=== PATIENT | female | born 1960 | race Caucasian/White ===

== ENCOUNTER → 2016-03-04 | Outpatient (CLI) | payer MEDICAID ==
[2016-03-04 08:06] LABS: APPEARANCE,URINE SLIGHTLY-CLOUDY; BILIRUBIN,URINE NEGATIVE (NEGATIVE); GLUCOSE, URINE NEGATIVE (NEGATIVE); KETONES,URINE NEGATIVE (NEGATIVE); LEUKOCYTE ESTERASE,URINE NEGATIVE (NEGATIVE); NITRITE,URINE NEGATIVE (NEGATIVE); PROTEIN,URINE NEGATIVE (NEGATIVE); URINE SPECIFIC GRAVITY 1.004; UROBILINOGEN,URINE NEGATIVE mg/dL (<2.0)
[2016-03-04 08:07] LABS: ABSOLUTE EOSINOPHILS # (AUTO) 0.1 10^3/uL (0.0-0.6); ABSOLUTE LYMPHOCYTES (AUTO) 1.1 10^3/uL (0.5-4.7); ABSOLUTE MONOCYTES (AUTO) 1.2 10^3/uL (0.1-1.4); ABSOLUTE NEUT (AUTO) 5.4 10^3/uL (1.7-8.2); BASOPHILS % (AUTO) 0.3 % (0-2); EOSINOPHILS % (AUTO) 1.7 % (0-6); HEMATOCRIT 37.5 % (36.0-47.0); HEMOGLOBIN 12.3 g/dL (12.0-15.5); HGB HCT DIFFERENCE -0.6; LYMPHOCYTES % (AUTO) 14.2 % (13-45); MEAN CORPUSCULAR HEMOGLOBIN 32.2 pg (27.0-33.4); MEAN CORPUSCULAR HGB CONC 32.8 g/dL (32.0-36.0); MEAN CORPUSCULAR VOLUME 98 fl (80-97); RED BLOOD COUNT 3.82 10^6/uL (3.72-5.28); RED CELL DISTRIBUTION WIDTH 18.6 % (11.5-14.0); SEGMENTED NEUTROPHILS % (AUTO) 68.8 % (42-78); WHITE BLOOD COUNT 7.8 10^3/uL (4.0-10.5)
[2016-03-04 08:35] LABS: ALANINE AMINOTRANSFERASE 15 U/L (9-52); ALBUMIN 4.2 g/dL (3.5-5.0); ALKALINE PHOSPHATASE 75 U/L (38-126); ANION GAP 12 (5-19); ASPARTATE AMINO TRANSFERASE 18 U/L (14-36); BILIRUBIN,TOTAL 0.4 mg/dL (0.2-1.3); BLOOD UREA NITROGEN 9 mg/dL (7-20); CALCIUM 9.4 mg/dL (8.4-10.2); CARBON DIOXIDE 25 mmol/L (22-30); CHLORIDE 99 mmol/L (98-107); CREATININE RESULT 0.38 mg/dL (0.52-1.25); GLUCOSE 87 mg/dL (75-110); POTASSIUM 4.3 mmol/L (3.6-5.0); SODIUM 136.2 mmol/L (137-145); TOTAL PROTEIN 7.6 g/dL (6.3-8.2)
[2016-03-05 08:20] LABS: CHOLESTEROL 200.31 mg/dL (0-200); Direct HDL 75 mg/dL (>40); TRIGLYCERIDES 242 mg/dL (<150)
[2016-03-05 08:30] LABS: DIRECT LDL 92 mg/dL (<100)
[2016-03-05 08:33] LABS: VLDL CHOLESTEROL 48.4 mg/dL (10-31)
== END ==
LOC: OD 07:03
DX: E46 Unspecified protein-calorie malnutrition (principal); J44.9 Chronic obstructive pulmonary disease, unspecified; C32.9 Malignant neoplasm of larynx, unspecified; F99 Mental disorder, not otherwise specified
CPT/HCPCS: 36415; 80053; 80061; 81001; 83036; 84443; 85025

== ENCOUNTER → 2016-03-05 | Outpatient (CLI) | payer MEDICAID ==
--- NOTE | 2016-03-05 15:05 | WOMENS IMAGING REPORT ---
EXAM DESCRIPTION: BONE DENSITY HIP/SPINE COMPLETED DATE/TIME: 03/05/2016 2:19 pm REASON FOR STUDY: E46 J44.9 C32.9 F99 E46 UNSPECIFIED PROTEIN-CALORIE MALNUTRITION COMPARISON: No previous TECHNIQUE: Dual-Energy X-ray Absorptiometry (DEXA) of the AP Spine and Hip. LIMITATIONS: None. FINDINGS: LUMBAR SPINE: The bone mineral density (BMD) measured from L1-L4 in the AP projection correlates with a T-score of -2.3, which is osteopenic as defined by the World Health Organization. HIP: The bone mineral density (BMD) measured in the left total hip correlates with a T-score of -2.4, which is borderline osteoporotic as defined by the World Health Organization. COMMENT: The World Health Organization defines low BMD as follows: T-score: Normal: Greater than -1.0 Osteopenia: Between -1.0 and -2.5 Osteoporosis: Less than -2.5 without fractures Established osteoporosis: Less than -2.5 with fractures In general, you may wish to consider: Diagnosis Treatment Follow-up DEXA Normal BMD Prevention 2-3 years Osteopenia Prevention/Therapy 1-2 years Osteoporosis Therapy Yearly TECHNICAL DOCUMENTATION: JOB ID: [id number] [employer]- All Rights Reserved <Electronicallly signed by HAILEY AMARO MD in [place]> 03/05/16 4238 [facility]
== END ==
LOC: WI 12:24
DX: M85.88 Other specified disorders of bone density and structure, other site (principal); E46 Unspecified protein-calorie malnutrition; J44.9 Chronic obstructive pulmonary disease, unspecified; C32.9 Malignant neoplasm of larynx, unspecified; F99 Mental disorder, not otherwise specified
CPT/HCPCS: 77080

== ENCOUNTER → 2016-04-10 | Outpatient (CLI) | payer MEDICAID | LOC: OD 12:45 | DX: D64.9 Anemia, unspecified (principal); E53.8 Deficiency of other specified B group vitamins | CPT/HCPCS: 36415; 82607; 82728; 82746; 83540; 83550; 85045 ==

== ENCOUNTER 2016-05-24 10:22 | Inpatient (IN) | payer MEDICAID ==
[2016-05-24] MEDS ORDERED: THIAMINE HCL 100 MG in NORMAL SALINE 50 ML IV ONE (10:38)
[2016-05-24] MEDS ORDERED: ONDANSETRON HCL INJ/PF 4 MG/2 ML SDV IV ONE (10:38)
--- NOTE | 2016-05-24 10:39 | ER Document Report ---
ED General - General Time seen by provider: 10:20 Mode of Arrival: Medic Information source: Patient TRAVEL OUTSIDE OF THE [place] IN LAST 30 DAYS: No <MARILYN DE JESUS - Last Filed: 05/24/16 19:41> <ANSHUL BRITTON - Last Filed: 05/24/16 23:10> - General Chief Complaint: Fall Stated Complaint: WEAKNESS Notes: 55-year-old female brought by EMS with report of fall. The patient states he did not lose consciousness but fell because she had been drinking alcohol. Patient reported EMS that she is had poor by mouth intake for the past week. Patient is prior history of throat cancer and had a PEG tube in but she says at some point recently that was removed. She says she has trouble eating solid food but is able to drink liquids without difficulty. She denies any loss of consciousness and denies any pain she could not indicate how much she had been drinking alcohol and when her last drink was. Physical Exam: General: Alert, appears nontoxic HEENT: Normocephalic. Atraumatic. PERRLA. Extraocular movements intact. Tympanic membranes and canals clear no otorhinorrhea Oropharynx clear. Neck: Supple. Non-tender. No adenopathy no JVD no carotid bruits Respiratory: No respiratory distress. Clear and equal breath sounds bilaterally. Cardiovascular: Regular rate and rhythm. PMI not displaced Abdominal: Normal Inspection. Soft, non-tender. No distension. Normal Bowel Sounds. Small incision in the left upper abdomen consistent with a healing PEG tube site no bleeding drainage or erythema in duration or swelling Back: Non-tender. No deformity or step off. Extremities: Good range of motion all joints without apparent discomfort no Homans sign bilaterally 2+ pulses all 4 extremities no edema no cyanosis Neurological: Patient somewhat slow to answer questions consistent with alcohol intoxication. Retail Sales Representative strength 5 out of 5 equal both upper strategies motor function 5 out of 5 equal both lower extremities cranial nerves III through XII intact Psychological: Normal affect. Normal Mood. Skin: Warm. Dry. Normal color. (MARILYN DE JESUS) - Related Data Allergies/Adverse Reactions: codeine [Codeine] Allergy (Severe, Verified 08/18/15 14:06) itching oxytetracycline [From Terramycin] Allergy (Severe, Verified 08/18/15 14:06) rash paliperidone [From Invega] Allergy (Intermediate, Verified 08/18/15 14:06) Hives fentanyl [Fentanyl] Allergy (Verified 08/18/15 14:06) Past Medical History - Social History Smoking Status: Current Every Day Smoker Family History: Other - Patient reports none Pulmonary Medical History: Reports: Hx Bronchitis, Hx COPD Neurological Medical History: Reports: Hx Seizures - Alcohol withdrawal seizures Psychiatric Medical History: Reports: Hx Bipolar Disorder, Hx Depression, Hx Schizophrenia - paraniod Past Surgical History: Reports: Hx Appendectomy, Hx Hysterectomy, Hx Tonsillectomy - Immunizations Immunizations up to date: Yes Hx Diphtheria, Pertussis, Tetanus Vaccination: Yes - unknown <MARILYN DE JESUS - Last Filed: 05/24/16 19:41> Review of Systems - Review of Systems Constitutional: denies: Chills, Fever EENT: denies: Ear pain, Throat pain, Mouth pain Cardiovascular: denies: Chest pain, Dyspnea Respiratory: denies: Cough, Short of breath, Wheezing Gastrointestinal: denies: Abdominal pain, Diarrhea, Nausea, Vomiting, Blood in vomit, Black stools, Rectal bleeding Genitourinary: denies: Burning, Dysuria Female Genitourinary: Post menopausal Musculoskeletal: denies: Back pain, Muscle pain, Leg swelling Skin: denies: Rash Hematologic/Lymphatic: denies: Swollen glands Neurological/Psychological: Weakness - Generalized. denies: Numbness <MARILYN DE JESUS - Last Filed: 05/24/16 19:41> Course - Laboratory Result Diagrams: 05/24/16 12:10 05/24/16 12:10 - Diagnostic Test Radiology reviewed: Image reviewed, Reports reviewed <MARILYN DE JESUS - Last Filed: 05/24/16 19:41> - Laboratory Result Diagrams: 05/24/16 12:10 05/24/16 20:25 - Diagnostic Test Radiology reviewed: Image reviewed, Reports reviewed <ANSHUL BRITTON - Last Filed: 05/24/16 23:10> - Re-evaluation Re-evalutation: 05/24/16 15:58 Patient evaluated approximately 1400 after being found on the floor. Patient did help back in the bed and this examiner she denies striking her head and has no complaints. Reexamination shows head to be atraumatic and she has good range of motion all joints without apparent discomfort 05/24/16 17:55 Reevaluation shows patient to be awake and alert planning of "pain all over". She denies suicidal or homicidal ideations and denies audiovisual hallucinations. She says she does not wish detox other than what she is already obtaining through follow-up at [facility] 05/24/16 19:41 Patient reevaluated with daughter. Daughter reports that the patient typically does not wish to drink alcohol when she is on her psychiatric medicines are Prozac Risperdal and Seroquel and she has those at home but does not take them when she drinks. She thinks patient's fall several times over the past week and at least 5 times yesterday. I long discussion with patient and daughter regarding the patient's current status. She is not suicidal or homicidal and alcohol abuse is not ground for involuntary commitment. I explained that the patient is choosing not to take her psychiatric medications and choosing to drink alcohol and that detox would be pointless unless she may choice to quit. Also counseled them that abrupt alcohol withdrawal without detox management can lead to delirium tremens and this is the rationale behind detox evaluations. I discussed the case with our mental health providers here and they provided list for outpatient detox facilities but states that they do not provide further assistance regarding placement for this. Daughter also expressed concern the patient not eating for 5 days. This is also not ground for admission to hospital. Patient the moment is still too intoxicated for discharge and she is unable to walk. Patient is also noted to be hypoxic and patient's oxygen nasal cannula at home but does not use it and I suspect this is her baseline but will check chest x-ray. (MARILYN DE JESUS) 05/24/16 20:00 Sign-out from Dr. De Jesus: 55 yo alcoholic found down after possible fall. Chest x-ray pending. 05/24/16 21:30 CXR shows new patchy infiltrate, concerning for pneumonia. Patient hypoxic to 80% on her 3 L nasal cannula that she should be on at home. She does not say that she is short of breath and is in no respiratory distress. Oxygenation increased to 6 L nasal cannula and sats increased to 88%, which is most likely her baseline due to her COPD. Patient is feeling tremulous and is tachycardic. She says she feels like she is going through withdrawal, which she has done before. CIWA 11 and will provide Ativan. Patient requires inpatient admission for the hypoxia, pneumonia and alcohol withdrawal. Pt's PMD is Dr. Gan. 05/24/16 23:[address] Begum and he has accepted patient to ICU. (ANSHUL BRITTON) - Vital Signs Vital signs: Temp Pulse Resp BP Pulse Ox 98.4 F 106 H 23 H 102/68 69 L 05/24/16 17:27 05/24/16 17:27 05/24/16 20:05 05/24/16 17:27 05/24/16 18:26 - Laboratory Laboratory results interpreted by me: 05/24/16 05/24/16 05/24/16 12:00 12:10 12:10 WBC 13.5 H RBC 3.42 L Hct 35.8 L MCV 105 H MCH 37.7 H RDW 14.5 H Plt Count 71 L Seg Neuts % (Manual) 96 H Band Neutrophils % 1 L Lymphocytes % (Manual) 2 L Monocytes % (Manual) 1 L Abs Neuts (Manual) 13.1 H Abs Lymphs (Manual) 0.3 L Carbonic Acid ABG pCO2 ABG pO2 ABG HCO3 ABG Total CO2 ABG O2 Saturation Sodium 125.6 L Potassium 3.1 L Chloride 90 L Carbon Dioxide 21 L BUN 4 L Creatinine 0.38 L Glucose 126 H Calcium 7.4 L Phosphorus Total Bilirubin 7.0 H Direct Bilirubin 6.0 H AST 1419 H ALT 361 H Alkaline Phosphatase 240 H Total Protein 6.2 L Albumin 3.2 L Lipase 445.2 H Urine Protein 30 H Urine Ketones TRACE H Urine Blood MODERATE H Urine Bilirubin SMALL H Urine Urobilinogen 2.0 H 05/24/16 05/24/16 05/24/16 20:25 20:25 22:30 WBC RBC Hct MCV MCH RDW Plt Count Seg Neuts % (Manual) Band Neutrophils % Lymphocytes % (Manual) Monocytes % (Manual) Abs Neuts (Manual) Abs Lymphs (Manual) Carbonic Acid 1.02 L ABG pCO2 34.0 L ABG pO2 39.4 L* ABG HCO3 19.2 L ABG Total CO2 20.2 L ABG O2 Saturation 73.2 L Sodium 124.0 L Potassium 3.1 L Chloride 93 L Carbon Dioxide 19 L BUN 3 L Creatinine 0.31 L Glucose 70 L Calcium 6.8 L* Phosphorus 1.9 L Total Bilirubin 7.9 H Direct Bilirubin 7.0 H AST 1426 H ALT 341 H Alkaline Phosphatase 226 H Total Protein 6.2 L Albumin 3.0 L Lipase Urine Protein Urine Ketones Urine Blood Urine Bilirubin Urine Urobilinogen - Diagnostic Test Radiology results interpreted by me: CXR: Patchy infiltrate (ANSHUL BRITTON) - EKG Interpretation by Me Additional EKG results interpreted by me: 05/24/16 11:01 EKG reviewed by myself sinus tachycardia 103 no acute changes (MARILYN DE JESUS) Discharge <MARILYN DE JESUS - Last Filed: 05/24/16 19:41> - Discharge Admitting Provider: [facility] Unit Admitted: ICU <ANSHUL BRITTON - Last Filed: 05/24/16 23:10> - Discharge Clinical Impression: Hypoxia Pneumonia Qualifiers: Pneumonia type: due to unspecified organism Laterality: unspecified laterality Lung location: unspecified part of lung Qualified Code(s): J18.9 - Pneumonia, unspecified organism Alcohol withdrawal Qualifiers: Complication of substance-induced condition: with delirium Qualified Code(s): F10.231 - Alcohol dependence with withdrawal delirium Condition: Stable Disposition: ADMITTED INPATIENT Referrals: JASSON LIMON MD [Primary Care Provider] - Follow up as needed
[2016-05-24] MEDS ORDERED: FOLIC ACID INJ 5 MG/1 ML 10 ML VIAL IV ONE (11:30)
[2016-05-24] MEDS ORDERED: THIAMINE HCL INJ 200 MG/2 ML VIAL ONE (12:21)
[2016-05-24 12:25] LABS: APPEARANCE,URINE SLIGHTLY-CLOUDY; BILIRUBIN,URINE SMALL (NEGATIVE); GLUCOSE, URINE NEGATIVE (NEGATIVE); KETONES,URINE TRACE mg/dL (NEGATIVE); LEUKOCYTE ESTERASE,URINE NEGATIVE (NEGATIVE); NITRITE,URINE NEGATIVE (NEGATIVE); PROTEIN,URINE 30 mg/dL (NEGATIVE); URINE SPECIFIC GRAVITY 1.011
[2016-05-24 12:25] LABS: HEMATOCRIT 35.8 % (36.0-47.0); HEMOGLOBIN 12.9 g/dL (12.0-15.5); HGB HCT DIFFERENCE 2.9; MEAN CORPUSCULAR HEMOGLOBIN 37.7 pg (27.0-33.4); MEAN CORPUSCULAR VOLUME 105 fl (80-97); RED BLOOD COUNT 3.42 10^6/uL (3.72-5.28); RED CELL DISTRIBUTION WIDTH 14.5 % (11.5-14.0); WHITE BLOOD COUNT 13.5 10^3/uL (4.0-10.5)
[2016-05-24] MEDS: NORMAL SALINE 1000 ML 1,000 ML IV PRN ×2 (12:34→15:13)
[2016-05-24 12:39] LABS: ALANINE AMINOTRANSFERASE 361 U/L (9-52); ALBUMIN 3.2 g/dL (3.5-5.0); ALCOHOL 278 mg/dL (NONE DETECTED); ALKALINE PHOSPHATASE 240 U/L (38-126); ANION GAP 15 (5-19); BLOOD UREA NITROGEN 4 mg/dL (7-20); CALCIUM 7.4 mg/dL (8.4-10.2); CARBON DIOXIDE 21 mmol/L (22-30); CHLORIDE 90 mmol/L (98-107); CREATININE RESULT 0.38 mg/dL (0.52-1.25); GLUCOSE 126 mg/dL (75-110); LIPASE 445.2 U/L (23-300); MAGNESIUM 1.6 mg/dL (1.6-2.3); SODIUM 125.6 mmol/L (137-145); TOTAL PROTEIN 6.2 g/dL (6.3-8.2)
[2016-05-24 12:46] LABS: ASPARTATE AMINO TRANSFERASE 1419 U/L (14-36)
[2016-05-24 12:49] LABS: BAND NEUTROPHILS % (MANUAL) 1 % (3-5); BASOPHILS % (MANUAL) 0 % (0-2); EOSINOPHILS % (MANUAL) 0 % (0-6); LYMPHOCYTES % (MANUAL) 2 % (13-45); TOTAL CELLS COUNTED 100
[2016-05-24 12:50] LABS: BURR CELLS 2+; OVALOCYTES SLIGHT; POIKILOCYTOSIS 2+; SCHISTOCYTES SLIGHT; TOXIC GRANULATION SLIGHT; TOXIC VACUOLATION PRESENT
[2016-05-24 12:57] LABS: POTASSIUM 3.1 mmol/L (3.6-5.0)
[2016-05-24] MEDS ORDERED: POTASSIUM CHLORIDE 10 MEQ TABLET.SA PO ONE (14:31)
[2016-05-24] MEDS: MAGNESIUM SULFATE/D5W 100 ML IV SCH ×2 (15:14→18:19)
[2016-05-24] MEDS ORDERED: POTASSI CL 20 MEQ/NS 1L 1,000 ML IV ONE (16:09)
--- NOTE | 2016-05-24 16:26 | EKG REPORT ---
SEVERITY:- ABNORMAL ECG - SINUS TACHYCARDIA PROLONGED QT INTERVAL : Confirmed by: Jared Steen MD 24-May-2016 16:26:18
[2016-05-24] MEDS ORDERED: IPRATROPIUM/ALBUTEROL 0.5-2.5 MG/3 ML AMPUL NEB ONE (18:31)
[2016-05-24] MEDS ORDERED: METHYLPREDNISOLONE INJ 125 MG/2 ML SDV IV ONE (18:49)
[2016-05-24 20:56] LABS: ALANINE AMINOTRANSFERASE 341 U/L (9-52); ALCOHOL 157 mg/dL (NONE DETECTED); ALKALINE PHOSPHATASE 226 U/L (38-126); ANION GAP 12 (5-19); BILIRUBIN,TOTAL 7.9 mg/dL (0.2-1.3); BLOOD UREA NITROGEN 3 mg/dL (7-20); CARBON DIOXIDE 19 mmol/L (22-30); CHLORIDE 93 mmol/L (98-107); CREATININE RESULT 0.31 mg/dL (0.52-1.25); GLUCOSE 70 mg/dL (75-110); POTASSIUM 3.1 mmol/L (3.6-5.0); TOTAL PROTEIN 6.2 g/dL (6.3-8.2)
[2016-05-24 21:02] LABS: ASPARTATE AMINO TRANSFERASE 1426 U/L (14-36)
[2016-05-24 21:04] LABS: CALCIUM 6.8 mg/dL (8.4-10.2)
[2016-05-24] MEDS ORDERED: LORAZEPAM INJ 2 MG/1 ML VIAL IV ONE (21:28)
[2016-05-24] MEDS ORDERED: CEFTRIAXONE INJ 1000 MG VIAL IV ONE (21:30)
[2016-05-24] MEDS ORDERED: CLINDAMYCIN 600 MG/D5W RTU 50 ML IV ONE (21:30)
[2016-05-24] MEDS ORDERED: AZITHROMYCIN INJ 500 MG VIAL IV ONE (21:30)
[2016-05-24] MEDS ORDERED: MAGNESIUM SULFATE/D5W 100 ML IV SCH (22:00)
[2016-05-24] MEDS ORDERED: HYDRALAZINE HCL INJ/PF 20 MG/1 ML SDV IV PRN (22:01)
[2016-05-24] MEDS ORDERED: ONDANSETRON HCL INJ/PF 4 MG/2 ML SDV IV PRN (22:03)
[2016-05-24] MEDS ORDERED: IPRATROPIUM/ALBUTEROL 0.5-2.5 MG/3 ML AMPUL NEB PRN (22:03)
[2016-05-24] MEDS ORDERED: THIAMINE HCL INJ 200 MG/2 ML VIAL IV PRN (22:26)
[2016-05-24] MEDS ORDERED: FOLIC ACID INJ 5 MG/1 ML 10 ML VIAL IV PRN (22:27)
[2016-05-24] MEDS ORDERED: CALCIUM GLUCONATE 2,000 MG in DEXTROSE 5%-WATER 100 ML IV ONE (22:31)
[2016-05-24] MEDS ORDERED: POTASSIUM PHOS,M-BASIC-D-BASIC 15 MMOL in NORMAL SALINE 250 ML IV ONE (22:32)
[2016-05-24] MEDS ORDERED: DEXTROSE 50%-WATER 25 GM/50 ML DISP.SYRIN IV PRN ×2 (22:35)
[2016-05-24] MEDS ORDERED: GLUCAGON,HUMAN RECOMB 1 MG INJ IM PRN (22:35)
[2016-05-24] MEDS ORDERED: DEXTROSE 40% GEL 15 GM TUBE PO PRN ×2 (22:35)
[2016-05-24] MEDS: PHOSPHORUS #1 250 MG TABLET PO SCH (22:45)
[2016-05-24 22:58] LABS: ARTERIAL BLOOD BASE EXCESS -5.3 mmol/L; ARTERIAL BLOOD O2 SATURATION 73.2 % (94-98)
[2016-05-24 23:19] LABS: URINE BARBITURATES SCREEN NEGATIVE; URINE METHADONE SCREEN NEGATIVE; URINE OPIATES LOW NEGATIVE; URINE PHENCYCLIDINE SCREEN NEGATIVE
[2016-05-24 23:25] LABS: ARTERIAL BLOOD BASE EXCESS -6.1 mmol/L; ARTERIAL BLOOD O2 SATURATION 96.1 % (94-98)
[2016-05-24] MEDS ORDERED: CALCIUM GLUCONATE 1000 MG/10 ML INJ IV PRN (23:25)
[2016-05-24] MEDS: NORMAL SALINE 1000 ML 1,000 ML IV SCH (23:40)
--- NOTE | 2016-05-24 23:54 | Operative Report ---
Operative Report DATE OF SURGERY: 05/24/16 PREOPERATIVE DIAGNOSIS: Alcohol withdrawal POSTOPERATIVE DIAGNOSIS: Same OPERATION: Placement of right femoral vein central venous access catheter using ultrasound guidance SURGEON: SERVANDO DESHPANDE ANESTHESIA: Local TISSUE REMOVED OR ALTERED: None COMPLICATIONS: none ESTIMATED BLOOD LOSS: D5 cc INTRAOPERATIVE FINDINGS: Below PROCEDURE: Informed consent was obtained. The patient was placed in Trendelenburg the right femoral area was shaved of hair prepped and draped in a sterile fashion. Surgical plan and surgical timeout discussed. The right neck was anesthetized with 1% lidocaine without epinephrine. Using the variable frequency linear transducer, real time, a 18-gauge needle and wire were threaded into the right femoral vein jugular vein. This required the use of a Glidewire The tract was dilated up, the dilator removed, and the triple- lumen central venous access catheter was threaded into the right femoral vein uneventfully to the hub. There was excellent aspiration and flush of saline through all 3 lumens. The catheter was affixed to the skin with a Biopatch and 2-0 silk suture; sterile dressing applied. The patient tolerated the procedure well. There were no complications.
[2016-05-25] MEDS ORDERED: CALCIUM GLUCONATE 1000 MG/10 ML INJ IV ONE ×2 (00:14→15:30)
[2016-05-25] MEDS: POTASSI CL 20 MEQ/50 ML RIDER 50 ML IV SCH ×6 (00:36→21:52)
[2016-05-25 00:51] LABS: ANION GAP 13 (5-19); BLOOD UREA NITROGEN 2 mg/dL (7-20); CARBON DIOXIDE 19 mmol/L (22-30); CHLORIDE 97 mmol/L (98-107); CREATININE RESULT 0.29 mg/dL (0.52-1.25); GLUCOSE 80 mg/dL (75-110); SODIUM 128.7 mmol/L (137-145)
[2016-05-25 01:06] LABS: CALCIUM 6.4 mg/dL (8.4-10.2); POTASSIUM 2.9 mmol/L (3.6-5.0)
[2016-05-25] MEDS: IPRATROPIUM/ALBUTEROL 0.5-2.5 MG/3 ML AMPUL NEB SCH ×4 (02:43→19:35)
[2016-05-25] MEDS: LORAZEPAM INJ 2 MG/1 ML VIAL IV PRN ×2 (03:05→07:47)
[2016-05-25] MEDS: NORMAL SALINE 1000 ML 1,000 ML IV SCH ×2 (05:38→12:18)
[2016-05-25] MEDS: HEPARIN SOD (PORCINE) 5,000 UNIT/ML 1 ML SYRINGE SUBCUT SCH ×3 (05:51→21:57)
[2016-05-25] MEDS: PHOSPHORUS #1 250 MG TABLET PO SCH ×4 (05:55→21:53)
[2016-05-25 06:20] LABS: HEMATOCRIT 31.1 % (36.0-47.0); MEAN CORPUSCULAR HEMOGLOBIN 37.2 pg (27.0-33.4); MEAN CORPUSCULAR HGB CONC 34.3 g/dL (32.0-36.0); MEAN CORPUSCULAR VOLUME 108 fl (80-97); RED BLOOD COUNT 2.87 10^6/uL (3.72-5.28); RED CELL DISTRIBUTION WIDTH 14.7 % (11.5-14.0); WHITE BLOOD COUNT 13.7 10^3/uL (4.0-10.5)
[2016-05-25 06:27] LABS: ALANINE AMINOTRANSFERASE 320 U/L (9-52); ALBUMIN 2.6 g/dL (3.5-5.0); ALKALINE PHOSPHATASE 257 U/L (38-126); ANION GAP 13 (5-19); BILIRUBIN,DIRECT 7.8 mg/dL (0.0-0.4); BILIRUBIN,TOTAL 8.8 mg/dL (0.2-1.3); BLOOD UREA NITROGEN 2 mg/dL (7-20); CARBON DIOXIDE 20 mmol/L (22-30); CHLORIDE 99 mmol/L (98-107); CREATININE RESULT 0.36 mg/dL (0.52-1.25); GLUCOSE 99 mg/dL (75-110); SODIUM 131.8 mmol/L (137-145); TOTAL PROTEIN 5.5 g/dL (6.3-8.2)
[2016-05-25] MEDS: CLINDAMYCIN 900 MG/D5W RTU 50 ML IV SCH ×3 (06:28→21:56)
[2016-05-25 06:37] LABS: ASPARTATE AMINO TRANSFERASE 1161 U/L (14-36)
[2016-05-25 06:55] LABS: TOTAL CELLS COUNTED 100
[2016-05-25 06:56] LABS: EOSINOPHILS % (MANUAL) 0 % (0-6); LYMPHOCYTES % (MANUAL) 0 % (13-45); TOXIC VACUOLATION PRESENT
[2016-05-25 06:57] LABS: ACANTHOCYTES SLIGHT; ANISOCYTOSIS SLIGHT; HYPOCHROMASIA 1+; POIKILOCYTOSIS 1+; POLYCHROMASIA SLIGHT; TARGET CELLS 1+
[2016-05-25 07:11] LABS: HEMOGLOBIN 10.7 g/dL (12.0-15.5)
[2016-05-25 07:13] LABS: BASOPHILS % (MANUAL) 0 % (0-2)
--- NOTE | 2016-05-25 07:21 | PDOC H&P ---
History of Present Illness Admission Date/PCP: 05/24/16 22:03 JASSON LIMON MD Patient complains of: Falls History of Present Illness: DEONTE CASTRO is a 55 year old female with a past medical history of tobacco dependence, schizophrenia, alcohol dependence with withdrawal seizure, status post radical neck dissection for throat cancer with PEG placement which is recently removed, she has subsequent difficulty eating with recurrent aspiration but tolerates alcohol, she is acutely intoxicated and history is provided by her daughter who states patient has not eaten in 5 days and had recurrent falls. In the emergency room she is also found to have hypoxia with aspiration pneumonia, hypo-natremia, hypokalemia, thrombocytopenia. She's referred to the hospitalist for admission. Past Medical History Pulmonary Medical History: Reports: Bronchitis, Chronic Obstructive Pulmonary Disease (COPD), Other - Recurrent aspiration Neurological Medical History: Reports: Seizures - Alcohol withdrawal seizures Malignancy Medical History: Reports: Other - Throat cancer Psychiatric Medical History: Reports: Bipolar Disorder, Depression, Schizoaffective Disorder Past Surgical History Past Surgical History: Reports: Appendectomy, Hysterectomy, Tonsillectomy, Other - Status post radical neck dissection for throat cancer Social History Information Source: [facility] Records Smoking Status: Current Every Day Smoker Cigarettes Packs Per Day: 2 Frequency of Alcohol Use: Heavy Hx Recreational Drug Use: No Drugs: None Hx Prescription Drug Abuse: No - Advance Directive Resuscitation Status: Full Code Family History Family History: Other - Unobtainable Parental Family History Reviewed: Yes Children Family History Reviewed: Yes Sibling(s) Family History Reviewed.: Yes Medication/Allergy Home Medications: Albuterol Sulfate [Ventolin Hfa] 2 puff IH Q4 PRN 07/19/15 Fluoxetine HCl [Prozac] 5 mg PO DAILY 07/19/15 Fluticasone Propionate [Flonase Nasal Hitchcock 50 Mcg/[place]itchcock 16 gm] 1 spray NASL DAILY 07/19/15 Fluticasone/Salmeterol [Advair 500-50 Diskus 14 Dose/Diskus] 1 inh IH Q12H 07/18 Metoclopramide HCl 10 mg PO Q6H PRN 07/19/15 Oxycodone HCl 10 mg PO Q4HP PRN 07/19/15 Trazodone HCl 150 mg PO QHS 07/19/15 Nicotine [Nicoderm 14 mg/24 Hr Transdermal Patch] 1 patch TD DAILY 08/21/15 Prochlorperazine Maleate 10 mg PO Q8H PRN 08/21/15 Risperidone 2 mg PO DAILY 08/21/15 Lansoprazole [Prevacid] 30 mg PO DAILY #30 capsule. 08/25/15 Allergies/Adverse Reactions: codeine [Codeine] Allergy (Severe, Verified 05/25/16 03:10) itching oxytetracycline [From Terramycin] Allergy (Severe, Verified 05/25/16 03:10) rash paliperidone [From Invega] Allergy (Intermediate, Verified 05/25/16 03:10) Hives fentanyl [Fentanyl] Allergy (Verified 05/25/16 03:10) Review of Systems ROS unobtainable: Due to mental status Physical Exam Vital Signs: Temp Pulse Resp BP Pulse Ox 99.2 F 117 H 25 H 95/59 L 94 05/25/16 04:30 05/25/16 06:29 05/25/16 06:29 05/25/16 06:29 05/25/16 06:00 Intake & Output 05/23/16 05/24/16 05/25/16 11:59 11:59 11:59 Output Total 1800 Balance -1800 Weight 52.4 kg General appearance: PRESENT: disheveled, severe distress, thin Head exam: PRESENT: atraumatic, normocephalic Eye exam: PRESENT: conjunctiva pink, EOMI, PERRLA. ABSENT: scleral icterus Ear exam: PRESENT: normal external ear exam Mouth exam: PRESENT: moist, tongue midline Teeth exam: PRESENT: poor dentation Neck exam: ABSENT: carotid bruit, JVD, lymphadenopathy, thyromegaly Respiratory exam: PRESENT: accessory muscle use, chest wall tenderness, crackles , prolonged expiratory phas, retraction, rhonchi, symmetrical, tachypnea, unlabored Cardiovascular exam: PRESENT: RRR. ABSENT: diastolic murmur, rubs, systolic murmur Pulses: PRESENT: normal dorsalis pedis pul Vascular exam: PRESENT: normal capillary refill GI/Abdominal exam: PRESENT: normal bowel sounds, soft. ABSENT: distended, guarding, mass, organolmegaly, rebound, tenderness Rectal exam: PRESENT: deferred Extremities exam: PRESENT: full ROM, tenderness - Ecchymosis and skin tears all 4 extremities of various stages of healing. ABSENT: calf tenderness, clubbing, pedal edema Musculoskeletal exam: PRESENT: other - Ecchymosis and skin tears various stages of healing Neurological exam: PRESENT: altered Psychiatric exam: PRESENT: agitated, anxious Skin exam: PRESENT: warm, other - Multiple areas of ecchymosis of various stage of healing. ABSENT: cyanosis, rash Results Laboratory Results: 05/24/16 05/24/16 05/25/16 22:30 23:13 00:17 Seg Neutrophils % Lymphocytes % Monocytes % Eosinophils % Basophils % Absolute Neutrophils Absolute Lymphocytes Absolute Monocytes Absolute Eosinophils Absolute Basophils Carbonic Acid 1.02 L 1.08 HCO3/H2CO3 Ratio 18:1 17:1 ABG pH 7.37 7.34 L ABG pCO2 34.0 L 35.9 ABG pO2 39.4 L* 86.4 ABG HCO3 19.2 L 18.9 L ABG O2 Saturation 73.2 L 96.1 ABG Base Excess -5.3 -6.1 FiO2 ROOM AIR 6L Sodium 128.7 L Potassium 2.9 L* Chloride 97 L Carbon Dioxide 19 L Anion Gap 13 BUN 2 L Creatinine 0.29 L Est GFR ( Amer) > 60 Est GFR (Non-Af Amer) > 60 Glucose 80 Calcium 6.4 L* 05/25/16 06:00 Seg Neutrophils % Not Reportable Lymphocytes % Not Reportable Monocytes % Not Reportable Eosinophils % Not Reportable Basophils % Not Reportable Absolute Neutrophils Not Reportable Absolute Lymphocytes Not Reportable Absolute Monocytes Not Reportable Absolute Eosinophils Not Reportable Absolute Basophils Not Reportable Carbonic Acid HCO3/H2CO3 Ratio ABG pH ABG pCO2 ABG pO2 ABG HCO3 ABG O2 Saturation ABG Base Excess FiO2 Sodium Potassium Chloride Carbon Dioxide Anion Gap BUN Creatinine Est GFR ( Amer) Est GFR (Non-Af Amer) Glucose Calcium Impressions: Cervical Spine CT 05/24/16 10:37 IMPRESSION: CHRONIC DEGENERATIVE CHANGES. 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 NO ACUTE FINDINGS. Head CT 05/24/16 10:37 IMPRESSION: NORMAL BRAIN CT WITHOUT CONTRAST. SINUS DISEASE. NO ACUTE TRAUMATIC FINDINGS. Chest X-Ray 05/24/16 18:31 IMPRESSION: UNDERLYING EMPHYSEMA WITH NEW PATCHY BIBASILAR AIRSPACE DISEASE SUSPICIOUS FOR SUPERIMPOSED PNEUMONIA. Assessment & Plan - Diagnosis (1) Pneumonia Qualifiers: Pneumonia type: due to unspecified organism Laterality: unspecified laterality Lung location: unspecified part of lung Qualified Code(s): J18.9 - Pneumonia, unspecified organism Is this a current diagnosis for this admission?: YesPlan: Strongly suggestive of aspiration given her history she receives supportive care , oxygen, albuterol Atrovent, clindamycin when necessary BiPAP, Nothing by mouth strongly consider replacement of PEG tube (2) Thrombocytopenia Is this a current diagnosis for this admission?: YesPlan: Likely secondary to alcohol repeat CBC for evaluation (3) Alcohol withdrawal Qualifiers: Complication of substance-induced condition: with delirium Qualified Code(s): F10.231 - Alcohol dependence with withdrawal delirium Is this a current diagnosis for this admission?: YesPlan: Thiamine, folate, Ativan and seizure precautions given history of severe withdrawal (4) Hypoxia Is this a current diagnosis for this admission?: YesPlan: Secondary to pneumonia please see #1 (5) Hypokalemia Is this a current diagnosis for this admission?: YesPlan: Replacement and reevaluation (6) Hypophosphatemia Is this a current diagnosis for this admission?: YesPlan: Severe malnutrition she is receiving supplemental IV phosphate will likely require [place] protein via PEG tube - Time Time Spent: 50 to 70 Minutes - Inpatient Certification Medical Necessity: Need Close Monitoring Due to Risk of Patient Decompensation
[2016-05-25] MEDS ORDERED: LORAZEPAM INJ 2 MG/1 ML VIAL IV PRN (09:46)
[2016-05-25] MEDS ORDERED: LORAZEPAM INJ 2 MG/1 ML VIAL ONE (09:49)
[2016-05-25] MEDS: DOCUSATE SODIUM 100 MG CAPSULE PO SCH ×2 (09:50→17:18)
[2016-05-25] MEDS: FLUOXETINE HCL 20 MG/5 ML UDCUP PO SCH (09:51)
[2016-05-25] MEDS: RISPERIDONE 1 MG TABLET PO SCH (09:51)
[2016-05-25] MEDS: FLUTICASONE NASAL SPRAY 50 MCG/SPRY 120 SPRAY/16 GM NASL SCH (09:52)
[2016-05-25] MEDS: NICOTINE 14 MG/24 HR PATCH.TD24 TD SCH (09:52)
[2016-05-25] MEDS: THIAMINE HCL 100 MG, FOLIC ACID 1 MG in NORMAL SALINE 50 ML IV SCH (09:52)
[2016-05-25] MEDS ORDERED: FLUOXETINE HCL PO SCH (10:00)
[2016-05-25] MEDS ORDERED: (PENDING PHARMACY ID) (Risperidone [Risperidone] 2 MG) PO SCH (10:00)
--- NOTE | 2016-05-25 10:21 | PDOC PROGRESS REPORT ---
Subjective Progress Note for:: 05/25/16 Subjective:: Patient is confused this morning. Physical Exam Vital Signs: Temp Pulse Resp BP Pulse Ox 99.5 F 113 H 23 H 99/78 L 93 05/25/16 08:00 05/25/16 08:00 05/25/16 08:00 05/25/16 08:00 05/25/16 08:00 Intake & Output 05/24/16 05/25/16 05/26/16 06:59 06:59 06:59 Output Total 1800 75 Balance -1800 -75 Weight 52.4 kg General appearance: PRESENT: mild distress Eye exam: PRESENT: conjunctiva pink, scleral icterus - Mild icterus Mouth exam: PRESENT: moist, tongue midline Neck exam: ABSENT: JVD Respiratory exam: PRESENT: clear to auscultation seven. ABSENT: rales, rhonchi, wheezes Cardiovascular exam: PRESENT: tachycardia. ABSENT: diastolic murmur, rubs, systolic murmur GI/Abdominal exam: PRESENT: normal bowel sounds, soft. ABSENT: distended, guarding, mass, organolmegaly, rebound, tenderness Extremities exam: ABSENT: calf tenderness, clubbing, pedal edema Neurological exam: PRESENT: altered Psychiatric exam: PRESENT: anxious Skin exam: PRESENT: other - Patient has some bruising present on bilateral legs. Results Laboratory Results: 05/25/16 06:00 05/25/16 06:00 05/24/16 05/24/16 05/25/16 22:30 23:13 00:17 WBC RBC Hgb Hct MCV MCH MCHC RDW Plt Count Seg Neutrophils % Lymphocytes % Monocytes % Eosinophils % Basophils % Absolute Neutrophils Absolute Lymphocytes Absolute Monocytes Absolute Eosinophils Absolute Basophils Carbonic Acid 1.02 L 1.08 HCO3/H2CO3 Ratio 18:1 17:1 ABG pH 7.37 7.34 L ABG pCO2 34.0 L 35.9 ABG pO2 39.4 L* 86.4 ABG HCO3 19.2 L 18.9 L ABG O2 Saturation 73.2 L 96.1 ABG Base Excess -5.3 -6.1 FiO2 ROOM AIR 6L Sodium 128.7 L Potassium 2.9 L* Chloride 97 L Carbon Dioxide 19 L Anion Gap 13 BUN 2 L Creatinine 0.29 L Est GFR ( Amer) > 60 Est GFR (Non-Af Amer) > 60 Glucose 80 Calcium 6.4 L* Total Bilirubin AST ALT Alkaline Phosphatase Total Protein Albumin 05/25/16 05/25/16 06:00 06:00 WBC 13.7 H RBC 2.87 L Hgb 10.7 L D Hct 31.1 L MCV 108 H MCH 37.2 H MCHC 34.3 RDW 14.7 H Plt Count 40 L Seg Neutrophils % Not Reportable Lymphocytes % Not Reportable Monocytes % Not Reportable Eosinophils % Not Reportable Basophils % Not Reportable Absolute Neutrophils Not Reportable Absolute Lymphocytes Not Reportable Absolute Monocytes Not Reportable Absolute Eosinophils Not Reportable Absolute Basophils Not Reportable Carbonic Acid HCO3/H2CO3 Ratio ABG pH ABG pCO2 ABG pO2 ABG HCO3 ABG O2 Saturation ABG Base Excess FiO2 Sodium 131.8 L Potassium 3.0 L* Chloride 99 Carbon Dioxide 20 L Anion Gap 13 BUN 2 L Creatinine 0.36 L Est GFR ( Amer) > 60 Est GFR (Non-Af Amer) > 60 Glucose 99 Calcium 7.0 L* Total Bilirubin 8.8 H AST 1161 H ALT 320 H Alkaline Phosphatase 257 H Total Protein 5.5 L Albumin 2.6 L Impressions: Cervical Spine CT 05/24/16 10:37 IMPRESSION: CHRONIC DEGENERATIVE CHANGES. 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 NO ACUTE FINDINGS. Head CT 05/24/16 10:37 IMPRESSION: NORMAL BRAIN CT WITHOUT CONTRAST. SINUS DISEASE. NO ACUTE TRAUMATIC FINDINGS. Chest X-Ray 05/24/16 18:31 IMPRESSION: UNDERLYING EMPHYSEMA WITH NEW PATCHY BIBASILAR AIRSPACE DISEASE SUSPICIOUS FOR SUPERIMPOSED PNEUMONIA. Assessment & Plan - Diagnosis (1) Hypoxia Is this a current diagnosis for this admission?: YesPlan: This is secondary to her aspiration pneumonia. We'll continue with oxygen and BiPAP as needed. (2) Pneumonia Qualifiers: Pneumonia type: due to unspecified organism Laterality: unspecified laterality Lung location: unspecified part of lung Qualified Code(s): J18.9 - Pneumonia, unspecified organism Is this a current diagnosis for this admission?: YesPlan: Patient has been started on clindamycin. The patient has aspiration pneumonia secondary to alcohol use. (3) Alcohol withdrawal Qualifiers: Complication of substance-induced condition: with delirium Qualified Code(s): F10.231 - Alcohol dependence with withdrawal delirium Is this a current diagnosis for this admission?: YesPlan: Continue with Ativan as needed. (4) Emphysema lung Is this a current diagnosis for this admission?: YesPlan: Continue with nebulizers, oxygen and BiPAP as needed. (5) Thrombocytopenia Is this a current diagnosis for this admission?: YesPlan: Most likely secondary to alcohol use. She has no evidence for active bleeding. (6) Elevated LFTs Is this a current diagnosis for this admission?: YesPlan: Most likely secondary to underlying liver disease however given the elevated direct bilirubin we will check abdominal ultrasound. (7) Bipolar 1 disorder Is this a current diagnosis for this admission?: YesPlan: Continue with Ativan as needed. - Time Time Spent with patient: 25-34 minutes - Inpatient Certification Medical Necessity: Need Close Monitoring Due to Risk of Patient Decompensation, Need for IV Antibiotics - Plan Summary Plan Summary: Patient needs close monitoring in the ICU given her risk of respiratory decompensation.
[2016-05-25] MEDS ORDERED: LORAZEPAM 24 MG/240 ML BAG IV ONE (10:52)
[2016-05-25] MEDS: LORAZEPAM 24 MG/ D5W 240 ML IV PRN ×2 (11:25→14:02)
[2016-05-25 12:52] LABS: ANION GAP 9 (5-19); BLOOD UREA NITROGEN 3 mg/dL (7-20); CARBON DIOXIDE 22 mmol/L (22-30); CHLORIDE 102 mmol/L (98-107); CREATININE RESULT 0.38 mg/dL (0.52-1.25); GLUCOSE 118 mg/dL (75-110); POTASSIUM 3.8 mmol/L (3.6-5.0); SODIUM 132.6 mmol/L (137-145)
[2016-05-25 13:05] LABS: CALCIUM 6.6 mg/dL (8.4-10.2)
[2016-05-25] MEDS ORDERED: GLUCAGON,HUMAN RECOMB 1 MG INJ SUBCUT PRN (17:25)
[2016-05-25] MEDS ORDERED: DEXTROSE 40% GEL 15 GM TUBE PO PRN (17:25)
[2016-05-25] MEDS ORDERED: DEXTROSE 50%-WATER 25 GM/50 ML DISP.SYRIN IV PRN ×2 (17:25)
[2016-05-25 18:06] LABS: ANION GAP 10 (5-19); BLOOD UREA NITROGEN 3 mg/dL (7-20); CARBON DIOXIDE 21 mmol/L (22-30); CHLORIDE 101 mmol/L (98-107); CREATININE RESULT 0.38 mg/dL (0.52-1.25); GLUCOSE 137 mg/dL (75-110); POTASSIUM 3.2 mmol/L (3.6-5.0)
[2016-05-25 18:18] LABS: CALCIUM 6.8 mg/dL (8.4-10.2)
[2016-05-25] MEDS ORDERED: NORMAL SALINE 1000 ML 500 ML IV ONE (18:44)
[2016-05-25] MEDS ORDERED: NORMAL SALINE 1000 ML 1,000 ML IV ONE (22:30)
[2016-05-26] MEDS: PHOSPHORUS #1 250 MG TABLET PO SCH ×6 (00:29→17:08)
[2016-05-26] MEDS: IPRATROPIUM/ALBUTEROL 0.5-2.5 MG/3 ML AMPUL NEB SCH ×4 (01:07→19:30)
[2016-05-26] MEDS: LORAZEPAM 24 MG/ D5W 240 ML IV PRN ×6 (01:47→23:32)
[2016-05-26 05:15] LABS: HEMATOCRIT 25.1 % (36.0-47.0); HEMOGLOBIN 8.9 g/dL (12.0-15.5); HGB HCT DIFFERENCE 1.6; MEAN CORPUSCULAR HEMOGLOBIN 37.6 pg (27.0-33.4); MEAN CORPUSCULAR HGB CONC 35.5 g/dL (32.0-36.0); MEAN CORPUSCULAR VOLUME 106 fl (80-97); RED BLOOD COUNT 2.38 10^6/uL (3.72-5.28); RED CELL DISTRIBUTION WIDTH 14.5 % (11.5-14.0); WHITE BLOOD COUNT 8.6 10^3/uL (4.0-10.5)
[2016-05-26] MEDS: CLINDAMYCIN 900 MG/D5W RTU 50 ML IV SCH ×3 (05:18→23:50)
[2016-05-26] MEDS: NORMAL SALINE 1000 ML 1,000 ML IV PRN ×3 (05:18→20:05)
[2016-05-26] MEDS: HEPARIN SOD (PORCINE) 5,000 UNIT/ML 1 ML SYRINGE SUBCUT SCH (05:18)
[2016-05-26 05:28] LABS: ALANINE AMINOTRANSFERASE 225 U/L (9-52); ALBUMIN 2.1 g/dL (3.5-5.0); ALKALINE PHOSPHATASE 209 U/L (38-126); ANION GAP 7 (5-19); ASPARTATE AMINO TRANSFERASE 598 U/L (14-36); BILIRUBIN,DIRECT 8.4 mg/dL (0.0-0.4); BILIRUBIN,TOTAL 9.4 mg/dL (0.2-1.3); BLOOD UREA NITROGEN 4 mg/dL (7-20); CARBON DIOXIDE 24 mmol/L (22-30); CHLORIDE 104 mmol/L (98-107); CREATININE RESULT 0.39 mg/dL (0.52-1.25); GLUCOSE 122 mg/dL (75-110); MAGNESIUM 1.6 mg/dL (1.6-2.3); POTASSIUM 3.1 mmol/L (3.6-5.0); SODIUM 135.1 mmol/L (137-145); TOTAL PROTEIN 4.8 g/dL (6.3-8.2)
[2016-05-26 05:35] LABS: BAND NEUTROPHILS % (MANUAL) 2 % (3-5); BASOPHILS % (MANUAL) 0 % (0-2); EOSINOPHILS % (MANUAL) 0 % (0-6); LYMPHOCYTES % (MANUAL) 6 % (13-45); TOTAL CELLS COUNTED 100
[2016-05-26 05:38] LABS: CALCIUM 5.8 mg/dL (8.4-10.2)
[2016-05-26 05:39] LABS: POIKILOCYTOSIS 2+; POLYCHROMASIA SLIGHT; TARGET CELLS 2+
[2016-05-26] MEDS ORDERED: CALCIUM GLUCONATE 1000 MG/10 ML INJ IV ONE (05:54)
[2016-05-26] MEDS ORDERED: POTASSI CL 20 MEQ/50 ML RIDER 40 MEQ/100 ML RTUPB IV ONE (05:54)
[2016-05-26] MEDS ORDERED: CALCIUM GLUCONATE 1,000 MG in DEXTROSE 5%-WATER 50 ML IV ONE (06:00)
[2016-05-26] MEDS: POTASSIUM CHLORIDE 20 MEQ/50 ML RTU IV SCH ×2 (06:38→08:34)
[2016-05-26] MEDS ORDERED: SUCCINYLCHOLINE CHLORIDE INJ 200 MG/10 ML VIAL ONE (07:48)
[2016-05-26] MEDS ORDERED: PHOSPHORUS #1 250 MG TABLET PO ONE (09:15)
--- NOTE | 2016-05-26 09:29 | PDOC PROGRESS REPORT ---
Subjective Progress Note for:: 05/26/16 Subjective:: Patient is confused this morning. The patient required an Ativan drip overnight but this has been decreased. Her blood pressure is slightly low but has been getting a fluid bolus. Physical Exam Vital Signs: Temp Pulse Resp BP Pulse Ox 97.4 F 99 18 101/70 91 L 05/26/16 08:00 05/26/16 08:38 05/26/16 06:00 05/26/16 05:58 05/26/16 06:00 Intake & Output 05/25/16 05/26/16 05/27/16 06:59 06:59 06:59 Intake Total 5896 Output Total 1800 3945 900 Balance -1800 1951 -900 Weight 52.4 kg 54.8 kg General appearance: PRESENT: no acute distress Eye exam: PRESENT: conjunctiva pink. ABSENT: scleral icterus Mouth exam: PRESENT: moist, tongue midline Neck exam: ABSENT: JVD Respiratory exam: PRESENT: rhonchi - Coarse rhonchi bilaterally.. ABSENT: rales , wheezes Cardiovascular exam: PRESENT: RRR. ABSENT: diastolic murmur, rubs, systolic murmur GI/Abdominal exam: PRESENT: normal bowel sounds, soft. ABSENT: distended, guarding, mass, organolmegaly, rebound, tenderness Extremities exam: ABSENT: calf tenderness, clubbing, pedal edema Neurological exam: PRESENT: altered. ABSENT: oriented to place, oriented to time, oriented to situation Psychiatric exam: PRESENT: flat affect Results Laboratory Results: 05/26/16 04:50 05/26/16 04:50 05/25/16 05/25/16 05/25/16 12:12 12:12 17:30 WBC RBC Hgb Hct MCV MCH MCHC RDW Plt Count Seg Neutrophils % Lymphocytes % Monocytes % Eosinophils % Basophils % Absolute Neutrophils Absolute Lymphocytes Absolute Monocytes Absolute Eosinophils Absolute Basophils Sodium 132.6 L 132.0 L Potassium 3.8 3.2 L Chloride 102 101 Carbon Dioxide 22 21 L Anion Gap 9 10 BUN 3 L 3 L Creatinine 0.38 L 0.38 L Est GFR ( Amer) > 60 > 60 Est GFR (Non-Af Amer) > 60 > 60 Glucose 118 H 137 H Calcium 6.6 L* 6.8 L* Magnesium Total Bilirubin AST ALT Alkaline Phosphatase Total Protein Albumin 2.4 L 05/26/16 05/26/1617 04:50 04:50 04:50 WBC 8.6 RBC 2.38 L Hgb 8.9 L Hct 25.1 L MCV 106 H MCH 37.6 H MCHC 35.5 RDW 14.5 H Plt Count 30 L* Seg Neutrophils % Not Reportable Lymphocytes % Not Reportable Monocytes % Not Reportable Eosinophils % Not Reportable Basophils % Not Reportable Absolute Neutrophils Not Reportable Absolute Lymphocytes Not Reportable Absolute Monocytes Not Reportable Absolute Eosinophils Not Reportable Absolute Basophils Not Reportable Sodium 135.1 L Potassium 3.1 L Chloride 104 Carbon Dioxide 24 Anion Gap 7 BUN 4 L Creatinine 0.39 L Est GFR ( Amer) > 60 Est GFR (Non-Af Amer) > 60 Glucose 122 H Calcium 5.8 L* Magnesium 1.6 Total Bilirubin 9.4 H AST 598 H ALT 225 H Alkaline Phosphatase 209 H Total Protein 4.8 L Albumin 2.1 L 2.1 L Impressions: Cervical Spine CT 05/24/16 10:37 IMPRESSION: CHRONIC DEGENERATIVE CHANGES. 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 NO ACUTE FINDINGS. Head CT 05/24/16 10:37 IMPRESSION: NORMAL BRAIN CT WITHOUT CONTRAST. SINUS DISEASE. NO ACUTE TRAUMATIC FINDINGS. Chest X-Ray 05/24/16 18:31 IMPRESSION: UNDERLYING EMPHYSEMA WITH NEW PATCHY BIBASILAR AIRSPACE DISEASE SUSPICIOUS FOR SUPERIMPOSED PNEUMONIA. Abdomen Ultrasound 05/25/16 00:00 IMPRESSION: Echogenic liver from diffuse hepatocellular disease. No masses. Color flow in the portal vein and hepatic veins. Minimal sludge in the gallbladder. No gallbladder wall thickening. Negative Montejo's sign. Assessment & Plan - Diagnosis (1) Hypoxia Is this a current diagnosis for this admission?: YesPlan: This is secondary to her aspiration pneumonia. We'll continue with oxygen and BiPAP as needed. We'll check an ABG this morning. (2) Pneumonia Qualifiers: Pneumonia type: due to unspecified organism Laterality: unspecified laterality Lung location: unspecified part of lung Qualified Code(s): J18.9 - Pneumonia, unspecified organism Is this a current diagnosis for this admission?: YesPlan: Patient is on clindamycin. The patient has aspiration pneumonia secondary to alcohol use. (3) Alcohol withdrawal Qualifiers: Complication of substance-induced condition: with delirium Qualified Code(s): F10.231 - Alcohol dependence with withdrawal delirium Is this a current diagnosis for this admission?: YesPlan: Continue with Ativan as needed. (4) Emphysema lung Is this a current diagnosis for this admission?: YesPlan: Continue with nebulizers, oxygen and BiPAP as needed. (5) Thrombocytopenia Is this a current diagnosis for this admission?: YesPlan: Most likely secondary to alcohol use. She has no evidence for active bleeding. Will stop her heparin since her platelets have decreased even more since yesterday. (6) Elevated LFTs Is this a current diagnosis for this admission?: YesPlan: Most likely secondary to underlying liver disease however given the elevated direct bilirubin, an ultrasound was done yesterday shows gallbladder sludge but no gallbladder wall thickening. (7) Bipolar 1 disorder Is this a current diagnosis for this admission?: YesPlan: Continue with Ativan as needed. - Time Time Spent with patient: 25-34 minutes - Inpatient Certification Medical Necessity: Need Close Monitoring Due to Risk of Patient Decompensation, Need for IV Antibiotics - Plan Summary Plan Summary: Because of hypotension and altered mental status she needs intensive care unit level care.
[2016-05-26 09:42] LABS: ARTERIAL BLOOD O2 SATURATION 93.9 % (94-98)
[2016-05-26] MEDS: THIAMINE HCL 100 MG, FOLIC ACID 1 MG in NORMAL SALINE 50 ML IV SCH (09:49)
[2016-05-26] MEDS: NICOTINE 14 MG/24 HR PATCH.TD24 TD SCH (09:52)
[2016-05-26] MEDS: FLUTICASONE NASAL SPRAY 50 MCG/SPRY 120 SPRAY/16 GM NASL SCH (09:53)
[2016-05-26] MEDS: DOCUSATE SODIUM 100 MG CAPSULE PO SCH ×2 (09:58→17:08)
[2016-05-26] MEDS: FLUOXETINE HCL 20 MG/5 ML UDCUP PO SCH (09:58)
--- NOTE | 2016-05-26 14:41 | Progress Note ---
Provider Note Provider Note: Notified by nursing staff of abnormal pupils. On exam the patient has anisocoria with the right greater than left. Patient is moving all 4 extremities. She is unable to cooperate for neurological exam because of delirium tremens and Ativan drip. We'll get a stat head CT to evaluate for the possibility of intracranial hemorrhage. Patient has had an episode of hypotension while hospitalized and also has had significant thrombocytopenia. Her heparin was stopped earlier today.
[2016-05-26 21:45] LABS: ARTERIAL BLOOD BASE EXCESS 4.4 mmol/L; ARTERIAL BLOOD O2 SATURATION 91.8 % (94-98)
[2016-05-26] MEDS ORDERED: PROPOFOL 100 ML IV ONE (22:16)
[2016-05-26] MEDS ORDERED: PROPOFOL INJ 200 MG/20 ML VIAL IV ONE (22:35)
[2016-05-26 23:02] LABS: ANION GAP 8 (5-19); CARBON DIOXIDE 27 mmol/L (22-30); CHLORIDE 99 mmol/L (98-107); CREATININE RESULT 0.28 mg/dL (0.52-1.25); GLUCOSE 121 mg/dL (75-110); PHOSPHORUS 0.6 mg/dL (2.5-4.5); SODIUM 133.6 mmol/L (137-145)
[2016-05-26] MEDS: PROPOFOL 100 ML IV PRN ×2 (23:12→23:33)
[2016-05-26 23:13] LABS: BLOOD UREA NITROGEN < 2 mg/dL (7-20)
[2016-05-26 23:18] LABS: CALCIUM 5.8 mg/dL (8.4-10.2); POTASSIUM 2.8 mmol/L (3.6-5.0)
[2016-05-26] MEDS ORDERED: CALCIUM GLUCONATE 1000 MG/10 ML INJ IV PRN (23:29)
[2016-05-26] MEDS ORDERED: CALCIUM GLUCONATE 2,000 MG in DEXTROSE 5%-WATER 100 ML IV ONE (23:30)
[2016-05-26] MEDS ORDERED: NOREPINEPHRINE BITARTRATE INJ/PF 4 MG/4 ML SDV IV ONE (23:38)
[2016-05-27] MEDS: PHOSPHORUS #1 250 MG TABLET PO SCH ×4 (00:08→17:09)
[2016-05-27] MEDS: POTASSIUM CHLORIDE 20 MEQ/50 ML RTU IV SCH ×3 (00:08→04:00)
[2016-05-27] MEDS: CLINDAMYCIN 900 MG/D5W RTU 50 ML IV SCH ×3 (01:30→17:09)
[2016-05-27] MEDS: PROPOFOL 100 ML IV PRN ×6 (01:31→23:35)
[2016-05-27] MEDS: LORAZEPAM 24 MG/ D5W 240 ML IV PRN ×11 (01:31→23:37)
[2016-05-27] MEDS: IPRATROPIUM/ALBUTEROL 0.5-2.5 MG/3 ML AMPUL NEB SCH ×4 (01:32→20:07)
[2016-05-27] MEDS: NORMAL SALINE 1000 ML 1,000 ML IV PRN ×3 (04:01→19:41)
[2016-05-27 06:34] LABS: ABSOLUTE MONOCYTES (AUTO) 0.2 10^3/uL (0.1-1.4); ABSOLUTE NEUT (AUTO) 5.8 10^3/uL (1.7-8.2); BASOPHILS % (AUTO) 0.1 % (0-2); EOSINOPHILS % (AUTO) 0.2 % (0-6); HEMATOCRIT 27.4 % (36.0-47.0); HEMOGLOBIN 9.7 g/dL (12.0-15.5); HGB HCT DIFFERENCE 1.7; LYMPHOCYTES % (AUTO) 14.1 % (13-45); MEAN CORPUSCULAR HEMOGLOBIN 37.6 pg (27.0-33.4); MEAN CORPUSCULAR HGB CONC 35.2 g/dL (32.0-36.0); MEAN CORPUSCULAR VOLUME 107 fl (80-97); MONOCYTES % (AUTO) 3.4 % (3-13); RED BLOOD COUNT 2.57 10^6/uL (3.72-5.28); RED CELL DISTRIBUTION WIDTH 14.8 % (11.5-14.0); SEGMENTED NEUTROPHILS % (AUTO) 82.2 % (42-78)
[2016-05-27 06:46] LABS: ALANINE AMINOTRANSFERASE 186 U/L (9-52); ALBUMIN 2.1 g/dL (3.5-5.0); ALKALINE PHOSPHATASE 239 U/L (38-126); ANION GAP 10 (5-19); ASPARTATE AMINO TRANSFERASE 317 U/L (14-36); BILIRUBIN,DIRECT 9.9 mg/dL (0.0-0.4); BILIRUBIN,TOTAL 10.8 mg/dL (0.2-1.3); CARBON DIOXIDE 24 mmol/L (22-30); CHLORIDE 102 mmol/L (98-107); CREATININE RESULT 0.28 mg/dL (0.52-1.25); GLUCOSE 154 mg/dL (75-110); MAGNESIUM 1.3 mg/dL (1.6-2.3); POTASSIUM 3.4 mmol/L (3.6-5.0); SODIUM 135.6 mmol/L (137-145); TOTAL PROTEIN 4.7 g/dL (6.3-8.2)
[2016-05-27 06:48] LABS: BLOOD UREA NITROGEN < 2 mg/dL (7-20)
[2016-05-27 07:06] LABS: CALCIUM 6.4 mg/dL (8.4-10.2)
--- NOTE | 2016-05-27 08:18 | PDOC CONSULTATION ---
Consultation Consult Date: 05/27/16 Attending physician:: SERVANDO WOO Consult reason:: resp failure History of Present Illness Admission Date/PCP: 05/24/16 22:03 JASSON LIMON MD History of Present Illness: All information from chart patient intubated DEONTE CASTRO is a 55 year old female with a past medical history of tobacco dependence, schizophrenia, alcohol dependence with withdrawal seizure, status post radical neck dissection for throat cancer with PEG placement which is recently removed, she has subsequent difficulty eating with recurrent aspiration but tolerates alcohol, she is acutely intoxicated and history is provided by her daughter who states patient has not eaten in 5 days and had recurrent falls. In the emergency room she is also found to have hypoxia with aspiration pneumonia, hypo-natremia, hypokalemia, thrombocytopenia. She's referred to the hospitalist for admission. Past Medical History Pulmonary Medical History: Reports: Bronchitis, Chronic Obstructive Pulmonary Disease (COPD), Other - Recurrent aspiration Neurological Medical History: Reports: Seizures - Alcohol withdrawal seizures Malignancy Medical History: Reports: Other - Throat cancer Psychiatric Medical History: Reports: Bipolar Disorder, Depression, Schizoaffective Disorder Past Surgical History Past Surgical History: Reports: Appendectomy, Hysterectomy, Tonsillectomy, Other - Status post radical neck dissection for throat cancer Social History Information Source[facility] Smoking Status: Current Every Day Smoker Cigarettes Packs Per Day: 2 Frequency of Alcohol Use: Heavy Hx Recreational Drug Use: No Drugs: None Hx Prescription Drug Abuse: No - Advance Directive Resuscitation Status: Full Code Family History Family History: Other - Unobtainable Parental Family History Reviewed: No Children Family History Reviewed: No Sibling(s) Family History Reviewed.: No Medication/Allergy Home Medications: Albuterol Sulfate [Proair HFA Inhalation Aerosol 8.5 gm MDI] 2 puff IH Q4HP PRN 05/25/16 Alendronate Sodium [Fosamax 70 mg Tablet] 70 mg PO RICKS 05/25/16 Calcium Carbonate [Calcium] 600 mg PO DAILY 05/25/16 Cyproheptadine HCl [Periactin 4 mg Tablet] 4 mg PO BID 05/25/16 Ergocalciferol (Vitamin D2) [Vitamin D2] 2,000 unit PO DAILY 05/25/16 Fluoxetine HCl [Prozac Soln 20 mg/5 ml Udcup] 5 ml PO DAILY 05/25/16 Fluticasone/Salmeterol [Advair 500-50 Diskus 14 Dose/Diskus] 1 puff IH BID 05/25 Lorazepam [Ativan 0.5 mg Tablet] 0.25 mg PO BIDP PRN 05/25/16 Omeprazole 40 mg PO DAILY 05/25/16 Prochlorperazine Maleate [Compazine 10 mg Tablet] 10 mg PO Q8HP PRN 05/25/16 Quetiapine Fumarate [Seroquel] 50 mg PO DAILY 05/25/16 Risperidone [Risperdal] 2 ml PO QAM 05/25/16 Solifenacin Succinate [Vesicare] 10 mg PO DAILY 05/25/16 Allergies/Adverse Reactions: codeine [Codeine] Allergy (Severe, Verified 05/25/16 03:10) itching oxytetracycline [From Terramycin] Allergy (Severe, Verified 05/25/16 03:10) rash paliperidone [From Invega] Allergy (Intermediate, Verified 05/25/16 03:10) Hives fentanyl [Fentanyl] Allergy (Verified 05/25/16 03:10) Review of Systems ROS unobtainable: Due to endotracheal tube Physical Exam Vital Signs: Temp Pulse Resp BP Pulse Ox 99.5 F 97 24 H 90/65 L 97 05/26/16 22:52 05/27/16 01:35 05/27/16 06:00 05/27/16 05:49 05/27/16 06:00 Intake & Output 05/26/16 05/27/16 05/28/16 06:59 06:59 06:59 Intake Total 8739 5924 Output Total 2378 8847 Balance 1950 - Weight 54.8 kg 53.9 kg General appearance: PRESENT: no acute distress, disheveled, thin Head exam: PRESENT: atraumatic, normocephalic Eye exam: PRESENT: conjunctiva pale, EOMI Mouth exam: PRESENT: other - ET tube Neck exam: ABSENT: carotid bruit, JVD, lymphadenopathy, thyromegaly Respiratory exam: PRESENT: decreased breath sounds, rales, rhonchi, symmetrical , unlabored Cardiovascular exam: PRESENT: RRR, +S1, +S2 Pulses: PRESENT: normal radial pulses GI/Abdominal exam: PRESENT: normal bowel sounds, soft. ABSENT: distended, guarding, mass, organolmegaly, rebound, tenderness Rectal exam: PRESENT: deferred Musculoskeletal exam: PRESENT: normal inspection Skin exam: PRESENT: dry, vesicles Results Laboratory Results: 05/27/16 06:15 05/27/16 06:15 05/26/16 05/26/16 05/26/16 09:20 21:30 22:25 WBC RBC Hgb Hct MCV MCH MCHC RDW Plt Count Seg Neutrophils % Lymphocytes % Monocytes % Eosinophils % Basophils % Absolute Neutrophils Absolute Lymphocytes Absolute Monocytes Absolute Eosinophils Absolute Basophils Carbonic Acid 0.92 L 0.90 L HCO3/H2CO3 Ratio 27:1 29:1 ABG pH 7.54 H 7.56 H ABG pCO2 30.5 L 29.9 L ABG pO2 60.2 L 52.5 L ABG HCO3 25.3 26.3 H ABG O2 Saturation 93.9 L 91.8 L ABG Base Excess 3.0 4.4 FiO2 4L 35% Sodium Potassium Chloride Carbon Dioxide Anion Gap BUN Creatinine Est GFR ( Amer) Est GFR (Non-Af Amer) Glucose Calcium Phosphorus Magnesium 1.3 L Total Bilirubin AST ALT Alkaline Phosphatase Total Protein Albumin 05/26/16 05/26/16 05/27/16 22:25 22:25 06:15 WBC 7.0 RBC 2.57 L Hgb 9.7 L Hct 27.4 L MCV 107 H MCH 37.6 H MCHC 35.2 RDW 14.8 H Plt Count 27 L* Seg Neutrophils % 82.2 H Lymphocytes % 14.1 Monocytes % 3.4 Eosinophils % 0.2 Basophils % 0.1 Absolute Neutrophils 5.8 Absolute Lymphocytes 1.0 Absolute Monocytes 0.2 Absolute Eosinophils 0.0 Absolute Basophils 0.0 Carbonic Acid HCO3/H2CO3 Ratio ABG pH ABG pCO2 ABG pO2 ABG HCO3 ABG O2 Saturation ABG Base Excess FiO2 Sodium 133.6 L Potassium 2.8 L* Chloride 99 Carbon Dioxide 27 Anion Gap 8 BUN < 2 L Creatinine 0.28 L Est GFR ( Amer) > 60 Est GFR (Non-Af Amer) > 60 Glucose 121 H Calcium 5.8 L* Phosphorus 0.6 L Magnesium Total Bilirubin AST ALT Alkaline Phosphatase Total Protein Albumin 2.2 L 05/27/16 06:15 WBC RBC Hgb Hct MCV MCH MCHC RDW Plt Count Seg Neutrophils % Lymphocytes % Monocytes % Eosinophils % Basophils % Absolute Neutrophils Absolute Lymphocytes Absolute Monocytes Absolute Eosinophils Absolute Basophils Carbonic Acid HCO3/H2CO3 Ratio ABG pH ABG pCO2 ABG pO2 ABG HCO3 ABG O2 Saturation ABG Base Excess FiO2 Sodium 135.6 L Potassium 3.4 L Chloride 102 Carbon Dioxide 24 Anion Gap 10 BUN < 2 L Creatinine 0.28 L Est GFR ( Amer) > 60 Est GFR (Non-Af Amer) > 60 Glucose 154 H Calcium 6.4 L* Phosphorus Magnesium 1.3 L Total Bilirubin 10.8 H AST 317 H ALT 186 H Alkaline Phosphatase 239 H Total Protein 4.7 L Albumin 2.1 L Impressions: Cervical Spine CT 05/24/16 10:37 IMPRESSION: CHRONIC DEGENERATIVE CHANGES. 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 NO ACUTE FINDINGS. Abdomen Ultrasound 05/25/16 00:00 IMPRESSION: Echogenic liver from diffuse hepatocellular disease. No masses. Color flow in the portal vein and hepatic veins. Minimal sludge in the gallbladder. No gallbladder wall thickening. Negative Montejo's sign. Head CT 05/26/16 00:00 IMPRESSION: Limited study. Motion artifact. No gross acute changes. Chest X-Ray 05/26/16 22:19 IMPRESSION: Left lower lobe pneumonia and small left pleural effusion. SUPPORT DEVICE(S) IN EXPECTED LOCATIONS. Assessment & Plan - Diagnosis (1) Emphysema lung Is this a current diagnosis for this admission?: YesPlan: bronchialator tx (2) Pneumonia Qualifiers: Pneumonia type: aspiration pneumonia Laterality: unspecified laterality Lung location: unspecified part of lung Qualified Code(s): J18.9 - Pneumonia, unspecified organism Is this a current diagnosis for this admission?: Yes (3) Dysphagia, oropharyngeal phase Is this a current diagnosis for this admission?: YesPlan: predisposal to aspiration - Time Critical Time spent with patient: 35 or more minutes
[2016-05-27 09:16] LABS: ARTERIAL BLOOD BASE EXCESS -0.4 mmol/L; ARTERIAL BLOOD O2 SATURATION 95.2 % (94-98)
[2016-05-27] MEDS: DEXTROSE 5%-WATER 250 ML with NOREPINEPHRINE BITARTRATE 4 MG IV PRN ×6 (09:45→23:35)
[2016-05-27] MEDS: FLUOXETINE HCL 20 MG/5 ML UDCUP PO SCH (10:18)
[2016-05-27] MEDS: NICOTINE 14 MG/24 HR PATCH.TD24 TD SCH (10:18)
[2016-05-27] MEDS: DOCUSATE SODIUM 100 MG CAPSULE PO SCH ×2 (10:19→17:09)
[2016-05-27] MEDS: THIAMINE HCL 100 MG, FOLIC ACID 1 MG in NORMAL SALINE 50 ML IV SCH (10:19)
[2016-05-27] MEDS: FLUTICASONE NASAL SPRAY 50 MCG/SPRY 120 SPRAY/16 GM NASL SCH (10:20)
--- NOTE | 2016-05-27 12:37 | PDOC PROGRESS REPORT ---
Subjective Progress Note for:: 05/27/16 Subjective:: Patient was intubated overnight for respiratory distress. She is sedated and intubated the time my exam.. Physical Exam Vital Signs: Temp Pulse Resp BP Pulse Ox 98.3 F 80 23 H 91/65 L 98 05/27/16 12:00 05/27/16 11:00 05/27/16 12:04 05/27/16 12:04 05/27/16 12:04 Intake & Output 05/26/16 05/27/16 05/28/16 06:59 06:59 06:59 Intake Total 5896 5975 Output Total 3946 6016 1205 Balance 1951 -50 -1205 Weight 54.8 kg 53.9 kg General appearance: PRESENT: thin Eye exam: PRESENT: conjunctiva pink, scleral icterus Mouth exam: PRESENT: moist, tongue midline, other - ET tube in place Neck exam: ABSENT: JVD Respiratory exam: PRESENT: rales - bibasilar rales. ABSENT: rhonchi, wheezes Cardiovascular exam: PRESENT: RRR. ABSENT: diastolic murmur, rubs, systolic murmur GI/Abdominal exam: PRESENT: normal bowel sounds, soft. ABSENT: distended, guarding, mass, organolmegaly, rebound, tenderness Extremities exam: ABSENT: calf tenderness, clubbing, pedal edema Neurological exam: PRESENT: other - Intubated and sedated Psychiatric exam: PRESENT: other - Unable to assess Results Laboratory Results: 05/27/16 06:15 05/27/16 06:15 05/26/16 05/26/16 05/26/16 21:30 22:25 22:25 WBC RBC Hgb Hct MCV MCH MCHC RDW Plt Count Seg Neutrophils % Lymphocytes % Monocytes % Eosinophils % Basophils % Absolute Neutrophils Absolute Lymphocytes Absolute Monocytes Absolute Eosinophils Absolute Basophils Carbonic Acid 0.90 L HCO3/H2CO3 Ratio 29:1 ABG pH 7.56 H ABG pCO2 29.9 L ABG pO2 52.5 L ABG HCO3 26.3 H ABG O2 Saturation 91.8 L ABG Base Excess 4.4 FiO2 35% Sodium 133.6 L Potassium 2.8 L* Chloride 99 Carbon Dioxide 27 Anion Gap 8 BUN < 2 L Creatinine 0.28 L Est GFR ( Amer) > 60 Est GFR (Non-Af Amer) > 60 Glucose 121 H Calcium 5.8 L* Phosphorus 0.6 L Magnesium 1.3 L Total Bilirubin AST ALT Alkaline Phosphatase Total Protein Albumin 05/26/16 05/27/16 05/27/16 22:25 06:15 06:15 WBC 7.0 RBC 2.57 L Hgb 9.7 L Hct 27.4 L MCV 107 H MCH 37.6 H MCHC 35.2 RDW 14.8 H Plt Count 27 L* Seg Neutrophils % 82.2 H Lymphocytes % 14.1 Monocytes % 3.4 Eosinophils % 0.2 Basophils % 0.1 Absolute Neutrophils 5.8 Absolute Lymphocytes 1.0 Absolute Monocytes 0.2 Absolute Eosinophils 0.0 Absolute Basophils 0.0 Carbonic Acid HCO3/H2CO3 Ratio ABG pH ABG pCO2 ABG pO2 ABG HCO3 ABG O2 Saturation ABG Base Excess FiO2 Sodium 135.6 L Potassium 3.4 L Chloride 102 Carbon Dioxide 24 Anion Gap 10 BUN < 2 L Creatinine 0.28 L Est GFR ( Amer) > 60 Est GFR (Non-Af Amer) > 60 Glucose 154 H Calcium 6.4 L* Phosphorus Magnesium 1.3 L Total Bilirubin 10.8 H AST 317 H ALT 186 H Alkaline Phosphatase 239 H Total Protein 4.7 L Albumin 2.2 L 2.1 L 05/27/16 08:03 WBC RBC Hgb Hct MCV MCH MCHC RDW Plt Count Seg Neutrophils % Lymphocytes % Monocytes % Eosinophils % Basophils % Absolute Neutrophils Absolute Lymphocytes Absolute Monocytes Absolute Eosinophils Absolute Basophils Carbonic Acid 1.08 HCO3/H2CO3 Ratio 21:1 ABG pH 7.44 ABG pCO2 35.8 ABG pO2 72.8 L ABG HCO3 23.6 ABG O2 Saturation 95.2 ABG Base Excess -0.4 FiO2 40% Sodium Potassium Chloride Carbon Dioxide Anion Gap BUN Creatinine Est GFR ( Amer) Est GFR (Non-Af Amer) Glucose Calcium Phosphorus Magnesium Total Bilirubin AST ALT Alkaline Phosphatase Total Protein Albumin Impressions: Cervical Spine CT 05/24/16 10:37 IMPRESSION: CHRONIC DEGENERATIVE CHANGES. 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 NO ACUTE FINDINGS. Abdomen Ultrasound 05/25/16 00:00 IMPRESSION: Echogenic liver from diffuse hepatocellular disease. No masses. Color flow in the portal vein and hepatic veins. Minimal sludge in the gallbladder. No gallbladder wall thickening. Negative Montejo's sign. Head CT 05/26/16 00:00 IMPRESSION: Limited study. Motion artifact. No gross acute changes. Chest X-Ray 05/26/16 22:19 IMPRESSION: Left lower lobe pneumonia and small left pleural effusion. SUPPORT DEVICE(S) IN EXPECTED LOCATIONS. Assessment & Plan - Diagnosis (1) Hypoxia Is this a current diagnosis for this admission?: YesPlan: This is secondary to her aspiration pneumonia. Patient required to be intubated overnight. Will consult pulmonary medicine. (2) Pneumonia Qualifiers: Pneumonia type: aspiration pneumonia Laterality: unspecified laterality Lung location: unspecified part of lung Qualified Code(s): J18.9 - Pneumonia, unspecified organism Is this a current diagnosis for this admission?: YesPlan: Patient is on clindamycin. The patient has aspiration pneumonia secondary to alcohol use. (3) Alcohol withdrawal Qualifiers: Complication of substance-induced condition: with delirium Qualified Code(s): F10.231 - Alcohol dependence with withdrawal delirium Is this a current diagnosis for this admission?: YesPlan: Continue with Ativan as needed. (4) Emphysema lung Is this a current diagnosis for this admission?: YesPlan: Continue with nebulizers, oxygen and ventilator. (5) Thrombocytopenia Is this a current diagnosis for this admission?: YesPlan: Most likely secondary to alcohol use. She has no evidence for active bleeding. Her heparin was stopped yesterday. (6) Elevated LFTs Is this a current diagnosis for this admission?: YesPlan: Most likely secondary to underlying liver disease however given the elevated direct bilirubin, an ultrasound was done which shows gallbladder sludge but no gallbladder wall thickening. (7) Bipolar 1 disorder Is this a current diagnosis for this admission?: YesPlan: Continue with Ativan as needed. - Time Time Spent with patient: 25-34 minutes - Inpatient Certification Medical Necessity: Need Close Monitoring Due to Risk of Patient Decompensation, Need for IV Antibiotics
[2016-05-27] MEDS ORDERED: NOREPINEPHRINE BITARTRATE INJ/PF 4 MG/4 ML SDV IV ONE (18:36)
[2016-05-27 19:57] LABS: PATH REVIEW PATHOLOGIST REVIEWED
[2016-05-28] MEDS: DEXTROSE 5%-WATER 250 ML with NOREPINEPHRINE BITARTRATE 4 MG IV PRN ×10 (00:41→23:01)
[2016-05-28] MEDS: IPRATROPIUM/ALBUTEROL 0.5-2.5 MG/3 ML AMPUL NEB SCH ×4 (02:04→20:08)
[2016-05-28] MEDS: CLINDAMYCIN 900 MG/D5W RTU 50 ML IV SCH ×3 (02:08→17:38)
[2016-05-28] MEDS: LORAZEPAM 24 MG/ D5W 240 ML IV PRN ×6 (02:09→23:01)
[2016-05-28] MEDS: NORMAL SALINE 1000 ML 1,000 ML IV PRN (02:10)
[2016-05-28] MEDS: PROPOFOL 100 ML IV PRN ×3 (04:24→19:57)
[2016-05-28 05:19] LABS: ARTERIAL BLOOD BASE EXCESS 1.6 mmol/L; ARTERIAL BLOOD O2 SATURATION 93.2 % (94-98)
[2016-05-28 05:42] LABS: ALANINE AMINOTRANSFERASE 158 U/L (9-52); ALBUMIN 2.1 g/dL (3.5-5.0); ALKALINE PHOSPHATASE 279 U/L (38-126); ANION GAP 9 (5-19); ASPARTATE AMINO TRANSFERASE 200 U/L (14-36); BILIRUBIN,DIRECT 8.7 mg/dL (0.0-0.4); BILIRUBIN,TOTAL 9.7 mg/dL (0.2-1.3); CARBON DIOXIDE 27 mmol/L (22-30); CHLORIDE 101 mmol/L (98-107); CREATININE RESULT 0.29 mg/dL (0.52-1.25); GLUCOSE 134 mg/dL (75-110); SODIUM 136.8 mmol/L (137-145); TOTAL PROTEIN 4.7 g/dL (6.3-8.2); TRIGLYCERIDES 157 mg/dL (<150)
[2016-05-28 05:46] LABS: ABSOLUTE EOSINOPHILS # (AUTO) 0.1 10^3/uL (0.0-0.6); ABSOLUTE LYMPHOCYTES (AUTO) 0.6 10^3/uL (0.5-4.7); ABSOLUTE MONOCYTES (AUTO) 0.5 10^3/uL (0.1-1.4); ABSOLUTE NEUT (AUTO) 5.2 10^3/uL (1.7-8.2); BASOPHILS % (AUTO) 0.2 % (0-2); EOSINOPHILS % (AUTO) 0.9 % (0-6); HEMATOCRIT 28.4 % (36.0-47.0); HEMOGLOBIN 9.8 g/dL (12.0-15.5); MEAN CORPUSCULAR HEMOGLOBIN 37.4 pg (27.0-33.4); MEAN CORPUSCULAR HGB CONC 34.5 g/dL (32.0-36.0); MEAN CORPUSCULAR VOLUME 109 fl (80-97); RED BLOOD COUNT 2.61 10^6/uL (3.72-5.28); RED CELL DISTRIBUTION WIDTH 14.8 % (11.5-14.0); SEGMENTED NEUTROPHILS % (AUTO) 80.9 % (42-78); WHITE BLOOD COUNT 6.4 10^3/uL (4.0-10.5)
[2016-05-28 06:04] LABS: BLOOD UREA NITROGEN < 2 mg/dL (7-20)
[2016-05-28 06:19] LABS: CALCIUM 5.7 mg/dL (8.4-10.2); POTASSIUM 2.5 mmol/L (3.6-5.0)
[2016-05-28] MEDS ORDERED: POTASSI CL 20 MEQ/50 ML RIDER 20 MEQ/50 ML RTUPB IV ONE (06:36)
[2016-05-28] MEDS ORDERED: CALCIUM GLUCONATE 1000 MG/10 ML INJ IV ONE ×2 (06:36→06:38)
[2016-05-28] MEDS ORDERED: MAGNESIUM SULFATE/D5W 1 GM/100 ML RTUPB IV ONE (06:36)
[2016-05-28] MEDS: MAGNESIUM SULFATE/D5W 1 GM/100 ML RTUPB IV SCH ×3 (07:21→09:08)
[2016-05-28] MEDS: CALCIUM GLUCONATE 1000 MG/10 ML INJ IV SCH ×2 (07:21→07:50)
[2016-05-28] MEDS: POTASSI CL 20 MEQ/50 ML RIDER 20 MEQ/50 ML RTUPB IV SCH ×3 (07:21→10:18)
--- NOTE | 2016-05-28 08:38 | PDOC PROGRESS REPORT ---
Subjective Progress Note for:: 05/28/16 Subjective:: Patient has had numerous loculated abnormalities reported by overnight physician. All of these have been addressed overnight. Patient remains hypotensive on Levophed drip. Unable to obtain history/review of systems secondary to sedated and intubated state. Physical Exam Vital Signs: Temp Pulse Resp BP Pulse Ox 98.8 F 85 16 102/75 97 05/28/16 04:00 05/28/16 02:00 05/28/16 08:04 05/28/16 08:04 05/28/16 08:04 Intake & Output 05/27/16 05/28/16 05/29/16 06:59 06:59 06:59 Intake Total 5947 7056 Output Total 6319 2996 Balance -50 -652 Weight 53.9 kg 53.8 kg GENERAL: Sedated/intubated HEENT: Conjunctiva clear, nonicteric, moist mucous membranes, no JVD, midline trachea RESPIRATORY: Clear to auscultation bilaterally, no wheezes, no rhonchi CARDIAC: Regular rate and rhythm, no murmurs/gallops/rubs ABDOMEN: Soft, nondistended, nontender, positive bowel sounds, no rebound, no guarding EXTREMETIES: No edema, cyanosis, clubbing NEUROLOGIC: Sedated SKIN: Fairly recent right carotid scar likely from recent neck dissection for throat cancer Results Laboratory Results: 05/28/16 05:00 05/28/16 05:00 05/26/16 05/27/16 05/28/16 04:50 08:03 05:00 WBC 8.6 RBC 2.38 L Hgb 8.9 L Hct 25.1 L MCV 106 H MCH 37.6 H MCHC 35.5 RDW 14.5 H Plt Count 30 L* Seg Neutrophils % Lymphocytes % Monocytes % Eosinophils % Basophils % Absolute Neutrophils Absolute Lymphocytes Absolute Monocytes Absolute Eosinophils Absolute Basophils Carbonic Acid 1.08 1.21 HCO3/H2CO3 Ratio 21:1 21:1 ABG pH 7.44 7.43 ABG pCO2 35.8 40.2 ABG pO2 72.8 L 64.5 L ABG HCO3 23.6 26.0 ABG O2 Saturation 95.2 93.2 L ABG Base Excess -0.4 1.6 FiO2 40% 40% Sodium Potassium Chloride Carbon Dioxide Anion Gap BUN Creatinine Est GFR ( Amer) Est GFR (Non-Af Amer) Glucose Calcium Magnesium Total Bilirubin AST ALT Alkaline Phosphatase Total Protein Albumin Triglycerides 05/28/16 05/28/16 05:00 05:00 WBC 6.4 RBC 2.61 L Hgb 9.8 L Hct 28.4 L MCV 109 H MCH 37.4 H MCHC 34.5 RDW 14.8 H Plt Count 24 L* Seg Neutrophils % 80.9 H Lymphocytes % 10.0 L Monocytes % 8.0 Eosinophils % 0.9 Basophils % 0.2 Absolute Neutrophils 5.2 Absolute Lymphocytes 0.6 Absolute Monocytes 0.5 Absolute Eosinophils 0.1 Absolute Basophils 0.0 Carbonic Acid HCO3/H2CO3 Ratio ABG pH ABG pCO2 ABG pO2 ABG HCO3 ABG O2 Saturation ABG Base Excess FiO2 Sodium 136.8 L Potassium 2.5 L* Chloride 101 Carbon Dioxide 27 Anion Gap 9 BUN < 2 L Creatinine 0.29 L Est GFR ( Amer) > 60 Est GFR (Non-Af Amer) > 60 Glucose 134 H Calcium 5.7 L* Magnesium 1.0 L* Total Bilirubin 9.7 H AST 200 H ALT 158 H Alkaline Phosphatase 279 H Total Protein 4.7 L Albumin 2.1 L Triglycerides 157 H Impressions: Cervical Spine CT 05/24/16 10:37 IMPRESSION: CHRONIC DEGENERATIVE CHANGES. 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 NO ACUTE FINDINGS. Abdomen Ultrasound 05/25/16 00:00 IMPRESSION: Echogenic liver from diffuse hepatocellular disease. No masses. Color flow in the portal vein and hepatic veins. Minimal sludge in the gallbladder. No gallbladder wall thickening. Negative Montejo's sign. Head CT 05/26/16 00:00 IMPRESSION: Limited study. Motion artifact. No gross acute changes. Chest X-Ray 05/28/16 06:00 IMPRESSION: Obstructive lung disease. Minimal persistent left basilar airspace disease. Endotracheal and nasogastric tubes in good positioning. Assessment & Plan - Diagnosis (1) Acute respiratory failure Is this a current diagnosis for this admission?: YesPlan: Continue mechanical ventilation. Dr. Hatch of pulmonary medicine managing. (2) Sepsis Is this a current diagnosis for this admission?: YesPlan: Patient remains on Levophed for hypotension. Continue IV clindamycin. Patient is now afebrile and has normal white blood count. (3) Pneumonia Qualifiers: Pneumonia type: aspiration pneumonia Laterality: unspecified laterality Lung location: unspecified part of lung Qualified Code(s): J18.9 - Pneumonia, unspecified organism Is this a current diagnosis for this admission?: YesPlan: Possible aspiration related with high probability of gram-negative and anaerobic organism. Continue IV clindamycin. Sputum and blood cultures negative. (4) Hypomagnesemia Is this a current diagnosis for this admission?: YesPlan: Continue to replace as needed. (5) Hypocalcemia Is this a current diagnosis for this admission?: YesPlan: Continue to replace as needed. (6) Throat cancer Is this a current diagnosis for this admission?: YesPlan: Patient has had fairly recent surgery for this. It looks like she has been followed by Dr. Chilel of oncology as an outpatient. (7) Alcohol withdrawal Qualifiers: Complication of substance-induced condition: with delirium Qualified Code(s): F10.231 - Alcohol dependence with withdrawal delirium Is this a current diagnosis for this admission?: YesPlan: Continue Ativan drip. Continue IV thiamine. (8) Bipolar 1 disorder Is this a current diagnosis for this admission?: Yes (9) Emphysema lung Is this a current diagnosis for this admission?: YesPlan: Continue scheduled and when necessary DuoNeb's. (10) Thrombocytopenia Is this a current diagnosis for this admission?: YesPlan: Likely secondary to alcohol abuse. (11) Elevated LFTs Is this a current diagnosis for this admission?: YesPlan: Likely secondary to alcohol abuse. Right upper quadrant ultrasound with no acute findings. (12) Hypokalemia Is this a current diagnosis for this admission?: YesPlan: Continue to replace as needed. (13) Tobacco abuse Is this a current diagnosis for this admission?: Yes (14) Malnutrition Is this a current diagnosis for this admission?: YesPlan: Likely secondary to alcohol abuse and malignancy. I will start patient on tube feeds as I don't think she is going to be off the ventilator anytime soon. (15) Anemia Is this a current diagnosis for this admission?: YesPlan: Likely secondary to alcohol abuse, malnutrition, malignancy. - Time Critical Time spent with patient: 35 or more minutes
[2016-05-28] MEDS: NICOTINE 14 MG/24 HR PATCH.TD24 TD SCH (09:11)
[2016-05-28] MEDS: FLUOXETINE HCL 20 MG/5 ML UDCUP PO SCH (09:12)
[2016-05-28] MEDS: RISPERIDONE 1 MG TABLET PO SCH (09:12)
[2016-05-28] MEDS: DOCUSATE SODIUM 100 MG CAPSULE PO SCH ×2 (09:12→17:40)
[2016-05-28] MEDS: POTASSI CL 20 MEQ/D5NS 1L 1,000 ML IV PRN ×2 (09:13→17:40)
[2016-05-28] MEDS: THIAMINE HCL 100 MG, FOLIC ACID 1 MG in NORMAL SALINE 50 ML IV SCH (09:19)
[2016-05-28] MEDS: FLUTICASONE NASAL SPRAY 50 MCG/SPRY 120 SPRAY/16 GM NASL SCH (09:19)
[2016-05-28 09:58] LABS: PROTHROMBIN TIME 14.4 SEC (11.4-15.4)
[2016-05-28 09:59] LABS: PARTIAL THROMBOPLASTIN TIME 29.3 SEC (23.5-35.8)
[2016-05-28 10:46] LABS: FOLATE 9.85 ng/mL (>2.76)
[2016-05-28] MEDS ORDERED: NORMAL SALINE 1000 ML 1,000 ML IV ONE (13:00)
[2016-05-28 16:30] LABS: MAGNESIUM 1.8 mg/dL (1.6-2.3); POTASSIUM 3.4 mmol/L (3.6-5.0)
[2016-05-28 18:17] LABS: ABSOLUTE EOSINOPHILS # (AUTO) 0.1 10^3/uL (0.0-0.6); ABSOLUTE LYMPHOCYTES (AUTO) 0.5 10^3/uL (0.5-4.7); ABSOLUTE MONOCYTES (AUTO) 0.5 10^3/uL (0.1-1.4); ABSOLUTE NEUT (AUTO) 3.9 10^3/uL (1.7-8.2); BASOPHILS % (AUTO) 0.2 % (0-2); EOSINOPHILS % (AUTO) 1.1 % (0-6); HEMATOCRIT 26.7 % (36.0-47.0); HEMOGLOBIN 9.1 g/dL (12.0-15.5); HGB HCT DIFFERENCE 0.6; LYMPHOCYTES % (AUTO) 10.8 % (13-45); MEAN CORPUSCULAR HEMOGLOBIN 37.2 pg (27.0-33.4); MEAN CORPUSCULAR HGB CONC 34.1 g/dL (32.0-36.0); MEAN CORPUSCULAR VOLUME 109 fl (80-97); MONOCYTES % (AUTO) 10.6 % (3-13); RED BLOOD COUNT 2.45 10^6/uL (3.72-5.28); RED CELL DISTRIBUTION WIDTH 14.7 % (11.5-14.0); SEGMENTED NEUTROPHILS % (AUTO) 77.3 % (42-78)
[2016-05-28 18:25] LABS: ANISOCYTOSIS SLIGHT; OVALOCYTES SLIGHT; POIKILOCYTOSIS 1+
[2016-05-28 18:28] LABS: TARGET CELLS 2+
--- NOTE | 2016-05-28 19:39 | PDOC PROGRESS REPORT ---
Subjective Progress Note for:: 05/28/16 Subjective:: intubated and sedated Physical Exam Vital Signs: Temp Pulse Resp BP Pulse Ox 98.8 F 85 16 102/75 97 05/28/16 04:00 05/28/16 02:00 05/28/16 08:04 05/28/16 08:04 05/28/16 08:04 Intake & Output 05/27/16 05/28/16 05/29/16 06:59 06:59 06:59 Intake Total 5959 7082 Output Total 6097 3785 Balance -50 -652 Weight 53.9 kg 53.8 kg General appearance: PRESENT: no acute distress, disheveled, obese Head exam: PRESENT: atraumatic, normocephalic Eye exam: PRESENT: conjunctiva pale, EOMI Mouth exam: PRESENT: dry mucosa, neck supple, other - ET tube Teeth exam: PRESENT: other Neck exam: ABSENT: carotid bruit, JVD, lymphadenopathy, thyromegaly Respiratory exam: PRESENT: decreased breath sounds, prolonged expiratory phas, rhonchi, symmetrical, unlabored Cardiovascular exam: PRESENT: RRR, +S1, +S2 Pulses: PRESENT: normal radial pulses GI/Abdominal exam: PRESENT: normal bowel sounds, soft. ABSENT: distended, guarding, mass, organolmegaly, rebound, tenderness Rectal exam: PRESENT: deferred Musculoskeletal exam: PRESENT: normal inspection Neurological exam: PRESENT: awake Skin exam: PRESENT: dry Results Laboratory Results: 05/28/16 05:00 05/28/16 05:00 05/26/16 05/27/16 05/28/16 04:50 08:03 05:00 WBC 8.6 RBC 2.38 L Hgb 8.9 L Hct 25.1 L MCV 106 H MCH 37.6 H MCHC 35.5 RDW 14.5 H Plt Count 30 L* Seg Neutrophils % Lymphocytes % Monocytes % Eosinophils % Basophils % Absolute Neutrophils Absolute Lymphocytes Absolute Monocytes Absolute Eosinophils Absolute Basophils Carbonic Acid 1.08 1.21 HCO3/H2CO3 Ratio 21:1 21:1 ABG pH 7.44 7.43 ABG pCO2 35.8 40.2 ABG pO2 72.8 L 64.5 L ABG HCO3 23.6 26.0 ABG O2 Saturation 95.2 93.2 L ABG Base Excess -0.4 1.6 FiO2 40% 40% Sodium Potassium Chloride Carbon Dioxide Anion Gap BUN Creatinine Est GFR ( Amer) Est GFR (Non-Af Amer) Glucose Calcium Magnesium Total Bilirubin AST ALT Alkaline Phosphatase Total Protein Albumin Triglycerides 05/28/16 05/28/16 05:00 05:00 WBC 6.4 RBC 2.61 L Hgb 9.8 L Hct 28.4 L MCV 109 H MCH 37.4 H MCHC 34.5 RDW 14.8 H Plt Count 24 L* Seg Neutrophils % 80.9 H Lymphocytes % 10.0 L Monocytes % 8.0 Eosinophils % 0.9 Basophils % 0.2 Absolute Neutrophils 5.2 Absolute Lymphocytes 0.6 Absolute Monocytes 0.5 Absolute Eosinophils 0.1 Absolute Basophils 0.0 Carbonic Acid HCO3/H2CO3 Ratio ABG pH ABG pCO2 ABG pO2 ABG HCO3 ABG O2 Saturation ABG Base Excess FiO2 Sodium 136.8 L Potassium 2.5 L* Chloride 101 Carbon Dioxide 27 Anion Gap 9 BUN < 2 L Creatinine 0.29 L Est GFR ( Amer) > 60 Est GFR (Non-Af Amer) > 60 Glucose 134 H Calcium 5.7 L* Magnesium 1.0 L* Total Bilirubin 9.7 H AST 200 H ALT 158 H Alkaline Phosphatase 279 H Total Protein 4.7 L Albumin 2.1 L Triglycerides 157 H Impressions: Cervical Spine CT 05/24/16 10:37 IMPRESSION: CHRONIC DEGENERATIVE CHANGES. 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 NO ACUTE FINDINGS. Abdomen Ultrasound 05/25/16 00:00 IMPRESSION: Echogenic liver from diffuse hepatocellular disease. No masses. Color flow in the portal vein and hepatic veins. Minimal sludge in the gallbladder. No gallbladder wall thickening. Negative Montejo's sign. Head CT 05/26/16 00:00 IMPRESSION: Limited study. Motion artifact. No gross acute changes. Chest X-Ray 05/28/16 06:00 IMPRESSION: Obstructive lung disease. Minimal persistent left basilar airspace disease. Endotracheal and nasogastric tubes in good positioning. Assessment & Plan - Diagnosis (1) Emphysema lung Is this a current diagnosis for this admission?: Yes (2) Pneumonia Qualifiers: Pneumonia type: aspiration pneumonia Laterality: unspecified laterality Lung location: unspecified part of lung Is this a current diagnosis for this admission?: Yes (3) Dysphagia, oropharyngeal phase Is this a current diagnosis for this admission?: Yes (4) Acute respiratory failure Is this a current diagnosis for this admission?: YesPlan: rr,min vol,fio2 airway pressures suggest extubation (5) Thrombocytopenia Is this a current diagnosis for this admission?: YesPlan: chronic alcohol abuse (6) Elevated LFTs Is this a current diagnosis for this admission?: YesPlan: hepato cellular and obstructive - Time Critical Time spent with patient: 35 or more minutes - 60 min extubation
[2016-05-29] MEDS: CLINDAMYCIN 900 MG/D5W RTU 50 ML IV SCH ×3 (02:31→17:15)
[2016-05-29] MEDS: POTASSI CL 20 MEQ/D5NS 1L 1,000 ML IV PRN ×2 (02:35→14:35)
[2016-05-29] MEDS: PROPOFOL 100 ML IV PRN ×3 (02:49→21:48)
[2016-05-29 03:33] LABS: HEMATOCRIT 24.9 % (36.0-47.0); HEMOGLOBIN 8.6 g/dL (12.0-15.5); HGB HCT DIFFERENCE 0.9; MEAN CORPUSCULAR HEMOGLOBIN 37.7 pg (27.0-33.4); MEAN CORPUSCULAR HGB CONC 34.6 g/dL (32.0-36.0); MEAN CORPUSCULAR VOLUME 109 fl (80-97); RED BLOOD COUNT 2.29 10^6/uL (3.72-5.28); RED CELL DISTRIBUTION WIDTH 15.1 % (11.5-14.0); WHITE BLOOD COUNT 6.2 10^3/uL (4.0-10.5)
[2016-05-29 03:38] LABS: BASOPHILS % (MANUAL) 0 % (0-2); EOSINOPHILS % (MANUAL) 2 % (0-6); LYMPHOCYTES % (MANUAL) 6 % (13-45); TOTAL CELLS COUNTED 100
[2016-05-29 03:39] LABS: ANISOCYTOSIS SLIGHT; POLYCHROMASIA SLIGHT; SCHISTOCYTES SLIGHT; TEAR DROP CELLS SLIGHT; TOXIC GRANULATION SLIGHT
[2016-05-29] MEDS: IPRATROPIUM/ALBUTEROL 0.5-2.5 MG/3 ML AMPUL NEB SCH ×4 (04:26→19:43)
[2016-05-29 04:56] LABS: ARTERIAL BLOOD BASE EXCESS 0.5 mmol/L; ARTERIAL BLOOD O2 SATURATION 96.4 % (94-98)
[2016-05-29 05:02] LABS: ABSOLUTE EOSINOPHILS # (AUTO) 0.1 10^3/uL (0.0-0.6); ABSOLUTE LYMPHOCYTES (AUTO) 0.7 10^3/uL (0.5-4.7); ABSOLUTE MONOCYTES (AUTO) 0.6 10^3/uL (0.1-1.4); ABSOLUTE NEUT (AUTO) 4.4 10^3/uL (1.7-8.2); BASOPHILS % (AUTO) 0.3 % (0-2); EOSINOPHILS % (AUTO) 1.3 % (0-6); HEMATOCRIT 24.4 % (36.0-47.0); HEMOGLOBIN 8.5 g/dL (12.0-15.5); HGB HCT DIFFERENCE 1.1; LYMPHOCYTES % (AUTO) 12.1 % (13-45); MEAN CORPUSCULAR HEMOGLOBIN 37.6 pg (27.0-33.4); MEAN CORPUSCULAR HGB CONC 34.8 g/dL (32.0-36.0); MEAN CORPUSCULAR VOLUME 108 fl (80-97); MONOCYTES % (AUTO) 10.5 % (3-13); RED BLOOD COUNT 2.26 10^6/uL (3.72-5.28); RED CELL DISTRIBUTION WIDTH 14.5 % (11.5-14.0); SEGMENTED NEUTROPHILS % (AUTO) 75.8 % (42-78); WHITE BLOOD COUNT 5.8 10^3/uL (4.0-10.5)
[2016-05-29] MEDS: DEXTROSE 5%-WATER 250 ML with NOREPINEPHRINE BITARTRATE 4 MG IV PRN ×8 (05:15→21:49)
[2016-05-29 05:23] LABS: ALANINE AMINOTRANSFERASE 128 U/L (9-52); ALBUMIN 2.2 g/dL (3.5-5.0); ALKALINE PHOSPHATASE 269 U/L (38-126); ANION GAP 9 (5-19); ASPARTATE AMINO TRANSFERASE 147 U/L (14-36); BILIRUBIN,DIRECT 7.8 mg/dL (0.0-0.4); BILIRUBIN,TOTAL 8.8 mg/dL (0.2-1.3); CARBON DIOXIDE 25 mmol/L (22-30); CHLORIDE 107 mmol/L (98-107); GLUCOSE 122 mg/dL (75-110); MAGNESIUM 1.7 mg/dL (1.6-2.3); PHOSPHORUS 3.3 mg/dL (2.5-4.5); POTASSIUM 3.3 mmol/L (3.6-5.0); SODIUM 140.7 mmol/L (137-145)
[2016-05-29 05:25] LABS: BLOOD UREA NITROGEN < 2 mg/dL (7-20)
[2016-05-29 05:30] LABS: CALCIUM 6.1 mg/dL (8.4-10.2)
[2016-05-29] MEDS: LORAZEPAM 24 MG/ D5W 240 ML IV PRN (07:46)
[2016-05-29] MEDS ORDERED: CALCIUM GLUCONATE 1,000 MG in DEXTROSE 5%-WATER 50 ML IV ONE (08:10)
[2016-05-29] MEDS: RISPERIDONE 1 MG TABLET PO SCH (09:28)
[2016-05-29] MEDS: DOCUSATE SODIUM 100 MG CAPSULE PO SCH ×2 (09:28→17:15)
[2016-05-29] MEDS: FLUTICASONE NASAL SPRAY 50 MCG/SPRY 120 SPRAY/16 GM NASL SCH (09:28)
[2016-05-29] MEDS: FLUOXETINE HCL 20 MG/5 ML UDCUP PO SCH (09:28)
[2016-05-29] MEDS: THIAMINE HCL 100 MG, FOLIC ACID 1 MG in NORMAL SALINE 50 ML IV SCH (09:29)
[2016-05-29] MEDS: NICOTINE 14 MG/24 HR PATCH.TD24 TD SCH (09:29)
[2016-05-29] MEDS: POTASSI CL 20 MEQ/50 ML RIDER 20 MEQ/50 ML RTUPB IV SCH ×2 (09:36→11:40)
[2016-05-29] MEDS ORDERED: CALCIUM GLUCONATE 1000 MG/10 ML INJ IV ONE (10:00)
[2016-05-29] MEDS ORDERED: NORMAL SALINE 1000 ML 1,000 ML IV ONE (12:00)
--- NOTE | 2016-05-29 14:53 | PDOC PROGRESS REPORT ---
Subjective Progress Note for:: 05/29/16 Subjective:: Patient remains hypotensive on Levophed. She has received numerous saline boluses to maintain blood pressure. She required platelet transfusion due to severe thrombocytopenia. I'm unable to obtain history from patient secondary to sedated/intubated state. Physical Exam Vital Signs: Temp Pulse Resp BP Pulse Ox 98.8 F 92 11 L 102/72 99 05/29/16 11:59 05/29/16 13:44 05/29/16 14:15 05/29/16 14:14 05/29/16 14:15 Intake & Output 05/28/16 05/29/16 05/30/16 06:59 06:59 06:59 Intake Total 7006 7154 Output Total 7660 4538 1225 Balance -652 2112 -1225 Weight 53.8 kg 58.9 kg GENERAL: Sedated/intubated HEENT: Conjunctiva clear, nonicteric, moist mucous membranes, no JVD, midline trachea RESPIRATORY: Clear to auscultation bilaterally, no wheezes, no rhonchi CARDIAC: Regular rate and rhythm, no murmurs/gallops/rubs ABDOMEN: Soft, nondistended, nontender, positive bowel sounds, no rebound, no guarding EXTREMETIES: No edema, cyanosis, clubbing NEUROLOGIC: Sedated SKIN: Fairly recent right carotid scar likely from recent neck dissection for throat cancer Results Laboratory Results: 05/29/16 04:35 05/29/16 04:35 05/28/16 05/28/16 05/28/16 05:00 15:55 17:45 WBC 5.0 RBC 2.45 L Hgb 9.1 L Hct 26.7 L MCV 109 H MCH 37.2 H MCHC 34.1 RDW 14.7 H Plt Count 18 L* Seg Neutrophils % 77.3 Lymphocytes % 10.8 L Monocytes % 10.6 Eosinophils % 1.1 Basophils % 0.2 Absolute Neutrophils 3.9 Absolute Lymphocytes 0.5 Absolute Monocytes 0.5 Absolute Eosinophils 0.1 Absolute Basophils 0.0 Carbonic Acid HCO3/H2CO3 Ratio ABG pH ABG pCO2 ABG pO2 ABG HCO3 ABG O2 Saturation ABG Base Excess FiO2 Sodium Potassium 3.4 L Chloride Carbon Dioxide Anion Gap BUN Creatinine Est GFR ( Amer) Est GFR (Non-Af Amer) Glucose Calcium Phosphorus Magnesium 1.8 Transferrin 97 L Total Bilirubin AST ALT Alkaline Phosphatase Total Protein Albumin Blood Type Antibody Screen 05/28/16 05/29/16 05/29/16 19:25 02:45 04:35 WBC 6.2 RBC 2.29 L Hgb 8.6 L Hct 24.9 L MCV 109 H MCH 37.7 H MCHC 34.6 RDW 15.1 H Plt Count 74 L D Seg Neutrophils % Not Reportable Lymphocytes % Not Reportable Monocytes % Not Reportable Eosinophils % Not Reportable Basophils % Not Reportable Absolute Neutrophils Not Reportable Absolute Lymphocytes Not Reportable Absolute Monocytes Not Reportable Absolute Eosinophils Not Reportable Absolute Basophils Not Reportable Carbonic Acid 1.33 HCO3/H2CO3 Ratio 19:1 ABG pH 7.38 ABG pCO2 44.3 ABG pO2 86.9 ABG HCO3 25.8 ABG O2 Saturation 96.4 ABG Base Excess 0.5 FiO2 40% Sodium Potassium Chloride Carbon Dioxide Anion Gap BUN Creatinine Est GFR ( Amer) Est GFR (Non-Af Amer) Glucose Calcium Phosphorus Magnesium Transferrin Total Bilirubin AST ALT Alkaline Phosphatase Total Protein Albumin Blood Type A POSITIVE Antibody Screen NEGATIVE 05/29/16 05/29/16 04:35 04:35 WBC 5.8 RBC 2.26 L Hgb 8.5 L Hct 24.4 L MCV 108 H MCH 37.6 H MCHC 34.8 RDW 14.5 H Plt Count 79 L Seg Neutrophils % 75.8 Lymphocytes % 12.1 L Monocytes % 10.5 Eosinophils % 1.3 Basophils % 0.3 Absolute Neutrophils 4.4 Absolute Lymphocytes 0.7 Absolute Monocytes 0.6 Absolute Eosinophils 0.1 Absolute Basophils 0.0 Carbonic Acid HCO3/H2CO3 Ratio ABG pH ABG pCO2 ABG pO2 ABG HCO3 ABG O2 Saturation ABG Base Excess FiO2 Sodium 140.7 Potassium 3.3 L Chloride 107 Carbon Dioxide 25 Anion Gap 9 BUN < 2 L Creatinine 0.30 L Est GFR ( Amer) > 60 Est GFR (Non-Af Amer) > 60 Glucose 122 H Calcium 6.1 L* Phosphorus 3.3 Magnesium 1.7 Transferrin Total Bilirubin 8.8 H AST 147 H ALT 128 H Alkaline Phosphatase 269 H Total Protein 5.0 L Albumin 2.2 L Blood Type Antibody Screen 05/26/16 22:30 Tracheal Aspirate Gram Stain - Final Impressions: Cervical Spine CT 05/24/16 10:37 IMPRESSION: CHRONIC DEGENERATIVE CHANGES. 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 NO ACUTE FINDINGS. Abdomen Ultrasound 05/25/16 00:00 IMPRESSION: Echogenic liver from diffuse hepatocellular disease. No masses. Color flow in the portal vein and hepatic veins. Minimal sludge in the gallbladder. No gallbladder wall thickening. Negative Montejo's sign. Head CT 05/26/16 00:00 IMPRESSION: Limited study. Motion artifact. No gross acute changes. Chest X-Ray 05/29/16 06:00 IMPRESSION: Stable including minimal left basilar opacity. Assessment & Plan - Diagnosis (1) Acute respiratory failure Is this a current diagnosis for this admission?: YesPlan: Continue mechanical ventilation. Dr. Hatch of pulmonary medicine managing. (2) Sepsis Is this a current diagnosis for this admission?: YesPlan: Patient remains on Levophed for hypotension. Continue IV clindamycin. Patient is now afebrile and has normal white blood count. (3) Pneumonia Qualifiers: Pneumonia type: aspiration pneumonia Laterality: unspecified laterality Lung location: unspecified part of lung Is this a current diagnosis for this admission?: YesPlan: Possible aspiration related with high probability of gram-negative and anaerobic organism. Continue IV clindamycin. Sputum and blood cultures negative. (4) Hypomagnesemia Is this a current diagnosis for this admission?: YesPlan: Continue to replace as needed. (5) Hypocalcemia Is this a current diagnosis for this admission?: YesPlan: Continue to replace as needed. (6) Throat cancer Is this a current diagnosis for this admission?: YesPlan: Patient has had fairly recent surgery for this. It looks like she has been followed by Dr. Chilel of oncology as an outpatient. (7) Alcohol withdrawal Qualifiers: Complication of substance-induced condition: with delirium Qualified Code(s): F10.231 - Alcohol dependence with withdrawal delirium Is this a current diagnosis for this admission?: YesPlan: Continue Ativan drip. Continue IV thiamine. (8) Bipolar 1 disorder Is this a current diagnosis for this admission?: Yes (9) Emphysema lung Is this a current diagnosis for this admission?: Yes (10) Thrombocytopenia Is this a current diagnosis for this admission?: YesPlan: Likely secondary to alcohol abuse. Transfused 2 units of platelets on 2016. (11) Elevated LFTs Is this a current diagnosis for this admission?: YesPlan: Likely secondary to alcohol abuse. Right upper quadrant ultrasound with no acute findings. (12) Hypokalemia Is this a current diagnosis for this admission?: YesPlan: Continue to replace as needed. (13) Tobacco abuse Is this a current diagnosis for this admission?: Yes (14) Malnutrition Is this a current diagnosis for this admission?: YesPlan: Likely secondary to alcohol abuse and malignancy. Continue tube feeds. (15) Anemia Is this a current diagnosis for this admission?: YesPlan: Likely secondary to alcohol abuse, malnutrition, malignancy. - Time Critical Time spent with patient: 35 or more minutes
[2016-05-30] MEDS: LORAZEPAM 24 MG/ D5W 240 ML IV PRN ×2 (00:14→12:18)
[2016-05-30] MEDS: POTASSI CL 20 MEQ/D5NS 1L 1,000 ML IV PRN (00:18)
[2016-05-30] MEDS: CLINDAMYCIN 900 MG/D5W RTU 50 ML IV SCH ×2 (02:01→09:53)
[2016-05-30] MEDS: IPRATROPIUM/ALBUTEROL 0.5-2.5 MG/3 ML AMPUL NEB SCH ×4 (02:13→20:03)
[2016-05-30] MEDS: DEXTROSE 5%-WATER 250 ML with NOREPINEPHRINE BITARTRATE 4 MG IV PRN ×6 (04:03→18:27)
[2016-05-30] MEDS: PROPOFOL 100 ML IV PRN ×3 (04:43→22:50)
[2016-05-30 05:51] LABS: ARTERIAL BLOOD BASE EXCESS -1.2 mmol/L; ARTERIAL BLOOD O2 SATURATION 95.8 % (94-98)
[2016-05-30 06:03] LABS: ALANINE AMINOTRANSFERASE 111 U/L (9-52); ALKALINE PHOSPHATASE 315 U/L (38-126); ANION GAP 6 (5-19); ASPARTATE AMINO TRANSFERASE 111 U/L (14-36); BILIRUBIN,DIRECT 6.2 mg/dL (0.0-0.4); CARBON DIOXIDE 25 mmol/L (22-30); CHLORIDE 107 mmol/L (98-107); CREATININE RESULT 0.38 mg/dL (0.52-1.25); GLUCOSE 126 mg/dL (75-110); MAGNESIUM 1.5 mg/dL (1.6-2.3); SODIUM 138.4 mmol/L (137-145); TOTAL PROTEIN 4.6 g/dL (6.3-8.2)
[2016-05-30 06:08] LABS: BLOOD UREA NITROGEN < 2 mg/dL (7-20)
[2016-05-30 06:10] LABS: CALCIUM 6.8 mg/dL (8.4-10.2)
[2016-05-30 06:19] LABS: HEMATOCRIT 23.7 % (36.0-47.0); HEMOGLOBIN 8.1 g/dL (12.0-15.5); HGB HCT DIFFERENCE 0.6; MEAN CORPUSCULAR HEMOGLOBIN 37.1 pg (27.0-33.4); MEAN CORPUSCULAR HGB CONC 34.1 g/dL (32.0-36.0); MEAN CORPUSCULAR VOLUME 109 fl (80-97); RED BLOOD COUNT 2.18 10^6/uL (3.72-5.28); RED CELL DISTRIBUTION WIDTH 15.3 % (11.5-14.0); WHITE BLOOD COUNT 4.7 10^3/uL (4.0-10.5)
[2016-05-30 06:43] LABS: BASOPHILS % (MANUAL) 0 % (0-2); EOSINOPHILS % (MANUAL) 1 % (0-6); LYMPHOCYTES % (MANUAL) 14 % (13-45); TOTAL CELLS COUNTED 100
[2016-05-30 06:45] LABS: ANISOCYTOSIS SLIGHT; POLYCHROMASIA SLIGHT; TOXIC GRANULATION SLIGHT
[2016-05-30] MEDS ORDERED: MAGNESIUM SULFATE/D5W 100 ML IV ONE (08:30)
[2016-05-30] MEDS: DOCUSATE SODIUM 100 MG CAPSULE PO SCH ×2 (09:54→17:27)
[2016-05-30] MEDS: NICOTINE 14 MG/24 HR PATCH.TD24 TD SCH (09:54)
[2016-05-30] MEDS: RISPERIDONE 1 MG TABLET PO SCH (09:54)
[2016-05-30] MEDS: FLUTICASONE NASAL SPRAY 50 MCG/SPRY 120 SPRAY/16 GM NASL SCH (09:55)
[2016-05-30] MEDS: FLUOXETINE HCL 20 MG/5 ML UDCUP PO SCH (09:56)
[2016-05-30] MEDS: DEXTROSE 5%-NORMAL SALINE 1,000 ML IV PRN (10:29)
--- NOTE | 2016-05-30 12:35 | PDOC PROGRESS REPORT ---
Subjective Progress Note for:: 05/30/16 Subjective:: Patient remains hypotensive on Levophed. I'm unable to obtain history from patient secondary to sedated/intubated state. Physical Exam Vital Signs: Temp Pulse Resp BP Pulse Ox 99.5 F 96 16 82/53 L 97 05/30/16 08:00 05/30/16 10:00 05/30/16 11:10 05/30/16 11:10 05/30/16 12:00 Intake & Output 05/29/16 05/30/16 05/31/16 06:59 06:59 06:59 Intake Total 7187 6623 30 Output Total 5075 3625 450 Balance 2112 2998 -420 Weight 58.9 kg 60.2 kg GENERAL: Sedated/intubated HEENT: Conjunctiva clear, nonicteric, moist mucous membranes, no JVD, midline trachea RESPIRATORY: Clear to auscultation bilaterally, no wheezes, no rhonchi CARDIAC: Regular rate and rhythm, no murmurs/gallops/rubs ABDOMEN: Soft, nondistended, nontender, positive bowel sounds, no rebound, no guarding EXTREMETIES: No edema, cyanosis, clubbing NEUROLOGIC: Sedated SKIN: Fairly recent right carotid scar likely from recent neck dissection for throat cancer Results Laboratory Results: 05/30/16 05:35 05/30/16 05:35 05/30/16 05/30/16 05/30/16 05:35 05:35 05:35 WBC 4.7 RBC 2.18 L Hgb 8.1 L Hct 23.7 L MCV 109 H MCH 37.1 H MCHC 34.1 RDW 15.3 H Plt Count 75 L Seg Neutrophils % Not Reportable Lymphocytes % Not Reportable Monocytes % Not Reportable Eosinophils % Not Reportable Basophils % Not Reportable Absolute Neutrophils Not Reportable Absolute Lymphocytes Not Reportable Absolute Monocytes Not Reportable Absolute Eosinophils Not Reportable Absolute Basophils Not Reportable Carbonic Acid 1.09 HCO3/H2CO3 Ratio 21:1 ABG pH 7.42 ABG pCO2 36.2 ABG pO2 77.9 L ABG HCO3 23.0 ABG O2 Saturation 95.8 ABG Base Excess -1.2 FiO2 35% Sodium 138.4 Potassium 4.0 Chloride 107 Carbon Dioxide 25 Anion Gap 6 BUN < 2 L Creatinine 0.38 L Est GFR ( Amer) > 60 Est GFR (Non-Af Amer) > 60 Glucose 126 H Calcium 6.8 L* Magnesium 1.5 L Total Bilirubin 7.0 H AST 111 H ALT 111 H Alkaline Phosphatase 315 H Total Protein 4.6 L Albumin 2.0 L 05/26/16 22:30 Tracheal Aspirate Gram Stain - Final 05/25/16 00:17 Blood Blood Culture - Final NO GROWTH IN 5 DAYS 05/24/16 22:30 Blood Blood Culture - Final NO GROWTH IN 5 DAYS Impressions: Cervical Spine CT 05/24/16 10:37 IMPRESSION: CHRONIC DEGENERATIVE CHANGES. 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 NO ACUTE FINDINGS. Abdomen Ultrasound 05/25/16 00:00 IMPRESSION: Echogenic liver from diffuse hepatocellular disease. No masses. Color flow in the portal vein and hepatic veins. Minimal sludge in the gallbladder. No gallbladder wall thickening. Negative Montejo's sign. Head CT 05/26/16 00:00 IMPRESSION: Limited study. Motion artifact. No gross acute changes. Chest/Abdomen CTA 05/29/16 00:00 IMPRESSION: Small to moderate bilateral lower lobar consolidation, left more than right consistent with pneumonia. Small moderate left pleural effusion. No pulmonary embolus. Moderate dilated cardiomyopathy pattern. Lines and tubes. Chest X-Ray 05/30/16 06:00 IMPRESSION: Stable. Assessment & Plan - Diagnosis (1) Shock Is this a current diagnosis for this admission?: YesPlan: Initially this was septic shock. This has now been addressed and patient remains hypotensive on pressors. She may have component of cardiogenic shock as well. We'll check echo and consult cardiology. (2) Acute respiratory failure Is this a current diagnosis for this admission?: YesPlan: Continue mechanical ventilation. Dr. Hatch of pulmonary medicine managing. (3) Sepsis Is this a current diagnosis for this admission?: YesPlan: Patient remains on Levophed for hypotension. Continue IV clindamycin. Patient is now afebrile and has normal white blood count. (4) Pneumonia Qualifiers: Pneumonia type: aspiration pneumonia Laterality: unspecified laterality Lung location: unspecified part of lung Is this a current diagnosis for this admission?: YesPlan: Possible aspiration related with high probability of gram-negative and anaerobic organism. Continue IV clindamycin. Sputum and blood cultures negative. (5) Hypomagnesemia Is this a current diagnosis for this admission?: Yes (6) Hypocalcemia Is this a current diagnosis for this admission?: Yes (7) Throat cancer Is this a current diagnosis for this admission?: YesPlan: Patient has had fairly recent surgery for this. It looks like she has been followed by Dr. Chilel of oncology as an outpatient. (8) Alcohol withdrawal Qualifiers: Complication of substance-induced condition: with delirium Qualified Code(s): F10.231 - Alcohol dependence with withdrawal delirium Is this a current diagnosis for this admission?: YesPlan: Continue Ativan drip. Continue IV thiamine. (9) Bipolar 1 disorder Is this a current diagnosis for this admission?: Yes (10) Emphysema lung Is this a current diagnosis for this admission?: YesPlan: Continue scheduled and when necessary DuoNeb's. (11) Thrombocytopenia Is this a current diagnosis for this admission?: Yes (12) Elevated LFTs Is this a current diagnosis for this admission?: Yes (13) Hypokalemia Is this a current diagnosis for this admission?: Yes (14) Tobacco abuse Is this a current diagnosis for this admission?: Yes (15) Malnutrition Is this a current diagnosis for this admission?: Yes (16) Anemia Is this a current diagnosis for this admission?: Yes - Time Critical Time spent with patient: 35 or more minutes
--- NOTE | 2016-05-30 12:42 | PDOC CONSULTATION ---
Consultation Consult Date: 05/30/16 Attending physician:: TENISHA KAMARA Consult reason:: Hypotension History of Present Illness Admission Date/PCP: 05/24/16 22:03 JASSON LIMON MD Patient complains of: Patient currently intubated and sedated. History of Present Illness: All information from chart as patient is intubated. Previous consultation report and admission reports were reviewed. In summary 55 year old female with a past medical history of tobacco dependence, schizophrenia, alcohol dependence with withdrawal seizure, status post radical neck dissection for throat cancer with PEG placement which is recently removed, she has subsequent difficulty eating with recurrent aspiration but tolerates alcohol, she is acutely intoxicated and history is provided by her daughter who states patient has not eaten in 5 days and had recurrent falls. In the emergency room she is also found to have hypoxia with aspiration pneumonia, hypo-natremia, hypokalemia, thrombocytopenia. Patient was initially diagnosed to have sepsis. She was treated as such. Patient still needing significant vasopressor support. There is some underlying concern about underlying cardiomyopathy and possible cardiac contribution to low blood pressure. I was asked to evaluate patient for this reason. Above history was confirmed reviewed and is agreed. I did not see any family member at bedside. Past Medical History Pulmonary Medical History: Reports: Bronchitis, Chronic Obstructive Pulmonary Disease (COPD), Other - Recurrent aspiration Neurological Medical History: Reports: Seizures - Alcohol withdrawal seizures Malignancy Medical History: Reports: Other - Throat cancer Psychiatric Medical History: Reports: Bipolar Disorder, Depression, Schizoaffective Disorder Past Surgical History Past Surgical History: Reports: Appendectomy, Hysterectomy, Tonsillectomy, Other - Status post radical neck dissection for throat cancer Social History Smoking Status: Current Every Day Smoker Cigarettes Packs Per Day: 2 Frequency of Alcohol Use: Heavy Hx Recreational Drug Use: No Drugs: None Hx Prescription Drug Abuse: No - Advance Directive Resuscitation Status: Full Code Family History Family History: Other - Unobtainable Parental Family History Reviewed: No Children Family History Reviewed: No Sibling(s) Family History Reviewed.: No Medication/Allergy Home Medications: Albuterol Sulfate [Proair HFA Inhalation Aerosol 8.5 gm MDI] 2 puff IH Q4HP PRN 05/25/16 Alendronate Sodium [Fosamax 70 mg Tablet] 70 mg PO RICKS 05/25/16 Calcium Carbonate [Calcium] 600 mg PO DAILY 05/25/16 Cyproheptadine HCl [Periactin 4 mg Tablet] 4 mg PO BID 05/25/16 Ergocalciferol (Vitamin D2) [Vitamin D2] 2,000 unit PO DAILY 05/25/16 Fluoxetine HCl [Prozac Soln 20 mg/5 ml Udcup] 5 ml PO DAILY 05/25/16 Fluticasone/Salmeterol [Advair 500-50 Diskus 14 Dose/Diskus] 1 puff IH BID 05/25 Lorazepam [Ativan 0.5 mg Tablet] 0.25 mg PO BIDP PRN 05/25/16 Omeprazole 40 mg PO DAILY 05/25/16 Prochlorperazine Maleate [Compazine 10 mg Tablet] 10 mg PO Q8HP PRN 05/25/16 Quetiapine Fumarate [Seroquel] 50 mg PO DAILY 05/25/16 Risperidone [Risperdal] 2 ml PO QAM 05/25/16 Solifenacin Succinate [Vesicare] 10 mg PO DAILY 05/25/16 Allergies/Adverse Reactions: codeine [Codeine] Allergy (Severe, Verified 05/25/16 03:10) itching oxytetracycline [From Terramycin] Allergy (Severe, Verified 05/25/16 03:10) rash paliperidone [From Invega] Allergy (Intermediate, Verified 05/25/16 03:10) Hives fentanyl [Fentanyl] Allergy (Verified 05/25/16 03:10) Review of Systems ROS unobtainable: Due to endotracheal tube - Cannot be obtained due to sedation and intubation Physical Exam Vital Signs: Temp Pulse Resp BP Pulse Ox 99.5 F 96 16 82/53 L 97 05/30/16 08:00 05/30/16 10:00 05/30/16 11:10 05/30/16 11:10 05/30/16 12:00 Intake & Output 05/29/16 05/30/16 05/31/16 06:59 06:59 06:59 Intake Total 9314 6606 30 Output Total 4079 6321 450 Balance 2112 2998 -420 Weight 58.9 kg 60.2 kg Exam: GENERAL: well-nourished and in no acute distress. Patient is intubated and sedated. Orientation cannot be checked HEAD: Atraumatic, normocephalic. EYES: Pupils equal round and reactive to light, extraocular movements could not be checked, sclera anicteric, conjunctiva are normal. ENT: TMs normal, nares patent, oropharynx clear without exudates. Moist mucous membranes. No oral ulcerations or bleeding gums noted NECK: supple without lymphadenopathy or JVD. Trachea is central. No cervical or axillary lymphadenopathy noted. Carotids are 2+ LUNGS: Breath sounds mostly clear to auscultation patient is noted to have bibasal crackles at the extreme bases, left more than right CHEST: Palpation of the chest wall shows no significant chest wall tenderness or abnormalities. HEART: [place] MATCH UP PERSON, No PSH, 2/6 MARK aortic area, 1/6 whitney systolic murmur mitral area , no rubs or gallops. ABDOMEN: Soft, mild abdominal distention. No significant tenderness appreciated , normoactive bowel sounds. No guarding, no rebound. No rigidity noted . No masses appreciated. EXTREMITIES: Pedal pulses are 1-2+, no calf tenderness noted, 1+ pedal edema noted. No clubbing or cyanosis. NEUROLOGICAL: The patient cannot participate in the neurological exam but no facial asymmetry noted. Extremities slightly hypotonic PSYCH: This cannot be evaluated. Patient cannot participate. SKIN: No significant ecchymosis, rash, or signs of pruritus noted. MUSCULOSKELETAL EXAM: No significant joint swelling noted. Patient cannot participate in musculoskeletal exam Results Laboratory Results: 05/30/16 05:35 05/30/16 05:35 05/30/16 05/30/16 05/30/16 05:35 05:35 05:35 WBC 4.7 RBC 2.18 L Hgb 8.1 L Hct 23.7 L MCV 109 H MCH 37.1 H MCHC 34.1 RDW 15.3 H Plt Count 75 L Seg Neutrophils % Not Reportable Lymphocytes % Not Reportable Monocytes % Not Reportable Eosinophils % Not Reportable Basophils % Not Reportable Absolute Neutrophils Not Reportable Absolute Lymphocytes Not Reportable Absolute Monocytes Not Reportable Absolute Eosinophils Not Reportable Absolute Basophils Not Reportable Carbonic Acid 1.09 HCO3/H2CO3 Ratio 21:1 ABG pH 7.42 ABG pCO2 36.2 ABG pO2 77.9 L ABG HCO3 23.0 ABG O2 Saturation 95.8 ABG Base Excess -1.2 FiO2 35% Sodium 138.4 Potassium 4.0 Chloride 107 Carbon Dioxide 25 Anion Gap 6 BUN < 2 L Creatinine 0.38 L Est GFR ( Amer) > 60 Est GFR (Non-Af Amer) > 60 Glucose 126 H Calcium 6.8 L* Magnesium 1.5 L Total Bilirubin 7.0 H AST 111 H ALT 111 H Alkaline Phosphatase 315 H Total Protein 4.6 L Albumin 2.0 L 05/26/16 22:30 Tracheal Aspirate Gram Stain - Final 05/25/16 00:17 Blood Blood Culture - Final NO GROWTH IN 5 DAYS 05/24/16 22:30 Blood Blood Culture - Final NO GROWTH IN 5 DAYS EKG Comments: Sinus rhythm, no acute ST-T wave changes noted. Impressions: Cervical Spine CT 05/24/16 10:37 IMPRESSION: CHRONIC DEGENERATIVE CHANGES. 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 NO ACUTE FINDINGS. Abdomen Ultrasound 05/25/16 00:00 IMPRESSION: Echogenic liver from diffuse hepatocellular disease. No masses. Color flow in the portal vein and hepatic veins. Minimal sludge in the gallbladder. No gallbladder wall thickening. Negative Montejo's sign. Head CT 05/26/16 00:00 IMPRESSION: Limited study. Motion artifact. No gross acute changes. Chest/Abdomen CTA 05/29/16 00:00 IMPRESSION: Small to moderate bilateral lower lobar consolidation, left more than right consistent with pneumonia. Small moderate left pleural effusion. No pulmonary embolus. Moderate dilated cardiomyopathy pattern. Lines and tubes. Chest X-Ray 05/30/16 06:00 IMPRESSION: Stable. Status: Imported from PACS Assessment & Plan - Diagnosis (1) Arterial hypotension Qualifiers: Hypotension type: unspecified hypotension type Qualified Code(s): I95.9 - Hypotension, unspecified Is this a current diagnosis for this admission?: Yes (2) Acute respiratory failure Qualifiers: Respiratory failure complication: hypoxia Qualified Code(s): J96.01 - Acute respiratory failure with hypoxia Is this a current diagnosis for this admission?: Yes (3) Emphysema lung Qualifiers: Emphysema type: unspecified Qualified Code(s): J43.9 - Emphysema, unspecified Is this a current diagnosis for this admission?: Yes (4) Pneumonia Qualifiers: Pneumonia type: aspiration pneumonia Laterality: unspecified laterality Lung location: unspecified part of lung Is this a current diagnosis for this admission?: Yes (5) Sepsis Qualifiers: Sepsis type: sepsis due to unspecified organism Qualified Code(s): A41.9 - Sepsis, unspecified organism Is this a current diagnosis for this admission?: Yes - Notes Notes: Arterial hypotension: Most likely related to underlying sepsis and possible vasomotor dysfunction secondary to sepsis and prolonged general debility, alcohol abuse etc. Will add Midodrin and gradually try to withdraw Levophed. Consider intermittent fluid boluses if needed. A 2-D echocardiogram will be obtained to rule out any cardiac contribution. Acute respiratory failure: Most likely related to underlying COPD, emphysema along with sepsis. Agree with ventilatory support and oxygenation. Emphysema of the lung: Patient has significant emphysema. Patient being followed by [facility]. Pneumonia: Bilateral, chest x-ray today shows increased left lung infiltrate. Continue antibiotic therapy. Sepsis: I'm told by the attending physician that this is under control but patient still hypotensive. Continue management plans as outlined. - Time Time Spent: 50 to 70 Minutes - CODE STATUS was discussed, patient remains full code. Surrogate decision-maker patient's daughter. Multiple medical problems were addressed.More than 50% of the time spent coordinating care, discussing management plans with involved caregivers. Management plans discussed with involved personnels. Medical decision making was of moderate to high complexity , patient's has multiple severe comorbidities. Medications reviewed and adjusted accordingly: Yes
--- NOTE | 2016-05-30 13:21 | XCELERA REPORT ---
[address] [address] Transthoracic Echocardiogram Report Name: DEONTE CASTRO Age: 55 yrs Gender: Female : 1960 Patient Status: Inpatient Patient Location: ICU\S\609\S\A Study Date: 05/30/2016 10:06 AM Height: 65 in Weight: 132 lb BSA: 1.7 m2 Procedure: A complete two-dimensional transthoracic echocardiogram was performed (2D, M-mode, spectral and color flow Doppler). The study was technically difficult with many images being suboptimal in quality. Reason For Study: hypotension, resp failure Ordering Physician: TENISHA KAMARA Performed By: Kandi Irvin Interpretation Summary The study was technically difficult with many images being suboptimal in quality. The left ventricular ejection fraction is preserved. There is normal left ventricular wall thickness. The left ventricle is grossly normal size. Doppler measurements suggest impaired left ventricular relaxation, which is associated with grade I/IV or mild diastolic dysfunction Wall motion cannot be accurately commented on, but no definite regional wall motion abnormalities noted. The right ventricle is mildly dilated. The right ventricular systolic function is normal. The left atrial size is normal. The right atrium is normal in size There is a trace amount of mitral regurgitation There is no mitral valve stenosis. There is no aortic valve stenosis No aortic regurgitation is present. There is a trace to mild amount of tricuspid regurgitation There is mild to moderate pulmonary hypertension by echo Right ventricular systolic pressure is estimated to be elevated at 40- 50mmHg. The aortic root is not well visualized. The inferior vena cava appeared normal and decreased < 50% with respiration (RAP 10-15 mmHg) Minimal pericardial effusion. MMode/2D Measurements \T\ Calculations RVDd: 2.9 cm LVIDd: 4.9 cm FS: 32.1 % Ao root diam: 2.9 cm IVSd: 0.73 cm LVIDs: 3.3 cm EDV(Teich): 110.8 ml LVPWd: 0.74 cm ESV(Teich): 44.3 ml Ao root area: 6.6 cm2 EF(Teich): 60.1 % LA dimension: 2.6 cm Doppler Measurements \T\ Calculations MV E max franny: MV P1/2t max franny: Ao V2 max: LV V1 max P.4 cm/sec 84.4 cm/sec 145.2 cm/sec 3.7 mmHg MV A max franny: MV P1/2t: 58.1 msec Ao max PG: LV V1 max: 92.3 cm/sec 8.4 mmHg 96.3 cm/sec MV E/A: 0.90 MVA(P1/2t): 3.8 cm2 MV dec slope: 425.6 cm/sec2 PA V2 max: TR max franny: 90.3 cm/sec 293.2 cm/sec PA max PG: TR max P.4 mmHg 3.3 mmHg Left Ventricle The left ventricle is grossly normal size. There is normal left ventricular wall thickness. The left ventricular ejection fraction is preserved. Doppler measurements suggest impaired left ventricular relaxation, which is associated with grade I/IV or mild diastolic dysfunction. Wall motion cannot be accurately commented on, but no definite regional wall motion abnormalities noted. Right Ventricle The right ventricle is mildly dilated. There is normal right ventricular wall thickness. The right ventricular systolic function is normal. Atria The right atrium is normal in size. The left atrial size is normal. Interarterial septum not well visualized and not well dopplered. Cannot comment on ASD/PFO presence. Mitral Valve The mitral valve leaflets are sclerotic, but show no functional abnormalities. There is no mitral valve stenosis. There is a trace amount of mitral regurgitation. Aortic Valve The aortic valve is not well visualized secondary to technical limitations. There is no aortic valve stenosis. No aortic regurgitation is present. Tricuspid Valve The tricuspid valve is not well visualized secondary to technical limitations. There is no tricuspid stenosis. There is a trace to mild amount of tricuspid regurgitation. There is mild to moderate pulmonary hypertension by echo. Right ventricular systolic pressure is estimated to be elevated at 40-50mmHg. Pulmonic Valve The pulmonic valve is not well visualized. Great Vessels The aortic root is not well visualized. The inferior vena cava appeared normal and decreased < 50% with respiration (RAP 10-15 mmHg). Effusions Minimal pericardial effusion. : TENISHA KAMARA > Martinez Caraballo
--- NOTE | 2016-05-30 14:33 | Progress Note ---
Provider Note Provider Note: ADDENDUM: Sputum with gram-negative rods. Patient remains hypotensive, low-grade temperature. Discontinue IV clindamycin. Start double gram-negative coverage with IV cefepime and IV Levaquin.
[2016-05-30] MEDS ORDERED: LEVOFLOXACIN 750 MG/D5W RTU 750 MG/150 ML RTUPB IV ONE (15:00)
[2016-05-30] MEDS: CEFEPIME 1 GM/D5W RTU 1 GM/50 ML RTUPB IV SCH (17:28)
[2016-05-30] MEDS: NORMAL SALINE 1000 ML 1,000 ML with POTASSIUM CHLORIDE 20 MEQ, MAGNESIUM SULFATE 8 MEQ,... IV PRN ×6 (18:28)
[2016-05-30] MEDS ORDERED: MIDODRINE HCL 5 MG TABLET PO ONE (19:30)
[2016-05-31] MEDS: LORAZEPAM 24 MG/ D5W 240 ML IV PRN ×2 (00:38→05:26)
[2016-05-31] MEDS: IPRATROPIUM/ALBUTEROL 0.5-2.5 MG/3 ML AMPUL NEB SCH ×4 (01:35→19:53)
[2016-05-31] MEDS: PROPOFOL 100 ML IV PRN ×4 (04:02→17:52)
[2016-05-31] MEDS: DEXTROSE 5%-NORMAL SALINE 1,000 ML IV PRN ×2 (04:03→23:06)
[2016-05-31 05:02] LABS: ARTERIAL BLOOD BASE EXCESS 1.7 mmol/L; ARTERIAL BLOOD O2 SATURATION 92.3 % (94-98)
[2016-05-31 05:07] LABS: HEMATOCRIT 21.3 % (36.0-47.0); HGB HCT DIFFERENCE 0.3; MEAN CORPUSCULAR HEMOGLOBIN 36.9 pg (27.0-33.4); MEAN CORPUSCULAR HGB CONC 33.6 g/dL (32.0-36.0); MEAN CORPUSCULAR VOLUME 110 fl (80-97); RED BLOOD COUNT 1.94 10^6/uL (3.72-5.28); RED CELL DISTRIBUTION WIDTH 15.3 % (11.5-14.0); WHITE BLOOD COUNT 3.6 10^3/uL (4.0-10.5)
[2016-05-31 05:13] LABS: HEMOGLOBIN 7.2 g/dL (12.0-15.5)
[2016-05-31 05:17] LABS: ALANINE AMINOTRANSFERASE 84 U/L (9-52); ALBUMIN 1.8 g/dL (3.5-5.0); ALKALINE PHOSPHATASE 323 U/L (38-126); ANION GAP 6 (5-19); ASPARTATE AMINO TRANSFERASE 94 U/L (14-36); BILIRUBIN,DIRECT 4.4 mg/dL (0.0-0.4); BILIRUBIN,TOTAL 5.2 mg/dL (0.2-1.3); BLOOD UREA NITROGEN 4 mg/dL (7-20); CALCIUM 7.6 mg/dL (8.4-10.2); CARBON DIOXIDE 25 mmol/L (22-30); CHLORIDE 107 mmol/L (98-107); CREATININE RESULT 0.36 mg/dL (0.52-1.25); GLUCOSE 119 mg/dL (75-110); POTASSIUM 4.1 mmol/L (3.6-5.0); SODIUM 137.7 mmol/L (137-145); TOTAL PROTEIN 4.2 g/dL (6.3-8.2); TRIGLYCERIDES 161 mg/dL (<150)
[2016-05-31 05:20] LABS: BASOPHILS % (MANUAL) 0 % (0-2); EOSINOPHILS % (MANUAL) 0 % (0-6); LYMPHOCYTES % (MANUAL) 20 % (13-45); TOTAL CELLS COUNTED 100
[2016-05-31 05:24] LABS: ANISOCYTOSIS 1+; TOXIC GRANULATION SLIGHT
[2016-05-31] MEDS: CEFEPIME 1 GM/D5W RTU 1 GM/50 ML RTUPB IV SCH (05:26)
[2016-05-31] MEDS ORDERED: NORMAL SALINE 250 ML IV PRN ×2 (07:40)
[2016-05-31] MEDS ORDERED: FUROSEMIDE INJ/PF 40 MG/4 ML SDV IV PRN (07:40)
[2016-05-31] MEDS: LEVOFLOXACIN 750 MG/D5W RTU 750 MG/150 ML RTUPB IV SCH (10:44)
[2016-05-31] MEDS: NICOTINE 14 MG/24 HR PATCH.TD24 TD SCH (10:44)
[2016-05-31] MEDS: FLUTICASONE NASAL SPRAY 50 MCG/SPRY 120 SPRAY/16 GM NASL SCH (10:44)
[2016-05-31] MEDS: FLUOXETINE HCL 20 MG/5 ML UDCUP PO SCH (10:45)
[2016-05-31] MEDS: RISPERIDONE 1 MG TABLET PO SCH (10:45)
[2016-05-31] MEDS: DOCUSATE SODIUM 100 MG CAPSULE PO SCH ×2 (10:50→17:47)
--- NOTE | 2016-05-31 11:31 | PDOC PROGRESS REPORT ---
Subjective Progress Note for:: 05/29/16 Subjective:: intubated and sedated Physical Exam Vital Signs: Temp Pulse Resp BP Pulse Ox 99.2 F 80 11 L 95/73 L 100 05/29/16 08:00 05/29/16 04:35 05/29/16 06:09 05/29/16 06:09 05/29/16 08:00 Intake & Output 05/28/16 05/29/16 05/30/16 06:59 06:59 06:59 Intake Total 7028 7187 Output Total 7680 5075 350 Balance -652 2112 -350 Weight 53.8 kg 58.9 kg General appearance: PRESENT: no acute distress, disheveled, obese Head exam: PRESENT: atraumatic, normocephalic Eye exam: PRESENT: conjunctiva pale Mouth exam: PRESENT: dry mucosa, neck supple, other - Endotracheal tube in place Neck exam: ABSENT: carotid bruit, JVD, lymphadenopathy, thyromegaly Respiratory exam: PRESENT: decreased breath sounds, prolonged expiratory phas, rhonchi, symmetrical, unlabored Cardiovascular exam: PRESENT: RRR, +S1, +S2 Pulses: PRESENT: normal radial pulses GI/Abdominal exam: PRESENT: normal bowel sounds, soft. ABSENT: distended, guarding, mass, organolmegaly, rebound, tenderness Rectal exam: PRESENT: deferred Gentrourinary exam: PRESENT: indwelling catheter Musculoskeletal exam: PRESENT: normal inspection Skin exam: PRESENT: dry, warm Results Laboratory Results: 05/29/16 04:35 05/29/16 04:35 05/28/16 05/28/16 05/28/16 05:00 05:00 05:00 WBC RBC Hgb Hct MCV MCH MCHC RDW Plt Count Seg Neutrophils % Lymphocytes % Monocytes % Eosinophils % Basophils % Absolute Neutrophils Absolute Lymphocytes Absolute Monocytes Absolute Eosinophils Absolute Basophils Retic Count (auto) 0.56 L Absolute Retic 0.015 L Carbonic Acid HCO3/H2CO3 Ratio ABG pH ABG pCO2 ABG pO2 ABG HCO3 ABG O2 Saturation ABG Base Excess FiO2 Sodium Potassium Chloride Carbon Dioxide Anion Gap BUN Creatinine Est GFR ( Amer) Est GFR (Non-Af Amer) Glucose Calcium Phosphorus Magnesium Iron 14.3 L TIBC 170 L % Saturation 8 Transferrin 97 L Ferritin 719.00 H Total Bilirubin AST ALT Alkaline Phosphatase Total Protein Albumin Vitamin B12 > 1000.0 H Folate 9.85 Blood Type Antibody Screen 05/28/16 05/28/16 05/28/16 15:55 17:45 19:25 WBC 5.0 RBC 2.45 L Hgb 9.1 L Hct 26.7 L MCV 109 H MCH 37.2 H MCHC 34.1 RDW 14.7 H Plt Count 18 L* Seg Neutrophils % 77.3 Lymphocytes % 10.8 L Monocytes % 10.6 Eosinophils % 1.1 Basophils % 0.2 Absolute Neutrophils 3.9 Absolute Lymphocytes 0.5 Absolute Monocytes 0.5 Absolute Eosinophils 0.1 Absolute Basophils 0.0 Retic Count (auto) Absolute Retic Carbonic Acid HCO3/H2CO3 Ratio ABG pH ABG pCO2 ABG pO2 ABG HCO3 ABG O2 Saturation ABG Base Excess FiO2 Sodium Potassium 3.4 L Chloride Carbon Dioxide Anion Gap BUN Creatinine Est GFR ( Amer) Est GFR (Non-Af Amer) Glucose Calcium Phosphorus Magnesium 1.8 Iron TIBC % Saturation Transferrin Ferritin Total Bilirubin AST ALT Alkaline Phosphatase Total Protein Albumin Vitamin B12 Folate Blood Type A POSITIVE Antibody Screen NEGATIVE 05/29/16 05/29/16 05/29/16 02:45 04:35 04:35 WBC 6.2 5.8 RBC 2.29 L 2.26 L Hgb 8.6 L 8.5 L Hct 24.9 L 24.4 L MCV 109 H 108 H MCH 37.7 H 37.6 H MCHC 34.6 34.8 RDW 15.1 H 14.5 H Plt Count 74 L D 79 L Seg Neutrophils % Not Reportable 75.8 Lymphocytes % Not Reportable 12.1 L Monocytes % Not Reportable 10.5 Eosinophils % Not Reportable 1.3 Basophils % Not Reportable 0.3 Absolute Neutrophils Not Reportable 4.4 Absolute Lymphocytes Not Reportable 0.7 Absolute Monocytes Not Reportable 0.6 Absolute Eosinophils Not Reportable 0.1 Absolute Basophils Not Reportable 0.0 Retic Count (auto) Absolute Retic Carbonic Acid 1.33 HCO3/H2CO3 Ratio 19:1 ABG pH 7.38 ABG pCO2 44.3 ABG pO2 86.9 ABG HCO3 25.8 ABG O2 Saturation 96.4 ABG Base Excess 0.5 FiO2 40% Sodium Potassium Chloride Carbon Dioxide Anion Gap BUN Creatinine Est GFR ( Amer) Est GFR (Non-Af Amer) Glucose Calcium Phosphorus Magnesium Iron TIBC % Saturation Transferrin Ferritin Total Bilirubin AST ALT Alkaline Phosphatase Total Protein Albumin Vitamin B12 Folate Blood Type Antibody Screen 05/29/16 04:35 WBC RBC Hgb Hct MCV MCH MCHC RDW Plt Count Seg Neutrophils % Lymphocytes % Monocytes % Eosinophils % Basophils % Absolute Neutrophils Absolute Lymphocytes Absolute Monocytes Absolute Eosinophils Absolute Basophils Retic Count (auto) Absolute Retic Carbonic Acid HCO3/H2CO3 Ratio ABG pH ABG pCO2 ABG pO2 ABG HCO3 ABG O2 Saturation ABG Base Excess FiO2 Sodium 140.7 Potassium 3.3 L Chloride 107 Carbon Dioxide 25 Anion Gap 9 BUN < 2 L Creatinine 0.30 L Est GFR ( Amer) > 60 Est GFR (Non-Af Amer) > 60 Glucose 122 H Calcium 6.1 L* Phosphorus 3.3 Magnesium 1.7 Iron TIBC % Saturation Transferrin Ferritin Total Bilirubin 8.8 H AST 147 H ALT 128 H Alkaline Phosphatase 269 H Total Protein 5.0 L Albumin 2.2 L Vitamin B12 Folate Blood Type Antibody Screen 05/26/16 22:30 Tracheal Aspirate Gram Stain - Final Impressions: Cervical Spine CT 05/24/16 10:37 IMPRESSION: CHRONIC DEGENERATIVE CHANGES. 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 NO ACUTE FINDINGS. Abdomen Ultrasound 05/25/16 00:00 IMPRESSION: Echogenic liver from diffuse hepatocellular disease. No masses. Color flow in the portal vein and hepatic veins. Minimal sludge in the gallbladder. No gallbladder wall thickening. Negative Montejo's sign. Head CT 05/26/16 00:00 IMPRESSION: Limited study. Motion artifact. No gross acute changes. Chest X-Ray 05/29/16 06:00 IMPRESSION: Stable including minimal left basilar opacity. Assessment & Plan - Diagnosis (1) Emphysema lung Qualifiers: Emphysema type: unspecified Qualified Code(s): J43.9 - Emphysema, unspecified Is this a current diagnosis for this admission?: YesPlan: Clinically improving still dependent on ventilatory support (2) Pneumonia Qualifiers: Pneumonia type: aspiration pneumonia Laterality: unspecified laterality Lung location: unspecified part of lung Is this a current diagnosis for this admission?: Yes (3) Dysphagia, oropharyngeal phase Is this a current diagnosis for this admission?: YesPlan: predisposal to aspiration (4) Acute respiratory failure Qualifiers: Respiratory failure complication: hypoxia Qualified Code(s): J96.01 - Acute respiratory failure with hypoxia Is this a current diagnosis for this admission?: YesPlan: rr,min vol,fio2 airway pressures suggest extubation however mental status ability to protect airway and not assessable (5) Thrombocytopenia Is this a current diagnosis for this admission?: YesPlan: This is turning into pancytopenia with leukopenia as well as anemia and thrombocytopenia (6) Elevated LFTs Is this a current diagnosis for this admission?: YesPlan: Slowly trending downward - Time Critical Time spent with patient: 35 or more minutes
--- NOTE | 2016-05-31 11:32 | PDOC PROGRESS REPORT ---
Subjective Progress Note for:: 05/30/16 Subjective:: intubated and sedated Physical Exam Vital Signs: Temp Pulse Resp BP Pulse Ox 99.0 F 92 29 H 92/59 L 100 05/30/16 06:00 05/30/16 07:58 05/30/16 07:58 05/30/16 06:10 05/30/16 07:58 Intake & Output 05/29/16 05/30/16 05/31/16 06:59 06:59 06:59 Intake Total 7187 6677 Output Total 5037 3620 Balance 2112 2998 Weight 58.9 kg 60.2 kg General appearance: PRESENT: no acute distress, disheveled, obese Head exam: PRESENT: atraumatic, normocephalic Eye exam: PRESENT: conjunctiva pale Mouth exam: PRESENT: dry mucosa, neck supple, other - Endotracheal tube Neck exam: ABSENT: carotid bruit, JVD, lymphadenopathy, thyromegaly Respiratory exam: PRESENT: decreased breath sounds, prolonged expiratory phas, rhonchi, symmetrical, unlabored Cardiovascular exam: PRESENT: RRR, +S1, +S2 Pulses: PRESENT: normal radial pulses GI/Abdominal exam: PRESENT: normal bowel sounds, soft. ABSENT: distended, guarding, mass, organolmegaly, rebound, tenderness Rectal exam: PRESENT: deferred Gentrourinary exam: PRESENT: indwelling catheter Skin exam: PRESENT: dry, warm Results Laboratory Results: 05/30/16 05:35 05/30/16 05:35 05/30/16 05/30/16 05/30/16 05:35 05:35 05:35 WBC 4.7 RBC 2.18 L Hgb 8.1 L Hct 23.7 L MCV 109 H MCH 37.1 H MCHC 34.1 RDW 15.3 H Plt Count 75 L Seg Neutrophils % Not Reportable Lymphocytes % Not Reportable Monocytes % Not Reportable Eosinophils % Not Reportable Basophils % Not Reportable Absolute Neutrophils Not Reportable Absolute Lymphocytes Not Reportable Absolute Monocytes Not Reportable Absolute Eosinophils Not Reportable Absolute Basophils Not Reportable Carbonic Acid 1.09 HCO3/H2CO3 Ratio 21:1 ABG pH 7.42 ABG pCO2 36.2 ABG pO2 77.9 L ABG HCO3 23.0 ABG O2 Saturation 95.8 ABG Base Excess -1.2 FiO2 35% Sodium 138.4 Potassium 4.0 Chloride 107 Carbon Dioxide 25 Anion Gap 6 BUN < 2 L Creatinine 0.38 L Est GFR ( Amer) > 60 Est GFR (Non-Af Amer) > 60 Glucose 126 H Calcium 6.8 L* Magnesium 1.5 L Total Bilirubin 7.0 H AST 111 H ALT 111 H Alkaline Phosphatase 315 H Total Protein 4.6 L Albumin 2.0 L 05/25/16 00:17 Blood Blood Culture - Final NO GROWTH IN 5 DAYS 05/24/16 22:30 Blood Blood Culture - Final NO GROWTH IN 5 DAYS 05/26/16 22:30 Tracheal Aspirate Gram Stain - Final Impressions: Cervical Spine CT 05/24/16 10:37 IMPRESSION: CHRONIC DEGENERATIVE CHANGES. 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 NO ACUTE FINDINGS. Abdomen Ultrasound 05/25/16 00:00 IMPRESSION: Echogenic liver from diffuse hepatocellular disease. No masses. Color flow in the portal vein and hepatic veins. Minimal sludge in the gallbladder. No gallbladder wall thickening. Negative Montejo's sign. Head CT 05/26/16 00:00 IMPRESSION: Limited study. Motion artifact. No gross acute changes. Chest/Abdomen CTA 05/29/16 00:00 IMPRESSION: Small to moderate bilateral lower lobar consolidation, left more than right consistent with pneumonia. Small moderate left pleural effusion. No pulmonary embolus. Moderate dilated cardiomyopathy pattern. Lines and tubes. Chest X-Ray 05/30/16 06:00 IMPRESSION: Stable. Assessment & Plan - Diagnosis (1) Emphysema lung Qualifiers: Emphysema type: unspecified Qualified Code(s): J43.9 - Emphysema, unspecified Is this a current diagnosis for this admission?: Yes (2) Pneumonia Qualifiers: Pneumonia type: aspiration pneumonia Laterality: unspecified laterality Lung location: unspecified part of lung Is this a current diagnosis for this admission?: Yes (3) Dysphagia, oropharyngeal phase Is this a current diagnosis for this admission?: Yes (4) Acute respiratory failure Qualifiers: Respiratory failure complication: hypoxia Qualified Code(s): J96.01 - Acute respiratory failure with hypoxia Is this a current diagnosis for this admission?: YesPlan: Unchanged over the last 24 hours (5) Thrombocytopenia Is this a current diagnosis for this admission?: Yes (6) Elevated LFTs Is this a current diagnosis for this admission?: Yes - Time Critical Time spent with patient: 35 or more minutes
--- NOTE | 2016-05-31 11:34 | PDOC PROGRESS REPORT ---
Subjective Progress Note for:: 05/31/16 Subjective:: intubated and sedated Physical Exam Vital Signs: Temp Pulse Resp BP Pulse Ox 99.1 F 95 31 H 91/62 L 94 05/31/16 06:45 05/31/16 07:51 05/31/16 06:45 05/31/16 06:45 05/31/16 06:15 Intake & Output 05/30/16 05/31/16 06/01/16 06:59 06:59 06:59 Intake Total 6604 5789 Output Total 3625 8435 Balance 2998 1034 Weight 60.2 kg 63.9 kg General appearance: PRESENT: no acute distress, disheveled, obese Head exam: PRESENT: atraumatic, normocephalic Eye exam: PRESENT: conjunctiva pale Mouth exam: PRESENT: dry mucosa, neck supple, other - Endotracheal tube in place Neck exam: ABSENT: carotid bruit, JVD, lymphadenopathy, thyromegaly Respiratory exam: PRESENT: decreased breath sounds, prolonged expiratory phas, rhonchi, symmetrical, unlabored Cardiovascular exam: PRESENT: RRR, +S1, +S2 Pulses: PRESENT: normal radial pulses GI/Abdominal exam: PRESENT: normal bowel sounds, soft. ABSENT: distended, guarding, mass, organolmegaly, rebound, tenderness Rectal exam: PRESENT: deferred Skin exam: PRESENT: dry, warm Results Laboratory Results: 05/31/16 04:45 05/31/16 04:45 05/28/16 05/31/16 05/31/16 19:25 04:45 04:45 WBC 3.6 L RBC 1.94 L Hgb 7.2 L Hct 21.3 L MCV 110 H MCH 36.9 H MCHC 33.6 RDW 15.3 H Plt Count 78 L Seg Neutrophils % Not Reportable Lymphocytes % Not Reportable Monocytes % Not Reportable Eosinophils % Not Reportable Basophils % Not Reportable Absolute Neutrophils Not Reportable Absolute Lymphocytes Not Reportable Absolute Monocytes Not Reportable Absolute Eosinophils Not Reportable Absolute Basophils Not Reportable Carbonic Acid 1.26 HCO3/H2CO3 Ratio 20:1 ABG pH 7.42 ABG pCO2 42.0 ABG pO2 62.7 L ABG HCO3 26.4 H ABG O2 Saturation 92.3 L ABG Base Excess 1.7 FiO2 30% Sodium Potassium Chloride Carbon Dioxide Anion Gap BUN Creatinine Est GFR ( Amer) Est GFR (Non-Af Amer) Glucose Calcium Magnesium Total Bilirubin AST ALT Alkaline Phosphatase Total Protein Albumin Triglycerides Blood Type A POSITIVE Antibody Screen NEGATIVE 05/31/16 04:45 WBC RBC Hgb Hct MCV MCH MCHC RDW Plt Count Seg Neutrophils % Lymphocytes % Monocytes % Eosinophils % Basophils % Absolute Neutrophils Absolute Lymphocytes Absolute Monocytes Absolute Eosinophils Absolute Basophils Carbonic Acid HCO3/H2CO3 Ratio ABG pH ABG pCO2 ABG pO2 ABG HCO3 ABG O2 Saturation ABG Base Excess FiO2 Sodium 137.7 Potassium 4.1 Chloride 107 Carbon Dioxide 25 Anion Gap 6 BUN 4 L Creatinine 0.36 L Est GFR ( Amer) > 60 Est GFR (Non-Af Amer) > 60 Glucose 119 H Calcium 7.6 L Magnesium 2.0 Total Bilirubin 5.2 H AST 94 H ALT 84 H Alkaline Phosphatase 323 H Total Protein 4.2 L Albumin 1.8 L Triglycerides 161 H Blood Type Antibody Screen 05/26/16 22:30 Tracheal Aspirate Gram Stain - Final Impressions: Cervical Spine CT 05/24/16 10:37 IMPRESSION: CHRONIC DEGENERATIVE CHANGES. 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 NO ACUTE FINDINGS. Abdomen Ultrasound 05/25/16 00:00 IMPRESSION: Echogenic liver from diffuse hepatocellular disease. No masses. Color flow in the portal vein and hepatic veins. Minimal sludge in the gallbladder. No gallbladder wall thickening. Negative Montejo's sign. Head CT 05/26/16 00:00 IMPRESSION: Limited study. Motion artifact. No gross acute changes. Chest/Abdomen CTA 05/29/16 00:00 IMPRESSION: Small to moderate bilateral lower lobar consolidation, left more than right consistent with pneumonia. Small moderate left pleural effusion. No pulmonary embolus. Moderate dilated cardiomyopathy pattern. Lines and tubes. Chest X-Ray 05/31/16 06:00 IMPRESSION: STABLE APPEARANCE OF THE CHEST. Assessment & Plan - Diagnosis (1) Emphysema lung Qualifiers: Emphysema type: unspecified Qualified Code(s): J43.9 - Emphysema, unspecified Is this a current diagnosis for this admission?: Yes (2) Pneumonia Qualifiers: Pneumonia type: aspiration pneumonia Laterality: unspecified laterality Lung location: unspecified part of lung Is this a current diagnosis for this admission?: Yes (3) Dysphagia, oropharyngeal phase Is this a current diagnosis for this admission?: Yes (4) Acute respiratory failure Qualifiers: Respiratory failure complication: hypoxia Qualified Code(s): J96.01 - Acute respiratory failure with hypoxia Is this a current diagnosis for this admission?: Yes (5) Thrombocytopenia Is this a current diagnosis for this admission?: Yes (6) Elevated LFTs Is this a current diagnosis for this admission?: Yes - Time Critical Time spent with patient: 35 or more minutes
--- NOTE | 2016-05-31 14:16 | PDOC PROGRESS REPORT ---
Subjective Progress Note for:: 05/31/16 Subjective:: Patient seen on morning rounds. She is orally intubated and sedated at the present time. Nursing report no issues overnight. She is off levophed drip and they are weaning IV sedation slowly. She has soft wrist restraints in place. She is moving all extremities spontaneously, nothing to commands at the present time. Review of systems are unobtainable due to patient's mentation Physical Exam Vital Signs: Temp Pulse Resp BP Pulse Ox 100.5 F H 97 30 H 95/57 L 97 05/31/16 10:00 05/31/16 10:00 05/31/16 10:00 05/31/16 10:00 05/31/16 10:00 Intake & Output 05/30/16 05/31/16 06/01/16 06:59 06:59 06:59 Intake Total 6623 4809 Output Total 3625 3775 400 Balance 2998 1034 -400 Weight 60.2 kg 63.9 kg General appearance: PRESENT: no acute distress, well-developed, well-nourished, other - jaundiced Head exam: PRESENT: atraumatic, normocephalic Eye exam: PRESENT: PERRLA, scleral icterus Ear exam: PRESENT: bleeding Mouth exam: PRESENT: moist, tongue midline Teeth exam: PRESENT: edentulous Neck exam: PRESENT: full ROM Respiratory exam: PRESENT: decreased breath sounds - scattered, rhonchi, symmetrical, unlabored. ABSENT: rales, wheezes Cardiovascular exam: PRESENT: RRR. ABSENT: diastolic murmur, rubs, systolic murmur Pulses: PRESENT: normal carotid pulses, normal radial pulses Vascular exam: PRESENT: normal capillary refill GI/Abdominal exam: PRESENT: hypoactive bowel sounds, soft Rectal exam: PRESENT: deferred Extremities exam: PRESENT: full ROM. ABSENT: calf tenderness, clubbing, pedal edema Musculoskeletal exam: PRESENT: full ROM, normal inspection - bruising of left patella Neurological exam: PRESENT: altered, CN II-XII grossly intact - orally intubated to ventilator and sedated, other Psychiatric exam: PRESENT: other - sedate Skin exam: PRESENT: dry, intact, warm. ABSENT: cyanosis, rash Results Laboratory Results: 05/31/16 04:45 05/31/16 04:45 05/28/16 05/31/16 05/31/16 19:25 04:45 04:45 WBC 3.6 L RBC 1.94 L Hgb 7.2 L Hct 21.3 L MCV 110 H MCH 36.9 H MCHC 33.6 RDW 15.3 H Plt Count 78 L Seg Neutrophils % Not Reportable Lymphocytes % Not Reportable Monocytes % Not Reportable Eosinophils % Not Reportable Basophils % Not Reportable Absolute Neutrophils Not Reportable Absolute Lymphocytes Not Reportable Absolute Monocytes Not Reportable Absolute Eosinophils Not Reportable Absolute Basophils Not Reportable Carbonic Acid 1.26 HCO3/H2CO3 Ratio 20:1 ABG pH 7.42 ABG pCO2 42.0 ABG pO2 62.7 L ABG HCO3 26.4 H ABG O2 Saturation 92.3 L ABG Base Excess 1.7 FiO2 30% Sodium Potassium Chloride Carbon Dioxide Anion Gap BUN Creatinine Est GFR ( Amer) Est GFR (Non-Af Amer) Glucose Calcium Magnesium Total Bilirubin AST ALT Alkaline Phosphatase Total Protein Albumin Triglycerides Blood Type A POSITIVE Antibody Screen NEGATIVE 05/31/16 04:45 WBC RBC Hgb Hct MCV MCH MCHC RDW Plt Count Seg Neutrophils % Lymphocytes % Monocytes % Eosinophils % Basophils % Absolute Neutrophils Absolute Lymphocytes Absolute Monocytes Absolute Eosinophils Absolute Basophils Carbonic Acid HCO3/H2CO3 Ratio ABG pH ABG pCO2 ABG pO2 ABG HCO3 ABG O2 Saturation ABG Base Excess FiO2 Sodium 137.7 Potassium 4.1 Chloride 107 Carbon Dioxide 25 Anion Gap 6 BUN 4 L Creatinine 0.36 L Est GFR ( Amer) > 60 Est GFR (Non-Af Amer) > 60 Glucose 119 H Calcium 7.6 L Magnesium 2.0 Total Bilirubin 5.2 H AST 94 H ALT 84 H Alkaline Phosphatase 323 H Total Protein 4.2 L Albumin 1.8 L Triglycerides 161 H Blood Type Antibody Screen 05/26/16 22:30 Tracheal Aspirate Gram Stain - Final 05/26/16 22:30 Tracheal Aspirate Sputum Culture - Final Acinetobacter Baumannii/Haem Normal Gladys Absent Impressions: Cervical Spine CT 05/24/16 10:37 IMPRESSION: CHRONIC DEGENERATIVE CHANGES. 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 NO ACUTE FINDINGS. Abdomen Ultrasound 05/25/16 00:00 IMPRESSION: Echogenic liver from diffuse hepatocellular disease. No masses. Color flow in the portal vein and hepatic veins. Minimal sludge in the gallbladder. No gallbladder wall thickening. Negative Montejo's sign. Head CT 05/26/16 00:00 IMPRESSION: Limited study. Motion artifact. No gross acute changes. Chest/Abdomen CTA 05/29/16 00:00 IMPRESSION: Small to moderate bilateral lower lobar consolidation, left more than right consistent with pneumonia. Small moderate left pleural effusion. No pulmonary embolus. Moderate dilated cardiomyopathy pattern. Lines and tubes. Chest X-Ray 05/31/16 06:00 IMPRESSION: STABLE APPEARANCE OF THE CHEST. Assessment & Plan - Diagnosis (1) Acute respiratory failure Qualifiers: Respiratory failure complication: hypoxia Qualified Code(s): J96.01 - Acute respiratory failure with hypoxia Is this a current diagnosis for this admission?: YesPlan: Patient currently requires mechanical ventilation support due to mentation. Vent weaning per Dr. Hatch, sailing instructor (2) Shock Is this a current diagnosis for this admission?: YesPlan: Patient required pressor support until last evening. Levophed was able to be weaned off. Most likely secondary to sepsis. Transthoracic echo was obtained which shows a normal ejection fraction. (3) Pneumonia Qualifiers: Pneumonia type: aspiration pneumonia Laterality: unspecified laterality Lung location: unspecified part of lung Is this a current diagnosis for this admission?: Yes (4) Sepsis Qualifiers: Sepsis type: sepsis due to unspecified organism Qualified Code(s): A41.9 - Sepsis, unspecified organism Is this a current diagnosis for this admission?: YesPlan: She has no longer tachycardic or hypotensive. This is improving with IV antiemetics and IV fluids. Most likely due to pneumonia from aspiration. (5) Pneumonia Qualifiers: Pneumonia type: aspiration pneumonia Aspiration pneumonia type: due to vomit Laterality: right Lung location: lower lobe of lung Qualified Code(s): J69.0 - Pneumonitis due to inhalation of food and vomit Is this a current diagnosis for this admission?: YesPlan: Tracheal aspirate grew actinobacter species which is sensitive to levaquin. Will descalate antibiotic coverage (6) Alcohol withdrawal Qualifiers: Complication of substance-induced condition: with delirium Qualified Code(s): F10.231 - Alcohol dependence with withdrawal delirium Is this a current diagnosis for this admission?: YesPlan: Patient has required large doses of IV Ativan and propofol. Attempts are now in place to slowly wean this. (7) Malnutrition Is this a current diagnosis for this admission?: YesPlan: Secondary to chronic alcoholism. We'll change enteral feedings to Oxepa 1.5 at 40 cc/hr per corporate communications intern (8) Hypocalcemia Is this a current diagnosis for this admission?: YesPlan: Repleted (9) Hypomagnesemia Is this a current diagnosis for this admission?: YesPlan: Replete prn (10) Hypophosphatemia Is this a current diagnosis for this admission?: YesPlan: Replete prn (11) Thrombocytopenia Is this a current diagnosis for this admission?: YesPlan: Secondary to alcoholism. (12) Bipolar 1 disorder Is this a current diagnosis for this admission?: YesPlan: Continue current medications. (13) Hypokalemia Is this a current diagnosis for this admission?: YesPlan: Continue current medications - Time Time Spent with patient: 25-34 minutes Critical Time spent with patient: 25-34 minutes Medications reviewed and adjusted accordingly: Yes
[2016-05-31] MEDS: NORMAL SALINE 1000 ML 1,000 ML with POTASSIUM CHLORIDE 20 MEQ, MAGNESIUM SULFATE 8 MEQ,... IV PRN ×6 (15:27)
[2016-05-31] MEDS: FERROUS SULFATE LIQUID 300 MG/5 ML UDC PO SCH (17:46)
[2016-06-01] MEDS: IPRATROPIUM/ALBUTEROL 0.5-2.5 MG/3 ML AMPUL NEB SCH ×4 (02:10→20:31)
[2016-06-01 05:35] LABS: ARTERIAL BLOOD BASE EXCESS 4.4 mmol/L; ARTERIAL BLOOD O2 SATURATION 92.1 % (94-98)
[2016-06-01 05:58] LABS: ALANINE AMINOTRANSFERASE 73 U/L (9-52); ALKALINE PHOSPHATASE 388 U/L (38-126); ANION GAP 7 (5-19); ASPARTATE AMINO TRANSFERASE 91 U/L (14-36); BILIRUBIN,DIRECT 3.3 mg/dL (0.0-0.4); BILIRUBIN,TOTAL 4.1 mg/dL (0.2-1.3); BLOOD UREA NITROGEN 7 mg/dL (7-20); CALCIUM 7.8 mg/dL (8.4-10.2); CARBON DIOXIDE 28 mmol/L (22-30); CHLORIDE 104 mmol/L (98-107); CREATININE RESULT 0.35 mg/dL (0.52-1.25); GLUCOSE 103 mg/dL (75-110); HEMATOCRIT 28.4 % (36.0-47.0); HGB HCT DIFFERENCE 1.3; MEAN CORPUSCULAR HEMOGLOBIN 35.2 pg (27.0-33.4); MEAN CORPUSCULAR HGB CONC 34.9 g/dL (32.0-36.0); POTASSIUM 3.8 mmol/L (3.6-5.0); RED BLOOD COUNT 2.81 10^6/uL (3.72-5.28); RED CELL DISTRIBUTION WIDTH 20.8 % (11.5-14.0); TOTAL PROTEIN 4.7 g/dL (6.3-8.2); WHITE BLOOD COUNT 4.5 10^3/uL (4.0-10.5)
[2016-06-01 06:39] LABS: BAND NEUTROPHILS % (MANUAL) 2 % (3-5); BASOPHILS % (MANUAL) 0 % (0-2); EOSINOPHILS % (MANUAL) 1 % (0-6); NUCLEATED RED BLOOD CELLS 1 /100 WBC (0); TOTAL CELLS COUNTED 100
[2016-06-01 06:40] LABS: ANISOCYTOSIS 2+; OVALOCYTES SLIGHT; POIKILOCYTOSIS SLIGHT; POLYCHROMASIA SLIGHT; TOXIC GRANULATION 1+; TOXIC VACUOLATION PRESENT
[2016-06-01 06:41] LABS: LYMPHOCYTES % (MANUAL) 22 % (13-45); MEAN CORPUSCULAR VOLUME 101 fl (80-97)
[2016-06-01 06:42] LABS: HEMOGLOBIN 9.9 g/dL (12.0-15.5)
--- NOTE | 2016-06-01 08:05 | PDOC PROGRESS REPORT ---
Subjective Progress Note for:: 06/01/16 Subjective:: Patient seen on morning rounds. She is orally intubated at the time. IV sedation has been off since last evening. Patient occassionally grimaces and bites on endotube, but does not follow any commands. Nursing report no issues overnight. She remains off levophed drip. She has soft wrist restraints in place for tube protection. She is moving all extremities spontaneously, nothing to commands at the present time. Review of systems is unobtainable due to patient's mentation Physical Exam Vital Signs: Temp Pulse Resp BP Pulse Ox 99.1 F 92 19 99/70 L 93 05/31/16 23:56 06/01/16 02:00 06/01/16 06:00 06/01/16 05:40 06/01/16 06:00 Intake & Output 05/31/16 06/01/16 06/02/16 06:59 06:59 06:59 Intake Total 4809 4919 Output Total 3775 4600 Balance 1034 319 Weight 63.9 kg 64.3 kg General appearance: PRESENT: no acute distress, well-developed, well-nourished, other - lightly jaundiced Head exam: PRESENT: atraumatic, normocephalic Eye exam: PRESENT: EOMI, PERRLA, scleral icterus Ear exam: PRESENT: normal external ear exam Mouth exam: PRESENT: moist, tongue midline Teeth exam: PRESENT: edentulous Neck exam: ABSENT: carotid bruit, JVD, lymphadenopathy, thyromegaly Respiratory exam: PRESENT: crackles - bilaterally, decreased breath sounds, symmetrical, unlabored. ABSENT: rales, rhonchi, wheezes Cardiovascular exam: PRESENT: RRR. ABSENT: diastolic murmur, rubs, systolic murmur Pulses: PRESENT: normal dorsalis pedis pul Vascular exam: PRESENT: normal capillary refill GI/Abdominal exam: PRESENT: diminished bowel sounds, soft. ABSENT: distended, guarding, mass, organolmegaly, rebound, tenderness Rectal exam: PRESENT: deferred Extremities exam: PRESENT: +2 edema - bilateral lower extremity. ABSENT: calf tenderness, clubbing, pedal edema Neurological exam: PRESENT: altered, CN II-XII grossly intact. ABSENT: motor sensory deficit Psychiatric exam: PRESENT: other - sedate. ABSENT: homicidal ideation, suicidal ideation Focused psych exam: PRESENT: other Skin exam: PRESENT: dry, intact, warm, other - echymotic area on anterior left knee, generalized icterus. ABSENT: cyanosis, rash Results Laboratory Results: 06/01/16 05:07 06/01/16 05:07 05/28/16 06/01/16 06/01/16 19:25 05:07 05:07 WBC 4.5 RBC 2.81 L Hgb 9.9 L D Hct 28.4 L MCV 101 H D MCH 35.2 H MCHC 34.9 RDW 20.8 H Plt Count 86 L Seg Neutrophils % Not Reportable Lymphocytes % Not Reportable Monocytes % Not Reportable Eosinophils % Not Reportable Basophils % Not Reportable Absolute Neutrophils Not Reportable Absolute Lymphocytes Not Reportable Absolute Monocytes Not Reportable Absolute Eosinophils Not Reportable Absolute Basophils Not Reportable Carbonic Acid HCO3/H2CO3 Ratio ABG pH ABG pCO2 ABG pO2 ABG HCO3 ABG O2 Saturation ABG Base Excess FiO2 Sodium Potassium Chloride Carbon Dioxide Anion Gap BUN Creatinine Est GFR ( Amer) Est GFR (Non-Af Amer) Glucose Calcium Magnesium Total Bilirubin AST ALT Alkaline Phosphatase Ammonia 15.0 Total Protein Albumin Blood Type A POSITIVE Antibody Screen NEGATIVE 06/01/16 06/01/16 05:07 05:07 WBC RBC Hgb Hct MCV MCH MCHC RDW Plt Count Seg Neutrophils % Lymphocytes % Monocytes % Eosinophils % Basophils % Absolute Neutrophils Absolute Lymphocytes Absolute Monocytes Absolute Eosinophils Absolute Basophils Carbonic Acid 1.32 HCO3/H2CO3 Ratio 22:1 ABG pH 7.44 ABG pCO2 43.8 ABG pO2 60.8 L ABG HCO3 29.1 H ABG O2 Saturation 92.1 L ABG Base Excess 4.4 FiO2 30% Sodium 139.0 Potassium 3.8 Chloride 104 Carbon Dioxide 28 Anion Gap 7 BUN 7 Creatinine 0.35 L Est GFR ( Amer) > 60 Est GFR (Non-Af Amer) > 60 Glucose 103 Calcium 7.8 L Magnesium 2.0 Total Bilirubin 4.1 H AST 91 H ALT 73 H Alkaline Phosphatase 388 H Ammonia Total Protein 4.7 L Albumin 2.0 L Blood Type Antibody Screen 05/26/16 22:30 Tracheal Aspirate Gram Stain - Final 05/26/16 22:30 Tracheal Aspirate Sputum Culture - Final Acinetobacter Baumannii/Haem Normal Gladys Absent Impressions: Cervical Spine CT 05/24/16 10:37 IMPRESSION: CHRONIC DEGENERATIVE CHANGES. 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 NO ACUTE FINDINGS. Abdomen Ultrasound 05/25/16 00:00 IMPRESSION: Echogenic liver from diffuse hepatocellular disease. No masses. Color flow in the portal vein and hepatic veins. Minimal sludge in the gallbladder. No gallbladder wall thickening. Negative Montejo's sign. Head CT 05/26/16 00:00 IMPRESSION: Limited study. Motion artifact. No gross acute changes. Chest/Abdomen CTA 05/29/16 00:00 IMPRESSION: Small to moderate bilateral lower lobar consolidation, left more than right consistent with pneumonia. Small moderate left pleural effusion. No pulmonary embolus. Moderate dilated cardiomyopathy pattern. Lines and tubes. Chest X-Ray 05/31/16 06:00 IMPRESSION: STABLE APPEARANCE OF THE CHEST. Assessment & Plan - Diagnosis (1) Acute respiratory failure Qualifiers: Respiratory failure complication: hypoxia Qualified Code(s): J96.01 - Acute respiratory failure with hypoxia Is this a current diagnosis for this admission?: YesPlan: Patient currently requires mechanical ventilation. Vent weaning per Dr. Hatch , legal aide. Chest xray unchanged. (2) Shock Is this a current diagnosis for this admission?: YesPlan: Patient required pressor support until last evening. Levophed was able to be weaned off. Most likely secondary to sepsis. Transthoracic echo was obtained which shows a normal ejection fraction. (3) Pneumonia Qualifiers: Pneumonia type: aspiration pneumonia Laterality: unspecified laterality Lung location: unspecified part of lung Is this a current diagnosis for this admission?: YesPlan: Continue antibiotic therapy and vent support (4) Sepsis Qualifiers: Sepsis type: sepsis due to unspecified organism Qualified Code(s): A41.9 - Sepsis, unspecified organism Is this a current diagnosis for this admission?: YesPlan: She has no longer tachycardic or hypotensive. This is improving with IV antiemetics and IV fluids. Most likely due to pneumonia from aspiration. (5) Pneumonia Qualifiers: Pneumonia type: aspiration pneumonia Aspiration pneumonia type: due to vomit Laterality: right Lung location: lower lobe of lung Qualified Code(s): J69.0 - Pneumonitis due to inhalation of food and vomit Is this a current diagnosis for this admission?: YesPlan: Tracheal aspirate grew actinobacter species which is sensitive to levaquin. Will descalate antibiotic coverage (6) Alcohol withdrawal Qualifiers: Complication of substance-induced condition: with delirium Qualified Code(s): F10.231 - Alcohol dependence with withdrawal delirium Is this a current diagnosis for this admission?: YesPlan: Patient has required large doses of IV Ativan and propofol. Attempts are now in place to slowly wean this. (7) Malnutrition Is this a current diagnosis for this admission?: YesPlan: Secondary to chronic alcoholism. We'll change enteral feedings to Oxepa 1.5 at 40 cc/hr per pediatric np (8) Hypocalcemia Is this a current diagnosis for this admission?: YesPlan: Repleted (9) Hypomagnesemia Is this a current diagnosis for this admission?: YesPlan: Replete prn (10) Hypophosphatemia Is this a current diagnosis for this admission?: YesPlan: Replete prn (11) Thrombocytopenia Is this a current diagnosis for this admission?: YesPlan: Secondary to alcoholism. (12) Bipolar 1 disorder Is this a current diagnosis for this admission?: YesPlan: Continue current medications. (13) Hypokalemia Is this a current diagnosis for this admission?: YesPlan: Continue current medications - Time Time Spent with patient: 25-34 minutes Critical Time spent with patient: 15-24 minutes Medications reviewed and adjusted accordingly: Yes
[2016-06-01] MEDS: DOCUSATE SODIUM 100 MG CAPSULE PO SCH ×2 (09:36→17:55)
[2016-06-01] MEDS: NICOTINE 14 MG/24 HR PATCH.TD24 TD SCH (09:45)
[2016-06-01] MEDS: FLUOXETINE HCL 20 MG/5 ML UDCUP PO SCH (09:45)
[2016-06-01] MEDS: RISPERIDONE 1 MG TABLET PO SCH (09:45)
[2016-06-01] MEDS: FERROUS SULFATE LIQUID 300 MG/5 ML UDC PO SCH ×2 (09:45→17:58)
[2016-06-01] MEDS: LEVOFLOXACIN 750 MG/D5W RTU 750 MG/150 ML RTUPB IV SCH (09:45)
[2016-06-01] MEDS: DEXTROSE 5%-NORMAL SALINE 1,000 ML IV PRN ×2 (09:46→17:59)
[2016-06-01] MEDS: FLUTICASONE NASAL SPRAY 50 MCG/SPRY 120 SPRAY/16 GM NASL SCH (09:46)
--- NOTE | 2016-06-01 10:48 | PDOC PROGRESS REPORT ---
Subjective Progress Note for:: 05/31/16 Subjective:: Patient intubated and sedated. Blood pressure is more stable. Patient remains intubated and sedated. She is being now off Levophed for almost 24 hours. Patient otherwise generally stable. She still has mild edema and mild distention of her stomach. Physical Exam Vital Signs: Temp Pulse Resp BP Pulse Ox 98.3 F 104 H 17 98/72 L 95 05/31/16 17:54 05/31/16 17:54 05/31/16 18:00 05/31/16 17:54 05/31/16 18:00 Intake & Output 05/30/16 05/31/16 06/01/16 06:59 06:59 06:59 Intake Total 6622 1259 2842 Output Total 3625 0785 3425 Balance 2998 1034 -583 Weight 60.2 kg 63.9 kg Exam: GENERAL: well-nourished and in no acute distress. Patient is intubated and sedated. Orientation cannot be checked HEAD: Atraumatic, normocephalic. EYES: Pupils equal round and reactive to light, extraocular movements could not be checked, sclera anicteric, conjunctiva are normal. ENT: TMs normal, nares patent, oropharynx clear without exudates. Moist mucous membranes. No oral ulcerations or bleeding gums noted NECK: supple without lymphadenopathy or JVD. Trachea is central. No cervical or axillary lymphadenopathy noted. Carotids are 2+ LUNGS: Breath sounds mostly clear to auscultation patient is noted to have bibasal crackles at the extreme bases CHEST: Palpation of the chest wall shows no significant chest wall tenderness or abnormalities. 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 ABDOMEN: Soft, no significant tenderness appreciated, normoactive bowel sounds. No guarding, no rebound. No rigidity noted . No masses appreciated. Mild abdominal distention noted. EXTREMITIES: Pedal pulses are 1-2+, no calf tenderness noted, 1+ pedal edema noted. No clubbing or cyanosis. NEUROLOGICAL: The patient cannot participate in the neurological exam but no facial asymmetry noted. Extremities slightly hypotonic PSYCH: This cannot be evaluated. Patient cannot participate. SKIN: No significant ecchymosis, rash, or signs of pruritus noted. MUSCULOSKELETAL EXAM: No significant joint swelling noted. Patient cannot participate in musculoskeletal exam Results Laboratory Results: 05/31/16 04:45 05/31/16 04:45 05/28/16 05/31/16 05/31/16 19:25 04:45 04:45 WBC 3.6 L RBC 1.94 L Hgb 7.2 L Hct 21.3 L MCV 110 H MCH 36.9 H MCHC 33.6 RDW 15.3 H Plt Count 78 L Seg Neutrophils % Not Reportable Lymphocytes % Not Reportable Monocytes % Not Reportable Eosinophils % Not Reportable Basophils % Not Reportable Absolute Neutrophils Not Reportable Absolute Lymphocytes Not Reportable Absolute Monocytes Not Reportable Absolute Eosinophils Not Reportable Absolute Basophils Not Reportable Carbonic Acid 1.26 HCO3/H2CO3 Ratio 20:1 ABG pH 7.42 ABG pCO2 42.0 ABG pO2 62.7 L ABG HCO3 26.4 H ABG O2 Saturation 92.3 L ABG Base Excess 1.7 FiO2 30% Sodium Potassium Chloride Carbon Dioxide Anion Gap BUN Creatinine Est GFR ( Amer) Est GFR (Non-Af Amer) Glucose Calcium Magnesium Total Bilirubin AST ALT Alkaline Phosphatase Total Protein Albumin Triglycerides Blood Type A POSITIVE Antibody Screen NEGATIVE 05/31/16 04:45 WBC RBC Hgb Hct MCV MCH MCHC RDW Plt Count Seg Neutrophils % Lymphocytes % Monocytes % Eosinophils % Basophils % Absolute Neutrophils Absolute Lymphocytes Absolute Monocytes Absolute Eosinophils Absolute Basophils Carbonic Acid HCO3/H2CO3 Ratio ABG pH ABG pCO2 ABG pO2 ABG HCO3 ABG O2 Saturation ABG Base Excess FiO2 Sodium 137.7 Potassium 4.1 Chloride 107 Carbon Dioxide 25 Anion Gap 6 BUN 4 L Creatinine 0.36 L Est GFR ( Amer) > 60 Est GFR (Non-Af Amer) > 60 Glucose 119 H Calcium 7.6 L Magnesium 2.0 Total Bilirubin 5.2 H AST 94 H ALT 84 H Alkaline Phosphatase 323 H Total Protein 4.2 L Albumin 1.8 L Triglycerides 161 H Blood Type Antibody Screen 05/26/16 22:30 Tracheal Aspirate Gram Stain - Final 05/26/16 22:30 Tracheal Aspirate Sputum Culture - Final Acinetobacter Baumannii/Haem Normal Gladys Absent Impressions: Cervical Spine CT 05/24/16 10:37 IMPRESSION: CHRONIC DEGENERATIVE CHANGES. 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 NO ACUTE FINDINGS. Abdomen Ultrasound 05/25/16 00:00 IMPRESSION: Echogenic liver from diffuse hepatocellular disease. No masses. Color flow in the portal vein and hepatic veins. Minimal sludge in the gallbladder. No gallbladder wall thickening. Negative Montejo's sign. Head CT 05/26/16 00:00 IMPRESSION: Limited study. Motion artifact. No gross acute changes. Chest/Abdomen CTA 05/29/16 00:00 IMPRESSION: Small to moderate bilateral lower lobar consolidation, left more than right consistent with pneumonia. Small moderate left pleural effusion. No pulmonary embolus. Moderate dilated cardiomyopathy pattern. Lines and tubes. Chest X-Ray 05/31/16 06:00 IMPRESSION: STABLE APPEARANCE OF THE CHEST. Assessment & Plan - Diagnosis (1) Arterial hypotension Qualifiers: Hypotension type: unspecified hypotension type Qualified Code(s): I95.9 - Hypotension, unspecified Is this a current diagnosis for this admission?: Yes (2) Acute respiratory failure Qualifiers: Respiratory failure complication: hypoxia Qualified Code(s): J96.01 - Acute respiratory failure with hypoxia Is this a current diagnosis for this admission?: Yes (3) Emphysema lung Qualifiers: Emphysema type: unspecified Qualified Code(s): J43.9 - Emphysema, unspecified Is this a current diagnosis for this admission?: Yes (4) Pneumonia Qualifiers: Pneumonia type: aspiration pneumonia Laterality: unspecified laterality Lung location: unspecified part of lung Is this a current diagnosis for this admission?: Yes (5) Sepsis Qualifiers: Sepsis type: sepsis due to unspecified organism Qualified Code(s): A41.9 - Sepsis, unspecified organism Is this a current diagnosis for this admission?: Yes - Notes Notes: Arterial hypotension: Most likely related to underlying sepsis and possible vasomotor dysfunction secondary to sepsis and prolonged general debility, alcohol abuse etc. Patient maintaining blood pressure off pressure agents. A 2- D echocardiogram reviewed showed well-preserved LVEF without any significant valvular disease. Acute respiratory failure: Most likely related to underlying COPD, emphysema along with sepsis. Agree with ventilatory support and oxygenation. 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 Emphysema of the lung: Patient has significant emphysema. Patient being followed by events intern. Pneumonia: Bilateral, clinically this is improving. Continue antibiotic therapy. Sepsis: Improved. Continue management plans as outlined. Telemetry strips reviewed showed mild sinus tachycardia. Will consider adding small dose of beta marcel. - Time Time with patient: Greater than 35 minutes - CODE STATUS : was discussed, patient remains DO NOT RESUSCITATE. Surrogate decision-maker unchanged. Multiple medical problems were addressed.More than 50% of the time spent coordinating care, discussing management plans with involved caregivers. Management plans discussed with involved personnels. Medical decision making was of moderate to high complexity, patient's has multiple severe comorbidities.
--- NOTE | 2016-06-01 10:51 | PDOC PROGRESS REPORT ---
Subjective Progress Note for:: 06/01/16 Subjective:: Patient intubated. Sedation has been decreased significantly. Blood pressure is more stable. Patient remains intubated and sedated. She is being now off Levophed for almost 36-48 hours. Patient otherwise generally stable. She still has mild edema and mild distention of her stomach. Patient not noted to be in any discomfort. She is noted to be intermittently tachycardic. Physical Exam Vital Signs: Temp Pulse Resp BP Pulse Ox 99.1 F 98 20 105/75 95 05/31/16 23:56 06/01/16 08:00 06/01/16 10:10 06/01/16 10:10 06/01/16 10:10 Intake & Output 05/31/16 06/01/16 06/02/16 06:59 06:59 06:59 Intake Total 4809 4919 Output Total 3775 4600 400 Balance 1034 319 -400 Weight 63.9 kg 64.3 kg Exam: GENERAL: well-nourished and in no acute distress. Patient is intubated and sedated. Orientation cannot be checked HEAD: Atraumatic, normocephalic. EYES: Pupils equal round and reactive to light, extraocular movements could not be checked, sclera anicteric, conjunctiva are normal. ENT: TMs normal, nares patent, oropharynx clear without exudates. Moist mucous membranes. No oral ulcerations or bleeding gums noted NECK: supple without lymphadenopathy or JVD. Trachea is central. No cervical or axillary lymphadenopathy noted. Carotids are 2+ LUNGS: Breath sounds mostly clear to auscultation patient is noted to have bibasal crackles at the extreme bases CHEST: Palpation of the chest wall shows no significant chest wall tenderness or abnormalities. 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 ABDOMEN: Soft, no significant tenderness appreciated, normoactive bowel sounds. No guarding, no rebound. No rigidity noted . No masses appreciated. EXTREMITIES: Pedal pulses are 1-2+, no calf tenderness noted, 1+ pedal edema noted. No clubbing or cyanosis. NEUROLOGICAL: The patient cannot participate in the neurological exam but no facial asymmetry noted. Extremities slightly hypotonic PSYCH: This cannot be evaluated. Patient cannot participate. SKIN: No significant ecchymosis, rash, or signs of pruritus noted. MUSCULOSKELETAL EXAM: No significant joint swelling noted. Patient cannot participate in musculoskeletal exam Results Laboratory Results: 06/01/16 05:07 06/01/16 05:07 05/28/16 06/01/16 06/01/16 19:25 05:07 05:07 WBC 4.5 RBC 2.81 L Hgb 9.9 L D Hct 28.4 L MCV 101 H D MCH 35.2 H MCHC 34.9 RDW 20.8 H Plt Count 86 L Seg Neutrophils % Not Reportable Lymphocytes % Not Reportable Monocytes % Not Reportable Eosinophils % Not Reportable Basophils % Not Reportable Absolute Neutrophils Not Reportable Absolute Lymphocytes Not Reportable Absolute Monocytes Not Reportable Absolute Eosinophils Not Reportable Absolute Basophils Not Reportable Carbonic Acid HCO3/H2CO3 Ratio ABG pH ABG pCO2 ABG pO2 ABG HCO3 ABG O2 Saturation ABG Base Excess FiO2 Sodium Potassium Chloride Carbon Dioxide Anion Gap BUN Creatinine Est GFR ( Amer) Est GFR (Non-Af Amer) Glucose Calcium Magnesium Total Bilirubin AST ALT Alkaline Phosphatase Ammonia 15.0 Total Protein Albumin Blood Type A POSITIVE Antibody Screen NEGATIVE 06/01/16 06/01/16 05:07 05:07 WBC RBC Hgb Hct MCV MCH MCHC RDW Plt Count Seg Neutrophils % Lymphocytes % Monocytes % Eosinophils % Basophils % Absolute Neutrophils Absolute Lymphocytes Absolute Monocytes Absolute Eosinophils Absolute Basophils Carbonic Acid 1.32 HCO3/H2CO3 Ratio 22:1 ABG pH 7.44 ABG pCO2 43.8 ABG pO2 60.8 L ABG HCO3 29.1 H ABG O2 Saturation 92.1 L ABG Base Excess 4.4 FiO2 30% Sodium 139.0 Potassium 3.8 Chloride 104 Carbon Dioxide 28 Anion Gap 7 BUN 7 Creatinine 0.35 L Est GFR ( Amer) > 60 Est GFR (Non-Af Amer) > 60 Glucose 103 Calcium 7.8 L Magnesium 2.0 Total Bilirubin 4.1 H AST 91 H ALT 73 H Alkaline Phosphatase 388 H Ammonia Total Protein 4.7 L Albumin 2.0 L Blood Type Antibody Screen 05/26/16 22:30 Tracheal Aspirate Gram Stain - Final 05/26/16 22:30 Tracheal Aspirate Sputum Culture - Final Acinetobacter Baumannii/Haem Normal Gladys Absent Impressions: Cervical Spine CT 05/24/16 10:37 IMPRESSION: CHRONIC DEGENERATIVE CHANGES. 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 NO ACUTE FINDINGS. Abdomen Ultrasound 05/25/16 00:00 IMPRESSION: Echogenic liver from diffuse hepatocellular disease. No masses. Color flow in the portal vein and hepatic veins. Minimal sludge in the gallbladder. No gallbladder wall thickening. Negative Montejo's sign. Head CT 05/26/16 00:00 IMPRESSION: Limited study. Motion artifact. No gross acute changes. Chest/Abdomen CTA 05/29/16 00:00 IMPRESSION: Small to moderate bilateral lower lobar consolidation, left more than right consistent with pneumonia. Small moderate left pleural effusion. No pulmonary embolus. Moderate dilated cardiomyopathy pattern. Lines and tubes. Chest X-Ray 05/31/16 06:00 IMPRESSION: STABLE APPEARANCE OF THE CHEST. Assessment & Plan - Diagnosis (1) Arterial hypotension Qualifiers: Hypotension type: unspecified hypotension type Qualified Code(s): I95.9 - Hypotension, unspecified Is this a current diagnosis for this admission?: Yes (2) Acute respiratory failure Qualifiers: Respiratory failure complication: hypoxia Qualified Code(s): J96.01 - Acute respiratory failure with hypoxia Is this a current diagnosis for this admission?: Yes (3) Emphysema lung Qualifiers: Emphysema type: unspecified Qualified Code(s): J43.9 - Emphysema, unspecified Is this a current diagnosis for this admission?: Yes (4) Pneumonia Qualifiers: Pneumonia type: aspiration pneumonia Laterality: unspecified laterality Lung location: unspecified part of lung Is this a current diagnosis for this admission?: Yes (5) Sepsis Qualifiers: Sepsis type: sepsis due to unspecified organism Qualified Code(s): A41.9 - Sepsis, unspecified organism Is this a current diagnosis for this admission?: Yes - Notes Notes: Arterial hypotension: Most likely related to underlying sepsis and possible vasomotor dysfunction secondary to sepsis and prolonged general debility, alcohol abuse etc. this has resolved most likely secondary to improvement in sepsis. Acute respiratory failure: Most likely related to underlying COPD, emphysema along with sepsis. Agree with ventilatory support and oxygenation. Emphysema of the lung: Patient has significant emphysema. Patient being followed by electrical engineering technologist. Pneumonia: Bilateral, clinically improving.. Continue antibiotic therapy. Sepsis: Improved.. Continue management plans as outlined. Sinus tachycardia: Will start patient on small dose of beta marcel. In view of history of cirrhosis, will consider Inderal therapy. Possibly related to alcohol withdrawal, general debility etc. Patient placed on Inderal - Time Time with patient: Greater than 35 minutes - CODE STATUS : was discussed, patient remains DO NOT RESUSCITATE. Surrogate decision-maker unchanged. Multiple medical problems were addressed..More than 50% of the time spent coordinating care, discussing management plans with involved caregivers. Management plans discussed with involved personnels. Medical decision making was of moderate to high complexity, patient's has multiple severe comorbidities.
[2016-06-01] MEDS: PROPRANOLOL HCL 10 MG TABLET PO SCH ×2 (14:42→22:56)
[2016-06-01] MEDS: PROPOFOL 100 ML IV PRN (14:42)
--- NOTE | 2016-06-01 17:24 | PDOC PROGRESS REPORT ---
Subjective Progress Note for:: 06/01/16 Subjective:: intubated and sedated Physical Exam Vital Signs: Temp Pulse Resp BP Pulse Ox 99.1 F 92 19 99/70 L 93 05/31/16 23:56 06/01/16 02:00 06/01/16 06:00 06/01/16 05:40 06/01/16 06:00 Intake & Output 05/31/16 06/01/16 06/02/16 06:59 06:59 06:59 Intake Total 4809 4934 Output Total 1813 4600 Balance 1034 319 Weight 63.9 kg 64.3 kg General appearance: PRESENT: no acute distress, disheveled Head exam: PRESENT: atraumatic, normocephalic Eye exam: PRESENT: conjunctiva pale, EOMI Mouth exam: PRESENT: dry mucosa, neck supple, other - ET tube Neck exam: ABSENT: carotid bruit, JVD, lymphadenopathy, thyromegaly Respiratory exam: PRESENT: decreased breath sounds, prolonged expiratory phas, rales, unlabored, other - bibasilar Cardiovascular exam: PRESENT: RRR, +S1, +S2 Pulses: PRESENT: normal radial pulses GI/Abdominal exam: PRESENT: normal bowel sounds, soft. ABSENT: distended, guarding, mass, organolmegaly, rebound, tenderness Rectal exam: PRESENT: deferred Gentrourinary exam: PRESENT: indwelling catheter Musculoskeletal exam: PRESENT: normal inspection Skin exam: PRESENT: dry, warm Results Laboratory Results: 06/01/16 05:07 06/01/16 05:07 05/28/16 06/01/16 06/01/16 19:25 05:07 05:07 WBC 4.5 RBC 2.81 L Hgb 9.9 L D Hct 28.4 L MCV 101 H D MCH 35.2 H MCHC 34.9 RDW 20.8 H Plt Count 86 L Seg Neutrophils % Not Reportable Lymphocytes % Not Reportable Monocytes % Not Reportable Eosinophils % Not Reportable Basophils % Not Reportable Absolute Neutrophils Not Reportable Absolute Lymphocytes Not Reportable Absolute Monocytes Not Reportable Absolute Eosinophils Not Reportable Absolute Basophils Not Reportable Carbonic Acid HCO3/H2CO3 Ratio ABG pH ABG pCO2 ABG pO2 ABG HCO3 ABG O2 Saturation ABG Base Excess FiO2 Sodium Potassium Chloride Carbon Dioxide Anion Gap BUN Creatinine Est GFR ( Amer) Est GFR (Non-Af Amer) Glucose Calcium Magnesium Total Bilirubin AST ALT Alkaline Phosphatase Ammonia 15.0 Total Protein Albumin Blood Type A POSITIVE Antibody Screen NEGATIVE 06/01/16 06/01/16 05:07 05:07 WBC RBC Hgb Hct MCV MCH MCHC RDW Plt Count Seg Neutrophils % Lymphocytes % Monocytes % Eosinophils % Basophils % Absolute Neutrophils Absolute Lymphocytes Absolute Monocytes Absolute Eosinophils Absolute Basophils Carbonic Acid 1.32 HCO3/H2CO3 Ratio 22:1 ABG pH 7.44 ABG pCO2 43.8 ABG pO2 60.8 L ABG HCO3 29.1 H ABG O2 Saturation 92.1 L ABG Base Excess 4.4 FiO2 30% Sodium 139.0 Potassium 3.8 Chloride 104 Carbon Dioxide 28 Anion Gap 7 BUN 7 Creatinine 0.35 L Est GFR ( Amer) > 60 Est GFR (Non-Af Amer) > 60 Glucose 103 Calcium 7.8 L Magnesium 2.0 Total Bilirubin 4.1 H AST 91 H ALT 73 H Alkaline Phosphatase 388 H Ammonia Total Protein 4.7 L Albumin 2.0 L Blood Type Antibody Screen 05/26/16 22:30 Tracheal Aspirate Gram Stain - Final 05/26/16 22:30 Tracheal Aspirate Sputum Culture - Final Acinetobacter Baumannii/Haem Normal Gladys Absent Impressions: Cervical Spine CT 05/24/16 10:37 IMPRESSION: CHRONIC DEGENERATIVE CHANGES. 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 NO ACUTE FINDINGS. Abdomen Ultrasound 05/25/16 00:00 IMPRESSION: Echogenic liver from diffuse hepatocellular disease. No masses. Color flow in the portal vein and hepatic veins. Minimal sludge in the gallbladder. No gallbladder wall thickening. Negative Montejo's sign. Head CT 05/26/16 00:00 IMPRESSION: Limited study. Motion artifact. No gross acute changes. Chest/Abdomen CTA 05/29/16 00:00 IMPRESSION: Small to moderate bilateral lower lobar consolidation, left more than right consistent with pneumonia. Small moderate left pleural effusion. No pulmonary embolus. Moderate dilated cardiomyopathy pattern. Lines and tubes. Chest X-Ray 05/31/16 06:00 IMPRESSION: STABLE APPEARANCE OF THE CHEST. Assessment & Plan - Diagnosis (1) Emphysema lung Qualifiers: Emphysema type: unspecified Qualified Code(s): J43.9 - Emphysema, unspecified Is this a current diagnosis for this admission?: YesPlan: increased breath sounds (2) Pneumonia Qualifiers: Pneumonia type: aspiration pneumonia Laterality: unspecified laterality Lung location: unspecified part of lung Is this a current diagnosis for this admission?: Yes (3) Dysphagia, oropharyngeal phase Is this a current diagnosis for this admission?: Yes (4) Acute respiratory failure Qualifiers: Respiratory failure complication: hypoxia Qualified Code(s): J96.01 - Acute respiratory failure with hypoxia Is this a current diagnosis for this admission?: YesPlan: improving (5) Thrombocytopenia Is this a current diagnosis for this admission?: YesPlan: pancytopenia secodary to etoh (6) Elevated LFTs Is this a current diagnosis for this admission?: YesPlan: alk phos increasing other lft decreasing - Time Critical Time spent with patient: 25-34 minutes
[2016-06-02] MEDS: IPRATROPIUM/ALBUTEROL 0.5-2.5 MG/3 ML AMPUL NEB SCH ×4 (02:00→20:37)
[2016-06-02] MEDS: DEXTROSE 5%-NORMAL SALINE 1,000 ML IV PRN ×2 (04:19→22:57)
[2016-06-02] MEDS: PROPOFOL 100 ML IV PRN ×2 (04:20→15:58)
[2016-06-02 05:05] LABS: ARTERIAL BLOOD BASE EXCESS 5.5 mmol/L; ARTERIAL BLOOD O2 SATURATION 95.2 % (94-98)
[2016-06-02 05:31] LABS: ANION GAP 7 (5-19); BLOOD UREA NITROGEN 7 mg/dL (7-20); CARBON DIOXIDE 29 mmol/L (22-30); CHLORIDE 103 mmol/L (98-107); CREATININE RESULT 0.32 mg/dL (0.52-1.25); GLUCOSE 103 mg/dL (75-110); POTASSIUM 3.7 mmol/L (3.6-5.0); SODIUM 138.8 mmol/L (137-145)
[2016-06-02] MEDS: PROPRANOLOL HCL 10 MG TABLET PO SCH ×3 (05:40→22:23)
[2016-06-02 07:11] LABS: HEMATOCRIT 29.1 % (36.0-47.0); HEMOGLOBIN 10.1 g/dL (12.0-15.5); HGB HCT DIFFERENCE 1.2; MEAN CORPUSCULAR HEMOGLOBIN 35.2 pg (27.0-33.4); MEAN CORPUSCULAR HGB CONC 34.7 g/dL (32.0-36.0); MEAN CORPUSCULAR VOLUME 101 fl (80-97); RED BLOOD COUNT 2.87 10^6/uL (3.72-5.28); RED CELL DISTRIBUTION WIDTH 19.9 % (11.5-14.0); WHITE BLOOD COUNT 5.6 10^3/uL (4.0-10.5)
[2016-06-02 07:34] LABS: BAND NEUTROPHILS % (MANUAL) 4 % (3-5); BASOPHILS % (MANUAL) 0 % (0-2); EOSINOPHILS % (MANUAL) 0 % (0-6); LYMPHOCYTES % (MANUAL) 13 % (13-45); TOTAL CELLS COUNTED 100
[2016-06-02 07:35] LABS: ANISOCYTOSIS 1+; POIKILOCYTOSIS 1+
[2016-06-02 07:36] LABS: OVALOCYTES SLIGHT; POLYCHROMASIA SLIGHT; TARGET CELLS 1+
--- NOTE | 2016-06-02 08:19 | PDOC PROGRESS REPORT ---
Subjective Progress Note for:: 06/02/16 Subjective:: Patient seen on morning rounds. She is orally intubated at the time. IV Propofol is back on for sedation after she became restless and tachypneic yesterday afternoon. Tolerated vent weaning trial prior . Nursing report no issues overnight. She remains off levophed drip. She has soft wrist restraints in place for tube protection. She is moving all extremities spontaneously, nothing to commands at the present time. Review of systems is unobtainable due to patient's mentation. Physical Exam Vital Signs: Temp Pulse Resp BP Pulse Ox 99.7 F 82 18 94/65 L 99 06/02/16 00:00 06/02/16 02:10 06/02/16 06:05 06/02/16 06:05 06/02/16 06:05 Intake & Output 06/01/16 06/02/16 06/03/16 06:59 06:59 06:59 Intake Total 4919 3242 Output Total 4600 2710 Balance 319 532 Weight 64.3 kg 63.8 kg General appearance: PRESENT: no acute distress, well-developed, well-nourished, other - lightly jaundiced Head exam: PRESENT: atraumatic, normocephalic Eye exam: PRESENT: EOMI, PERRLA, scleral icterus Ear exam: PRESENT: normal external ear exam Mouth exam: PRESENT: moist, tongue midline Teeth exam: PRESENT: edentulous Neck exam: ABSENT: carotid bruit, JVD, lymphadenopathy, thyromegaly Respiratory exam: PRESENT: clear to auscultation seven. ABSENT: rales, rhonchi, wheezes Cardiovascular exam: PRESENT: RRR. ABSENT: diastolic murmur, rubs, systolic murmur Pulses: PRESENT: normal dorsalis pedis pul Vascular exam: PRESENT: normal capillary refill GI/Abdominal exam: PRESENT: normal bowel sounds, soft. ABSENT: distended, guarding, mass, organolmegaly, rebound, tenderness Extremities exam: PRESENT: full ROM. ABSENT: calf tenderness, clubbing, pedal edema Neurological exam: PRESENT: altered, CN II-XII grossly intact, other - intubated and sedated. ABSENT: motor sensory deficit Psychiatric exam: PRESENT: other - sedated Focused psych exam: PRESENT: other - sedated Skin exam: PRESENT: pallor, other - lightly jaundiced Results Laboratory Results: 06/02/16 04:45 06/02/16 04:45 06/02/16 06/02/16 06/02/16 04:45 04:45 04:50 WBC 5.6 RBC 2.87 L Hgb 10.1 L Hct 29.1 L MCV 101 H MCH 35.2 H MCHC 34.7 RDW 19.9 H Plt Count 101 L Seg Neutrophils % Not Reportable Lymphocytes % Not Reportable Monocytes % Not Reportable Eosinophils % Not Reportable Basophils % Not Reportable Absolute Neutrophils Not Reportable Absolute Lymphocytes Not Reportable Absolute Monocytes Not Reportable Absolute Eosinophils Not Reportable Absolute Basophils Not Reportable Carbonic Acid 1.38 H HCO3/H2CO3 Ratio 22:1 ABG pH 7.44 ABG pCO2 46.0 H ABG pO2 73.6 L ABG HCO3 30.4 H ABG O2 Saturation 95.2 ABG Base Excess 5.5 FiO2 40% Sodium 138.8 Potassium 3.7 Chloride 103 Carbon Dioxide 29 Anion Gap 7 BUN 7 Creatinine 0.32 L Est GFR ( Amer) > 60 Est GFR (Non-Af Amer) > 60 Glucose 103 Calcium 8.0 L Impressions: Cervical Spine CT 05/24/16 10:37 IMPRESSION: CHRONIC DEGENERATIVE CHANGES. 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 NO ACUTE FINDINGS. Abdomen Ultrasound 05/25/16 00:00 IMPRESSION: Echogenic liver from diffuse hepatocellular disease. No masses. Color flow in the portal vein and hepatic veins. Minimal sludge in the gallbladder. No gallbladder wall thickening. Negative Montejo's sign. Head CT 05/26/16 00:00 IMPRESSION: Limited study. Motion artifact. No gross acute changes. Chest/Abdomen CTA 05/29/16 00:00 IMPRESSION: Small to moderate bilateral lower lobar consolidation, left more than right consistent with pneumonia. Small moderate left pleural effusion. No pulmonary embolus. Moderate dilated cardiomyopathy pattern. Lines and tubes. Chest X-Ray 06/02/16 06:00 IMPRESSION: 1. Support tubes and lines as above. 2. Interval improvement in the airspace and interstitial opacities in comparison the prior study. There is residual opacities the retrocardiac region which could represent atelectasis, infiltrate, or aspiration. Assessment & Plan - Diagnosis (1) Acute respiratory failure Qualifiers: Respiratory failure complication: hypoxia Qualified Code(s): J96.01 - Acute respiratory failure with hypoxia Is this a current diagnosis for this admission?: YesPlan: Patient currently requires mechanical ventilation. Vent weaning per Dr. Hatch , belt fixer. Chest xray slightly improved today (2) Shock Is this a current diagnosis for this admission?: YesPlan: Patient required pressor support until last evening. Levophed was able to be weaned off. Most likely secondary to sepsis. Transthoracic echo was obtained which shows a normal ejection fraction. (3) Pneumonia Qualifiers: Pneumonia type: aspiration pneumonia Laterality: unspecified laterality Lung location: unspecified part of lung Is this a current diagnosis for this admission?: YesPlan: Continue antibiotic therapy and vent support (4) Sepsis Qualifiers: Sepsis type: sepsis due to unspecified organism Qualified Code(s): A41.9 - Sepsis, unspecified organism Is this a current diagnosis for this admission?: YesPlan: She has no longer tachycardic or hypotensive. This is improving with IV antiemetics and IV fluids. Most likely due to pneumonia from aspiration. (5) Pneumonia Qualifiers: Pneumonia type: aspiration pneumonia Aspiration pneumonia type: due to vomit Laterality: right Lung location: lower lobe of lung Qualified Code(s): J69.0 - Pneumonitis due to inhalation of food and vomit Is this a current diagnosis for this admission?: YesPlan: Tracheal aspirate grew actinobacter species which is sensitive to levaquin. Will descalate antibiotic coverage (6) Alcohol withdrawal Qualifiers: Complication of substance-induced condition: with delirium Qualified Code(s): F10.231 - Alcohol dependence with withdrawal delirium Is this a current diagnosis for this admission?: YesPlan: Patient has required large doses of IV Ativan and propofol. Attempts are now in place to slowly wean this. (7) Malnutrition Is this a current diagnosis for this admission?: YesPlan: Secondary to chronic alcoholism. We'll change enteral feedings to Oxepa 1.5 at 40 cc/hr per refinery operator light ends recovery (8) Hypocalcemia Is this a current diagnosis for this admission?: YesPlan: Repleted (9) Hypomagnesemia Is this a current diagnosis for this admission?: YesPlan: Replete prn (10) Hypophosphatemia Is this a current diagnosis for this admission?: YesPlan: Replete prn (11) Thrombocytopenia Is this a current diagnosis for this admission?: YesPlan: Secondary to alcoholism. (12) Bipolar 1 disorder Is this a current diagnosis for this admission?: YesPlan: Continue current medications. (13) Hypokalemia Is this a current diagnosis for this admission?: YesPlan: Continue current medications - Time Time Spent with patient: 25-34 minutes Critical Time spent with patient: 25-34 minutes Medications reviewed and adjusted accordingly: Yes
[2016-06-02] MEDS: LEVOFLOXACIN 750 MG/D5W RTU 750 MG/150 ML RTUPB IV SCH (09:42)
[2016-06-02] MEDS: FLUOXETINE HCL 20 MG/5 ML UDCUP PO SCH (09:42)
[2016-06-02] MEDS: RISPERIDONE 1 MG TABLET PO SCH (09:42)
[2016-06-02] MEDS: NICOTINE 14 MG/24 HR PATCH.TD24 TD SCH (09:42)
[2016-06-02] MEDS: FERROUS SULFATE LIQUID 300 MG/5 ML UDC PO SCH ×2 (09:42→17:06)
[2016-06-02] MEDS: FLUTICASONE NASAL SPRAY 50 MCG/SPRY 120 SPRAY/16 GM NASL SCH (09:43)
[2016-06-02] MEDS: DOCUSATE SODIUM 100 MG CAPSULE PO SCH ×2 (09:43→17:06)
--- NOTE | 2016-06-02 10:30 | PDOC PROGRESS REPORT ---
Subjective Progress Note for:: 06/02/16 Subjective:: Patient remains critically ill and is still in the unit Patient intubated and sedated. Blood pressure is more stable. Patient remains intubated and sedated. She is on very small amount of sedation. There is some concern about patient's mental status since although she is noted to move her extremities, she does not follow verbal commands.. Patient otherwise generally stable. She still has mild edema and mild distention of her stomach. Physical Exam Vital Signs: Temp Pulse Resp BP Pulse Ox 98.6 F 73 15 98/66 L 99 06/02/16 08:00 06/02/16 08:45 06/02/16 10:00 06/02/16 09:35 06/02/16 10:00 Intake & Output 06/01/16 06/02/16 06/03/16 06:59 06:59 06:59 Intake Total 4919 3242 Output Total 4600 2710 400 Balance 319 532 -400 Weight 64.3 kg 63.8 kg Exam: GENERAL: well-nourished and in no acute distress. Patient is intubated and sedated. Orientation cannot be checked. Concern about mental status as noted in history of present illness. HEAD: Atraumatic, normocephalic. EYES: Pupils equal round and reactive to light, extraocular movements could not be checked, sclera anicteric, conjunctiva are normal. ENT: TMs normal, nares patent, oropharynx clear without exudates. Moist mucous membranes. No oral ulcerations or bleeding gums noted NECK: supple without lymphadenopathy or JVD. Trachea is central. No cervical or axillary lymphadenopathy noted. Carotids are 2+ LUNGS: Breath sounds mostly clear to auscultation patient is noted to have bibasal crackles at the extreme bases CHEST: Palpation of the chest wall shows no significant chest wall tenderness or abnormalities. 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 ABDOMEN: Soft, no significant tenderness appreciated, normoactive bowel sounds. No guarding, no rebound. No rigidity noted . No masses appreciated. EXTREMITIES: Pedal pulses are 1-2+, no calf tenderness noted, 1+ pedal edema noted. No clubbing or cyanosis. 1+ generalized edema noted. NEUROLOGICAL: The patient cannot participate in the neurological exam but no facial asymmetry noted. Extremities slightly hypotonic PSYCH: This cannot be evaluated. Patient cannot participate. SKIN: No significant ecchymosis, rash, or signs of pruritus noted. MUSCULOSKELETAL EXAM: No significant joint swelling noted. Patient cannot participate in musculoskeletal exam Results Laboratory Results: 06/02/16 04:45 06/02/16 04:45 06/02/16 06/02/16 06/02/16 04:45 04:45 04:50 WBC 5.6 RBC 2.87 L Hgb 10.1 L Hct 29.1 L MCV 101 H MCH 35.2 H MCHC 34.7 RDW 19.9 H Plt Count 101 L Seg Neutrophils % Not Reportable Lymphocytes % Not Reportable Monocytes % Not Reportable Eosinophils % Not Reportable Basophils % Not Reportable Absolute Neutrophils Not Reportable Absolute Lymphocytes Not Reportable Absolute Monocytes Not Reportable Absolute Eosinophils Not Reportable Absolute Basophils Not Reportable Carbonic Acid 1.38 H HCO3/H2CO3 Ratio 22:1 ABG pH 7.44 ABG pCO2 46.0 H ABG pO2 73.6 L ABG HCO3 30.4 H ABG O2 Saturation 95.2 ABG Base Excess 5.5 FiO2 40% Sodium 138.8 Potassium 3.7 Chloride 103 Carbon Dioxide 29 Anion Gap 7 BUN 7 Creatinine 0.32 L Est GFR ( Amer) > 60 Est GFR (Non-Af Amer) > 60 Glucose 103 Calcium 8.0 L Impressions: Cervical Spine CT 05/24/16 10:37 IMPRESSION: CHRONIC DEGENERATIVE CHANGES. 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 NO ACUTE FINDINGS. Abdomen Ultrasound 05/25/16 00:00 IMPRESSION: Echogenic liver from diffuse hepatocellular disease. No masses. Color flow in the portal vein and hepatic veins. Minimal sludge in the gallbladder. No gallbladder wall thickening. Negative Montejo's sign. Head CT 05/26/16 00:00 IMPRESSION: Limited study. Motion artifact. No gross acute changes. Chest/Abdomen CTA 05/29/16 00:00 IMPRESSION: Small to moderate bilateral lower lobar consolidation, left more than right consistent with pneumonia. Small moderate left pleural effusion. No pulmonary embolus. Moderate dilated cardiomyopathy pattern. Lines and tubes. Chest X-Ray 06/02/16 06:00 IMPRESSION: 1. Support tubes and lines as above. 2. Interval improvement in the airspace and interstitial opacities in comparison the prior study. There is residual opacities the retrocardiac region which could represent atelectasis, infiltrate, or aspiration. Assessment & Plan - Diagnosis (1) Arterial hypotension Qualifiers: Hypotension type: unspecified hypotension type Qualified Code(s): I95.9 - Hypotension, unspecified Is this a current diagnosis for this admission?: Yes (2) Acute respiratory failure Qualifiers: Respiratory failure complication: hypoxia Qualified Code(s): J96.01 - Acute respiratory failure with hypoxia Is this a current diagnosis for this admission?: Yes (3) Emphysema lung Qualifiers: Emphysema type: unspecified Qualified Code(s): J43.9 - Emphysema, unspecified Is this a current diagnosis for this admission?: Yes (4) Pneumonia Qualifiers: Pneumonia type: aspiration pneumonia Laterality: unspecified laterality Lung location: unspecified part of lung Is this a current diagnosis for this admission?: Yes (5) Sepsis Qualifiers: Sepsis type: sepsis due to unspecified organism Qualified Code(s): A41.9 - Sepsis, unspecified organism Is this a current diagnosis for this admission?: Yes - Notes Notes: Arterial hypotension: Improved. No longer needing vasopressors. Acute respiratory failure: Continuing. Stable on ventilator support and oxygen supplementation. Emphysema of the lungs: Currently stable. Continue bronchodilator and other supportive care. Pneumonia: Seems to be gradually improving based on clinical exam and lab data as well as imaging studies reviewed. Continue current therapy. Chest x-ray reviewed by myself and shows improvement. Sepsis: Seems to be improving based on review of clinical data, lab work etc. Will repeat an EKG in the morning. Will also order a BNP for the morning since patient has mild vascular congestion on chest x-ray. Also patient noted to have mild generalized edema. Lab works and imaging studies were reviewed. - Time Time with patient: 15-25 minutes - CODE STATUS was discussed, patient remains full code. Surrogate decision-maker unchanged. Multiple medical problems were addressed.More than 50% of the time spent coordinating care, discussing management plans with involved caregivers. Management plans discussed with involved personnels. Medical decision making was of moderate to high complexity , patient's has multiple severe comorbidities.
[2016-06-02 13:21] LABS: ARTERIAL BLOOD BASE EXCESS 5.3 mmol/L; ARTERIAL BLOOD O2 SATURATION 95.7 % (94-98)
[2016-06-02] MEDS: NORMAL SALINE 1000 ML 1,000 ML with POTASSIUM CHLORIDE 20 MEQ, MAGNESIUM SULFATE 8 MEQ,... IV PRN ×6 (14:39)
[2016-06-03] MEDS: IPRATROPIUM/ALBUTEROL 0.5-2.5 MG/3 ML AMPUL NEB SCH ×4 (02:39→20:14)
[2016-06-03 05:16] LABS: ABSOLUTE LYMPHOCYTES (AUTO) 0.8 10^3/uL (0.5-4.7); ABSOLUTE MONOCYTES (AUTO) 0.9 10^3/uL (0.1-1.4); ABSOLUTE NEUT (AUTO) 4.1 10^3/uL (1.7-8.2); BASOPHILS % (AUTO) 0.3 % (0-2); EOSINOPHILS % (AUTO) 0.6 % (0-6); HEMATOCRIT 27.8 % (36.0-47.0); HEMOGLOBIN 9.6 g/dL (12.0-15.5); LYMPHOCYTES % (AUTO) 14.2 % (13-45); MEAN CORPUSCULAR HEMOGLOBIN 35.1 pg (27.0-33.4); MEAN CORPUSCULAR HGB CONC 34.4 g/dL (32.0-36.0); MEAN CORPUSCULAR VOLUME 102 fl (80-97); RED BLOOD COUNT 2.73 10^6/uL (3.72-5.28); RED CELL DISTRIBUTION WIDTH 18.8 % (11.5-14.0); SEGMENTED NEUTROPHILS % (AUTO) 68.9 % (42-78); WHITE BLOOD COUNT 5.9 10^3/uL (4.0-10.5)
[2016-06-03 05:37] LABS: ALANINE AMINOTRANSFERASE 65 U/L (9-52); ALKALINE PHOSPHATASE 364 U/L (38-126); ANION GAP 6 (5-19); ASPARTATE AMINO TRANSFERASE 91 U/L (14-36); BILIRUBIN,DIRECT 1.7 mg/dL (0.0-0.4); BILIRUBIN,TOTAL 2.4 mg/dL (0.2-1.3); BLOOD UREA NITROGEN 5 mg/dL (7-20); CARBON DIOXIDE 28 mmol/L (22-30); CHLORIDE 104 mmol/L (98-107); CREATININE RESULT 0.31 mg/dL (0.52-1.25); GLUCOSE 104 mg/dL (75-110); MAGNESIUM 1.8 mg/dL (1.6-2.3); POTASSIUM 3.5 mmol/L (3.6-5.0); SODIUM 138.4 mmol/L (137-145); TOTAL PROTEIN 4.7 g/dL (6.3-8.2); TRIGLYCERIDES 169 mg/dL (<150)
[2016-06-03] MEDS: PROPRANOLOL HCL 10 MG TABLET PO SCH ×3 (06:30→22:31)
[2016-06-03] MEDS: DEXTROSE 5%-NORMAL SALINE 1,000 ML IV PRN (07:27)
[2016-06-03] MEDS ORDERED: POTASSIUM CHLORIDE 20 MEQ/15 ML UDCUP NG ONE (07:42)
[2016-06-03] MEDS: FERROUS SULFATE LIQUID 300 MG/5 ML UDC PO SCH ×2 (09:09→17:12)
[2016-06-03 09:10] LABS: ARTERIAL BLOOD BASE EXCESS 1.1 mmol/L
[2016-06-03] MEDS: FLUOXETINE HCL 20 MG/5 ML UDCUP PO SCH (09:10)
[2016-06-03] MEDS: DOCUSATE SODIUM 100 MG CAPSULE PO SCH ×2 (09:10→17:11)
[2016-06-03] MEDS: RISPERIDONE 1 MG TABLET PO SCH (09:10)
[2016-06-03] MEDS: LEVOFLOXACIN 750 MG/D5W RTU 750 MG/150 ML RTUPB IV SCH (09:10)
[2016-06-03] MEDS: FLUTICASONE NASAL SPRAY 50 MCG/SPRY 120 SPRAY/16 GM NASL SCH (09:10)
[2016-06-03] MEDS: NICOTINE 14 MG/24 HR PATCH.TD24 TD SCH (09:10)
[2016-06-03 10:35] LABS: PATH REVIEW PATHOLOGIST REVIEWED
--- NOTE | 2016-06-03 10:39 | EKG REPORT ---
SEVERITY:- ABNORMAL ECG - SINUS RHYTHM BORDERLINE T ABNORMALITIES, ANT-LAT LEADS : Confirmed by: Martinez Caraballo 03-Jun-2016 10:38:30
--- NOTE | 2016-06-03 15:24 | PDOC PROGRESS REPORT ---
Subjective Progress Note for:: 06/03/16 Subjective:: Patient seen on morning rounds. She is orally intubated at the time. IV Propofol is back on for sedation after she became restless and tachypneic yesterday. Tolerated vent weaning trial yesterday . Nursing report no issues overnight. She remains off levophed drip. She has soft wrist restraints in place for tube protection. She is moving all extremities spontaneously. She is following some verbal commands at the present time. Review of systems is unobtainable due to patient's mentation. Physical Exam Vital Signs: Temp Pulse Resp BP Pulse Ox 99.5 F 78 18 121/83 93 06/03/16 08:00 06/03/16 13:46 06/03/16 14:00 06/03/16 13:36 06/03/16 14:00 Intake & Output 06/02/16 06/03/16 06/04/16 06:59 06:59 06:59 Intake Total 3242 4206 Output Total 2710 2985 2050 Balance 532 1221 -2050 Weight 63.8 kg 64.9 kg General appearance: PRESENT: no acute distress, thin, well-developed, well- nourished, other - mildly icteric Head exam: PRESENT: atraumatic, normocephalic Eye exam: PRESENT: EOMI, PERRLA, scleral icterus Ear exam: PRESENT: normal external ear exam Mouth exam: PRESENT: moist, tongue midline Neck exam: ABSENT: carotid bruit, JVD, lymphadenopathy, thyromegaly Respiratory exam: PRESENT: rhonchi - bilaterally, symmetrical, unlabored. ABSENT: rales, wheezes Cardiovascular exam: PRESENT: RRR. ABSENT: diastolic murmur, rubs, systolic murmur Pulses: PRESENT: normal dorsalis pedis pul Vascular exam: PRESENT: normal capillary refill GI/Abdominal exam: PRESENT: normal bowel sounds, soft. ABSENT: distended, guarding, mass, organolmegaly, rebound, tenderness Rectal exam: PRESENT: deferred Extremities exam: PRESENT: full ROM, +1 edema - lower extremity. ABSENT: calf tenderness, clubbing, pedal edema Musculoskeletal exam: PRESENT: full ROM, normal inspection Neurological exam: PRESENT: altered, CN II-XII grossly intact, other - sedated and intubated Psychiatric exam: PRESENT: agitated Focused psych exam: PRESENT: restlessness Skin exam: PRESENT: abrasion, dry, warm - bruising on left knee, other Results Laboratory Results: 06/03/16 05:00 06/03/16 05:00 05/31/16 06/03/16 06/03/16 04:45 05:00 05:00 WBC 3.6 L 5.9 RBC 1.94 L 2.73 L Hgb 7.2 L 9.6 L Hct 21.3 L 27.8 L MCV 110 H 102 H MCH 36.9 H 35.1 H MCHC 33.6 34.4 RDW 15.3 H 18.8 H Plt Count 78 L 127 L Seg Neutrophils % 68.9 Lymphocytes % 14.2 Monocytes % 16.0 H Eosinophils % 0.6 Basophils % 0.3 Absolute Neutrophils 4.1 Absolute Lymphocytes 0.8 Absolute Monocytes 0.9 Absolute Eosinophils 0.0 Absolute Basophils 0.0 Carbonic Acid HCO3/H2CO3 Ratio ABG pH ABG pCO2 ABG pO2 ABG HCO3 ABG O2 Saturation ABG Base Excess FiO2 Sodium 138.4 Potassium 3.5 L Chloride 104 Carbon Dioxide 28 Anion Gap 6 BUN 5 L Creatinine 0.31 L Est GFR ( Amer) > 60 Est GFR (Non-Af Amer) > 60 Glucose 104 Calcium 8.0 L Magnesium 1.8 Total Bilirubin 2.4 H AST 91 H ALT 65 H Alkaline Phosphatase 364 H Total Protein 4.7 L Albumin 2.0 L Triglycerides 169 H 06/03/16 09:00 WBC RBC Hgb Hct MCV MCH MCHC RDW Plt Count Seg Neutrophils % Lymphocytes % Monocytes % Eosinophils % Basophils % Absolute Neutrophils Absolute Lymphocytes Absolute Monocytes Absolute Eosinophils Absolute Basophils Carbonic Acid 1.05 HCO3/H2CO3 Ratio 23:1 ABG pH 7.47 H ABG pCO2 35.0 ABG pO2 69.5 L ABG HCO3 24.7 ABG O2 Saturation 95.0 ABG Base Excess 1.1 FiO2 35% Sodium Potassium Chloride Carbon Dioxide Anion Gap BUN Creatinine Est GFR ( Amer) Est GFR (Non-Af Amer) Glucose Calcium Magnesium Total Bilirubin AST ALT Alkaline Phosphatase Total Protein Albumin Triglycerides 06/03/16 05:00 NT-Pro-B Natriuret Pep 319 Impressions: Cervical Spine CT 05/24/16 10:37 IMPRESSION: CHRONIC DEGENERATIVE CHANGES. 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 NO ACUTE FINDINGS. Abdomen Ultrasound 05/25/16 00:00 IMPRESSION: Echogenic liver from diffuse hepatocellular disease. No masses. Color flow in the portal vein and hepatic veins. Minimal sludge in the gallbladder. No gallbladder wall thickening. Negative Montejo's sign. Head CT 05/26/16 00:00 IMPRESSION: Limited study. Motion artifact. No gross acute changes. Chest/Abdomen CTA 05/29/16 00:00 IMPRESSION: Small to moderate bilateral lower lobar consolidation, left more than right consistent with pneumonia. Small moderate left pleural effusion. No pulmonary embolus. Moderate dilated cardiomyopathy pattern. Lines and tubes. Chest X-Ray 06/03/16 06:00 IMPRESSION: Endotracheal tube tip at the thoracic inlet Trace left pleural effusion with patchy left basilar airspace disease atelectasis versus pneumonia. This is similar compared to yesterday Assessment & Plan - Diagnosis (1) Acute respiratory failure Qualifiers: Respiratory failure complication: hypoxia Qualified Code(s): J96.01 - Acute respiratory failure with hypoxia Is this a current diagnosis for this admission?: YesPlan: Patient currently requires mechanical ventilation. Vent weaning per Dr. Hatch , recordist. Chest xray slightly improved today (2) Shock Is this a current diagnosis for this admission?: YesPlan: Patient required pressor support until last evening. Levophed was able to be weaned off. Most likely secondary to sepsis. Transthoracic echo was obtained which shows a normal ejection fraction. (3) Pneumonia Qualifiers: Pneumonia type: aspiration pneumonia Laterality: unspecified laterality Lung location: unspecified part of lung Is this a current diagnosis for this admission?: YesPlan: Continue antibiotic therapy and vent support (4) Sepsis Qualifiers: Sepsis type: sepsis due to unspecified organism Qualified Code(s): A41.9 - Sepsis, unspecified organism Is this a current diagnosis for this admission?: YesPlan: She has no longer tachycardic or hypotensive. This is improving with IV antiemetics and IV fluids. Most likely due to pneumonia from aspiration. (5) Pneumonia Qualifiers: Pneumonia type: aspiration pneumonia Aspiration pneumonia type: due to vomit Laterality: right Lung location: lower lobe of lung Qualified Code(s): J69.0 - Pneumonitis due to inhalation of food and vomit Is this a current diagnosis for this admission?: YesPlan: Tracheal aspirate grew actinobacter species which is sensitive to levaquin. Will descalate antibiotic coverage (6) Alcohol withdrawal Qualifiers: Complication of substance-induced condition: with delirium Qualified Code(s): F10.231 - Alcohol dependence with withdrawal delirium Is this a current diagnosis for this admission?: YesPlan: Patient has required large doses of IV Ativan and propofol. Attempts are now in place to slowly wean this. (7) Malnutrition Is this a current diagnosis for this admission?: YesPlan: Secondary to chronic alcoholism. We'll change enteral feedings to Oxepa 1.5 at 40 cc/hr per carpentry instructor (8) Hypocalcemia Is this a current diagnosis for this admission?: YesPlan: Repleted (9) Hypomagnesemia Is this a current diagnosis for this admission?: YesPlan: Replete prn (10) Hypophosphatemia Is this a current diagnosis for this admission?: YesPlan: Replete prn (11) Thrombocytopenia Is this a current diagnosis for this admission?: YesPlan: Secondary to alcoholism. (12) Bipolar 1 disorder Is this a current diagnosis for this admission?: YesPlan: Continue current medications. (13) Hypokalemia Is this a current diagnosis for this admission?: YesPlan: Continue current medications - Time Time Spent with patient: 25-34 minutes Critical Time spent with patient: 25-34 minutes Medications reviewed and adjusted accordingly: Yes
[2016-06-03] MEDS: NORMAL SALINE 1000 ML 1,000 ML with POTASSIUM CHLORIDE 20 MEQ, MAGNESIUM SULFATE 8 MEQ,... IV PRN ×6 (16:56)
[2016-06-04] MEDS: DEXTROSE 5%-NORMAL SALINE 1,000 ML IV PRN ×3 (00:20→19:27)
[2016-06-04] MEDS: IPRATROPIUM/ALBUTEROL 0.5-2.5 MG/3 ML AMPUL NEB SCH ×4 (02:13→21:00)
[2016-06-04] MEDS: PROPRANOLOL HCL 10 MG TABLET PO SCH ×3 (05:36→22:29)
[2016-06-04 05:54] LABS: ARTERIAL BLOOD BASE EXCESS 3.8 mmol/L; ARTERIAL BLOOD O2 SATURATION 94.3 % (94-98)
[2016-06-04 06:07] LABS: ABSOLUTE NEUT (AUTO) 7.1 10^3/uL (1.7-8.2); BASOPHILS % (AUTO) 0.3 % (0-2); EOSINOPHILS % (AUTO) 0.3 % (0-6); HEMATOCRIT 27.9 % (36.0-47.0); HEMOGLOBIN 9.6 g/dL (12.0-15.5); HGB HCT DIFFERENCE 0.9; LYMPHOCYTES % (AUTO) 10.6 % (13-45); MEAN CORPUSCULAR HEMOGLOBIN 35.4 pg (27.0-33.4); MEAN CORPUSCULAR HGB CONC 34.4 g/dL (32.0-36.0); MEAN CORPUSCULAR VOLUME 103 fl (80-97); MONOCYTES % (AUTO) 10.8 % (3-13); RED BLOOD COUNT 2.71 10^6/uL (3.72-5.28); RED CELL DISTRIBUTION WIDTH 19.3 % (11.5-14.0); WHITE BLOOD COUNT 9.1 10^3/uL (4.0-10.5)
[2016-06-04 06:16] LABS: ALANINE AMINOTRANSFERASE 68 U/L (9-52); ALBUMIN 2.2 g/dL (3.5-5.0); ALKALINE PHOSPHATASE 337 U/L (38-126); ASPARTATE AMINO TRANSFERASE 90 U/L (14-36); BILIRUBIN,DIRECT 1.4 mg/dL (0.0-0.4); BILIRUBIN,TOTAL 2.3 mg/dL (0.2-1.3); CARBON DIOXIDE 30 mmol/L (22-30); CREATININE RESULT 0.26 mg/dL (0.52-1.25); GLUCOSE 100 mg/dL (75-110); MAGNESIUM 1.7 mg/dL (1.6-2.3); TOTAL PROTEIN 4.9 g/dL (6.3-8.2)
[2016-06-04 06:21] LABS: BLOOD UREA NITROGEN < 2 mg/dL (7-20); POTASSIUM 3.3 mmol/L (3.6-5.0)
[2016-06-04 06:28] LABS: ANION GAP 6 (5-19); CHLORIDE 101 mmol/L (98-107); SODIUM 136.7 mmol/L (137-145)
[2016-06-04] MEDS: POTASSI CL 20 MEQ/50 ML RIDER 20 MEQ/50 ML RTUPB IV SCH ×2 (07:52→11:59)
--- NOTE | 2016-06-04 09:10 | PDOC PROGRESS REPORT ---
Subjective Progress Note for:: 06/03/16 Subjective:: Patient intubated and sedated. Blood pressure is more stable. Patient remains intubated and sedated. Sedation is gradually being reduced. She is being now off Levophed and other pressure support. Patient otherwise generally stable. She still has mild edema and mild distention of her stomach. Patient is responding verbally. And she seems appropriate in response. Physical Exam Vital Signs: Temp Pulse Resp BP Pulse Ox 98.3 F 86 15 119/84 90 L 06/03/16 20:00 06/03/16 20:00 06/03/16 18:00 06/03/16 17:37 06/03/16 18:00 Intake & Output 06/02/16 06/03/16 06/04/16 06:59 06:59 06:59 Intake Total 3242 4206 1373 Output Total 2710 2985 4000 Balance 532 1221 -1383 Weight 63.8 kg 64.9 kg Exam: GENERAL: well-nourished and in no acute distress. Patient is intubated and sedated, sedation being reduced. Responds verbally to command. HEAD: Atraumatic, normocephalic. EYES: Pupils equal round and reactive to light, extraocular movements could not be checked, sclera anicteric, conjunctiva are normal. ENT: TMs normal, nares patent, oropharynx clear without exudates. Moist mucous membranes. No oral ulcerations or bleeding gums noted NECK: supple without lymphadenopathy or JVD. Trachea is central. No cervical or axillary lymphadenopathy noted. Carotids are 2+ LUNGS: Breath sounds mostly clear to auscultation patient is noted to have bibasal crackles at the extreme bases CHEST: Palpation of the chest wall shows no significant chest wall tenderness or abnormalities. 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 ABDOMEN: Soft, no significant tenderness appreciated, normoactive bowel sounds. No guarding, no rebound. No rigidity noted . No masses appreciated. EXTREMITIES: Pedal pulses are 1-2+, no calf tenderness noted, 1+ pedal edema noted. No clubbing or cyanosis. NEUROLOGICAL: The patient cannot participate in the neurological exam but no facial asymmetry noted. Extremities slightly hypotonic PSYCH: This cannot be evaluated. Patient cannot participate. SKIN: No significant ecchymosis, rash, or signs of pruritus noted. MUSCULOSKELETAL EXAM: No significant joint swelling noted. Patient cannot participate in musculoskeletal exam Results Laboratory Results: 06/03/16 05:00 06/03/16 05:00 05/31/16 06/03/16 06/03/16 04:45 05:00 05:00 WBC 3.6 L 5.9 RBC 1.94 L 2.73 L Hgb 7.2 L 9.6 L Hct 21.3 L 27.8 L MCV 110 H 102 H MCH 36.9 H 35.1 H MCHC 33.6 34.4 RDW 15.3 H 18.8 H Plt Count 78 L 127 L Seg Neutrophils % 68.9 Lymphocytes % 14.2 Monocytes % 16.0 H Eosinophils % 0.6 Basophils % 0.3 Absolute Neutrophils 4.1 Absolute Lymphocytes 0.8 Absolute Monocytes 0.9 Absolute Eosinophils 0.0 Absolute Basophils 0.0 Carbonic Acid HCO3/H2CO3 Ratio ABG pH ABG pCO2 ABG pO2 ABG HCO3 ABG O2 Saturation ABG Base Excess FiO2 Sodium 138.4 Potassium 3.5 L Chloride 104 Carbon Dioxide 28 Anion Gap 6 BUN 5 L Creatinine 0.31 L Est GFR ( Amer) > 60 Est GFR (Non-Af Amer) > 60 Glucose 104 Calcium 8.0 L Magnesium 1.8 Total Bilirubin 2.4 H AST 91 H ALT 65 H Alkaline Phosphatase 364 H Total Protein 4.7 L Albumin 2.0 L Triglycerides 169 H 06/03/16 09:00 WBC RBC Hgb Hct MCV MCH MCHC RDW Plt Count Seg Neutrophils % Lymphocytes % Monocytes % Eosinophils % Basophils % Absolute Neutrophils Absolute Lymphocytes Absolute Monocytes Absolute Eosinophils Absolute Basophils Carbonic Acid 1.05 HCO3/H2CO3 Ratio 23:1 ABG pH 7.47 H ABG pCO2 35.0 ABG pO2 69.5 L ABG HCO3 24.7 ABG O2 Saturation 95.0 ABG Base Excess 1.1 FiO2 35% Sodium Potassium Chloride Carbon Dioxide Anion Gap BUN Creatinine Est GFR ( Amer) Est GFR (Non-Af Amer) Glucose Calcium Magnesium Total Bilirubin AST ALT Alkaline Phosphatase Total Protein Albumin Triglycerides 06/03/16 05:00 NT-Pro-B Natriuret Pep 319 Impressions: Cervical Spine CT 05/24/16 10:37 IMPRESSION: CHRONIC DEGENERATIVE CHANGES. 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 NO ACUTE FINDINGS. Abdomen Ultrasound 05/25/16 00:00 IMPRESSION: Echogenic liver from diffuse hepatocellular disease. No masses. Color flow in the portal vein and hepatic veins. Minimal sludge in the gallbladder. No gallbladder wall thickening. Negative Montejo's sign. Head CT 05/26/16 00:00 IMPRESSION: Limited study. Motion artifact. No gross acute changes. Chest/Abdomen CTA 05/29/16 00:00 IMPRESSION: Small to moderate bilateral lower lobar consolidation, left more than right consistent with pneumonia. Small moderate left pleural effusion. No pulmonary embolus. Moderate dilated cardiomyopathy pattern. Lines and tubes. Chest X-Ray 06/03/16 06:00 IMPRESSION: Endotracheal tube tip at the thoracic inlet Trace left pleural effusion with patchy left basilar airspace disease atelectasis versus pneumonia. This is similar compared to yesterday Assessment & Plan - Diagnosis (1) Arterial hypotension Qualifiers: Hypotension type: unspecified hypotension type Qualified Code(s): I95.9 - Hypotension, unspecified Is this a current diagnosis for this admission?: Yes (2) Acute respiratory failure Qualifiers: Respiratory failure complication: hypoxia Qualified Code(s): J96.01 - Acute respiratory failure with hypoxia Is this a current diagnosis for this admission?: Yes (3) Emphysema lung Qualifiers: Emphysema type: unspecified Qualified Code(s): J43.9 - Emphysema, unspecified Is this a current diagnosis for this admission?: Yes (4) Pneumonia Qualifiers: Pneumonia type: aspiration pneumonia Laterality: unspecified laterality Lung location: unspecified part of lung Is this a current diagnosis for this admission?: Yes (5) Sepsis Qualifiers: Sepsis type: sepsis due to unspecified organism Qualified Code(s): A41.9 - Sepsis, unspecified organism Is this a current diagnosis for this admission?: Yes - Notes Notes: Arterial hypotension: Resolved. Vasopressors on standby. Acute respiratory failure: Patient getting weaning trial. Emphysema of the lungs: Stable Pneumonia: Improving medically and by chest x-ray. Sepsis: Improving. Patient seems to be stable on current regimen. Will continue to follow. - Time Time with patient: 15-25 minutes - CODE STATUS : was discussed, patient remains DO NOT RESUSCITATE. Surrogate decision-maker unchanged. Multiple medical problems were addressed.More than 50% of the time spent coordinating care, discussing management plans with involved caregivers. Management plans discussed with involved personnels. Medical decision making was of moderate to high complexity, patient's has multiple severe comorbidities.
--- NOTE | 2016-06-04 09:16 | PDOC PROGRESS REPORT ---
Subjective Progress Note for:: 06/04/16 Subjective:: Patient has been extubated. Blood pressure is more stable. She is being now off Levophed and other pressure support for last several days. Patient otherwise generally stable. She still has mild edema and mild distention of her stomach. Patient is responding verbally. And she seems appropriate in response. EKG from yesterday shows sinus rhythm, no acute ST-T wave changes noted. Lab work included shows mild hypokalemia and mild abnormalities of liver function test. Chest x-ray showed significant improvement with minimal infiltrate right base. This is on my review. Physical Exam Vital Signs: Temp Pulse Resp BP Pulse Ox 97.6 F 93 18 117/79 97 06/04/16 08:00 06/04/16 08:34 06/04/16 08:34 06/04/16 08:00 06/04/16 08:34 Intake & Output 06/03/16 06/04/16 06/05/16 06:59 06:59 06:59 Intake Total 4206 2843 Output Total 2985 7225 750 Balance 1221 -4382 -750 Weight 64.9 kg 59.3 kg Exam: GENERAL: well-nourished and in no acute distress. Alert and seems to respond appropriately. Orientation was not checked. HEAD: Atraumatic, normocephalic. EYES: Pupils equal round and reactive to light, extraocular movements intact, sclera anicteric, conjunctiva are normal. ENT: TMs normal, nares patent, oropharynx clear without exudates. Moist mucous membranes. No oral ulcerations or bleeding gums noted NECK: supple without lymphadenopathy. Trachea is central. No cervical or axillary lymphadenopathy noted. Carotids are 2+, JVD WNL LUNGS: Respiration seems nonlabored, no significant accessory muscle action noted. Right basal crackles noted.. No wheezes rales or rhonchi noted. No significant dullness noted on percussion. CHEST: Palpation of the chest wall shows no significant chest wall tenderness. No other significant abnormalities noted. HEART: [place] [employer], No PSH, 1/6 MARK aortic area, 1/6 whitney systolic murmur mitral area, no rubs, no gallops. ABDOMEN: Soft, no significant tenderness appreciated, normoactive bowel sounds. No guarding, no rebound. No rigidity noted . No masses appreciated. EXTREMITIES: Pedal pulses are 1-2+, no calf tenderness noted. No clubbing or cyanosis.trace to 1+ pedal edema noted NEUROLOGICAL: Focused neurological exam showed no significant neurologic deficit. Normal speech, no focal weakness appreciated. Gen. weakness noted. PSYCH: Normal mood, normal affect. Judgment and insight within normal limits. SKIN: No significant ecchymosis, rash, ulcerations or signs of pruritus noted. MUSCULOSKELETAL EXAM: No significant joint swelling noted. Results Laboratory Results: 06/04/16 05:30 06/04/16 05:30 05/31/16 06/04/16 06/04/16 04:45 05:30 05:30 WBC 3.6 L 9.1 RBC 1.94 L 2.71 L Hgb 7.2 L 9.6 L Hct 21.3 L 27.9 L MCV 110 H 103 H MCH 36.9 H 35.4 H MCHC 33.6 34.4 RDW 15.3 H 19.3 H Plt Count 78 L 154 Seg Neutrophils % 78.0 Lymphocytes % 10.6 L Monocytes % 10.8 Eosinophils % 0.3 Basophils % 0.3 Absolute Neutrophils 7.1 Absolute Lymphocytes 1.0 Absolute Monocytes 1.0 Absolute Eosinophils 0.0 Absolute Basophils 0.0 Carbonic Acid 1.26 HCO3/H2CO3 Ratio 22:1 ABG pH 7.45 ABG pCO2 42.0 ABG pO2 68.4 L ABG HCO3 28.3 H ABG O2 Saturation 94.3 ABG Base Excess 3.8 FiO2 4L Sodium Potassium Chloride Carbon Dioxide Anion Gap BUN Creatinine Est GFR ( Amer) Est GFR (Non-Af Amer) Glucose Calcium Magnesium Total Bilirubin AST ALT Alkaline Phosphatase Total Protein Albumin 06/04/16 05:30 WBC RBC Hgb Hct MCV MCH MCHC RDW Plt Count Seg Neutrophils % Lymphocytes % Monocytes % Eosinophils % Basophils % Absolute Neutrophils Absolute Lymphocytes Absolute Monocytes Absolute Eosinophils Absolute Basophils Carbonic Acid HCO3/H2CO3 Ratio ABG pH ABG pCO2 ABG pO2 ABG HCO3 ABG O2 Saturation ABG Base Excess FiO2 Sodium 136.7 L Potassium 3.3 L Chloride 101 Carbon Dioxide 30 Anion Gap 6 BUN < 2 L Creatinine 0.26 L Est GFR ( Amer) > 60 Est GFR (Non-Af Amer) > 60 Glucose 100 Calcium 8.0 L Magnesium 1.7 Total Bilirubin 2.3 H AST 90 H ALT 68 H Alkaline Phosphatase 337 H Total Protein 4.9 L Albumin 2.2 L 06/03/16 05:00 NT-Pro-B Natriuret Pep 319 Impressions: Cervical Spine CT 05/24/16 10:37 IMPRESSION: CHRONIC DEGENERATIVE CHANGES. 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 NO ACUTE FINDINGS. Abdomen Ultrasound 05/25/16 00:00 IMPRESSION: Echogenic liver from diffuse hepatocellular disease. No masses. Color flow in the portal vein and hepatic veins. Minimal sludge in the gallbladder. No gallbladder wall thickening. Negative Montejo's sign. Head CT 05/26/16 00:00 IMPRESSION: Limited study. Motion artifact. No gross acute changes. Chest/Abdomen CTA 05/29/16 00:00 IMPRESSION: Small to moderate bilateral lower lobar consolidation, left more than right consistent with pneumonia. Small moderate left pleural effusion. No pulmonary embolus. Moderate dilated cardiomyopathy pattern. Lines and tubes. Chest X-Ray 06/04/16 06:00 IMPRESSION: Stable appearance post removal of the endotracheal tube. Assessment & Plan - Diagnosis (1) Arterial hypotension Qualifiers: Hypotension type: unspecified hypotension type Qualified Code(s): I95.9 - Hypotension, unspecified Is this a current diagnosis for this admission?: Yes (2) Acute respiratory failure Qualifiers: Respiratory failure complication: hypoxia Qualified Code(s): J96.01 - Acute respiratory failure with hypoxia Is this a current diagnosis for this admission?: Yes (3) Emphysema lung Qualifiers: Emphysema type: unspecified Qualified Code(s): J43.9 - Emphysema, unspecified Is this a current diagnosis for this admission?: Yes (4) Pneumonia Qualifiers: Pneumonia type: aspiration pneumonia Laterality: unspecified laterality Lung location: unspecified part of lung Is this a current diagnosis for this admission?: Yes (5) Sepsis Qualifiers: Sepsis type: sepsis due to unspecified organism Qualified Code(s): A41.9 - Sepsis, unspecified organism Is this a current diagnosis for this admission?: Yes - Notes Notes: Patient has remained stable from cardiac standpoint. Yesterday's EKG was reviewed. Patient has been off vasopressors and maintaining a adequate blood pressure. Pneumonia is improving. Patient does have hypokalemia.. Will start patient on spironolactone has patient may have underlying cirrhosis and some fluid retention. At this point will sign off. Please reconsult if needed. - Time Time with patient: 15-25 minutes - More than 50% of the time spent coordinating care, discussing management plans with involved caregivers. Management plans discussed with involved personnels. Medical decision making was of moderate complexity, patient's has multiple severe comorbidities.
[2016-06-04] MEDS ORDERED: LEVOFLOXACIN 750 MG TABLET PO SCH (10:00)
--- NOTE | 2016-06-04 12:58 | PDOC PROGRESS REPORT ---
Subjective Progress Note for:: 06/04/16 Subjective:: Patient seen on morning rounds. She was extubated yesterday afternoon. She is resting comfortably in bed on nasal cannula. She is awake alert and mostly oriented 3. She denies any shortness of breath or dyspnea, she denies any chest pain. She denies nausea, vomiting or diarrhea. She she does complain of mild epigastric pain. She states she thinks it's because she is hungry. Nursing have not done her bedside swallow since being extubated yet. Physical Exam Vital Signs: Temp Pulse Resp BP Pulse Ox 98.8 F 90 19 114/82 94 06/04/16 12:00 06/04/16 12:00 06/04/16 12:00 06/04/16 12:00 06/04/16 12:00 Intake & Output 06/03/16 06/04/16 06/05/16 06:59 06:59 06:59 Intake Total 4206 2843 Output Total 2985 7225 1825 Balance 1221 -4382 -1825 Weight 64.9 kg 59.3 kg General appearance: PRESENT: no acute distress, thin, well-developed, well- nourished Head exam: PRESENT: atraumatic, normocephalic Eye exam: PRESENT: conjunctiva pink, EOMI, PERRLA. ABSENT: scleral icterus Ear exam: PRESENT: normal external ear exam Mouth exam: PRESENT: moist, tongue midline Neck exam: ABSENT: carotid bruit, JVD, lymphadenopathy, thyromegaly Respiratory exam: PRESENT: rhonchi, symmetrical, unlabored. ABSENT: rales, wheezes Cardiovascular exam: PRESENT: RRR. ABSENT: diastolic murmur, rubs, systolic murmur Pulses: PRESENT: normal carotid pulses, normal radial pulses Vascular exam: PRESENT: normal capillary refill GI/Abdominal exam: PRESENT: normal bowel sounds, soft. ABSENT: distended, guarding, mass, organolmegaly, rebound, tenderness Rectal exam: PRESENT: deferred Extremities exam: PRESENT: full ROM. ABSENT: calf tenderness, clubbing, pedal edema Neurological exam: PRESENT: alert, awake, oriented to person, oriented to place , oriented to time, oriented to situation, CN II-XII grossly intact. ABSENT: motor sensory deficit Psychiatric exam: PRESENT: appropriate affect, normal mood. ABSENT: homicidal ideation, suicidal ideation Skin exam: PRESENT: dry, intact, warm. ABSENT: cyanosis, rash Results Laboratory Results: 06/04/16 05:30 06/04/16 05:30 06/04/16 06/04/16 06/04/16 05:30 05:30 05:30 WBC 9.1 RBC 2.71 L Hgb 9.6 L Hct 27.9 L MCV 103 H MCH 35.4 H MCHC 34.4 RDW 19.3 H Plt Count 154 Seg Neutrophils % 78.0 Lymphocytes % 10.6 L Monocytes % 10.8 Eosinophils % 0.3 Basophils % 0.3 Absolute Neutrophils 7.1 Absolute Lymphocytes 1.0 Absolute Monocytes 1.0 Absolute Eosinophils 0.0 Absolute Basophils 0.0 Carbonic Acid 1.26 HCO3/H2CO3 Ratio 22:1 ABG pH 7.45 ABG pCO2 42.0 ABG pO2 68.4 L ABG HCO3 28.3 H ABG O2 Saturation 94.3 ABG Base Excess 3.8 FiO2 4L Sodium 136.7 L Potassium 3.3 L Chloride 101 Carbon Dioxide 30 Anion Gap 6 BUN < 2 L Creatinine 0.26 L Est GFR ( Amer) > 60 Est GFR (Non-Af Amer) > 60 Glucose 100 Calcium 8.0 L Magnesium 1.7 Total Bilirubin 2.3 H AST 90 H ALT 68 H Alkaline Phosphatase 337 H Total Protein 4.9 L Albumin 2.2 L 06/03/16 05:00 NT-Pro-B Natriuret Pep 319 Impressions: Cervical Spine CT 05/24/16 10:37 IMPRESSION: CHRONIC DEGENERATIVE CHANGES. 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 NO ACUTE FINDINGS. Abdomen Ultrasound 05/25/16 00:00 IMPRESSION: Echogenic liver from diffuse hepatocellular disease. No masses. Color flow in the portal vein and hepatic veins. Minimal sludge in the gallbladder. No gallbladder wall thickening. Negative Montejo's sign. Head CT 05/26/16 00:00 IMPRESSION: Limited study. Motion artifact. No gross acute changes. Chest/Abdomen CTA 05/29/16 00:00 IMPRESSION: Small to moderate bilateral lower lobar consolidation, left more than right consistent with pneumonia. Small moderate left pleural effusion. No pulmonary embolus. Moderate dilated cardiomyopathy pattern. Lines and tubes. Chest X-Ray 06/04/16 06:00 IMPRESSION: Stable appearance post removal of the endotracheal tube. Assessment & Plan - Diagnosis (1) Acute respiratory failure Qualifiers: Respiratory failure complication: hypoxia Qualified Code(s): J96.01 - Acute respiratory failure with hypoxia Is this a current diagnosis for this admission?: YesPlan: Resolved. Now extubated. on a nasal cannula (2) Shock Is this a current diagnosis for this admission?: YesPlan: Patient required pressor support until last evening. Levophed was able to be weaned off. Most likely secondary to sepsis. Transthoracic echo was obtained which shows a normal ejection fraction. (3) Pneumonia Qualifiers: Pneumonia type: aspiration pneumonia Laterality: unspecified laterality Lung location: unspecified part of lung Is this a current diagnosis for this admission?: YesPlan: Continue antibiotic therapy and vent support (4) Sepsis Qualifiers: Sepsis type: sepsis due to unspecified organism Qualified Code(s): A41.9 - Sepsis, unspecified organism Is this a current diagnosis for this admission?: YesPlan: She has no longer tachycardic or hypotensive. This is improving with IV antiemetics and IV fluids. Most likely due to pneumonia from aspiration. (5) Pneumonia Qualifiers: Pneumonia type: aspiration pneumonia Aspiration pneumonia type: due to vomit Laterality: right Lung location: lower lobe of lung Qualified Code(s): J69.0 - Pneumonitis due to inhalation of food and vomit Is this a current diagnosis for this admission?: YesPlan: Tracheal aspirate grew actinobacter species which is sensitive to levaquin. Will descalate antibiotic coverage (6) Alcohol withdrawal Qualifiers: Complication of substance-induced condition: with delirium Qualified Code(s): F10.231 - Alcohol dependence with withdrawal delirium Is this a current diagnosis for this admission?: YesPlan: Patient has required large doses of IV Ativan and propofol. Attempts are now in place to slowly wean this. (7) Malnutrition Is this a current diagnosis for this admission?: YesPlan: Secondary to chronic alcoholism. We'll change enteral feedings to Oxepa 1.5 at 40 cc/hr per aerial lineman (8) Hypocalcemia Is this a current diagnosis for this admission?: YesPlan: Repleted (9) Hypomagnesemia Is this a current diagnosis for this admission?: YesPlan: Replete prn (10) Hypophosphatemia Is this a current diagnosis for this admission?: YesPlan: Replete prn (11) Thrombocytopenia Is this a current diagnosis for this admission?: YesPlan: Secondary to alcoholism. (12) Bipolar 1 disorder Is this a current diagnosis for this admission?: YesPlan: Continue current medications. (13) Hypokalemia Is this a current diagnosis for this admission?: YesPlan: Continue current medications - Time Time Spent with patient: 25-34 minutes Critical Time spent with patient: 15-24 minutes Medications reviewed and adjusted accordingly: Yes
[2016-06-04] MEDS ORDERED: LEVOFLOXACIN 750 MG/D5W RTU 750 MG/150 ML RTUPB IV ONE (14:00)
[2016-06-04] MEDS: RISPERIDONE 1 MG TABLET PO SCH (14:05)
[2016-06-04] MEDS: DOCUSATE SODIUM 100 MG CAPSULE PO SCH ×2 (14:05→18:00)
[2016-06-04] MEDS: NICOTINE 14 MG/24 HR PATCH.TD24 TD SCH (14:05)
[2016-06-04] MEDS: FERROUS SULFATE LIQUID 300 MG/5 ML UDC PO SCH ×2 (14:05→18:00)
[2016-06-04] MEDS: SPIRONOLACTONE 25 MG TABLET PO SCH (14:05)
[2016-06-04] MEDS: FLUTICASONE NASAL SPRAY 50 MCG/SPRY 120 SPRAY/16 GM NASL SCH (14:05)
[2016-06-04] MEDS: FLUOXETINE HCL 20 MG/5 ML UDCUP PO SCH (14:05)
[2016-06-04] MEDS: TRAMADOL HCL 50 MG TABLET PO PRN ×2 (18:53→22:29)
[2016-06-05] MEDS: IPRATROPIUM/ALBUTEROL 0.5-2.5 MG/3 ML AMPUL NEB SCH ×4 (01:48→20:39)
[2016-06-05] MEDS: DEXTROSE 5%-NORMAL SALINE 1,000 ML IV PRN (02:40)
[2016-06-05 05:33] LABS: ABSOLUTE MONOCYTES (AUTO) 1.1 10^3/uL (0.1-1.4); ABSOLUTE NEUT (AUTO) 9.5 10^3/uL (1.7-8.2); BASOPHILS % (AUTO) 0.3 % (0-2); EOSINOPHILS % (AUTO) 0.2 % (0-6); HEMATOCRIT 23.7 % (36.0-47.0); HEMOGLOBIN 8.3 g/dL (12.0-15.5); HGB HCT DIFFERENCE 1.2; LYMPHOCYTES % (AUTO) 8.3 % (13-45); MEAN CORPUSCULAR HGB CONC 34.9 g/dL (32.0-36.0); MEAN CORPUSCULAR VOLUME 103 fl (80-97); MONOCYTES % (AUTO) 9.4 % (3-13); RED BLOOD COUNT 2.29 10^6/uL (3.72-5.28); SEGMENTED NEUTROPHILS % (AUTO) 81.8 % (42-78); WHITE BLOOD COUNT 11.6 10^3/uL (4.0-10.5)
[2016-06-05 05:35] LABS: ARTERIAL BLOOD BASE EXCESS 5.5 mmol/L; ARTERIAL BLOOD O2 SATURATION 97.1 % (94-98)
[2016-06-05] MEDS: PROPRANOLOL HCL 10 MG TABLET PO SCH ×3 (05:50→22:02)
[2016-06-05 05:58] LABS: ANION GAP 5 (5-19); CALCIUM 8.1 mg/dL (8.4-10.2); CARBON DIOXIDE 31 mmol/L (22-30); CHLORIDE 102 mmol/L (98-107); CREATININE RESULT 0.28 mg/dL (0.52-1.25); GLUCOSE 94 mg/dL (75-110); POTASSIUM 3.2 mmol/L (3.6-5.0); SODIUM 138.3 mmol/L (137-145)
[2016-06-05 06:06] LABS: BLOOD UREA NITROGEN < 2 mg/dL (7-20)
[2016-06-05] MEDS ORDERED: FUROSEMIDE INJ/PF 20 MG/2 ML SDV IV ONE (08:22)
[2016-06-05] MEDS: SPIRONOLACTONE 25 MG TABLET PO SCH (09:17)
[2016-06-05] MEDS: FERROUS SULFATE LIQUID 300 MG/5 ML UDC PO SCH ×2 (09:17→18:25)
[2016-06-05] MEDS: POTASSIUM CHLORIDE 10 MEQ TABLET.SA PO SCH ×2 (09:18→22:01)
[2016-06-05] MEDS: TRAMADOL HCL 50 MG TABLET PO PRN ×2 (09:18→19:58)
[2016-06-05] MEDS: RISPERIDONE 1 MG TABLET PO SCH (09:18)
[2016-06-05] MEDS: NICOTINE 14 MG/24 HR PATCH.TD24 TD SCH (09:18)
[2016-06-05] MEDS: FLUOXETINE HCL 20 MG/5 ML UDCUP PO SCH (09:19)
[2016-06-05] MEDS: LEVOFLOXACIN 750 MG/D5W RTU 150 ML IV SCH (09:19)
[2016-06-05] MEDS: DOCUSATE SODIUM 100 MG CAPSULE PO SCH ×2 (09:20→18:25)
[2016-06-05] MEDS: FLUTICASONE NASAL SPRAY 50 MCG/SPRY 120 SPRAY/16 GM NASL SCH (09:20)
--- NOTE | 2016-06-05 14:16 | PDOC PROGRESS REPORT ---
Subjective Progress Note for:: 06/05/16 Subjective:: Patient seen on morning rounds. She is resting comfortably in bed on nasal cannula. She does have a mild increase in oxygen needs. She appears to be hypoventilating. She is awake alert and mostly oriented 3. She denies any shortness of breath or dyspnea, she denies any chest pain. She denies nausea, vomiting or diarrhea. She she has been evaluated by speech therapy this morning. According to Judith speech therapist, she is a silent aspirator since her throat cancer surgery. Speech has recommended honey thickened liquids and pured diet. The patient has refused this. Patient also refused consideration of PEG tube. She also would like to change her CODE STATUS to full code from a DO NOT RESUSCITATE. We did discuss recurrent aspiration pneumonia with her she is aware of the risks. Physical Exam Vital Signs: Temp Pulse Resp BP Pulse Ox 98.2 F 85 22 H 112/83 92 06/05/16 03:56 06/05/16 13:53 06/05/16 13:53 06/05/16 06:20 06/05/16 13:53 Intake & Output 06/04/16 06/05/16 06/06/16 06:59 06:59 06:59 Intake Total 2843 1799 Output Total 7277 5888 Balance -4382 -4026 Weight 59.3 kg 56.5 kg General appearance: PRESENT: no acute distress, well-developed, well-nourished Head exam: PRESENT: atraumatic, normocephalic Eye exam: PRESENT: conjunctiva pink, EOMI, PERRLA. ABSENT: scleral icterus Ear exam: PRESENT: normal external ear exam Mouth exam: PRESENT: moist, tongue midline Neck exam: ABSENT: carotid bruit, JVD, lymphadenopathy, thyromegaly Respiratory exam: PRESENT: decreased breath sounds, symmetrical, unlabored Cardiovascular exam: PRESENT: RRR. ABSENT: diastolic murmur, rubs, systolic murmur Pulses: PRESENT: normal dorsalis pedis pul Vascular exam: PRESENT: normal capillary refill GI/Abdominal exam: PRESENT: normal bowel sounds, soft. ABSENT: distended, guarding, mass, organolmegaly, rebound, tenderness Rectal exam: PRESENT: deferred Extremities exam: PRESENT: full ROM. ABSENT: calf tenderness, clubbing, pedal edema Neurological exam: PRESENT: alert, awake, oriented to person, oriented to place , oriented to time, oriented to situation, CN II-XII grossly intact. ABSENT: motor sensory deficit Psychiatric exam: PRESENT: appropriate affect, normal mood. ABSENT: homicidal ideation, suicidal ideation Skin exam: PRESENT: dry, intact, warm. ABSENT: cyanosis, rash Results Laboratory Results: 06/05/16 05:15 06/05/16 05:15 06/05/16 06/05/16 06/05/16 05:15 05:15 05:15 WBC 11.6 H RBC 2.29 L Hgb 8.3 L Hct 23.7 L MCV 103 H MCH 36.0 H MCHC 34.9 RDW 19.0 H Plt Count 153 Seg Neutrophils % 81.8 H Lymphocytes % 8.3 L Monocytes % 9.4 Eosinophils % 0.2 Basophils % 0.3 Absolute Neutrophils 9.5 H Absolute Lymphocytes 1.0 Absolute Monocytes 1.1 Absolute Eosinophils 0.0 Absolute Basophils 0.0 Carbonic Acid 1.48 H HCO3/H2CO3 Ratio 20:1 ABG pH 7.41 ABG pCO2 49.2 H ABG pO2 93.4 ABG HCO3 30.6 H ABG O2 Saturation 97.1 ABG Base Excess 5.5 FiO2 12 L Sodium 138.3 Potassium 3.2 L Chloride 102 Carbon Dioxide 31 H Anion Gap 5 BUN < 2 L Creatinine 0.28 L Est GFR ( Amer) > 60 Est GFR (Non-Af Amer) > 60 Glucose 94 Calcium 8.1 L 06/03/16 05:00 NT-Pro-B Natriuret Pep 319 Impressions: Cervical Spine CT 05/24/16 10:37 IMPRESSION: CHRONIC DEGENERATIVE CHANGES. 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 NO ACUTE FINDINGS. Abdomen Ultrasound 05/25/16 00:00 IMPRESSION: Echogenic liver from diffuse hepatocellular disease. No masses. Color flow in the portal vein and hepatic veins. Minimal sludge in the gallbladder. No gallbladder wall thickening. Negative Montejo's sign. Head CT 05/26/16 00:00 IMPRESSION: Limited study. Motion artifact. No gross acute changes. Chest/Abdomen CTA 05/29/16 00:00 IMPRESSION: Small to moderate bilateral lower lobar consolidation, left more than right consistent with pneumonia. Small moderate left pleural effusion. No pulmonary embolus. Moderate dilated cardiomyopathy pattern. Lines and tubes. Chest X-Ray 06/04/16 06:00 IMPRESSION: Stable appearance post removal of the endotracheal tube. Assessment & Plan - Diagnosis (1) Dysphagia Qualifiers: Dysphagia type: pharyngeal phase Qualified Code(s): R13.13 - Dysphagia, pharyngeal phase Plan: Patient will continue with speech therapy. She has refused honey thickened liquids and pured diet. (2) Acute respiratory failure Qualifiers: Respiratory failure complication: hypoxia Qualified Code(s): J96.01 - Acute respiratory failure with hypoxia Is this a current diagnosis for this admission?: YesPlan: Resolved. Now extubated. on a nasal cannula. She has had increasing oxygen requirements. She appears to be hypoventilating. We will add incentive spirometry. She is also at risk her repeat aspiration pneumonia because of her swallowing problems. (3) Shock Is this a current diagnosis for this admission?: YesPlan: Patient required pressor support until last evening. Levophed was able to be weaned off. Most likely secondary to sepsis. Transthoracic echo was obtained which shows a normal ejection fraction. (4) Pneumonia Qualifiers: Pneumonia type: aspiration pneumonia Laterality: unspecified laterality Lung location: unspecified part of lung Is this a current diagnosis for this admission?: YesPlan: Continue antibiotic therapy and vent support (5) Sepsis Qualifiers: Sepsis type: sepsis due to unspecified organism Qualified Code(s): A41.9 - Sepsis, unspecified organism Is this a current diagnosis for this admission?: YesPlan: She has no longer tachycardic or hypotensive. This is improving with IV antiemetics and IV fluids. Most likely due to pneumonia from aspiration. (6) Pneumonia Qualifiers: Pneumonia type: aspiration pneumonia Aspiration pneumonia type: due to vomit Laterality: right Lung location: lower lobe of lung Qualified Code(s): J69.0 - Pneumonitis due to inhalation of food and vomit Is this a current diagnosis for this admission?: YesPlan: Tracheal aspirate grew actinobacter species which is sensitive to levaquin. Will descalate antibiotic coverage (7) Alcohol withdrawal Qualifiers: Complication of substance-induced condition: with delirium Qualified Code(s): F10.231 - Alcohol dependence with withdrawal delirium Is this a current diagnosis for this admission?: YesPlan: Patient has required large doses of IV Ativan and propofol. Attempts are now in place to slowly wean this. (8) Malnutrition Is this a current diagnosis for this admission?: YesPlan: Secondary to chronic alcoholism. We'll change enteral feedings to Oxepa 1.5 at 40 cc/hr per arts and humanities council director (9) Hypocalcemia Is this a current diagnosis for this admission?: YesPlan: Repleted (10) Hypomagnesemia Is this a current diagnosis for this admission?: YesPlan: Replete prn (11) Hypophosphatemia Is this a current diagnosis for this admission?: YesPlan: Replete prn (12) Thrombocytopenia Is this a current diagnosis for this admission?: YesPlan: Secondary to alcoholism. (13) Bipolar 1 disorder Is this a current diagnosis for this admission?: YesPlan: Continue current medications. (14) Hypokalemia Is this a current diagnosis for this admission?: YesPlan: Continue current medications - Time Time Spent with patient: 25-34 minutes Critical Time spent with patient: 15-24 minutes Medications reviewed and adjusted accordingly: Yes
[2016-06-06] MEDS: IPRATROPIUM/ALBUTEROL 0.5-2.5 MG/3 ML AMPUL NEB SCH ×4 (02:35→19:54)
[2016-06-06] MEDS ORDERED: PROPRANOLOL HCL 20 MG TABLET ONE (05:09)
[2016-06-06] MEDS: PROPRANOLOL HCL 10 MG TABLET PO SCH ×3 (05:47→21:06)
[2016-06-06 06:15] LABS: ABSOLUTE LYMPHOCYTES (AUTO) 1.4 10^3/uL (0.5-4.7); ABSOLUTE MONOCYTES (AUTO) 1.2 10^3/uL (0.1-1.4); ABSOLUTE NEUT (AUTO) 7.4 10^3/uL (1.7-8.2); BASOPHILS % (AUTO) 0.3 % (0-2); EOSINOPHILS % (AUTO) 0.3 % (0-6); HEMATOCRIT 27.4 % (36.0-47.0); HEMOGLOBIN 9.4 g/dL (12.0-15.5); HGB HCT DIFFERENCE 0.8; LYMPHOCYTES % (AUTO) 13.8 % (13-45); MEAN CORPUSCULAR HEMOGLOBIN 35.9 pg (27.0-33.4); MEAN CORPUSCULAR HGB CONC 34.5 g/dL (32.0-36.0); MEAN CORPUSCULAR VOLUME 104 fl (80-97); RED BLOOD COUNT 2.63 10^6/uL (3.72-5.28); RED CELL DISTRIBUTION WIDTH 19.5 % (11.5-14.0); SEGMENTED NEUTROPHILS % (AUTO) 73.6 % (42-78)
[2016-06-06 06:27] LABS: ANION GAP 6 (5-19); BLOOD UREA NITROGEN 2 mg/dL (7-20); CALCIUM 8.7 mg/dL (8.4-10.2); CARBON DIOXIDE 31 mmol/L (22-30); CHLORIDE 99 mmol/L (98-107); CREATININE RESULT 0.29 mg/dL (0.52-1.25); GLUCOSE 85 mg/dL (75-110); POTASSIUM 4.4 mmol/L (3.6-5.0); SODIUM 136.4 mmol/L (137-145)
--- NOTE | 2016-06-06 10:16 | PDOC PROGRESS REPORT ---
Subjective Progress Note for:: 06/06/16 Subjective:: Patient seen on morning rounds. She is resting comfortably in bed on nasal cannula. She is awake alert and oriented 3. She denies any shortness of breath or dyspnea, she denies any chest pain. She denies nausea, vomiting or diarrhea. She she has been evaluated by speech therapy this morning. According to Judith speech therapist, she is a silent aspirator since her throat cancer surgery. Speech has recommended honey thickened liquids and pur ed diet. The patient has refused this. Patient also refused consideration of PEG tube. She also would like to change her CODE STATUS to full code from a DO NOT RESUSCITATE. We did discuss recurrent aspiration pneumonia with her, she is aware of the risks. She is agreeable to work with speech therapy for pharyngeal strengthening exercises. Physical Exam Vital Signs: Temp Pulse Resp BP Pulse Ox 99.1 F 73 18 117/78 92 06/06/16 07:43 06/06/16 08:18 06/06/16 08:18 06/06/16 07:43 06/06/16 08:18 Intake & Output 06/05/16 06/06/16 06/07/16 06:59 06:59 06:59 Intake Total 1799 3034 Output Total 5877 6200 Balance -4026 -3166 Weight 56.5 kg 54.4 kg General appearance: PRESENT: no acute distress, thin, well-developed, other - older appearing than chronological age Head exam: PRESENT: atraumatic, normocephalic Eye exam: PRESENT: conjunctiva pink, EOMI, PERRLA. ABSENT: scleral icterus Ear exam: PRESENT: normal external ear exam Mouth exam: PRESENT: moist, tongue midline Neck exam: ABSENT: carotid bruit, JVD, lymphadenopathy, thyromegaly Respiratory exam: PRESENT: clear to auscultation seven, decreased breath sounds, symmetrical, unlabored. ABSENT: rales, rhonchi, wheezes Cardiovascular exam: PRESENT: RRR. ABSENT: diastolic murmur, rubs, systolic murmur Pulses: PRESENT: normal dorsalis pedis pul Vascular exam: PRESENT: normal capillary refill GI/Abdominal exam: PRESENT: normal bowel sounds, soft. ABSENT: distended, guarding, mass, organolmegaly, rebound, tenderness Rectal exam: PRESENT: deferred Extremities exam: PRESENT: full ROM. ABSENT: calf tenderness, clubbing, pedal edema Neurological exam: PRESENT: alert, awake, oriented to person, oriented to place , oriented to time, oriented to situation, CN II-XII grossly intact. ABSENT: motor sensory deficit Psychiatric exam: PRESENT: appropriate affect, normal mood. ABSENT: homicidal ideation, suicidal ideation Skin exam: PRESENT: abrasion Results Laboratory Results: 06/06/16 05:53 06/06/16 05:53 06/06/16 06/06/16 05:53 05:53 WBC 10.0 RBC 2.63 L Hgb 9.4 L Hct 27.4 L MCV 104 H MCH 35.9 H MCHC 34.5 RDW 19.5 H Plt Count 225 Seg Neutrophils % 73.6 Lymphocytes % 13.8 Monocytes % 12.0 Eosinophils % 0.3 Basophils % 0.3 Absolute Neutrophils 7.4 Absolute Lymphocytes 1.4 Absolute Monocytes 1.2 Absolute Eosinophils 0.0 Absolute Basophils 0.0 Sodium 136.4 L Potassium 4.4 Chloride 99 Carbon Dioxide 31 H Anion Gap 6 BUN 2 L Creatinine 0.29 L Est GFR ( Amer) > 60 Est GFR (Non-Af Amer) > 60 Glucose 85 Calcium 8.7 06/03/16 05:00 NT-Pro-B Natriuret Pep 319 Impressions: Cervical Spine CT 05/24/16 10:37 IMPRESSION: CHRONIC DEGENERATIVE CHANGES. 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 NO ACUTE FINDINGS. Abdomen Ultrasound 05/25/16 00:00 IMPRESSION: Echogenic liver from diffuse hepatocellular disease. No masses. Color flow in the portal vein and hepatic veins. Minimal sludge in the gallbladder. No gallbladder wall thickening. Negative Montejo's sign. Head CT 05/26/16 00:00 IMPRESSION: Limited study. Motion artifact. No gross acute changes. Chest/Abdomen CTA 05/29/16 00:00 IMPRESSION: Small to moderate bilateral lower lobar consolidation, left more than right consistent with pneumonia. Small moderate left pleural effusion. No pulmonary embolus. Moderate dilated cardiomyopathy pattern. Lines and tubes. Assessment & Plan - Diagnosis (1) Dysphagia Qualifiers: Dysphagia type: pharyngeal phase Qualified Code(s): R13.13 - Dysphagia, pharyngeal phase Plan: Patient will continue with speech therapy. She has refused honey thickened liquids and pured diet. (2) Acute respiratory failure Qualifiers: Respiratory failure complication: hypoxia Qualified Code(s): J96.01 - Acute respiratory failure with hypoxia Is this a current diagnosis for this admission?: YesPlan: Resolved. Now extubated. on a nasal cannula. She has had increasing oxygen requirements. She appears to be hypoventilating. We will add incentive spirometry. She is also at risk her repeat aspiration pneumonia because of her swallowing problems. (3) Shock Is this a current diagnosis for this admission?: YesPlan: Resolved (4) Pneumonia Qualifiers: Pneumonia type: aspiration pneumonia Laterality: unspecified laterality Lung location: unspecified part of lung Is this a current diagnosis for this admission?: YesPlan: Continue antibiotic therapy and vent support (5) Sepsis Qualifiers: Sepsis type: sepsis due to unspecified organism Qualified Code(s): A41.9 - Sepsis, unspecified organism Is this a current diagnosis for this admission?: YesPlan: She has no longer tachycardic or hypotensive. This is improving with IV antiemetics and IV fluids. Most likely due to pneumonia from aspiration. (6) Pneumonia Qualifiers: Pneumonia type: aspiration pneumonia Aspiration pneumonia type: due to vomit Laterality: right Lung location: lower lobe of lung Qualified Code(s): J69.0 - Pneumonitis due to inhalation of food and vomit Is this a current diagnosis for this admission?: YesPlan: Tracheal aspirate grew actinobacter species which is sensitive to levaquin. Will descalate antibiotic coverage (7) Alcohol withdrawal Qualifiers: Complication of substance-induced condition: with delirium Qualified Code(s): F10.231 - Alcohol dependence with withdrawal delirium Is this a current diagnosis for this admission?: YesPlan: Resolved (8) Malnutrition Is this a current diagnosis for this admission?: YesPlan: Secondary to chronic alcoholism. We'll change enteral feedings to Oxepa 1.5 at 40 cc/hr per promotional advertising assistant (9) Hypocalcemia Is this a current diagnosis for this admission?: YesPlan: Repleted (10) Hypomagnesemia Is this a current diagnosis for this admission?: YesPlan: Replete prn (11) Hypophosphatemia Is this a current diagnosis for this admission?: YesPlan: Replete prn (12) Thrombocytopenia Is this a current diagnosis for this admission?: YesPlan: Resolved. Secondary to cirrhosis (13) Bipolar 1 disorder Is this a current diagnosis for this admission?: YesPlan: Continue current medications. (14) Hypokalemia Is this a current diagnosis for this admission?: YesPlan: Continue current medications - Time Time Spent with patient: 25-34 minutes Critical Time spent with patient: 15-24 minutes Medications reviewed and adjusted accordingly: Yes Anticipated discharge: Home with Homehealth Within: within 48 hours
[2016-06-06] MEDS: LEVOFLOXACIN 750 MG/D5W RTU 150 ML IV SCH (12:12)
[2016-06-06] MEDS: NICOTINE 14 MG/24 HR PATCH.TD24 TD SCH (12:12)
[2016-06-06] MEDS: RISPERIDONE 1 MG TABLET PO SCH (12:13)
[2016-06-06] MEDS: DOCUSATE SODIUM 100 MG CAPSULE PO SCH ×2 (12:14→17:17)
[2016-06-06] MEDS: FLUOXETINE HCL 20 MG/5 ML UDCUP PO SCH (12:14)
[2016-06-06] MEDS: SPIRONOLACTONE 25 MG TABLET PO SCH (12:14)
[2016-06-06] MEDS: FLUTICASONE NASAL SPRAY 50 MCG/SPRY 120 SPRAY/16 GM NASL SCH (12:15)
[2016-06-06] MEDS: FERROUS SULFATE LIQUID 300 MG/5 ML UDC PO SCH ×2 (12:19→17:17)
[2016-06-06] MEDS: NORMAL SALINE INJ/PF 0.9% 10 ML SDV IV PRN (16:00)
[2016-06-06] MEDS: TRAMADOL HCL 50 MG TABLET PO PRN (21:07)
[2016-06-07] MEDS: IPRATROPIUM/ALBUTEROL 0.5-2.5 MG/3 ML AMPUL NEB SCH ×4 (02:11→20:02)
[2016-06-07] MEDS: PROPRANOLOL HCL 10 MG TABLET PO SCH ×3 (06:41→21:23)
[2016-06-07] MEDS ORDERED: LEVOFLOXACIN 750 MG TABLET PO SCH (10:00)
[2016-06-07] MEDS: RISPERIDONE 1 MG TABLET PO SCH (10:02)
[2016-06-07] MEDS: FERROUS SULFATE LIQUID 300 MG/5 ML UDC PO SCH ×2 (10:02→17:06)
[2016-06-07] MEDS: SPIRONOLACTONE 25 MG TABLET PO SCH (10:02)
[2016-06-07] MEDS: FLUTICASONE NASAL SPRAY 50 MCG/SPRY 120 SPRAY/16 GM NASL SCH (10:02)
[2016-06-07] MEDS: DOCUSATE SODIUM 100 MG CAPSULE PO SCH ×2 (10:02→17:06)
[2016-06-07] MEDS: LEVOFLOXACIN 750 MG TABLET PO SCH (10:03)
[2016-06-07] MEDS: NICOTINE 14 MG/24 HR PATCH.TD24 TD SCH (10:03)
[2016-06-07] MEDS: FLUOXETINE HCL 20 MG/5 ML UDCUP PO SCH (10:03)
--- NOTE | 2016-06-07 13:17 | PDOC PROGRESS REPORT ---
Subjective Progress Note for:: 06/07/16 Subjective:: Patient seen on morning rounds. She is resting comfortably in chair on nasal cannula. She is awake alert and orientedx3. She denies any shortness of breath, dyspnea or chest pain. She denies any nausea, vomiting or diarrhea. She denies any myalgias or arthralgias. We discussed her long time goals for her care. She is at high risk for recurrent aspiration pneumonia due to her previous throat cancer surgery. Physical Exam Vital Signs: Temp Pulse Resp BP Pulse Ox 98.6 F 76 17 115/70 93 06/07/16 11:36 06/07/16 11:36 06/07/16 11:36 06/07/16 11:36 06/07/16 11:36 Intake & Output 06/06/16 06/07/16 06/08/16 06:59 06:59 06:59 Intake Total 3034 1140 Output Total 6200 1550 Balance -3166 -410 Weight 54.4 kg 54.1 kg General appearance: PRESENT: no acute distress, well-developed Head exam: PRESENT: atraumatic, normocephalic Eye exam: PRESENT: conjunctiva pink, EOMI, PERRLA. ABSENT: scleral icterus Ear exam: PRESENT: normal external ear exam Mouth exam: PRESENT: moist, tongue midline Neck exam: ABSENT: carotid bruit, JVD, lymphadenopathy, thyromegaly Respiratory exam: PRESENT: decreased breath sounds, symmetrical, unlabored Cardiovascular exam: PRESENT: RRR. ABSENT: diastolic murmur, rubs, systolic murmur Pulses: PRESENT: normal dorsalis pedis pul Vascular exam: PRESENT: normal capillary refill GI/Abdominal exam: PRESENT: normal bowel sounds, soft. ABSENT: distended, guarding, mass, organolmegaly, rebound, tenderness Rectal exam: PRESENT: deferred Extremities exam: PRESENT: full ROM. ABSENT: calf tenderness, clubbing, pedal edema Neurological exam: PRESENT: alert, awake, oriented to person, oriented to place , oriented to time, oriented to situation, CN II-XII grossly intact. ABSENT: motor sensory deficit Psychiatric exam: PRESENT: appropriate affect, normal mood. ABSENT: homicidal ideation, suicidal ideation Skin exam: PRESENT: dry, intact, warm. ABSENT: cyanosis, rash Results Laboratory Results: 06/06/16 05:53 06/06/16 05:53 06/03/16 05:00 NT-Pro-B Natriuret Pep 319 Impressions: Cervical Spine CT 05/24/16 10:37 IMPRESSION: CHRONIC DEGENERATIVE CHANGES. 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 NO ACUTE FINDINGS. Abdomen Ultrasound 05/25/16 00:00 IMPRESSION: Echogenic liver from diffuse hepatocellular disease. No masses. Color flow in the portal vein and hepatic veins. Minimal sludge in the gallbladder. No gallbladder wall thickening. Negative Montejo's sign. Head CT 05/26/16 00:00 IMPRESSION: Limited study. Motion artifact. No gross acute changes. Chest/Abdomen CTA 05/29/16 00:00 IMPRESSION: Small to moderate bilateral lower lobar consolidation, left more than right consistent with pneumonia. Small moderate left pleural effusion. No pulmonary embolus. Moderate dilated cardiomyopathy pattern. Lines and tubes. Chest X-Ray 06/06/16 00:00 IMPRESSION: There is blunting of the costophrenic angles inferiorly likely representing underlying effusions. There is pulmonary vascular distention and interstitial prominence. This could represent edema underlying atypical infection. No definite focal infiltrates are identified though evaluation is limited in the setting of chronic parenchymal changes. Diffuse emphysematous changes noted throughout the lungs with chronic parenchymal scarring. Assessment & Plan - Diagnosis (1) Dysphagia Qualifiers: Dysphagia type: pharyngeal phase Qualified Code(s): R13.13 - Dysphagia, pharyngeal phase Plan: Patient will continue with speech therapy. She has refused honey thickened liquids and pured diet. (2) Acute respiratory failure Qualifiers: Respiratory failure complication: hypoxia Qualified Code(s): J96.01 - Acute respiratory failure with hypoxia Is this a current diagnosis for this admission?: YesPlan: Resolved. Now on oxygen nasal cannula via n/c. She is also at risk her repeat aspiration pneumonia because of her swallowing problems. (3) Shock Is this a current diagnosis for this admission?: YesPlan: Resolved (4) Pneumonia Qualifiers: Pneumonia type: aspiration pneumonia Laterality: unspecified laterality Lung location: unspecified part of lung Is this a current diagnosis for this admission?: YesPlan: Continue antibiotic therapy and vent support (5) Sepsis Qualifiers: Sepsis type: sepsis due to unspecified organism Qualified Code(s): A41.9 - Sepsis, unspecified organism Is this a current diagnosis for this admission?: YesPlan: She has no longer tachycardic or hypotensive. This is improving with IV antiemetics and IV fluids. Most likely due to pneumonia from aspiration. (6) Pneumonia Qualifiers: Pneumonia type: aspiration pneumonia Aspiration pneumonia type: due to vomit Laterality: right Lung location: lower lobe of lung Qualified Code(s): J69.0 - Pneumonitis due to inhalation of food and vomit Is this a current diagnosis for this admission?: YesPlan: Tracheal aspirate grew actinobacter species which is sensitive to levaquin. Will descalate antibiotic coverage (7) Alcohol withdrawal Qualifiers: Complication of substance-induced condition: with delirium Qualified Code(s): F10.231 - Alcohol dependence with withdrawal delirium Is this a current diagnosis for this admission?: YesPlan: Resolved (8) Malnutrition Is this a current diagnosis for this admission?: YesPlan: Secondary to chronic alcoholism. We'll change enteral feedings to Oxepa 1.5 at 40 cc/hr per household refrigeration mechanic (9) Hypocalcemia Is this a current diagnosis for this admission?: YesPlan: Repleted (10) Hypomagnesemia Is this a current diagnosis for this admission?: YesPlan: Replete prn (11) Hypophosphatemia Is this a current diagnosis for this admission?: YesPlan: Replete prn (12) Thrombocytopenia Is this a current diagnosis for this admission?: YesPlan: Resolved (13) Bipolar 1 disorder Is this a current diagnosis for this admission?: YesPlan: Continue current medications. (14) Hypokalemia Is this a current diagnosis for this admission?: YesPlan: Replete as needed - Time Time Spent with patient: 25-34 minutes Critical Time spent with patient: 15-24 minutes Medications reviewed and adjusted accordingly: Yes Anticipated discharge: Home with Homehealth Within: within 24 hours
[2016-06-07] MEDS: TRAMADOL HCL 50 MG TABLET PO PRN (21:24)
[2016-06-08] MEDS: IPRATROPIUM/ALBUTEROL 0.5-2.5 MG/3 ML AMPUL NEB SCH ×4 (01:47→20:29)
[2016-06-08] MEDS: PROPRANOLOL HCL 10 MG TABLET PO SCH ×3 (06:31→21:22)
[2016-06-08] MEDS: RISPERIDONE 1 MG TABLET PO SCH (09:34)
[2016-06-08] MEDS: LEVOFLOXACIN 750 MG TABLET PO SCH (09:35)
[2016-06-08] MEDS: DOCUSATE SODIUM 100 MG CAPSULE PO SCH ×2 (09:35→17:10)
[2016-06-08] MEDS: SPIRONOLACTONE 25 MG TABLET PO SCH (09:35)
[2016-06-08] MEDS: FLUTICASONE NASAL SPRAY 50 MCG/SPRY 120 SPRAY/16 GM NASL SCH (09:35)
[2016-06-08] MEDS: FERROUS SULFATE LIQUID 300 MG/5 ML UDC PO SCH ×2 (09:36→17:11)
[2016-06-08] MEDS: FLUOXETINE HCL 20 MG/5 ML UDCUP PO SCH (09:36)
[2016-06-08] MEDS: NICOTINE 14 MG/24 HR PATCH.TD24 TD SCH (09:36)
--- NOTE | 2016-06-08 11:40 | PDOC PROGRESS REPORT ---
Subjective Progress Note for:: 06/08/16 Subjective:: Patient seen on morning rounds. She is resting comfortably in chair on nasal cannula. She is awake alert and orientedx3. She denies any shortness of breath, dyspnea or chest pain. She denies any nausea, vomiting or diarrhea. She denies any myalgias or arthralgias. We discussed her long time goals for her care. She is at high risk for recurrent aspiration pneumonia due to her previous throat cancer surgery. She has been progressing her activity well. She will be hopefully ready to go home on Friday Physical Exam Vital Signs: Temp Pulse Resp BP Pulse Ox 98.0 F 74 18 113/75 94 06/08/16 07:43 06/08/16 08:25 06/08/16 08:25 06/08/16 07:43 06/08/16 08:25 Intake & Output 06/07/16 06/08/16 06/09/16 06:59 06:59 06:59 Intake Total 1140 1560 Output Total 1550 1800 Balance -410 -240 Weight 54.1 kg 51 kg General appearance: PRESENT: no acute distress, thin, well-developed Eye exam: PRESENT: conjunctival injection Ear exam: PRESENT: normal external ear exam Mouth exam: PRESENT: moist, tongue midline Neck exam: ABSENT: carotid bruit, JVD, lymphadenopathy, thyromegaly Respiratory exam: PRESENT: clear to auscultation seven. ABSENT: rales, rhonchi, wheezes Cardiovascular exam: PRESENT: RRR, +S1, +S2 Pulses: PRESENT: normal dorsalis pedis pul Vascular exam: PRESENT: normal capillary refill GI/Abdominal exam: PRESENT: normal bowel sounds, soft. ABSENT: distended, guarding, mass, organolmegaly, rebound, tenderness Rectal exam: PRESENT: deferred Extremities exam: PRESENT: full ROM. ABSENT: calf tenderness, clubbing, pedal edema Neurological exam: PRESENT: alert, awake, oriented to person, oriented to place , oriented to time, oriented to situation, CN II-XII grossly intact. ABSENT: motor sensory deficit Psychiatric exam: PRESENT: appropriate affect, normal mood. ABSENT: homicidal ideation, suicidal ideation Skin exam: PRESENT: dry, intact, warm. ABSENT: cyanosis, rash Results Laboratory Results: 06/06/16 05:53 06/06/16 05:53 06/03/16 05:00 NT-Pro-B Natriuret Pep 319 Impressions: Cervical Spine CT 05/24/16 10:37 IMPRESSION: CHRONIC DEGENERATIVE CHANGES. 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 NO ACUTE FINDINGS. Abdomen Ultrasound 05/25/16 00:00 IMPRESSION: Echogenic liver from diffuse hepatocellular disease. No masses. Color flow in the portal vein and hepatic veins. Minimal sludge in the gallbladder. No gallbladder wall thickening. Negative Montejo's sign. Head CT 05/26/16 00:00 IMPRESSION: Limited study. Motion artifact. No gross acute changes. Chest/Abdomen CTA 05/29/16 00:00 IMPRESSION: Small to moderate bilateral lower lobar consolidation, left more than right consistent with pneumonia. Small moderate left pleural effusion. No pulmonary embolus. Moderate dilated cardiomyopathy pattern. Lines and tubes. Chest X-Ray 06/06/16 00:00 IMPRESSION: There is blunting of the costophrenic angles inferiorly likely representing underlying effusions. There is pulmonary vascular distention and interstitial prominence. This could represent edema underlying atypical infection. No definite focal infiltrates are identified though evaluation is limited in the setting of chronic parenchymal changes. Diffuse emphysematous changes noted throughout the lungs with chronic parenchymal scarring. Assessment & Plan - Diagnosis (1) Dysphagia Qualifiers: Dysphagia type: pharyngeal phase Qualified Code(s): R13.13 - Dysphagia, pharyngeal phase Plan: Patient will continue with speech therapy. She has refused honey thickened liquids and pured diet. (2) Acute respiratory failure Qualifiers: Respiratory failure complication: hypoxia Qualified Code(s): J96.01 - Acute respiratory failure with hypoxia Is this a current diagnosis for this admission?: YesPlan: Resolved (3) Shock Is this a current diagnosis for this admission?: YesPlan: Resolved (4) Pneumonia Qualifiers: Pneumonia type: aspiration pneumonia Laterality: unspecified laterality Lung location: unspecified part of lung Is this a current diagnosis for this admission?: YesPlan: Resolved (5) Sepsis Qualifiers: Sepsis type: sepsis due to unspecified organism Qualified Code(s): A41.9 - Sepsis, unspecified organism Is this a current diagnosis for this admission?: YesPlan: Resolved (6) Pneumonia Qualifiers: Pneumonia type: aspiration pneumonia Aspiration pneumonia type: due to vomit Laterality: right Lung location: lower lobe of lung Qualified Code(s): J69.0 - Pneumonitis due to inhalation of food and vomit Is this a current diagnosis for this admission?: YesPlan: antibioitics completed today, chest xray is improved (7) Alcohol withdrawal Qualifiers: Complication of substance-induced condition: with delirium Qualified Code(s): F10.231 - Alcohol dependence with withdrawal delirium Is this a current diagnosis for this admission?: YesPlan: Resolved (8) Malnutrition Is this a current diagnosis for this admission?: YesPlan: Appetite is improved. She is eating better (9) Hypocalcemia Is this a current diagnosis for this admission?: YesPlan: Repleted as needed (10) Hypomagnesemia Is this a current diagnosis for this admission?: YesPlan: Repleted (11) Hypophosphatemia Is this a current diagnosis for this admission?: YesPlan: Repleted (12) Thrombocytopenia Is this a current diagnosis for this admission?: YesPlan: Resolved (13) Bipolar 1 disorder Is this a current diagnosis for this admission?: YesPlan: Continue home medications (14) Hypokalemia Is this a current diagnosis for this admission?: YesPlan: Repleted - Time Time Spent with patient: 25-34 minutes Critical Time spent with patient: 15-24 minutes Medications reviewed and adjusted accordingly: Yes
[2016-06-08] MEDS: ACETAMINOPHEN 325 MG TABLET PO PRN (12:05)
[2016-06-08] MEDS: NORMAL SALINE INJ/PF 0.9% 10 ML SDV IV PRN (21:22)
[2016-06-08] MEDS: TRAMADOL HCL 50 MG TABLET PO PRN (21:22)
[2016-06-09] MEDS: IPRATROPIUM/ALBUTEROL 0.5-2.5 MG/3 ML AMPUL NEB SCH ×4 (02:10→19:58)
[2016-06-09] MEDS: PROPRANOLOL HCL 10 MG TABLET PO SCH ×3 (05:47→21:07)
[2016-06-09] MEDS: DOCUSATE SODIUM 100 MG CAPSULE PO SCH ×2 (10:43→18:42)
[2016-06-09] MEDS: RISPERIDONE 1 MG TABLET PO SCH (10:43)
[2016-06-09] MEDS: FERROUS SULFATE LIQUID 300 MG/5 ML UDC PO SCH ×2 (10:43→18:42)
[2016-06-09] MEDS: LEVOFLOXACIN 750 MG TABLET PO SCH (10:43)
[2016-06-09] MEDS: NICOTINE 14 MG/24 HR PATCH.TD24 TD SCH (10:44)
[2016-06-09] MEDS: FLUTICASONE NASAL SPRAY 50 MCG/SPRY 120 SPRAY/16 GM NASL SCH (10:44)
[2016-06-09] MEDS: FLUOXETINE HCL 20 MG/5 ML UDCUP PO SCH (10:44)
[2016-06-09] MEDS: SPIRONOLACTONE 25 MG TABLET PO SCH ×2 (10:48→10:55)
--- NOTE | 2016-06-09 14:58 | PDOC PROGRESS REPORT ---
Subjective Progress Note for:: 06/02/16 Subjective:: no SOB occasional cough c/o headache Physical Exam Vital Signs: Temp Pulse Resp BP Pulse Ox 99.7 F 82 18 94/65 L 99 06/02/16 00:00 06/02/16 02:10 06/02/16 06:05 06/02/16 06:05 06/02/16 06:05 Intake & Output 06/01/16 06/02/16 06/03/16 06:59 06:59 06:59 Intake Total 4919 3242 Output Total 4600 2710 Balance 319 532 Weight 64.3 kg 63.8 kg General appearance: PRESENT: no acute distress, cooperative, disheveled, obese Head exam: PRESENT: atraumatic, normocephalic Eye exam: PRESENT: conjunctiva pale, EOMI Mouth exam: PRESENT: dry mucosa, neck supple Respiratory exam: PRESENT: decreased breath sounds, prolonged expiratory phas, rhonchi, symmetrical, unlabored Cardiovascular exam: PRESENT: RRR, +S1, +S2 Pulses: PRESENT: normal radial pulses GI/Abdominal exam: PRESENT: normal bowel sounds, soft. ABSENT: distended, guarding, mass, organolmegaly, rebound, tenderness Rectal exam: PRESENT: deferred Extremities exam: PRESENT: other - s/p BKA Neurological exam: PRESENT: alert, awake Skin exam: PRESENT: dry, warm Results Laboratory Results: 06/02/16 04:45 06/02/16 04:45 06/02/16 06/02/16 06/02/16 04:45 04:45 04:50 WBC 5.6 RBC 2.87 L Hgb 10.1 L Hct 29.1 L MCV 101 H MCH 35.2 H MCHC 34.7 RDW 19.9 H Plt Count 101 L Seg Neutrophils % Not Reportable Lymphocytes % Not Reportable Monocytes % Not Reportable Eosinophils % Not Reportable Basophils % Not Reportable Absolute Neutrophils Not Reportable Absolute Lymphocytes Not Reportable Absolute Monocytes Not Reportable Absolute Eosinophils Not Reportable Absolute Basophils Not Reportable Carbonic Acid 1.38 H HCO3/H2CO3 Ratio 22:1 ABG pH 7.44 ABG pCO2 46.0 H ABG pO2 73.6 L ABG HCO3 30.4 H ABG O2 Saturation 95.2 ABG Base Excess 5.5 FiO2 40% Sodium 138.8 Potassium 3.7 Chloride 103 Carbon Dioxide 29 Anion Gap 7 BUN 7 Creatinine 0.32 L Est GFR ( Amer) > 60 Est GFR (Non-Af Amer) > 60 Glucose 103 Calcium 8.0 L Impressions: Cervical Spine CT 05/24/16 10:37 IMPRESSION: CHRONIC DEGENERATIVE CHANGES. 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 NO ACUTE FINDINGS. Abdomen Ultrasound 05/25/16 00:00 IMPRESSION: Echogenic liver from diffuse hepatocellular disease. No masses. Color flow in the portal vein and hepatic veins. Minimal sludge in the gallbladder. No gallbladder wall thickening. Negative Montejo's sign. Head CT 05/26/16 00:00 IMPRESSION: Limited study. Motion artifact. No gross acute changes. Chest/Abdomen CTA 05/29/16 00:00 IMPRESSION: Small to moderate bilateral lower lobar consolidation, left more than right consistent with pneumonia. Small moderate left pleural effusion. No pulmonary embolus. Moderate dilated cardiomyopathy pattern. Lines and tubes. Chest X-Ray 06/02/16 06:00 IMPRESSION: 1. Support tubes and lines as above. 2. Interval improvement in the airspace and interstitial opacities in comparison the prior study. There is residual opacities the retrocardiac region which could represent atelectasis, infiltrate, or aspiration. Assessment & Plan - Diagnosis (1) Emphysema lung Qualifiers: Emphysema type: unspecified Qualified Code(s): J43.9 - Emphysema, unspecified Is this a current diagnosis for this admission?: Yes (2) Pneumonia Qualifiers: Pneumonia type: aspiration pneumonia Laterality: unspecified laterality Lung location: unspecified part of lung Is this a current diagnosis for this admission?: Yes (3) Dysphagia, oropharyngeal phase Is this a current diagnosis for this admission?: Yes (4) Acute respiratory failure Qualifiers: Respiratory failure complication: hypoxia Qualified Code(s): J96.01 - Acute respiratory failure with hypoxia Is this a current diagnosis for this admission?: No (5) Thrombocytopenia Is this a current diagnosis for this admission?: No (6) Elevated LFTs Is this a current diagnosis for this admission?: No
--- NOTE | 2016-06-09 15:04 | PDOC PROGRESS REPORT ---
Subjective Progress Note for:: 06/03/16 Subjective:: c/o r leg pain Physical Exam Vital Signs: Temp Pulse Resp BP Pulse Ox 99.5 F 76 13 102/78 98 06/03/16 08:00 06/03/16 08:43 06/03/16 08:43 06/03/16 06:35 06/03/16 08:43 Intake & Output 06/02/16 06/03/16 06/04/16 06:59 06:59 06:59 Intake Total 3242 4206 Output Total 2710 2985 225 Balance 532 1221 -225 Weight 63.8 kg 64.9 kg General appearance: PRESENT: no acute distress, cooperative, disheveled, obese Head exam: PRESENT: atraumatic, normocephalic Eye exam: PRESENT: conjunctiva pale, EOMI Mouth exam: PRESENT: moist, neck supple Neck exam: ABSENT: carotid bruit, JVD, lymphadenopathy, thyromegaly Respiratory exam: PRESENT: decreased breath sounds, prolonged expiratory phas, rhonchi, symmetrical, unlabored, other Cardiovascular exam: PRESENT: RRR, +S1 Pulses: PRESENT: normal radial pulses GI/Abdominal exam: PRESENT: ascites Rectal exam: PRESENT: deferred Musculoskeletal exam: PRESENT: normal inspection Neurological exam: PRESENT: alert, awake Skin exam: PRESENT: dry, warm Results Laboratory Results: 06/03/16 05:00 06/03/16 05:00 06/02/16 06/03/16 06/03/16 13:04 05:00 05:00 WBC 5.9 RBC 2.73 L Hgb 9.6 L Hct 27.8 L MCV 102 H MCH 35.1 H MCHC 34.4 RDW 18.8 H Plt Count 127 L Seg Neutrophils % 68.9 Lymphocytes % 14.2 Monocytes % 16.0 H Eosinophils % 0.6 Basophils % 0.3 Absolute Neutrophils 4.1 Absolute Lymphocytes 0.8 Absolute Monocytes 0.9 Absolute Eosinophils 0.0 Absolute Basophils 0.0 Carbonic Acid 1.31 HCO3/H2CO3 Ratio 22:1 ABG pH 7.45 ABG pCO2 43.4 ABG pO2 75.6 L ABG HCO3 29.8 H ABG O2 Saturation 95.7 ABG Base Excess 5.3 FiO2 40% Sodium 138.4 Potassium 3.5 L Chloride 104 Carbon Dioxide 28 Anion Gap 6 BUN 5 L Creatinine 0.31 L Est GFR ( Amer) > 60 Est GFR (Non-Af Amer) > 60 Glucose 104 Calcium 8.0 L Magnesium 1.8 Total Bilirubin 2.4 H AST 91 H ALT 65 H Alkaline Phosphatase 364 H Total Protein 4.7 L Albumin 2.0 L Triglycerides 169 H 06/03/16 05:00 NT-Pro-B Natriuret Pep 319 Impressions: Cervical Spine CT 05/24/16 10:37 IMPRESSION: CHRONIC DEGENERATIVE CHANGES. 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 NO ACUTE FINDINGS. Abdomen Ultrasound 05/25/16 00:00 IMPRESSION: Echogenic liver from diffuse hepatocellular disease. No masses. Color flow in the portal vein and hepatic veins. Minimal sludge in the gallbladder. No gallbladder wall thickening. Negative Montejo's sign. Head CT 05/26/16 00:00 IMPRESSION: Limited study. Motion artifact. No gross acute changes. Chest/Abdomen CTA 05/29/16 00:00 IMPRESSION: Small to moderate bilateral lower lobar consolidation, left more than right consistent with pneumonia. Small moderate left pleural effusion. No pulmonary embolus. Moderate dilated cardiomyopathy pattern. Lines and tubes. Chest X-Ray 06/03/16 06:00 IMPRESSION: Endotracheal tube tip at the thoracic inlet Trace left pleural effusion with patchy left basilar airspace disease atelectasis versus pneumonia. This is similar compared to yesterday Assessment & Plan - Diagnosis (1) Emphysema lung Qualifiers: Emphysema type: unspecified Qualified Code(s): J43.9 - Emphysema, unspecified Is this a current diagnosis for this admission?: Yes (2) Pneumonia Qualifiers: Pneumonia type: aspiration pneumonia Laterality: unspecified laterality Lung location: unspecified part of lung Is this a current diagnosis for this admission?: Yes (3) Dysphagia, oropharyngeal phase Is this a current diagnosis for this admission?: Yes (4) Acute respiratory failure Qualifiers: Respiratory failure complication: hypoxia Qualified Code(s): J96.01 - Acute respiratory failure with hypoxia Is this a current diagnosis for this admission?: Yes (5) Thrombocytopenia Is this a current diagnosis for this admission?: YesPlan: resolving anemia /macrocytosispersist (6) Elevated LFTs Is this a current diagnosis for this admission?: YesPlan: slowly lft decreasing
--- NOTE | 2016-06-09 15:07 | PDOC PROGRESS REPORT ---
Subjective Progress Note for:: 06/04/16 Subjective:: c/o fatigue Physical Exam Vital Signs: Temp Pulse Resp BP Pulse Ox 98.2 F 99 12 112/83 100 06/05/16 03:56 06/05/16 02:48 06/05/16 06:30 06/05/16 06:20 06/05/16 06:30 Intake & Output 06/04/16 06/05/16 06/06/16 06:59 06:59 06:59 Intake Total 2842 2854 Output Total 3582 3502 Balance -1165 -0648 Weight 59.3 kg 56.5 kg General appearance: PRESENT: no acute distress, cooperative, disheveled, obese Head exam: PRESENT: atraumatic, normocephalic Eye exam: PRESENT: conjunctiva pale, EOMI Mouth exam: PRESENT: moist, neck supple Neck exam: ABSENT: carotid bruit, JVD, lymphadenopathy, thyromegaly Respiratory exam: PRESENT: decreased breath sounds, prolonged expiratory phas, rales, rhonchi, unlabored Cardiovascular exam: PRESENT: RRR, +S1, +S2 Pulses: PRESENT: normal radial pulses GI/Abdominal exam: PRESENT: normal bowel sounds, soft. ABSENT: distended, guarding, mass, organolmegaly, rebound, tenderness Rectal exam: PRESENT: deferred Neurological exam: PRESENT: awake Skin exam: PRESENT: dry, warm Results Laboratory Results: 06/05/16 05:15 06/05/16 05:15 06/05/16 06/05/16 06/05/16 05:15 05:15 05:15 WBC 11.6 H RBC 2.29 L Hgb 8.3 L Hct 23.7 L MCV 103 H MCH 36.0 H MCHC 34.9 RDW 19.0 H Plt Count 153 Seg Neutrophils % 81.8 H Lymphocytes % 8.3 L Monocytes % 9.4 Eosinophils % 0.2 Basophils % 0.3 Absolute Neutrophils 9.5 H Absolute Lymphocytes 1.0 Absolute Monocytes 1.1 Absolute Eosinophils 0.0 Absolute Basophils 0.0 Carbonic Acid 1.48 H HCO3/H2CO3 Ratio 20:1 ABG pH 7.41 ABG pCO2 49.2 H ABG pO2 93.4 ABG HCO3 30.6 H ABG O2 Saturation 97.1 ABG Base Excess 5.5 FiO2 12 L Sodium 138.3 Potassium 3.2 L Chloride 102 Carbon Dioxide 31 H Anion Gap 5 BUN < 2 L Creatinine 0.28 L Est GFR ( Amer) > 60 Est GFR (Non-Af Amer) > 60 Glucose 94 Calcium 8.1 L 06/03/16 05:00 NT-Pro-B Natriuret Pep 319 Impressions: Cervical Spine CT 05/24/16 10:37 IMPRESSION: CHRONIC DEGENERATIVE CHANGES. 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 NO ACUTE FINDINGS. Abdomen Ultrasound 05/25/16 00:00 IMPRESSION: Echogenic liver from diffuse hepatocellular disease. No masses. Color flow in the portal vein and hepatic veins. Minimal sludge in the gallbladder. No gallbladder wall thickening. Negative Montejo's sign. Head CT 05/26/16 00:00 IMPRESSION: Limited study. Motion artifact. No gross acute changes. Chest/Abdomen CTA 05/29/16 00:00 IMPRESSION: Small to moderate bilateral lower lobar consolidation, left more than right consistent with pneumonia. Small moderate left pleural effusion. No pulmonary embolus. Moderate dilated cardiomyopathy pattern. Lines and tubes. Chest X-Ray 06/04/16 06:00 IMPRESSION: Stable appearance post removal of the endotracheal tube. Assessment & Plan - Diagnosis (1) Emphysema lung Qualifiers: Emphysema type: unspecified Qualified Code(s): J43.9 - Emphysema, unspecified Is this a current diagnosis for this admission?: Yes (2) Pneumonia Qualifiers: Pneumonia type: aspiration pneumonia Laterality: unspecified laterality Lung location: unspecified part of lung Is this a current diagnosis for this admission?: Yes (3) Dysphagia, oropharyngeal phase Is this a current diagnosis for this admission?: Yes (4) Acute respiratory failure Qualifiers: Respiratory failure complication: hypoxia Qualified Code(s): J96.01 - Acute respiratory failure with hypoxia Is this a current diagnosis for this admission?: Yes (5) Thrombocytopenia Is this a current diagnosis for this admission?: Yes (6) Elevated LFTs Is this a current diagnosis for this admission?: Yes
--- NOTE | 2016-06-09 15:12 | PDOC PROGRESS REPORT ---
Subjective Progress Note for:: 06/05/16 Subjective:: unchanged Physical Exam Vital Signs: Temp Pulse Resp BP Pulse Ox 98.2 F 99 12 112/83 100 06/05/16 03:56 06/05/16 02:48 06/05/16 06:30 06/05/16 06:20 06/05/16 06:30 Intake & Output 06/04/16 06/05/16 06/06/16 06:59 06:59 06:59 Intake Total 2848 4167 Output Total 9540 0197 Balance -9788 -4787 Weight 59.3 kg 56.5 kg General appearance: PRESENT: no acute distress, cooperative, disheveled, obese Head exam: PRESENT: atraumatic, normocephalic Eye exam: PRESENT: conjunctiva pale, EOMI Mouth exam: PRESENT: moist, neck supple Neck exam: ABSENT: carotid bruit, JVD, lymphadenopathy, thyromegaly Respiratory exam: PRESENT: decreased breath sounds, prolonged expiratory phas, rhonchi, symmetrical, unlabored Pulses: PRESENT: normal radial pulses GI/Abdominal exam: PRESENT: normal bowel sounds, soft. ABSENT: distended, guarding, mass, organolmegaly, rebound, tenderness Rectal exam: PRESENT: deferred Musculoskeletal exam: PRESENT: other - L BKA;intermittent R groin pain Neurological exam: PRESENT: alert, awake Skin exam: PRESENT: dry, warm Results Laboratory Results: 06/05/16 05:15 06/05/16 05:15 06/05/16 06/05/16 06/05/16 05:15 05:15 05:15 WBC 11.6 H RBC 2.29 L Hgb 8.3 L Hct 23.7 L MCV 103 H MCH 36.0 H MCHC 34.9 RDW 19.0 H Plt Count 153 Seg Neutrophils % 81.8 H Lymphocytes % 8.3 L Monocytes % 9.4 Eosinophils % 0.2 Basophils % 0.3 Absolute Neutrophils 9.5 H Absolute Lymphocytes 1.0 Absolute Monocytes 1.1 Absolute Eosinophils 0.0 Absolute Basophils 0.0 Carbonic Acid 1.48 H HCO3/H2CO3 Ratio 20:1 ABG pH 7.41 ABG pCO2 49.2 H ABG pO2 93.4 ABG HCO3 30.6 H ABG O2 Saturation 97.1 ABG Base Excess 5.5 FiO2 12 L Sodium 138.3 Potassium 3.2 L Chloride 102 Carbon Dioxide 31 H Anion Gap 5 BUN < 2 L Creatinine 0.28 L Est GFR ( Amer) > 60 Est GFR (Non-Af Amer) > 60 Glucose 94 Calcium 8.1 L 06/03/16 05:00 NT-Pro-B Natriuret Pep 319 Impressions: Cervical Spine CT 05/24/16 10:37 IMPRESSION: CHRONIC DEGENERATIVE CHANGES. 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 NO ACUTE FINDINGS. Abdomen Ultrasound 05/25/16 00:00 IMPRESSION: Echogenic liver from diffuse hepatocellular disease. No masses. Color flow in the portal vein and hepatic veins. Minimal sludge in the gallbladder. No gallbladder wall thickening. Negative Montejo's sign. Head CT 05/26/16 00:00 IMPRESSION: Limited study. Motion artifact. No gross acute changes. Chest/Abdomen CTA 05/29/16 00:00 IMPRESSION: Small to moderate bilateral lower lobar consolidation, left more than right consistent with pneumonia. Small moderate left pleural effusion. No pulmonary embolus. Moderate dilated cardiomyopathy pattern. Lines and tubes. Chest X-Ray 06/04/16 06:00 IMPRESSION: Stable appearance post removal of the endotracheal tube. Assessment & Plan - Diagnosis (1) Emphysema lung Qualifiers: Emphysema type: unspecified Qualified Code(s): J43.9 - Emphysema, unspecified Is this a current diagnosis for this admission?: Yes (2) Pneumonia Qualifiers: Pneumonia type: aspiration pneumonia Laterality: unspecified laterality Lung location: unspecified part of lung Is this a current diagnosis for this admission?: Yes (3) Dysphagia, oropharyngeal phase Is this a current diagnosis for this admission?: Yes (4) Acute respiratory failure Qualifiers: Respiratory failure complication: hypoxia Qualified Code(s): J96.01 - Acute respiratory failure with hypoxia Is this a current diagnosis for this admission?: Yes (5) Thrombocytopenia Is this a current diagnosis for this admission?: YesPlan: resolving anemia /macrocytosispersist (6) Elevated LFTs Is this a current diagnosis for this admission?: YesPlan: slowly lft decreasing
[2016-06-09] MEDS: TRAMADOL HCL 50 MG TABLET PO PRN (21:07)
[2016-06-10] MEDS: IPRATROPIUM/ALBUTEROL 0.5-2.5 MG/3 ML AMPUL NEB SCH ×3 (01:51→14:01)
[2016-06-10] MEDS: ACETAMINOPHEN 325 MG TABLET PO PRN (05:12)
[2016-06-10] MEDS: PROPRANOLOL HCL 10 MG TABLET PO SCH (05:12)
[2016-06-10] MEDS: FLUOXETINE HCL 20 MG/5 ML UDCUP PO SCH (09:26)
[2016-06-10] MEDS: DOCUSATE SODIUM 100 MG CAPSULE PO SCH (09:26)
[2016-06-10] MEDS: RISPERIDONE 1 MG TABLET PO SCH (09:26)
[2016-06-10] MEDS: FERROUS SULFATE LIQUID 300 MG/5 ML UDC PO SCH (09:26)
[2016-06-10] MEDS: FLUTICASONE NASAL SPRAY 50 MCG/SPRY 120 SPRAY/16 GM NASL SCH (09:27)
[2016-06-10] MEDS: NICOTINE 14 MG/24 HR PATCH.TD24 TD SCH (09:27)
[2016-06-10 11:50] VITALS: BP 101/68
--- NOTE | 2016-06-10 13:32 | PDOC PROGRESS REPORT ---
Subjective Progress Note for:: 06/10/16 Physical Exam Vital Signs: Temp Pulse Resp BP Pulse Ox 98.7 F 78 22 H 107/69 92 06/10/16 11:14 06/10/16 11:14 06/10/16 11:14 06/10/16 11:14 06/10/16 11:14 Intake & Output 06/09/16 06/10/16 06/11/16 06:59 06:59 06:59 Intake Total 1800 2059 Output Total 1700 Balance 100 2059 Weight 49.4 kg 49.1 kg General appearance: PRESENT: no acute distress, disheveled Head exam: PRESENT: atraumatic, normocephalic Eye exam: PRESENT: conjunctiva pale, EOMI Mouth exam: PRESENT: moist, neck supple Neck exam: ABSENT: carotid bruit, JVD, lymphadenopathy, thyromegaly Respiratory exam: PRESENT: decreased breath sounds, prolonged expiratory phas, unlabored Cardiovascular exam: PRESENT: RRR, +S1, +S2 Pulses: PRESENT: normal radial pulses GI/Abdominal exam: PRESENT: normal bowel sounds, soft. ABSENT: distended, guarding, mass, organolmegaly, rebound, tenderness Rectal exam: PRESENT: deferred Extremities exam: PRESENT: +1 edema Neurological exam: PRESENT: alert, awake Skin exam: PRESENT: dry, warm Results Laboratory Results: 06/06/16 05:53 06/06/16 05:53 06/03/16 05:00 NT-Pro-B Natriuret Pep 319 Impressions: Cervical Spine CT 05/24/16 10:37 IMPRESSION: CHRONIC DEGENERATIVE CHANGES. 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 NO ACUTE FINDINGS. Abdomen Ultrasound 05/25/16 00:00 IMPRESSION: Echogenic liver from diffuse hepatocellular disease. No masses. Color flow in the portal vein and hepatic veins. Minimal sludge in the gallbladder. No gallbladder wall thickening. Negative Montejo's sign. Head CT 05/26/16 00:00 IMPRESSION: Limited study. Motion artifact. No gross acute changes. Chest/Abdomen CTA 05/29/16 00:00 IMPRESSION: Small to moderate bilateral lower lobar consolidation, left more than right consistent with pneumonia. Small moderate left pleural effusion. No pulmonary embolus. Moderate dilated cardiomyopathy pattern. Lines and tubes. Chest X-Ray 06/06/16 00:00 IMPRESSION: There is blunting of the costophrenic angles inferiorly likely representing underlying effusions. There is pulmonary vascular distention and interstitial prominence. This could represent edema underlying atypical infection. No definite focal infiltrates are identified though evaluation is limited in the setting of chronic parenchymal changes. Diffuse emphysematous changes noted throughout the lungs with chronic parenchymal scarring. Assessment & Plan - Diagnosis (1) Emphysema lung Qualifiers: Emphysema type: unspecified Qualified Code(s): J43.9 - Emphysema, unspecified Is this a current diagnosis for this admission?: Yes (2) Pneumonia Qualifiers: Pneumonia type: aspiration pneumonia Laterality: unspecified laterality Lung location: unspecified part of lung Is this a current diagnosis for this admission?: Yes (3) Dysphagia, oropharyngeal phase Is this a current diagnosis for this admission?: Yes (4) Acute respiratory failure Qualifiers: Respiratory failure complication: hypoxia Qualified Code(s): J96.01 - Acute respiratory failure with hypoxia Is this a current diagnosis for this admission?: No (5) Thrombocytopenia Is this a current diagnosis for this admission?: Yes (6) Elevated LFTs Is this a current diagnosis for this admission?: Yes
--- NOTE | 2016-06-10 15:48 | PDOC DISCHARGE SUMMARY ---
General - Admit/Disc Date/PCP Admission Date/Primary Care Provider: 05/24/16 22:03 JASSON LIMON MD Discharge Date: 06/10/16 - Discharge Diagnosis (1) Dysphagia Summary: Patient has been instructed on pharyngeal exercises speech therapy. She has refused to follow the recommendation of honey thickened liquids and pureed food. She is status post throat cancer with surgery and will always be a silent aspirator. She has refused PEG tube as well. (2) Acute respiratory failure Is this a current diagnosis for this admission?: NoSummary: Resolved (3) Shock Is this a current diagnosis for this admission?: YesSummary: Resolved (4) Pneumonia Is this a current diagnosis for this admission?: YesSummary: Resolving (5) Sepsis Is this a current diagnosis for this admission?: YesSummary: Resolved (6) Alcohol withdrawal Is this a current diagnosis for this admission?: Yes (7) Malnutrition Is this a current diagnosis for this admission?: YesSummary: Improving. Discussed need for high protein supplements (8) Hypocalcemia Is this a current diagnosis for this admission?: Yes (9) Hypomagnesemia Is this a current diagnosis for this admission?: YesSummary: Repleted (10) Hypophosphatemia Is this a current diagnosis for this admission?: YesSummary: Resolved (11) Thrombocytopenia Is this a current diagnosis for this admission?: YesSummary: Resolved (12) Bipolar 1 disorder Is this a current diagnosis for this admission?: YesSummary: Continue current medications (13) Hypokalemia Is this a current diagnosis for this admission?: YesSummary: Repleted - Additional Information Resuscitation Status: Full Code Discharge Diet: Regular Discharge Activity: Activity As Tolerated, Balance Activity w/Rest Home Medications: Albuterol Sulfate [Proair HFA Inhalation Aerosol 8.5 gm MDI] 2 puff IH Q4HP PRN 05/25/16 Alendronate Sodium [Fosamax 70 mg Tablet] 70 mg PO RICKS 05/25/16 Calcium Carbonate [Calcium] 600 mg PO DAILY 05/25/16 Cyproheptadine HCl [Periactin 4 mg Tablet] 4 mg PO BID 05/25/16 Ergocalciferol (Vitamin D2) [Vitamin D2] 2,000 unit PO DAILY 05/25/16 Fluoxetine HCl [Prozac Soln 20 mg/5 ml Udcup] 5 ml PO DAILY 05/25/16 Fluticasone/Salmeterol [Advair 500-50 Diskus 14 Dose/Diskus] 1 puff IH BID 05/25 Lorazepam [Ativan 0.5 mg Tablet] 0.25 mg PO BIDP PRN 05/25/16 Omeprazole 40 mg PO DAILY 05/25/16 Prochlorperazine Maleate [Compazine 10 mg Tablet] 10 mg PO Q8HP PRN 05/25/16 Quetiapine Fumarate [Seroquel] 50 mg PO DAILY 05/25/16 Risperidone [Risperdal] 2 ml PO QAM 05/25/16 Solifenacin Succinate [Vesicare] 10 mg PO DAILY 05/25/16 Acetaminophen [Tylenol 325 mg Tablet] 325 mg PO Q4HP PRN tablet 06/10/16 Fluconazole [Diflucan 100 Mg Tablet] 150 mg PO DAILY #3 tablet 06/10/16 Propranolol HCl [Inderal 20 mg Tablet] 20 mg PO Q12 #60 tab 06/10/16 Risperidone [Risperdal 1 mg Tablet] 2 mg PO DAILY #30 tablet 06/10/16 Spironolactone [Aldactone 25 mg Tablet] 25 mg PO DAILY #30 tablet 06/10/16 History of Present Illness Patient complains of: Falls History of Present Illness: DEONTE CASTRO is a 55 year old female with a past medical history of tobacco dependence, schizophrenia, alcohol dependence with withdrawal seizure, status post radical neck dissection for throat cancer with PEG placement which is recently removed, she has subsequent difficulty eating with recurrent aspiration but tolerates alcohol, she is acutely intoxicated and history is provided by her daughter who states patient has not eaten in 5 days and had recurrent falls. In the emergency room she is also found to have hypoxia with aspiration pneumonia, hypo-natremia, hypokalemia, thrombocytopenia. She's referred to the hospitalist for admission. Hospital Course Hospital Course: Patient was referred to the hospitalist service for admission. She initially required BiPAP therapy due to her borderline oxygenation and confused state. She is admitted to the ICU on broad-spectrum IV antibiotics after cultures were obtained. She had further decline in respiratory status overnight requiring intubation. She was placed on IV Ativan due to agitation. Dr. Hatch was consult for ventilater management. Patient had further problems with hypotension requiring vasopressors to be added. Dr. Caraballo, was consulted due to her significant hypotension. Transthoracic echocardiogram was obtained, which showed an EF of 65% grade II/IV diastolic dysfunction. She had significant thrombocytopenia and in hemoglobin secondary to cirrhosis and iron defieciency anemia. Her goals of care were discussed with patient's daughter. She decided due to her mother's multiple medical problems that she did not her to be resuscitated. Patient began to improve. On 06/03 2016, she was able to be extubated. Her mentation improved. She was seen by speech therapy in consult. Due to her history of throat cancer and modified radical neck surgery. They discussed her need to be on honey thickened liquids and pured diet. She is a silent aspirator. Patient has refused the diet has refused PEG tube placement. She has changed her CODE STATUS to be a full code. We did discuss her multitude of health problems with her and her needs to establish a plan for the future. She had physical therapy consult for mobilization. They feel she would benefit from home physical therapy and speech therapy. She is in agreement. Patient did qualify for home oxygen desaturation with a oxygen saturation with exercise of 87%. Resting room air oxygen saturation was 90%. Oxygen with 2 L/m nasal cannula was 95%. Patient was discharged home with family. Physical Exam Vital Signs: Temp Pulse Resp BP Pulse Ox 98.7 F 78 22 H 107/69 92 06/10/16 11:14 06/10/16 11:14 06/10/16 11:14 06/10/16 11:14 06/10/16 11:14 Intake & Output 06/09/16 06/10/16 06/11/16 06:59 06:59 06:59 Intake Total 1800 2059 Output Total 1700 Balance 100 2059 Weight 49.4 kg 49.1 kg General appearance: PRESENT: no acute distress, thin, well-developed, other - older than her chronological age Head exam: PRESENT: atraumatic, normocephalic Eye exam: PRESENT: conjunctiva pink, EOMI, PERRLA. ABSENT: scleral icterus Ear exam: PRESENT: normal external ear exam Mouth exam: PRESENT: moist, tongue midline Neck exam: ABSENT: carotid bruit, JVD, lymphadenopathy, thyromegaly Respiratory exam: PRESENT: clear to auscultation seven. ABSENT: rales, rhonchi, wheezes Cardiovascular exam: PRESENT: RRR. ABSENT: diastolic murmur, rubs, systolic murmur Pulses: PRESENT: normal dorsalis pedis pul Vascular exam: PRESENT: normal capillary refill GI/Abdominal exam: PRESENT: normal bowel sounds, soft. ABSENT: distended, guarding, mass, organolmegaly, rebound, tenderness Rectal exam: PRESENT: deferred Extremities exam: PRESENT: full ROM. ABSENT: calf tenderness, clubbing, pedal edema Neurological exam: PRESENT: alert, awake, oriented to person, oriented to place , oriented to time, oriented to situation, CN II-XII grossly intact. ABSENT: motor sensory deficit Psychiatric exam: PRESENT: appropriate affect, normal mood. ABSENT: homicidal ideation, suicidal ideation Skin exam: PRESENT: dry, intact, warm. ABSENT: cyanosis, rash Results Laboratory Results: 06/06/16 05:53 06/06/16 05:53 06/03/16 05:00 NT-Pro-B Natriuret Pep 319 Impressions: Cervical Spine CT 05/24/16 10:37 IMPRESSION: CHRONIC DEGENERATIVE CHANGES. 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 NO ACUTE FINDINGS. Abdomen Ultrasound 05/25/16 00:00 IMPRESSION: Echogenic liver from diffuse hepatocellular disease. No masses. Color flow in the portal vein and hepatic veins. Minimal sludge in the gallbladder. No gallbladder wall thickening. Negative Montejo's sign. Head CT 05/26/16 00:00 IMPRESSION: Limited study. Motion artifact. No gross acute changes. Chest/Abdomen CTA 05/29/16 00:00 IMPRESSION: Small to moderate bilateral lower lobar consolidation, left more than right consistent with pneumonia. Small moderate left pleural effusion. No pulmonary embolus. Moderate dilated cardiomyopathy pattern. Lines and tubes. Chest X-Ray 06/06/16 00:00 IMPRESSION: There is blunting of the costophrenic angles inferiorly likely representing underlying effusions. There is pulmonary vascular distention and interstitial prominence. This could represent edema underlying atypical infection. No definite focal infiltrates are identified though evaluation is limited in the setting of chronic parenchymal changes. Diffuse emphysematous changes noted throughout the lungs with chronic parenchymal scarring. Qualifiers PATEINT BEING DISCHARGED WITH ANY OF THE FOLLOWING DIAGNOSIS?: No Plan Discharge Plan: Home with daughter. She will have home health nursing, physical therapy, and speech therapy. Time Spent: Less than 30 Minutes
[2016-06-11] MEDS ORDERED: FLUCONAZOLE 100 MG TABLET PO SCH (10:00)
== END 2016-06-10 13:00 | disposition home health service (06) | DRG 870 ==
LOC: ER 10:22 → EH 22:03 → UNDOADMIN 22:03 → EH 23:32 → ICU 05-25 04:29 → EH 05-25 04:29 → 4S 06-05 23:15
PROVIDERS: ADMIT Internal Medicine; ATTEND Internal Medicine
PROC: 06HM33Z Insertion of Infusion Device into Right Femoral Vein, Percutaneous Approach (ICD-10-PCS; 2016-05-24)
PROC: B54BZZA Ultrasonography of Right Lower Extremity Veins, Guidance (ICD-10-PCS; 2016-05-24)
PROC: 5A1955Z Respiratory Ventilation, Greater than 96 Consecutive Hours (ICD-10-PCS; principal; 2016-05-26)
PROC: 0BH17EZ Insertion of Endotracheal Airway into Trachea, Via Natural or Artificial Opening (ICD-10-PCS; 2016-05-26)
PROC: 3E033XZ Introduction of Vasopressor into Peripheral Vein, Percutaneous Approach (ICD-10-PCS; 2016-05-27)
PROC: 30233R1 Transfusion of Nonautologous Platelets into Peripheral Vein, Percutaneous Approach (ICD-10-PCS; 2016-05-28)
PROC: 30233N1 Transfusion of Nonautologous Red Blood Cells into Peripheral Vein, Percutaneous Approach (ICD-10-PCS; 2016-05-31)
DX: A41.9 Sepsis, unspecified organism (principal); R65.21 Severe sepsis with septic shock; J69.0 Pneumonitis due to inhalation of food and vomit; Z66 Do not resuscitate; E43 Unspecified severe protein-calorie malnutrition; J96.01 Acute respiratory failure with hypoxia; F10.221 Alcohol dependence with intoxication delirium; F10.231 Alcohol dependence with withdrawal delirium; F20.0 Paranoid schizophrenia; E87.1 Hypo-osmolality and hyponatremia; Z68.1 Body mass index [BMI] 19.9 or less, adult; E87.6 Hypokalemia; E83.39 Other disorders of phosphorus metabolism; D69.6 Thrombocytopenia, unspecified; J43.9 Emphysema, unspecified; R94.5 Abnormal results of liver function studies; E83.51 Hypocalcemia; D64.89 Other specified anemias; R13.12 Dysphagia, oropharyngeal phase; F31.9 Bipolar disorder, unspecified; Y90.8 Blood alcohol level of 240 mg/100 ml or more; F17.210 Nicotine dependence, cigarettes, uncomplicated; Z78.1 Physical restraint status; Z79.51 Long term (current) use of inhaled steroids; Z79.899 Other long term (current) drug therapy; Z85.89 Personal history of malignant neoplasm of other organs and systems; Z91.11 Patient's noncompliance with dietary regimen
CPT/HCPCS: 31500; 36415; 36430; 70450; 71010; 71020; 71275; 72125; 76705; 80048; 80053; 80076; 80307; 81001; 82040; 82140; 82607; 82728; 82746; 82803; 82962; 83540; 83550; 83690; 83735; 83880; 84100; 84132; 84466; 84478; 85025; 85045; 85610; 85730; 86850; 86900; 86901; 86920; 87040; 87070; 87077; 87186; 87205; 93005; 93010; 93306; 94002; 94003; 94640; 94660; 94799; 96361; 96365; 96366; 96367; 96368; 96375; 99285; C1751; C1769; J0330; J0456; J0610; J0692; J0696; J1642; J1644; J1940; J1956; J2060; J2405; J2704; J2930; J3411; J3475; J3480; J3490; J7030; J7060; J7620; P9016; P9035

== ENCOUNTER 2016-07-13 13:49 | Inpatient (IN) | payer MEDICAID ==
[2016-07-13 14:34] LABS: HEMATOCRIT 36.8 % (36.0-47.0); HEMOGLOBIN 12.1 g/dL (12.0-15.5); HGB HCT DIFFERENCE -0.5; MEAN CORPUSCULAR HEMOGLOBIN 34.4 pg (27.0-33.4); MEAN CORPUSCULAR HGB CONC 32.8 g/dL (32.0-36.0); MEAN CORPUSCULAR VOLUME 105 fl (80-97); RED BLOOD COUNT 3.51 10^6/uL (3.72-5.28); RED CELL DISTRIBUTION WIDTH 16.6 % (11.5-14.0); WHITE BLOOD COUNT 7.9 10^3/uL (4.0-10.5)
[2016-07-13 14:56] LABS: AMORPHOUS SEDIMENT,URINE TRACE /HPF; APPEARANCE,URINE CLOUDY; BILIRUBIN,URINE MODERATE (NEGATIVE); GLUCOSE, URINE NEGATIVE (NEGATIVE); KETONES,URINE TRACE mg/dL (NEGATIVE); LEUKOCYTE ESTERASE,URINE LARGE (NEGATIVE); NITRITE,URINE POSITIVE (NEGATIVE); PROTEIN,URINE 30 mg/dL (NEGATIVE); URINE SPECIFIC GRAVITY 1.014
[2016-07-13 14:57] LABS: ALANINE AMINOTRANSFERASE 123 U/L (9-52); ALBUMIN 2.9 g/dL (3.5-5.0); ALCOHOL 299 mg/dL (NONE DETECTED); ALKALINE PHOSPHATASE 711 U/L (38-126); ANION GAP 13 (5-19); ASPARTATE AMINO TRANSFERASE 407 U/L (14-36); BILIRUBIN,DIRECT 10.7 mg/dL (0.0-0.4); BILIRUBIN,TOTAL 11.6 mg/dL (0.2-1.3); BLOOD UREA NITROGEN 13 mg/dL (7-20); CALCIUM 7.8 mg/dL (8.4-10.2); CARBON DIOXIDE 18 mmol/L (22-30); CHLORIDE 86 mmol/L (98-107); CREATININE RESULT 0.41 mg/dL (0.52-1.25); GLUCOSE 88 mg/dL (75-110); TOTAL PROTEIN 6.5 g/dL (6.3-8.2)
[2016-07-13 15:08] LABS: BAND NEUTROPHILS % (MANUAL) 1 % (3-5); BASOPHILS % (MANUAL) 0 % (0-2); EOSINOPHILS % (MANUAL) 0 % (0-6); LYMPHOCYTES % (MANUAL) 12 % (13-45); TOTAL CELLS COUNTED 100
[2016-07-13 15:09] LABS: ANISOCYTOSIS 1+; POIKILOCYTOSIS 2+; TARGET CELLS 2+
[2016-07-13 15:16] LABS: URINE BARBITURATES SCREEN NEGATIVE; URINE METHADONE SCREEN NEGATIVE; URINE OPIATES LOW NEGATIVE; URINE PHENCYCLIDINE SCREEN NEGATIVE
[2016-07-13 15:23] LABS: LIPASE 247.5 U/L (23-300)
[2016-07-13] MEDS: NORMAL SALINE 1000 ML 1,000 ML IV PRN ×2 (15:31→16:17)
[2016-07-13] MEDS ORDERED: NORMAL SALINE 1000 ML 1,000 ML IV PRN ×3 (15:47→19:50)
--- NOTE | 2016-07-13 16:02 | PSYCHOLOGICAL NOTE ---
Psych Note - Psych Note Psych Note: Pt presents via EMS on IVC paperwork. EMS reported the pt was picked up from her home in which she lives with her boyfriend who takes care of her. Pt was transported via EMS with police escort and papers were signed at 1348 on 2016. Pt has a history of jaundice and presents to the ED with yellowing to the eyes and chest. Pt has bruising on her buttocks, mainly to the right side. Pt also appears to be incontinent and with bad body odor. Pt was reported to not have eaten in the last 5 days, but continues to have approximately 6 beers a day. Pt is required to wear oxygen at 2L at home, but was found by EMS without oxygen and an oxygen saturation of 85%. Via EMS, IV access was obtained with a 22g to her right hand and a 20g to her left AC with approximately 150mL of NaCl infused. Upon arrival pt appears to be awake and answering questions appropriately but seems to be drowsy as well. Pt was connected to the monitor and given supplemental oxygen. Patient states that she has not eaten in 3 days because she has had no appetite. Patient continued disclosed that she drinks approximately 6 beers a day however she has no interest in sobriety. Patient states she received mental health services from her primary care and had an appointment approximately 4 days ago. She states that she takes mental health medications i.e. Prozac and risperidone. Patient was able to identify the month is July and it is 2016. She was also able to identify that the current president is President preeti in previous to that was President Obama. Patient was able to identify her correct date as 1960. Patient does some confusion when asked what the fifth month of the year what however was able to identify that she just had a birthday and it was in June. Patient is semi-alert and orientated to person place time and circumstance. Mood is lethargic with flat affect. Denies suicidal and homicidal ideation. Patient states she understands the risk of drinking and has no interest in sobriety. Patient states it has "been a while" since she has had any hallucinations. Patient is not demonstrating any behaviors congruent to responding to internal stimuli. No delusions are noted. Thought processes organized and linear. Conversational speech was quiet. Eye contact was poor. Intellect she will abilities appear to be within average range. Attention and concentration are fair. Insight, judgment, impulse control are poor. 303.90 (F10.20) Alcohol Use, severe with psychosis impression\\plan: Patient psychologically clear and maintains capacity to make decisions for herself. Patient is not medically cleared at this time and is being admitted to the hospitalist service.
[2016-07-13 16:18] LABS: PROTHROMBIN TIME 14.3 SEC (11.4-15.4)
[2016-07-13 16:19] LABS: PARTIAL THROMBOPLASTIN TIME 41.3 SEC (23.5-35.8)
--- NOTE | 2016-07-13 16:56 | RADIOLOGY REPORT (SQ) ---
EXAM DESCRIPTION: U/S ABDOMEN LIMITED W/O DOP COMPLETED DATE/TIME: 07/13/2016 4:09 pm REASON FOR STUDY: pain COMPARISON: 05/25/2016 TECHNIQUE: Dynamic and static grayscale images acquired of the abdomen and recorded on PACS. Additio nal selected color Doppler and spectral images recorded. LIMITATIONS: None. FINDINGS: PANCREAS: No masses. Visualized pancreatic duct normal caliber. LIVER: No masses. Note is again made of heterogeneous echogenicity. No intrahepatic biliary dilatat ion P LIVER VASCULATURE: Normal directional flow of the main portal vein and hepatic veins. GALLBLADDER: Sludge with few punctate gallstones seen within the fundus. The gallbladder wall demons trates circumferential thickening, measuring on the order of 4 mm; this is similar to that seen on ultrasound. No pericholecystic fluid. ULTRASOUND-DETECTED MONTEJO'S SIGN: Negative. INTRAHEPATIC DUCTS AND COMMON DUCT: CBD and intrahepatic ducts normal caliber. No filling defects. INFERIOR VENA CAVA: Normal flow. AORTA: No aneurysm. RIGHT KIDNEY: Normal size. Normal echogenicity. No solid or suspicious masses. No hydronephrosis. No calcifications. PERITONEAL AND RIGHT PLEURAL SPACE: No ascites or effusions. OTHER: No other significant findings. IMPRESSION: Stable sonographic appearance of the right upper quadrant again demonstrating circumfere ntial gallbladder wall thickening unchanged from comparison imaging. No mural hyperemia, pericholecy stic fluid, or sonographic Montejo's sign to suggest acute cholecystitis. Stable sonographic appearan ce of the liver. No intrahepatic or extrahepatic biliary dilatation. TECHNICAL DOCUMENTATION: JOB ID: [id number] [email or web address]- All Rights Reserved
--- NOTE | 2016-07-13 17:36 | ER Document Report ---
ED General - General Chief Complaint: Psych Problem Stated Complaint: IVC WITH PAPERS Time Seen by Provider: 07/13/16 13:56 Mode of Arrival: Ambulatory Information source: Patient TRAVEL OUTSIDE OF THE [place] 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 stating that patient has not eaten for 5 days and is refusing medical treatment, patient denies any suicidal or homicidal ideation, when asked why she has not eaten in 5 days she states that she has simply not had an appetite, she denies any vomiting or diarrhea, no fever or chills, she does crampy abdominal pain at times, she is noted to be quite jaundiced with scleral icterus of my evaluation, which she reports as being worse than previous, she admits to drinking today as well - Related Data Allergies/Adverse Reactions: codeine [Codeine] Allergy (Severe, Verified 05/25/16 03:10) itching oxytetracycline [From Terramycin] Allergy (Severe, Verified 05/25/16 03:10) rash paliperidone [From Invega] Allergy (Intermediate, Verified 05/25/16 03:10) Hives fentanyl [Fentanyl] Allergy (Verified 05/25/16 03:10) Past Medical History - General Information source: Patient - Social History Smoking Status: Current Every Day Smoker Chew tobacco use (# tins/day): - 30 Frequency of alcohol use: Heavy Drug Abuse: None Family History: Other - Unobtainable Pulmonary Medical History: Reports: Hx Bronchitis, Hx COPD Neurological Medical History: Reports: Hx Seizures - Alcohol withdrawal seizures Psychiatric Medical History: Reports: Hx Bipolar Disorder, Hx Depression, Hx Schizoaffective Disorder, Hx Schizophrenia - paraniod Past Surgical History: Reports: Hx Appendectomy, Hx Hysterectomy, Hx Tonsillectomy, Other - Status post radical neck dissection for throat cancer - Immunizations Immunizations up to date: Yes Hx Diphtheria, Pertussis, Tetanus Vaccination: Yes - unknown Review of Systems - Review of Systems Constitutional: Malaise EENT: No symptoms reported Cardiovascular: No symptoms reported Respiratory: No symptoms reported Gastrointestinal: See HPI Genitourinary: No symptoms reported Female Genitourinary: No symptoms reported Musculoskeletal: No symptoms reported Skin: Change in color Hematologic/Lymphatic: No symptoms reported Neurological/Psychological: No symptoms reported -: Yes All other systems reviewed and negative Physical Exam - Vital signs Vitals: Temp Pulse Resp BP Pulse Ox 97.3 F 106 H 21 H 116/89 H 92 07/13/16 14:20 07/13/16 14:20 07/13/16 14:20 07/13/16 14:20 07/13/16 14:20 Interpretation: Tachycardic - General General appearance: Other - Resting comfortably In distress: Mild - HEENT Head: Normocephalic, Atraumatic Eyes: Scleral icterus Conjunctiva: Icteric Eyelashes: Normal Pupils: PERRL - Respiratory Respiratory status: No respiratory distress Chest status: Nontender Breath sounds: Normal Chest palpation: Normal - Cardiovascular Rhythm: Regular, Tachycardia - Abdominal Inspection: Normal Distension: No distension Bowel sounds: Normal Tenderness: Nontender Organomegaly: No organomegaly - Back Back: Normal - Extremities General upper extremity: Normal inspection General lower extremity: Normal inspection - Neurological Neuro grossly intact: Yes Cognition: Normal Orientation: AAOx4 Boogie Coma Scale Eye Opening: Spontaneous Boogie Coma Scale Verbal: Oriented Boogie Coma Scale Motor: Obeys Commands Boogie Coma Scale Total: 15 - Psychological Associated symptoms: Flat affect - Skin Skin Temperature: Warm Skin Moisture: Dry Skin Color: Jaundiced Course - Re-evaluation Re-evalutation: 07/13/16 17:41 It was discussed with the hospitalist, Dr. Persaud who is concerned that without GI coverage over the weekend patient may not do well in the hospital, as he believes the patient likely needs an ERCP for possible obstructive jaundice patient was discussed with Dr Perrin, lab results, history and US report were discussed, he does not believe patient primary issue is obstructive jaundice, likely related to chronic alcohol abuse and liver disease, given the ultrasound reports in the normal duct diameter he would not likely perform an ERCP on this patient, although he is not on-call this weekend he agrees to see patient on Friday on consult as needed I discussed the possibility of transfer with patient and she adamantly refuses to be transferred to a different facility for care Hospitalist service was called back, who agreed to admit patient to this facility for further evaluation and treatment - Vital Signs Vital signs: Temp Pulse Resp BP Pulse Ox 97.3 F 102 H 21 H 120/86 H 90 L 07/13/16 14:20 07/13/16 19:00 07/13/16 18:01 07/13/16 18:00 07/13/16 18:01 - Laboratory Result Diagrams: 07/13/16 14:15 07/13/16 19:35 Laboratory results interpreted by me: 07/13/16 07/13/16 07/13/16 14:15 14:15 14:15 RBC 3.51 L MCV 105 H MCH 34.4 H RDW 16.6 H Plt Count 68 L Seg Neuts % (Manual) 81 H Band Neutrophils % 1 L Lymphocytes % (Manual) 12 L APTT 41.3 H Sodium 117.0 L* Chloride 86 L Carbon Dioxide 18 L Creatinine 0.41 L Calcium 7.8 L Total Bilirubin 11.6 H Direct Bilirubin 10.7 H AST 407 H ALT 123 H Alkaline Phosphatase 711 H Albumin 2.9 L Urine Protein Urine Ketones Urine Nitrite Urine Bilirubin Urine Urobilinogen Ur Leukocyte Esterase Salicylates < 1.0 L Acetaminophen < 10 L 07/13/16 14:30 RBC MCV MCH RDW Plt Count Seg Neuts % (Manual) Band Neutrophils % Lymphocytes % (Manual) APTT Sodium Chloride Carbon Dioxide Creatinine Calcium Total Bilirubin Direct Bilirubin AST ALT Alkaline Phosphatase Albumin Urine Protein 30 H Urine Ketones TRACE H Urine Nitrite POSITIVE H Urine Bilirubin MODERATE H Urine Urobilinogen 4.0 H Ur Leukocyte Esterase LARGE H Salicylates Acetaminophen - Diagnostic Test Radiology reviewed: Image reviewed, Reports reviewed - EKG Interpretation by Me EKG shows normal: Sinus rhythm Rate: Normal Rhythm: NSR Discharge - Discharge Clinical Impression: Hyponatremia Alcoholic cirrhosis Qualifiers: Ascites presence: without ascites Qualified Code(s): K70.30 - Alcoholic cirrhosis of liver without ascites Liver failure Qualifiers: Liver failure chronicity: acute Hepatic coma status: without hepatic coma Qualified Code(s): K72.00 - Acute and subacute hepatic failure without coma Alcohol dependence Qualifiers: Substance use status: other alcohol-induced disorder Qualified Code(s): F10.288 - Alcohol dependence with other alcohol-induced disorder Condition: Serious Disposition: ADMITTED INPATIENT Admitting Provider: Hospitalist Unit Admitted: JIMI
[2016-07-13] MEDS ORDERED: DEXTROSE 40% GEL 15 GM TUBE PO PRN ×2 (18:32)
[2016-07-13] MEDS ORDERED: GLUCAGON,HUMAN RECOMB 1 MG INJ SUBCUT PRN (18:32)
[2016-07-13] MEDS ORDERED: DEXTROSE 50%-WATER 25 GM/50 ML DISP.SYRIN IV PRN ×2 (18:32)
[2016-07-13] MEDS ORDERED: ONDANSETRON HCL INJ/PF 4 MG/2 ML SDV IV PRN (18:32)
--- NOTE | 2016-07-13 19:09 | PDOC H&P ---
History of Present Illness Admission Date/PCP: 07/13/16 17:46 JASSON LIMON MD Patient complains of: Nausea and vomiting History of Present Illness: DEONTE CASTRO is a 56 year old female with history of alcohol abuse, reported alcoholic liver disease with cirrhosis, continues to drink heavily on a daily basis was sent to the hospital by the family as the patient is not eating for several days and was involuntarily committed. Patient admits drinking alcohol heavily with 6 cans of beer. Patient denies any chills or fever but started to develop abdominal pain earlier. There is associated nausea and vomiting. Abdominal pain is generalized in nature periumbilically. It waxes and wanes at times. No associated diarrhea or constipation. Denies any melena or hematochezia or hematemesis. However the patient is somehow unreliable due to alcohol intoxication. Reportedly the patient was involuntarily committed by the family as the patient is not eating well. In the emergency room the patient was found to have an elevated bilirubin of about 12. There is evidence of direct hyperbilirubinemia as well as biliary sludge on ultrasound and small gallstones. No ductal dilatation however were noted. Emergency room physician discussed the case with Dr. Perrin who agreed to see the patient if the patient deteriorates. Apparently it was reported by the emergency room physician that Dr. Perrin reviewed the ultrasound and thinks there is no obstruction. Patient was then referred to the hospitalist service for admission. Past Medical History Past Medical History: Medication reconciliation pending verification from the patient's pharmacist Pulmonary Medical History: Reports: Bronchitis, Chronic Obstructive Pulmonary Disease (COPD) Neurological Medical History: Reports: Seizures - Alcohol withdrawal seizures Psychiatric Medical History: Reports: Bipolar Disorder, Depression, Schizoaffective Disorder Past Surgical History Past Surgical History: Reports: Appendectomy, Hysterectomy, Tonsillectomy, Other - Status post radical neck dissection for throat cancer Social History Information Source: Patient Smoking Status: Current Every Day Smoker Frequency of Alcohol Use: Heavy Hx Recreational Drug Use: No Drugs: None Hx Prescription Drug Abuse: No Family History Family History: Other - Unobtainable Parental Family History Reviewed: Yes Children Family History Reviewed: Yes Sibling(s) Family History Reviewed.: Yes Medication/Allergy Home Medications: Albuterol Sulfate [Proair HFA Inhalation Aerosol 8.5 gm MDI] 2 puff IH Q4HP PRN 05/25/16 Alendronate Sodium [Fosamax 70 mg Tablet] 70 mg PO RICKS 05/25/16 Calcium Carbonate [Calcium] 600 mg PO DAILY 05/25/16 Cyproheptadine HCl [Periactin 4 mg Tablet] 4 mg PO BID 05/25/16 Ergocalciferol (Vitamin D2) [Vitamin D2] 2,000 unit PO DAILY 05/25/16 Fluoxetine HCl [Prozac Soln 20 mg/5 ml Udcup] 5 ml PO DAILY 05/25/16 Fluticasone/Salmeterol [Advair 500-50 Diskus 14 Dose/Diskus] 1 puff IH BID 05/25 Lorazepam [Ativan 0.5 mg Tablet] 0.25 mg PO BIDP PRN 05/25/16 Omeprazole 40 mg PO DAILY 05/25/16 Prochlorperazine Maleate [Compazine 10 mg Tablet] 10 mg PO Q8HP PRN 05/25/16 Quetiapine Fumarate [Seroquel] 50 mg PO DAILY 05/25/16 Risperidone [Risperdal] 2 ml PO QAM 05/25/16 Solifenacin Succinate [Vesicare] 10 mg PO DAILY 05/25/16 Acetaminophen [Tylenol 325 mg Tablet] 325 mg PO Q4HP PRN tablet 06/10/16 Fluconazole [Diflucan 100 Mg Tablet] 150 mg PO DAILY #3 tablet 06/10/16 Propranolol HCl [Inderal 20 mg Tablet] 20 mg PO Q12 #60 tab 06/10/16 Risperidone [Risperdal 1 mg Tablet] 2 mg PO DAILY #30 tablet 06/10/16 Spironolactone [Aldactone 25 mg Tablet] 25 mg PO DAILY #30 tablet 06/10/16 Allergies/Adverse Reactions: codeine [Codeine] Allergy (Severe, Verified 05/25/16 03:10) itching oxytetracycline [From Terramycin] Allergy (Severe, Verified 05/25/16 03:10) rash paliperidone [From Invega] Allergy (Intermediate, Verified 05/25/16 03:10) Hives fentanyl [Fentanyl] Allergy (Verified 05/25/16 03:10) Review of Systems Constitutional: PRESENT: weakness - Generalized. ABSENT: chills, fever(s), headache(s), night sweats, weight gain, weight loss Eyes: ABSENT: visual disturbances Ears: ABSENT: hearing changes Nose, Mouth, and Throat: ABSENT: mouth pain, sore throat Cardiovascular: PRESENT: edema - Occasional. ABSENT: chest pain, dyspnea on exertion, orthropnea, palpitations Respiratory: PRESENT: cough - Occasional, dyspnea - Exertional. ABSENT: hemoptysis, sputum Gastrointestinal: PRESENT: abdominal pain - Generalized, dysphagia - Occasional , nausea, vomiting. ABSENT: coffee ground emesis, constipation, diarrhea, heartburn, hematemesis, hematochezia, melena Genitourinary: PRESENT: difficulty urinating. ABSENT: dysuria, hematuria Musculoskeletal: ABSENT: joint swelling Integumentary: ABSENT: pruritus, rash, wounds Neurological: ABSENT: abnormal gait, abnormal speech, confusion, dizziness, focal weakness, syncope Psychiatric: ABSENT: anxiety, depression, homidical ideation, suicidal ideation Endocrine: ABSENT: cold intolerance, heat intolerance, polydipsia, polyuria Hematologic/Lymphatic: ABSENT: easy bleeding, easy bruising Physical Exam Vital Signs: Temp Pulse Resp BP Pulse Ox 97.3 F 106 H 21 H 120/86 H 90 L 07/13/16 14:20 07/13/16 14:20 07/13/16 18:01 07/13/16 18:00 07/13/16 18:01 General appearance: PRESENT: no acute distress, cooperative, thin Head exam: PRESENT: atraumatic, normocephalic Eye exam: PRESENT: conjunctiva pale, EOMI, PERRLA, scleral icterus Ear exam: PRESENT: normal external ear exam Mouth exam: PRESENT: moist, neck supple, tongue midline Neck exam: ABSENT: carotid bruit, JVD, lymphadenopathy, thyromegaly Respiratory exam: PRESENT: clear to auscultation seven. ABSENT: rales, rhonchi, wheezes Cardiovascular exam: PRESENT: RRR. ABSENT: diastolic murmur, rubs, systolic murmur Pulses: PRESENT: normal dorsalis pedis pul Vascular exam: PRESENT: normal capillary refill GI/Abdominal exam: PRESENT: hypoactive bowel sounds, organolmegaly - Limited due to discomfort, soft, tenderness - Diffusely mild,. ABSENT: distended, guarding, mass, rebound Rectal exam: PRESENT: deferred Extremities exam: PRESENT: full ROM. ABSENT: calf tenderness, clubbing, pedal edema Neurological exam: PRESENT: alert, awake, oriented to person, oriented to place , oriented to situation, other - No asterixis Psychiatric exam: PRESENT: appropriate affect, normal mood. ABSENT: homicidal ideation, suicidal ideation Skin exam: PRESENT: dry, intact, petechiae - Minimal on the lower extremity, warm. ABSENT: cyanosis Results Impressions: Abdomen Ultrasound 07/13/16 15:19 IMPRESSION: Stable sonographic appearance of the right upper quadrant again demonstrating circumferential gallbladder wall thickening unchanged from comparison imaging. No mural hyperemia, pericholecystic fluid, or sonographic Montejo's sign to suggest acute cholecystitis. Stable sonographic appearance of the liver. No intrahepatic or extrahepatic biliary dilatation. Assessment & Plan - Diagnosis (1) Direct hyperbilirubinemia Is this a current diagnosis for this admission?: Yes (2) Urinary tract infection Qualifiers: Urinary tract infection type: site unspecified Hematuria presence: without hematuria Qualified Code(s): N39.0 - Urinary tract infection, site not specified Is this a current diagnosis for this admission?: Yes (3) Alcohol abuse with intoxication Is this a current diagnosis for this admission?: Yes (4) Hyponatremia Is this a current diagnosis for this admission?: Yes (5) COPD (chronic obstructive pulmonary disease) Qualifiers: COPD type: unspecified COPD Qualified Code(s): J44.9 - Chronic obstructive pulmonary disease, unspecified Is this a current diagnosis for this admission?: Yes (6) Seizure disorder Is this a current diagnosis for this admission?: Yes (7) Schizoaffective disorder Qualifiers: Schizoaffective disorder type: bipolar Qualified Code(s): F25.0 - Schizoaffective disorder, bipolar type Is this a current diagnosis for this admission?: Yes (8) Bipolar 1 disorder Is this a current diagnosis for this admission?: Yes - Time Time Spent: 50 to 70 Minutes - Inpatient Certification Based on my medical assessment, after consideration of the patient's comorbidities, presenting symptoms, or acuity I expect that the services needed warrant INPATIENT care.: Yes I certify that my determination is in accordance with my understanding of Medicare's requirements for reasonable and necessary INPATIENT services [42 CFR 412.3e].: Yes Medical Necessity: Significant Comorbidiites Make Outpatient Treatment Too Risky , Need Close Monitoring Due to Risk of Patient Decompensation, Need For IV Fluids, Risk of Complication if Not Cared For in Hospital, Risk of Diagnosis Which Will Require Inpatient Eval/Care/Monitoring Post Hospital Care: D/C Aligner 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 We will monitor bilirubin level and liver function. In the meantime we will culture the urine and begin the patient on intravenous Invanz. I will hydrate the patient with normal saline and monitor Her sodium level. I will give her supplemental thiamine folic acid and multivitamin intravenously and begin her on scheduled Ativan and as needed intravenous Ativan. We will monitor for withdrawal. I will put the sitter and consult psychiatry as she was sent here involuntarily committed. I will keep her n.p.o., avoid hepatotoxic drugs, and monitor electrolytes. Further testing depends on the initial evaluation as outlined above.
[2016-07-13] MEDS ORDERED: LORAZEPAM 1 MG TABLET PO ONE (20:00)
[2016-07-13 20:01] LABS: ANION GAP 14 (5-19); BLOOD UREA NITROGEN 8 mg/dL (7-20); CARBON DIOXIDE 16 mmol/L (22-30); CHLORIDE 91 mmol/L (98-107); CREATININE RESULT 0.39 mg/dL (0.52-1.25); GLUCOSE 78 mg/dL (75-110); MAGNESIUM 1.6 mg/dL (1.6-2.3); POTASSIUM 3.1 mmol/L (3.6-5.0); SODIUM 121.2 mmol/L (137-145)
[2016-07-13] MEDS ORDERED: ERTAPENEM SODIUM INJ 1 GM VIAL IV PRN (20:15)
[2016-07-13 20:19] LABS: CALCIUM 6.9 mg/dL (8.4-10.2)
[2016-07-13] MEDS: POTASSI CL 20 MEQ/50 ML RIDER 20 MEQ/50 ML RTUPB IV SCH ×2 (20:56→22:57)
[2016-07-13] MEDS ORDERED: ERTAPENEM SODIUM INJ 1 GM VIAL ONE (22:52)
[2016-07-14 00:05] LABS: ANION GAP 14 (5-19); BLOOD UREA NITROGEN 8 mg/dL (7-20); CARBON DIOXIDE 15 mmol/L (22-30); CHLORIDE 93 mmol/L (98-107); CREATININE RESULT 0.39 mg/dL (0.52-1.25); GLUCOSE 66 mg/dL (75-110); POTASSIUM 3.6 mmol/L (3.6-5.0); SODIUM 122.1 mmol/L (137-145)
[2016-07-14 00:21] LABS: CALCIUM 6.9 mg/dL (8.4-10.2)
[2016-07-14] MEDS: LORAZEPAM 1 MG TABLET PO SCH ×4 (00:32→18:10)
[2016-07-14] MEDS: ERTAPENEM SODIUM 1 GM in NORMAL SALINE 50 ML IV SCH ×2 (00:37→21:57)
[2016-07-14] MEDS: PROPRANOLOL HCL 20 MG TABLET PO SCH ×3 (00:37→22:00)
[2016-07-14 01:34] LABS: ADD ON TESTING BLD IN LAB ACKNOWLEDGE
[2016-07-14] MEDS ORDERED: POTASSIUM CHLORIDE 20 MEQ/15 ML UDCUP PO ONE (01:45)
[2016-07-14 02:02] LABS: FREE T3 1.88 pg/mL (2.77-5.27)
[2016-07-14 02:06] LABS: ALBUMIN 2.3 g/dL (3.5-5.0)
[2016-07-14 03:38] LABS: ABSOLUTE BASOPHILS # (AUTO) 0.2 10^3/uL (0.0-0.2); ABSOLUTE EOSINOPHILS # (AUTO) 0.1 10^3/uL (0.0-0.6); ABSOLUTE LYMPHOCYTES (AUTO) 4.1 10^3/uL (0.5-4.7); ABSOLUTE MONOCYTES (AUTO) 0.3 10^3/uL (0.1-1.4); ABSOLUTE NEUT (AUTO) 2.5 10^3/uL (1.7-8.2); BASOPHILS % (AUTO) 3.2 % (0-2); EOSINOPHILS % (AUTO) 1.2 % (0-6); HEMATOCRIT 34.3 % (36.0-47.0); HEMOGLOBIN 11.3 g/dL (12.0-15.5); HGB HCT DIFFERENCE -0.4; LYMPHOCYTES % (AUTO) 56.8 % (13-45); MEAN CORPUSCULAR HEMOGLOBIN 34.8 pg (27.0-33.4); MEAN CORPUSCULAR VOLUME 106 fl (80-97); MONOCYTES % (AUTO) 3.9 % (3-13); RED BLOOD COUNT 3.25 10^6/uL (3.72-5.28); RED CELL DISTRIBUTION WIDTH 16.3 % (11.5-14.0); SEGMENTED NEUTROPHILS % (AUTO) 34.9 % (42-78); WHITE BLOOD COUNT 7.2 10^3/uL (4.0-10.5)
[2016-07-14 03:43] LABS: ALANINE AMINOTRANSFERASE 110 U/L (9-52); ALBUMIN 2.4 g/dL (3.5-5.0); ALKALINE PHOSPHATASE 830 U/L (38-126); ANION GAP 13 (5-19); ASPARTATE AMINO TRANSFERASE 386 U/L (14-36); BILIRUBIN,TOTAL 11.9 mg/dL (0.2-1.3); BLOOD UREA NITROGEN 9 mg/dL (7-20); CALCIUM 7.1 mg/dL (8.4-10.2); CARBON DIOXIDE 16 mmol/L (22-30); CHLORIDE 95 mmol/L (98-107); CREATININE RESULT 0.35 mg/dL (0.52-1.25); GLUCOSE 62 mg/dL (75-110); POTASSIUM 3.6 mmol/L (3.6-5.0); SODIUM 123.9 mmol/L (137-145); TOTAL PROTEIN 5.4 g/dL (6.3-8.2)
[2016-07-14 04:04] LABS: ANISOCYTOSIS 1+; BURR CELLS SLIGHT; OVALOCYTES SLIGHT; POIKILOCYTOSIS 1+; TARGET CELLS 2+
[2016-07-14] MEDS ORDERED: 1/2 NORMAL SALINE 1,000 ML IV PRN ×2 (04:32→08:05)
[2016-07-14] MEDS ORDERED: ALBUTEROL SULFATE 0.083% NEB 2.5 MG/3 ML AMPUL NEB PRN (04:54)
[2016-07-14] MEDS: LANSOPRAZOLE 30 MG TAB.RAP.DR PO SCH ×2 (06:18→18:10)
--- NOTE | 2016-07-14 06:20 | RADIOLOGY REPORT (SQ) ---
EXAM DESCRIPTION: CHEST SINGLE VIEW COMPLETED DATE/TIME: 07/14/2016 6:07 am REASON FOR STUDY: HYPOXIA; COMPARISON: Chest x-ray 06/06/2016. EXAM PARAMETERS: NUMBER OF VIEWS: One view. TECHNIQUE: Single frontal radiographic view of the chest acquired. RADIATION DOSE: NA LIMITATIONS: None. FINDINGS: LUNGS AND PLEURA: Hyperlucent lungs, suggestive of emphysema. There is a small left pleur al effusion. Ground-glass opacities are seen at the lung bases. MEDIASTINUM AND HILAR STRUCTURES: No masses. Contour normal. HEART AND VASCULAR STRUCTURES: Heart normal in size. No overt vascular congestion. BONES: No acute findings. HARDWARE: None in the chest. IMPRESSION: Emphysema. Small left pleural effusion. Bibasilar ground-glass opacities, may represen t pneumonia or atelectasis. Radiographic followup recommended. TECHNICAL DOCUMENTATION: JOB ID: [id number]
[2016-07-14 06:39] LABS: ARTERIAL BLOOD BASE EXCESS -4.6 mmol/L; ARTERIAL BLOOD O2 SATURATION 88.2 % (94-98)
[2016-07-14 07:22] LABS: ANION GAP 13 (5-19); BLOOD UREA NITROGEN 9 mg/dL (7-20); CALCIUM 7.2 mg/dL (8.4-10.2); CARBON DIOXIDE 17 mmol/L (22-30); CHLORIDE 94 mmol/L (98-107); CREATININE RESULT 0.45 mg/dL (0.52-1.25); GLUCOSE 111 mg/dL (75-110); POTASSIUM 3.7 mmol/L (3.6-5.0); SODIUM 124.1 mmol/L (137-145)
[2016-07-14] MEDS ORDERED: FUROSEMIDE INJ/PF 40 MG/4 ML SDV IV ONE (08:04)
[2016-07-14] MEDS ORDERED: NORMAL SALINE 1000 ML 1,000 ML IV PRN (08:08)
--- NOTE | 2016-07-14 08:19 | PDOC PROGRESS REPORT ---
Subjective Progress Note for:: 07/14/16 Subjective:: Patient reportedly developed desaturation. Slight decrease in mental status as well. No reported temperature spikes nausea or vomiting. Patient reportedly diaphoretic earlier. Patient placed on nonrebreather and O2 saturation is still in the 80s. Direct bilirubin still elevated. Liver function seems to be trending down except for alkaline phosphatase. Physical Exam Vital Signs: Temp Pulse Resp BP Pulse Ox 98.7 F 121 H 21 H 117/73 95 07/14/16 04:30 07/14/16 06:05 07/14/16 06:05 07/14/16 06:05 07/14/16 06:05 Intake & Output 07/13/16 07/14/16 07/15/16 06:59 06:59 06:59 Intake Total 721 Balance 721 Weight 54.5 kg General appearance: PRESENT: mild distress, other - Lethargic but arousable Head exam: PRESENT: normocephalic Eye exam: PRESENT: conjunctiva pale, scleral icterus Mouth exam: PRESENT: dry mucosa, neck supple Neck exam: ABSENT: JVD Respiratory exam: PRESENT: decreased breath sounds - Left lower lung villagran Cardiovascular exam: PRESENT: RRR. ABSENT: gallop GI/Abdominal exam: PRESENT: soft, tenderness - Mild diffusely. ABSENT: distended Extremities exam: PRESENT: other - Trace pretibial edema Neurological exam: PRESENT: altered - Lethargic but arousable, easily falls back to sleep Skin exam: PRESENT: dry, warm. ABSENT: cyanosis Results Laboratory Results: 07/14/16 03:19 07/14/16 06:57 07/13/16 07/13/16 07/13/16 19:35 19:35 23:33 WBC RBC Hgb Hct MCV MCH MCHC RDW Plt Count Seg Neutrophils % Lymphocytes % Monocytes % Eosinophils % Basophils % Absolute Neutrophils Absolute Lymphocytes Absolute Monocytes Absolute Eosinophils Absolute Basophils Carbonic Acid HCO3/H2CO3 Ratio ABG pH ABG pCO2 ABG pO2 ABG HCO3 ABG O2 Saturation ABG Base Excess FiO2 Sodium 121.2 L 122.1 L Potassium 3.1 L 3.6 Chloride 91 L 93 L Carbon Dioxide 16 L 15 L Anion Gap 14 14 BUN 8 8 Creatinine 0.39 L 0.39 L Est GFR ( Amer) > 60 > 60 Est GFR (Non-Af Amer) > 60 > 60 Glucose 78 66 L Calcium 6.9 L* 6.9 L* Magnesium 1.6 Total Bilirubin AST ALT Alkaline Phosphatase Total Protein Albumin TSH 0.10 L Free T4 Free T3 pg/mL 07/13/16 07/13/16 07/14/16 23:33 23:33 03:19 WBC 7.2 RBC 3.25 L Hgb 11.3 L Hct 34.3 L MCV 106 H MCH 34.8 H MCHC 33.0 RDW 16.3 H Plt Count 52 L Seg Neutrophils % 34.9 L Lymphocytes % 56.8 H Monocytes % 3.9 Eosinophils % 1.2 Basophils % 3.2 H Absolute Neutrophils 2.5 Absolute Lymphocytes 4.1 Absolute Monocytes 0.3 Absolute Eosinophils 0.1 Absolute Basophils 0.2 Carbonic Acid HCO3/H2CO3 Ratio ABG pH ABG pCO2 ABG pO2 ABG HCO3 ABG O2 Saturation ABG Base Excess FiO2 Sodium Potassium Chloride Carbon Dioxide Anion Gap BUN Creatinine Est GFR ( Amer) Est GFR (Non-Af Amer) Glucose Calcium Magnesium Total Bilirubin AST ALT Alkaline Phosphatase Total Protein Albumin 2.3 L TSH Free T4 1.17 Free T3 pg/mL 1.88 L 07/14/16 07/14/16 07/14/16 03:19 06:15 06:57 WBC RBC Hgb Hct MCV MCH MCHC RDW Plt Count Seg Neutrophils % Lymphocytes % Monocytes % Eosinophils % Basophils % Absolute Neutrophils Absolute Lymphocytes Absolute Monocytes Absolute Eosinophils Absolute Basophils Carbonic Acid 1.28 HCO3/H2CO3 Ratio 16:1 ABG pH 7.32 L ABG pCO2 42.5 ABG pO2 58.5 L ABG HCO3 21.3 ABG O2 Saturation 88.2 L ABG Base Excess -4.6 FiO2 60% Sodium 123.9 L 124.1 L Potassium 3.6 3.7 Chloride 95 L 94 L Carbon Dioxide 16 L 17 L Anion Gap 13 13 BUN 9 9 Creatinine 0.35 L 0.45 L Est GFR ( Amer) > 60 > 60 Est GFR (Non-Af Amer) > 60 > 60 Glucose 62 L 111 H Calcium 7.1 L 7.2 L Magnesium Total Bilirubin 11.9 H AST 386 H ALT 110 H Alkaline Phosphatase 830 H Total Protein 5.4 L Albumin 2.4 L TSH Free T4 Free T3 pg/mL Impressions: Abdomen Ultrasound 07/13/16 15:19 IMPRESSION: Stable sonographic appearance of the right upper quadrant again demonstrating circumferential gallbladder wall thickening unchanged from comparison imaging. No mural hyperemia, pericholecystic fluid, or sonographic Montejo's sign to suggest acute cholecystitis. Stable sonographic appearance of the liver. No intrahepatic or extrahepatic biliary dilatation. Chest X-Ray 07/14/16 00:00 IMPRESSION: Emphysema. Small left pleural effusion. Bibasilar ground-glass opacities, may represent pneumonia or atelectasis. Radiographic followup recommended. Assessment & Plan - Diagnosis (1) Acute respiratory failure Qualifiers: Respiratory failure complication: hypoxia Qualified Code(s): J96.01 - Acute respiratory failure with hypoxia Is this a current diagnosis for this admission?: Yes (2) Pleural effusion Is this a current diagnosis for this admission?: Yes (3) Direct hyperbilirubinemia Is this a current diagnosis for this admission?: Yes (4) Urinary tract infection Qualifiers: Urinary tract infection type: site unspecified Hematuria presence: without hematuria Qualified Code(s): N39.0 - Urinary tract infection, site not specified Is this a current diagnosis for this admission?: Yes (5) Alcohol abuse with intoxication Is this a current diagnosis for this admission?: Yes (6) Hyponatremia Is this a current diagnosis for this admission?: Yes (7) COPD (chronic obstructive pulmonary disease) Qualifiers: COPD type: unspecified COPD Qualified Code(s): J44.9 - Chronic obstructive pulmonary disease, unspecified Is this a current diagnosis for this admission?: Yes (8) Seizure disorder Is this a current diagnosis for this admission?: Yes (9) Schizoaffective disorder Qualifiers: Schizoaffective disorder type: bipolar Qualified Code(s): F25.0 - Schizoaffective disorder, bipolar type Is this a current diagnosis for this admission?: Yes (10) Bipolar 1 disorder Is this a current diagnosis for this admission?: Yes - Time Time Spent with patient: 25-34 minutes - Plan Summary Plan Summary: We are going to put the patient on BiPAP. We will give 1 dose of Lasix. In the meantime we will continue to monitor LFTs. We will decrease intravenous fluid with normal saline. We will decrease the Ativan dose as well. Continue supplemental thiamine and folic acid and multivitamin. Continue to monitor for withdrawal. Consult Dr. Perrin for possible ERCP.
--- NOTE | 2016-07-14 09:21 | EKG REPORT ---
SEVERITY:- ABNORMAL ECG - SINUS RHYTHM NONSPECIFIC INTRAVENTRICULAR CONDUCTION DELAY : Confirmed by: Martinez Caraballo 14-Jul-2016 09:20:46
[2016-07-14] MEDS: FLUTICASONE/SALMETEROL DISKUS 500-50 MCG/DOSE IH SCH ×2 (11:28→22:00)
[2016-07-14] MEDS: NORMAL SALINE 1000 ML 1,000 ML with THIAMINE HCL 100 MG, MVI, ADULT NO.1 WITH VIT K 10 ... IV SCH ×4 (14:00)
[2016-07-14] MEDS: LORAZEPAM INJ 2 MG/1 ML VIAL IV PRN (18:59)
[2016-07-15] MEDS: LORAZEPAM 1 MG TABLET PO SCH ×5 (00:53→23:14)
[2016-07-15] MEDS: LORAZEPAM INJ 2 MG/1 ML VIAL IV PRN ×4 (03:12→16:33)
[2016-07-15] MEDS: LANSOPRAZOLE 30 MG TAB.RAP.DR PO SCH ×2 (05:57→17:51)
[2016-07-15 07:25] LABS: HEMATOCRIT 30.4 % (36.0-47.0); HGB HCT DIFFERENCE -0.4; MEAN CORPUSCULAR HEMOGLOBIN 33.8 pg (27.0-33.4); MEAN CORPUSCULAR HGB CONC 32.9 g/dL (32.0-36.0); MEAN CORPUSCULAR VOLUME 103 fl (80-97); RED BLOOD COUNT 2.95 10^6/uL (3.72-5.28); RED CELL DISTRIBUTION WIDTH 16.5 % (11.5-14.0); WHITE BLOOD COUNT 5.5 10^3/uL (4.0-10.5)
[2016-07-15 07:48] LABS: ALANINE AMINOTRANSFERASE 124 U/L (9-52); ALBUMIN 2.2 g/dL (3.5-5.0); ALKALINE PHOSPHATASE 934 U/L (38-126); ANION GAP 7 (5-19); ASPARTATE AMINO TRANSFERASE 386 U/L (14-36); BILIRUBIN,DIRECT 13.4 mg/dL (0.0-0.4); BILIRUBIN,TOTAL 14.9 mg/dL (0.2-1.3); BLOOD UREA NITROGEN 6 mg/dL (7-20); CALCIUM 7.4 mg/dL (8.4-10.2); CARBON DIOXIDE 24 mmol/L (22-30); CHLORIDE 99 mmol/L (98-107); CREATININE RESULT 0.36 mg/dL (0.52-1.25); GLUCOSE 89 mg/dL (75-110); TOTAL PROTEIN 4.9 g/dL (6.3-8.2)
[2016-07-15 07:57] LABS: POTASSIUM 2.6 mmol/L (3.6-5.0)
--- NOTE | 2016-07-15 09:13 | PDOC PROGRESS REPORT ---
Subjective Progress Note for:: 07/15/16 Subjective:: No reported worsening respiratory condition. Patient however remains on the BiPAP. O2 saturation greater than 90%. Patient has confusion but receives Ativan. No reported temperature spikes, diarrhea, nausea or vomiting. Patient potassium is low, bilirubin continues to trend up. Physical Exam Vital Signs: Temp Pulse Resp BP Pulse Ox 98.6 F 97 28 H 94/59 L 98 07/15/16 07:17 07/15/16 07:17 07/15/16 07:17 07/15/16 07:17 07/15/16 07:17 Intake & Output 07/14/16 07/15/16 07/16/16 06:59 06:59 06:59 Intake Total 721 1944 Output Total 3650 Balance 721 -1706 Weight 54.5 kg 53.9 kg General appearance: PRESENT: no acute distress, other - On BiPAP Head exam: PRESENT: normocephalic Eye exam: PRESENT: conjunctiva pale, scleral icterus Mouth exam: PRESENT: moist, neck supple Neck exam: ABSENT: JVD Respiratory exam: PRESENT: decreased breath sounds - On the bases bilateral, rhonchi - Few bilateral. ABSENT: wheezes Cardiovascular exam: PRESENT: RRR. ABSENT: gallop GI/Abdominal exam: PRESENT: hypoactive bowel sounds, soft, tenderness - Minimal diffusely Extremities exam: PRESENT: other - Trace pretibial edema Neurological exam: PRESENT: awake, other - Confused Psychiatric exam: ABSENT: agitated Focused psych exam: PRESENT: restlessness - Mildly Skin exam: PRESENT: dry, warm. ABSENT: cyanosis Results Laboratory Results: 07/15/16 06:58 07/15/16 06:58 07/15/16 07/15/16 06:58 06:58 WBC 5.5 RBC 2.95 L Hgb 10.0 L Hct 30.4 L MCV 103 H MCH 33.8 H MCHC 32.9 RDW 16.5 H Plt Count 40 L Sodium 130.0 L Potassium 2.6 L* Chloride 99 Carbon Dioxide 24 Anion Gap 7 BUN 6 L Creatinine 0.36 L Est GFR ( Amer) > 60 Est GFR (Non-Af Amer) > 60 Glucose 89 Calcium 7.4 L Total Bilirubin 14.9 H AST 386 H ALT 124 H Alkaline Phosphatase 934 H Total Protein 4.9 L Albumin 2.2 L Impressions: Abdomen Ultrasound 07/13/16 15:19 IMPRESSION: Stable sonographic appearance of the right upper quadrant again demonstrating circumferential gallbladder wall thickening unchanged from comparison imaging. No mural hyperemia, pericholecystic fluid, or sonographic Montejo's sign to suggest acute cholecystitis. Stable sonographic appearance of the liver. No intrahepatic or extrahepatic biliary dilatation. Chest X-Ray 07/14/16 00:00 IMPRESSION: Emphysema. Small left pleural effusion. Bibasilar ground-glass opacities, may represent pneumonia or atelectasis. Radiographic followup recommended. Assessment & Plan - Diagnosis (1) Acute respiratory failure Qualifiers: Respiratory failure complication: hypoxia Qualified Code(s): J96.01 - Acute respiratory failure with hypoxia Is this a current diagnosis for this admission?: Yes (2) Pleural effusion Is this a current diagnosis for this admission?: Yes (3) Direct hyperbilirubinemia Is this a current diagnosis for this admission?: Yes (4) Urinary tract infection Qualifiers: Urinary tract infection type: site unspecified Hematuria presence: without hematuria Qualified Code(s): N39.0 - Urinary tract infection, site not specified Is this a current diagnosis for this admission?: Yes (5) Alcohol abuse with intoxication Is this a current diagnosis for this admission?: Yes (6) Hyponatremia Is this a current diagnosis for this admission?: Yes (7) COPD (chronic obstructive pulmonary disease) Qualifiers: COPD type: unspecified COPD Qualified Code(s): J44.9 - Chronic obstructive pulmonary disease, unspecified Is this a current diagnosis for this admission?: Yes (8) Seizure disorder Is this a current diagnosis for this admission?: Yes (9) Schizoaffective disorder Qualifiers: Schizoaffective disorder type: bipolar Qualified Code(s): F25.0 - Schizoaffective disorder, bipolar type Is this a current diagnosis for this admission?: Yes (10) Bipolar 1 disorder Is this a current diagnosis for this admission?: Yes - Time Time Spent with patient: 25-34 minutes - Plan Summary Plan Summary: Replace potassium and monitor electrolytes. Continue gentle hydration. Check ammonia level. Follow bilirubin levels. Consult gastroenterology for ERCP. Continue supportive care for now. Change IV fluid to dextrose containing solution.
[2016-07-15] MEDS ORDERED: ONDANSETRON HCL INJ/PF 4 MG/2 ML SDV IV PRN (09:30)
[2016-07-15] MEDS: PROPRANOLOL HCL 20 MG TABLET PO SCH ×2 (09:57→21:32)
[2016-07-15] MEDS: POTASSIUM CHLORIDE 20 MEQ/50 ML RTU IV SCH ×2 (10:53→13:46)
[2016-07-15] MEDS: DEXTROSE 5%-NORMAL SALINE 1,000 ML IV PRN ×2 (10:53→21:34)
[2016-07-15] MEDS: FLUTICASONE/SALMETEROL DISKUS 500-50 MCG/DOSE IH SCH ×2 (10:53→21:32)
[2016-07-15] MEDS: NORMAL SALINE 1000 ML 1,000 ML with THIAMINE HCL 100 MG, MVI, ADULT NO.1 WITH VIT K 10 ... IV SCH ×4 (13:01)
[2016-07-15] MEDS: LACTULOSE SYRUP 20 GM/30 ML UDCUP PO SCH ×3 (15:50→21:32)
[2016-07-15] MEDS ORDERED: FUROSEMIDE INJ/PF 40 MG/4 ML SDV IV ONE (17:00)
[2016-07-15] MEDS ORDERED: LORAZEPAM INJ 2 MG/1 ML VIAL IV PRN ×2 (17:46→18:13)
[2016-07-15] MEDS: ERTAPENEM SODIUM 1 GM in NORMAL SALINE 50 ML IV SCH (21:33)
[2016-07-16] MEDS: LACTULOSE SYRUP 20 GM/30 ML UDCUP PO SCH ×5 (01:04→18:10)
[2016-07-16] MEDS: LORAZEPAM 1 MG TABLET PO SCH ×3 (05:07→18:10)
[2016-07-16] MEDS: LANSOPRAZOLE 30 MG TAB.RAP.DR PO SCH ×2 (05:07→18:10)
[2016-07-16 05:48] LABS: HEMATOCRIT 31.2 % (36.0-47.0); HEMOGLOBIN 10.7 g/dL (12.0-15.5); HGB HCT DIFFERENCE 0.9; MEAN CORPUSCULAR HEMOGLOBIN 34.4 pg (27.0-33.4); MEAN CORPUSCULAR HGB CONC 34.1 g/dL (32.0-36.0); MEAN CORPUSCULAR VOLUME 101 fl (80-97); RED CELL DISTRIBUTION WIDTH 16.8 % (11.5-14.0); WHITE BLOOD COUNT 5.3 10^3/uL (4.0-10.5)
[2016-07-16 06:12] LABS: ALANINE AMINOTRANSFERASE 108 U/L (9-52); ALBUMIN 2.5 g/dL (3.5-5.0); ALKALINE PHOSPHATASE 802 U/L (38-126); ANION GAP 9 (5-19); ASPARTATE AMINO TRANSFERASE 191 U/L (14-36); BILIRUBIN,TOTAL 16.7 mg/dL (0.2-1.3); BLOOD UREA NITROGEN 2 mg/dL (7-20); CALCIUM 7.8 mg/dL (8.4-10.2); CARBON DIOXIDE 31 mmol/L (22-30); CHLORIDE 98 mmol/L (98-107); CREATININE RESULT 0.31 mg/dL (0.52-1.25); GLUCOSE 120 mg/dL (75-110); MAGNESIUM 1.8 mg/dL (1.6-2.3); SODIUM 138.2 mmol/L (137-145); TOTAL PROTEIN 5.6 g/dL (6.3-8.2)
[2016-07-16 06:19] LABS: POTASSIUM 2.3 mmol/L (3.6-5.0)
[2016-07-16] MEDS ORDERED: POTASSI CL 20 MEQ/D5NS 1L 1,000 ML IV PRN (06:31)
[2016-07-16] MEDS ORDERED: POTASSI CL 20 MEQ/50 ML RIDER 20 MEQ/50 ML RTUPB IV ONE (06:45)
[2016-07-16] MEDS: POTASSI CL 20 MEQ/50 ML RIDER 20 MEQ/50 ML RTUPB IV SCH ×4 (08:52→15:57)
[2016-07-16] MEDS: PROPRANOLOL HCL 20 MG TABLET PO SCH (10:00)
[2016-07-16] MEDS ORDERED: FUROSEMIDE INJ/PF 40 MG/4 ML SDV IV SCH (10:00)
[2016-07-16] MEDS: FLUTICASONE/SALMETEROL DISKUS 500-50 MCG/DOSE IH SCH (10:19)
[2016-07-16] MEDS: NORMAL SALINE 1000 ML 1,000 ML with THIAMINE HCL 100 MG, MVI, ADULT NO.1 WITH VIT K 10 ... IV SCH ×4 (12:47)
--- NOTE | 2016-07-16 14:04 | PDOC PROGRESS REPORT ---
Subjective Progress Note for:: 07/16/16 Subjective:: Patient will open her eyes but does not answer any questions Physical Exam Vital Signs: Temp Pulse Resp BP Pulse Ox 98.9 F 107 H 30 H 97/62 L 92 07/16/16 12:06 07/16/16 12:06 07/16/16 12:22 07/16/16 12:06 07/16/16 12:06 Intake & Output 07/15/16 07/16/16 07/17/16 06:59 06:59 06:59 Intake Total 1944 780 0 Output Total 3650 1999 1400 Balance -5266 1220 -1400 Weight 53.9 kg 54.4 kg General appearance: PRESENT: mild distress Eye exam: PRESENT: conjunctiva pink, scleral icterus Mouth exam: PRESENT: moist, tongue midline Neck exam: ABSENT: JVD Respiratory exam: PRESENT: clear to auscultation seven. ABSENT: rales, rhonchi, wheezes Cardiovascular exam: PRESENT: RRR. ABSENT: diastolic murmur, rubs, systolic murmur GI/Abdominal exam: PRESENT: normal bowel sounds, organolmegaly - Liver edge is palpable, soft. ABSENT: distended, guarding, mass, rebound, tenderness Extremities exam: ABSENT: calf tenderness, clubbing, pedal edema Neurological exam: PRESENT: altered Psychiatric exam: PRESENT: flat affect Skin exam: PRESENT: dry, intact, jaundice, warm. ABSENT: cyanosis, rash Results Laboratory Results: 07/16/16 05:33 07/16/16 05:33 07/16/16 07/16/16 07/16/16 05:33 05:33 05:33 WBC 5.3 RBC 3.10 L Hgb 10.7 L Hct 31.2 L MCV 101 H MCH 34.4 H MCHC 34.1 RDW 16.8 H Plt Count 40 L Sodium 138.2 Potassium 2.3 L* Chloride 98 Carbon Dioxide 31 H Anion Gap 9 BUN 2 L Creatinine 0.31 L Est GFR ( Amer) > 60 Est GFR (Non-Af Amer) > 60 Glucose 120 H Calcium 7.8 L Magnesium 1.8 Total Bilirubin 16.7 H AST 191 H ALT 108 H Alkaline Phosphatase 802 H Ammonia 47.0 H Total Protein 5.6 L Albumin 2.5 L Impressions: Abdomen Ultrasound 07/13/16 15:19 IMPRESSION: Stable sonographic appearance of the right upper quadrant again demonstrating circumferential gallbladder wall thickening unchanged from comparison imaging. No mural hyperemia, pericholecystic fluid, or sonographic Montejo's sign to suggest acute cholecystitis. Stable sonographic appearance of the liver. No intrahepatic or extrahepatic biliary dilatation. Chest X-Ray 07/14/16 00:00 IMPRESSION: Emphysema. Small left pleural effusion. Bibasilar ground-glass opacities, may represent pneumonia or atelectasis. Radiographic followup recommended. Assessment & Plan - Diagnosis (1) Acute respiratory failure Qualifiers: Respiratory failure complication: hypoxia Qualified Code(s): J96.01 - Acute respiratory failure with hypoxia Is this a current diagnosis for this admission?: YesPlan: Given fluids and then developed some evidence for volume overload. She has been getting Lasix along with BiPAP. (2) Direct hyperbilirubinemia Is this a current diagnosis for this admission?: YesPlan: Secondary to her underlying cirrhosis. Patient however has been getting worsening bilirubin. For an MRCP to evaluate. She was noted to have gallbladder sludge present on the ultrasound upon presentation. There was no biliary dilatation however. Gastroenterology is not available today and will consider transferring to a tertiary care facility. (3) Alcoholic cirrhosis Qualifiers: Ascites presence: without ascites Qualified Code(s): K70.30 - Alcoholic cirrhosis of liver without ascites Is this a current diagnosis for this admission?: Yes (4) COPD (chronic obstructive pulmonary disease) Qualifiers: COPD type: unspecified COPD Qualified Code(s): J44.9 - Chronic obstructive pulmonary disease, unspecified Is this a current diagnosis for this admission?: YesPlan: Stable. Patient is on a BiPAP. (5) Schizoaffective disorder Qualifiers: Schizoaffective disorder type: bipolar Qualified Code(s): F25.0 - Schizoaffective disorder, bipolar type Is this a current diagnosis for this admission?: Yes (6) Seizure disorder Is this a current diagnosis for this admission?: Yes (7) Urinary tract infection Qualifiers: Urinary tract infection type: site unspecified Hematuria presence: without hematuria Qualified Code(s): N39.0 - Urinary tract infection, site not specified Is this a current diagnosis for this admission?: YesPlan: Patient currently is on ertapenem. (8) Anemia Is this a current diagnosis for this admission?: Yes (9) Thrombocytopenia Is this a current diagnosis for this admission?: YesPlan: Most likely secondary to underlying liver disease. - Time Time Spent with patient: 25-34 minutes - Inpatient Certification Medical Necessity: Need Close Monitoring Due to Risk of Patient Decompensation - Plan Summary Plan Summary: We will try to transfer to a tertiary care center for further evaluation.
[2016-07-16 15:02] LABS: ARTERIAL BLOOD BASE EXCESS 11.6 mmol/L; ARTERIAL BLOOD O2 SATURATION 93.9 % (94-98)
--- NOTE | 2016-07-16 15:47 | PDOC TRANSFER SUMMARY ---
General Admission Date/PCP: 07/13/16 18:33 JASSON LIMON MD Accepting Facility: [facility] Resuscitation Status: Full Code - Transfer Diagnosis (1) Acute respiratory failure Is this a current diagnosis for this admission?: YesDiagnosis Summary: Likely secondary to volume overload. Patient initially received IV fluids and those have been stopped that she has been getting IV Lasix. Has been put on BiPAP. (2) Direct hyperbilirubinemia Is this a current diagnosis for this admission?: YesDiagnosis Summary: Patient was found to have gallbladder sludge on initial ultrasound however no biliary dilatation. MRCP has been ordered but not yet completed at the time of this dictation. GI consultation is not available at this time. Most likely secondary to her underlying alcoholic cirrhosis. (3) Alcoholic cirrhosis Is this a current diagnosis for this admission?: Yes (4) COPD (chronic obstructive pulmonary disease) Is this a current diagnosis for this admission?: Yes (5) Schizoaffective disorder Is this a current diagnosis for this admission?: Yes (6) Seizure disorder Is this a current diagnosis for this admission?: Yes (7) Urinary tract infection Is this a current diagnosis for this admission?: YesDiagnosis Summary: Proteus mirabilis growing from urine culture. (8) Anemia Is this a current diagnosis for this admission?: Yes (9) Thrombocytopenia Is this a current diagnosis for this admission?: Yes (10) Hypokalemia Is this a current diagnosis for this admission?: Yes - Transfer Medications Home Medications: Albuterol Sulfate [Proair HFA] 2 puff IH Q4HP PRN 07/15/16 Alendronate Sodium [Fosamax 70 mg Tablet] 70 mg PO RICKS 07/15/16 Cyproheptadine HCl [Periactin 4 mg Tablet] 4 mg PO BID 07/15/16 Fluoxetine HCl [Prozac Soln 20 mg/5 ml Udcup] 5 ml PO DAILY 07/15/16 Fluticasone/Salmeterol [Advair 500-50 Diskus 14 Dose/Diskus] 1 puff IH Q12 07/15 Lorazepam [Ativan 0.5 mg Tablet] 0.25 mg PO BIDP PRN 07/15/16 Omeprazole 40 mg PO DAILY 07/15/16 Prochlorperazine Maleate [Compazine 10 mg Tablet] 10 mg PO Q8HP PRN 07/15/16 Propranolol HCl [Inderal 20 mg Tablet] 20 mg PO Q12 07/15/16 Quetiapine Fumarate [Seroquel 100 mg Tablet] 100 mg PO HSP PRN 07/15/16 Risperidone [Risperdal] 2 ml SQ QAM 07/15/16 Solifenacin Succinate [Vesicare] 10 mg PO DAILY 07/15/16 Spironolactone [Aldactone 25 mg Tablet] 25 mg PO DAILY 07/15/16 Transfer Medications: Current Medications Albuterol (Ventolin 0.083% Neb 2.5 Mg/3 Ml Ampul) 2.5 mg NEB RTQ4HP PRN PRN Reason: SHORTNESS OF BREATH Stop: 08/13/16 04:53 Last Admin: 07/14/16 05:07 Dose: 2.5 mg Dextrose (Dextrose Inj 50% Syringe (25 Gm/50 Ml)) 12.5 gm IV PRN PRN; Protocol PRN Reason: FOR BG 50-69 IN ALERT PATIENT Stop: 08/12/16 18:31 Dextrose (Dextrose Inj 50% Syringe (25 Gm/50 Ml)) 25 gm IV PRN PRN; Protocol PRN Reason: See Label Comments Stop: 08/12/16 18:31 Furosemide (Lasix Inj/Pf 40 Mg/4 Ml Sdv) 40 mg IV DAILY [facility] Stop: 08/15/16 09:59 Last Admin: 07/16/16 10:20 Dose: 40 mg Glucagon (Glucagen Inj 1 Mg Vial) 1 mg SUBCUT PRN PRN; Protocol PRN Reason: Evaluate for BG < 70 Stop: 08/12/16 18:31 Glucose (Glutose 40% Gel 15 Gm Tube) 15 gm PO PRN PRN; Protocol PRN Reason: For BG 50-69 in Alert Patient Stop: 08/12/16 18:31 Glucose (Glutose 40% Gel 15 Gm Tube) 30 gm PO PRN PRN; Protocol PRN Reason: FOR BG < 50 IN ALERT PATIENT Stop: 08/12/16 18:31 Thiamine HCl 100 mg/Multivitamins/Minerals 10 ml/Folic Acid 1 mg/ Sodium Chloride 1,011.2 mls @ 125 mls/hr IV DAILY@1200 SUSANA Stop: 08/13/16 11:59 Last Admin: 07/16/16 12:47 Dose: 100 mg Potassium Chloride/Water (Potassium Chloride [place] 20 Meq/50 Ml) 20 meq in 50 mls @ 25 mls/hr IV Q2H [facility] Stop: 07/16/16 16:44 Last Admin: 07/16/16 12:47 Dose: 50 ml Potassium Chloride/Dextrose/Sod Cl (D5ns 1000 Ml/Kcl 20 Meq Premix Bag) 1,000 mls @ 75 mls/hr IV CONTINUOUS PRN PRN Reason: THIS MED IS NOT "PRN" Stop: 08/15/16 06:30 Cefazolin Sodium/Dextrose (Ancef Rtu 1 Gm/D5w 50 Ml Premix Bag) 1 gm in 50 mls @ 100 mls/hr IV Q12A [facility] Stop: 07/23/16 17:59 Lactulose (Cephulac Syrup 20 Gm/30 Ml Udcup) 20 gm PO Q4 [facility] Stop: 08/14/16 13:59 Last Admin: 07/16/16 14:44 Dose: Not Given Lansoprazole (Prevacid 30 Mg Odt Tablet) 30 mg PO BID@0600,1700 [facility] Stop: 08/13/16 05:59 Last Admin: 07/16/16 05:07 Dose: Not Given Lorazepam (Ativan 1 Mg Tablet) 1 mg PO Q6 [facility] Stop: 07/21/16 08:04 Last Admin: 07/16/16 12:35 Dose: Not Given Lorazepam (Ativan Inj 2 Mg/1 Ml Vial) 1 mg IV Q8HP PRN PRN Reason: agitation/withdrawal symptoms Stop: 07/22/16 17:45 Ondansetron HCl (Zofran Inj/Pf 4 Mg/2 Ml Sdv) 4 mg IV Q6HP PRN PRN Reason: FOR NAUSEA/VOMITING Stop: 08/12/16 18:31 Propranolol HCl (Inderal 20 Mg Tablet) 20 mg PO Q12 [facility] Stop: 08/12/16 21:59 Last Admin: 07/16/16 10:00 Dose: Not Given Fluticasone/Salmeterol (Advair 500-50 Diskus 14 Dose/Diskus) 1 inh IH Q12 [facility] Stop: 08/13/16 09:59 Last Admin: 07/16/16 10:19 Dose: Not Given - Allergies Allergies/Adverse Reactions: codeine [Codeine] Allergy (Severe, Verified 05/25/16 03:10) itching oxytetracycline [From Terramycin] Allergy (Severe, Verified 05/25/16 03:10) rash paliperidone [From Invega] Allergy (Intermediate, Verified 05/25/16 03:10) Hives fentanyl [Fentanyl] Allergy (Verified 05/25/16 03:10) Hospital Course Hospital Course: 56 year old female with a history of alcohol abuse with history of cirrhosis presented as an IVC taken out by her family because she was not eating and was only drinking beer. The patient was found to have an elevated bilirubin which she presented to the emergency room. It was 11. Ultrasound done at that time showed there to be biliary sludge but no biliary dilatation. Patient was admitted for further evaluation. The patient also was noted to have some groundglass appearance on the chest x-ray. Patient also did have some confusion when she presented. Patient was empirically started on antibiotics for the possibility of early pneumonia and also the possibility of spontaneous bacterial peritonitis. Patient however did not have any complaints of pain. Since that time the patient was given IV fluids and did develop some respiratory distress and was felt to be secondary to volume overload. Patient was then started on IV Lasix and her IV fluids were held. The patient was started on ertapenem initially. The patient was noted to have a urinary tract infection growing out Proteus mirabilis. The patient's bilirubin has continued to increase and it is up to 16 today. It is mostly conjugated bilirubin. Patient has not had any complaints of pain however in light of the continuing increase of bilirubin it was felt that this patient needed GI evaluation which is not available today at our facility. An MRCP has been ordered however it has not been yet completed at the time of this dictation. I discussed the case with Dr. Diallo at [facility] who asked me to obtain an ABG which was done which showed her to have a pH of 7.5 and a PCO2 of 40. Physical Exam Vital Signs: Temp Pulse Resp BP Pulse Ox 98.9 F 107 H 30 H 97/62 L 92 07/16/16 12:06 07/16/16 12:06 07/16/16 12:22 07/16/16 12:06 07/16/16 12:06 Intake & Output 07/15/16 07/16/16 07/17/16 06:59 06:59 06:59 Intake Total 1944 780 0 Output Total 3650 2000 1400 Balance -1706 -1220 -1400 Weight 53.9 kg 54.4 kg General appearance: PRESENT: mild distress Eye exam: PRESENT: conjunctiva pink, scleral icterus Mouth exam: PRESENT: moist, tongue midline Neck exam: ABSENT: JVD Respiratory exam: PRESENT: clear to auscultation seven. ABSENT: rales, rhonchi, wheezes Cardiovascular exam: PRESENT: RRR. ABSENT: diastolic murmur, rubs, systolic murmur GI/Abdominal exam: PRESENT: normal bowel sounds, organolmegaly - Liver edge is palpable, soft. ABSENT: distended, guarding, mass, rebound, tenderness Extremities exam: ABSENT: calf tenderness, clubbing, pedal edema Neurological exam: PRESENT: altered Skin exam: PRESENT: dry, intact, jaundice, warm. ABSENT: cyanosis, rash Results Laboratory Results: 07/16/16 05:33 07/16/16 05:33 07/16/16 07/16/16 07/16/16 05:33 05:33 05:33 WBC 5.3 RBC 3.10 L Hgb 10.7 L Hct 31.2 L MCV 101 H MCH 34.4 H MCHC 34.1 RDW 16.8 H Plt Count 40 L Carbonic Acid HCO3/H2CO3 Ratio ABG pH ABG pCO2 ABG pO2 ABG HCO3 ABG O2 Saturation ABG Base Excess FiO2 Sodium 138.2 Potassium 2.3 L* Chloride 98 Carbon Dioxide 31 H Anion Gap 9 BUN 2 L Creatinine 0.31 L Est GFR ( Amer) > 60 Est GFR (Non-Af Amer) > 60 Glucose 120 H Calcium 7.8 L Magnesium 1.8 Total Bilirubin 16.7 H AST 191 H ALT 108 H Alkaline Phosphatase 802 H Ammonia 47.0 H Total Protein 5.6 L Albumin 2.5 L 07/16/16 14:30 WBC RBC Hgb Hct MCV MCH MCHC RDW Plt Count Carbonic Acid 1.23 HCO3/H2CO3 Ratio 28:1 ABG pH 7.55 H ABG pCO2 40.7 ABG pO2 60.7 L ABG HCO3 35.0 H ABG O2 Saturation 93.9 L ABG Base Excess 11.6 FiO2 40 Sodium Potassium Chloride Carbon Dioxide Anion Gap BUN Creatinine Est GFR ( Amer) Est GFR (Non-Af Amer) Glucose Calcium Magnesium Total Bilirubin AST ALT Alkaline Phosphatase Ammonia Total Protein Albumin Impressions: Abdomen Ultrasound 07/13/16 15:19 IMPRESSION: Stable sonographic appearance of the right upper quadrant again demonstrating circumferential gallbladder wall thickening unchanged from comparison imaging. No mural hyperemia, pericholecystic fluid, or sonographic Montejo's sign to suggest acute cholecystitis. Stable sonographic appearance of the liver. No intrahepatic or extrahepatic biliary dilatation. Chest X-Ray 07/14/16 00:00 IMPRESSION: Emphysema. Small left pleural effusion. Bibasilar ground-glass opacities, may represent pneumonia or atelectasis. Radiographic followup recommended. Plan Discharge Plan: Is to be transferred to [facility]. Dr. Diallo is the accepting physician. Time Spent: Greater than 30 Minutes
[2016-07-16 17:58] VITALS: BP 91/66
[2016-07-16] MEDS ORDERED: CEFAZOLIN 1 GM/D5W RTU 1 GM/50 ML RTUPB IV SCH (18:00)
--- NOTE | 2016-07-16 18:03 | PDOC CONSULTATION ---
Consultation Consult Date: 07/16/16 History of Present Illness Admission Date/PCP: 07/13/16 18:33 JASSON LIMON MD History of Present Illness: This is a 56-year-old patient who was admitted on 07/13/2016 with nausea, vomiting , and jaundice. Consultation was requested for possible ERCP. Patient has a chronic history of alcohol abuse and continues to drink heavily. On admission her bilirubin was 12 with elevated transaminases and alkaline phosphatase. An ultrasound showed some gallbladder sludge but no dilated ducts. Another ultrasound performed in May on on 05/25/2016 did not show any gallstones and her dose was also normal. Her bilirubin has been going up since admission. It is 16 today. She had a colonoscopy in my office in March that was unremarkable Past Medical History Pulmonary Medical History: Reports: Bronchitis, Chronic Obstructive Pulmonary Disease (COPD) Neurological Medical History: Reports: Seizures - Alcohol withdrawal seizures Psychiatric Medical History: Reports: Bipolar Disorder, Depression, Schizoaffective Disorder Past Surgical History Past Surgical History: Reports: Appendectomy, Hysterectomy, Tonsillectomy, Other - Status post radical neck dissection for throat cancer Social History Smoking Status: Current Every Day Smoker Cigarettes Packs Per Day: 2 Number of Years Smokin Last Time Smoked: 07/13/16 Frequency of Alcohol Use: Heavy Hx Recreational Drug Use: No Drugs: None Hx Prescription Drug Abuse: No - Advance Directive Resuscitation Status: Full Code Family History Family History: Other - Unobtainable Parental Family History Reviewed: No Children Family History Reviewed: NA Sibling(s) Family History Reviewed.: NA Medication/Allergy Home Medications: Albuterol Sulfate [Proair HFA] 2 puff IH Q4HP PRN 07/15/16 Alendronate Sodium [Fosamax 70 mg Tablet] 70 mg PO RICKS 07/15/16 Cyproheptadine HCl [Periactin 4 mg Tablet] 4 mg PO BID 07/15/16 Fluoxetine HCl [Prozac Soln 20 mg/5 ml Udcup] 5 ml PO DAILY 07/15/16 Fluticasone/Salmeterol [Advair 500-50 Diskus 14 Dose/Diskus] 1 puff IH Q12 07/15 Lorazepam [Ativan 0.5 mg Tablet] 0.25 mg PO BIDP PRN 07/15/16 Omeprazole 40 mg PO DAILY 07/15/16 Prochlorperazine Maleate [Compazine 10 mg Tablet] 10 mg PO Q8HP PRN 07/15/16 Propranolol HCl [Inderal 20 mg Tablet] 20 mg PO Q12 07/15/16 Quetiapine Fumarate [Seroquel 100 mg Tablet] 100 mg PO HSP PRN 07/15/16 Risperidone [Risperdal] 2 ml SQ QAM 07/15/16 Solifenacin Succinate [Vesicare] 10 mg PO DAILY 07/15/16 Spironolactone [Aldactone 25 mg Tablet] 25 mg PO DAILY 07/15/16 Allergies/Adverse Reactions: codeine [Codeine] Allergy (Severe, Verified 05/25/16 03:10) itching oxytetracycline [From Terramycin] Allergy (Severe, Verified 05/25/16 03:10) rash paliperidone [From Invega] Allergy (Intermediate, Verified 05/25/16 03:10) Hives fentanyl [Fentanyl] Allergy (Verified 05/25/16 03:10) Review of Systems All systems: reviewed and no additional remarkable complaints except as stated Physical Exam Vital Signs: Temp Pulse Resp BP Pulse Ox 98.9 F 107 H 28 H 97/62 L 92 07/16/16 12:06 07/16/16 12:06 07/16/16 16:00 07/16/16 12:06 07/16/16 12:06 Intake & Output 07/15/16 07/16/16 07/17/16 06:59 06:59 06:59 Intake Total 1944 780 0 Output Total 3650 2000 1400 Balance -1706 -1220 -1400 Weight 53.9 kg 54.4 kg Exam: General: Patient is alert HEENT: There is no pallor but she is jaundiced. PERRLA. Oropharynx normal Respiratory: No chest deformity. No respiratory distress. Chest wall palpitation was unremarkable. Breath sounds were normal Cardiovascular: Heart sounds 1 and 2 normal with no murmurs. Abdominal: Not distended. Soft and nontender. Liver and spleen not palpable. No ascites demonstrated. Bowel sounds active. Rectal examination was deferred. Extremities: No edema Skin: No significant rash Psychological: Normal affect Results Laboratory Results: 07/16/16 05:33 07/16/16 05:33 07/16/16 07/16/16 07/16/16 05:33 05:33 05:33 WBC 5.3 RBC 3.10 L Hgb 10.7 L Hct 31.2 L MCV 101 H MCH 34.4 H MCHC 34.1 RDW 16.8 H Plt Count 40 L Carbonic Acid HCO3/H2CO3 Ratio ABG pH ABG pCO2 ABG pO2 ABG HCO3 ABG O2 Saturation ABG Base Excess FiO2 Sodium 138.2 Potassium 2.3 L* Chloride 98 Carbon Dioxide 31 H Anion Gap 9 BUN 2 L Creatinine 0.31 L Est GFR ( Amer) > 60 Est GFR (Non-Af Amer) > 60 Glucose 120 H Calcium 7.8 L Magnesium 1.8 Total Bilirubin 16.7 H AST 191 H ALT 108 H Alkaline Phosphatase 802 H Ammonia 47.0 H Total Protein 5.6 L Albumin 2.5 L 07/16/16 14:30 WBC RBC Hgb Hct MCV MCH MCHC RDW Plt Count Carbonic Acid 1.23 HCO3/H2CO3 Ratio 28:1 ABG pH 7.55 H ABG pCO2 40.7 ABG pO2 60.7 L ABG HCO3 35.0 H ABG O2 Saturation 93.9 L ABG Base Excess 11.6 FiO2 40 Sodium Potassium Chloride Carbon Dioxide Anion Gap BUN Creatinine Est GFR ( Amer) Est GFR (Non-Af Amer) Glucose Calcium Magnesium Total Bilirubin AST ALT Alkaline Phosphatase Ammonia Total Protein Albumin Impressions: Abdomen Ultrasound 07/13/16 15:19 IMPRESSION: Stable sonographic appearance of the right upper quadrant again demonstrating circumferential gallbladder wall thickening unchanged from comparison imaging. No mural hyperemia, pericholecystic fluid, or sonographic Montejo's sign to suggest acute cholecystitis. Stable sonographic appearance of the liver. No intrahepatic or extrahepatic biliary dilatation. Chest X-Ray 07/14/16 00:00 IMPRESSION: Emphysema. Small left pleural effusion. Bibasilar ground-glass opacities, may represent pneumonia or atelectasis. Radiographic followup recommended. Assessment & Plan - Diagnosis (1) Liver failure Qualifiers: Liver failure chronicity: acute Hepatic coma status: without hepatic coma Qualified Code(s): K72.00 - Acute and subacute hepatic failure without coma Is this a current diagnosis for this admission?: YesPlan: She has acute on chronic liver failure from her alcoholism. She has had elevated LFTs at least for the last few months. There is no indication for an ERCP at this time with no dilated ducts. An MRCP could be considered (2) Alcohol dependence Qualifiers: Substance use status: other alcohol-induced disorder Qualified Code(s) : F10.288 - Alcohol dependence with other alcohol-induced disorder (3) Alcoholic cirrhosis Qualifiers: Ascites presence: without ascites Qualified Code(s): K70.30 - Alcoholic cirrhosis of liver without ascites Is this a current diagnosis for this admission?: Yes (4) Direct hyperbilirubinemia Is this a current diagnosis for this admission?: Yes
== END 2016-07-16 18:47 | disposition short-term general hospital (02) | DRG 441 ==
LOC: ER 13:49 → EH 17:46 → UNDOADMIN 17:46 → EH 18:33 → 3S 19:00
PROVIDERS: ADMIT Family Medicine; ATTEND Family Medicine
PROC: 5A09457 Assistance with Respiratory Ventilation, 24-96 Consecutive Hours, Continuous Positive Airway Pressure (ICD-10-PCS; principal; 2016-07-14)
DX: E80.6 Other disorders of bilirubin metabolism (principal); J96.01 Acute respiratory failure with hypoxia; K72.00 Acute and subacute hepatic failure without coma; N39.0 Urinary tract infection, site not specified; F10.288 Alcohol dependence with other alcohol-induced disorder; E87.1 Hypo-osmolality and hyponatremia; B96.4 Proteus (mirabilis) (morganii) as the cause of diseases classified elsewhere; K70.30 Alcoholic cirrhosis of liver without ascites; J44.9 Chronic obstructive pulmonary disease, unspecified; E87.6 Hypokalemia; G40.909 Epilepsy, unspecified, not intractable, without status epilepticus; D64.9 Anemia, unspecified; F25.0 Schizoaffective disorder, bipolar type; F31.9 Bipolar disorder, unspecified; Z88.8 Allergy status to other drugs, medicaments and biological substances; Z90.710 Acquired absence of both cervix and uterus; F17.210 Nicotine dependence, cigarettes, uncomplicated
CPT/HCPCS: 36415; 36600; 71010; 76705; 80048; 80053; 80076; 80307; 81001; 82040; 82140; 82803; 82962; 83690; 83735; 84439; 84443; 84481; 85025; 85027; 85610; 85730; 87086; 87088; 87186; 93005; 93010; 94640; 94660; 96361; 96365; 99285; J1335; J1940; J2060; J2405; J3411; J3480; J3490; J7030